=== PATIENT | male | born 1945 ===

== ENCOUNTER 2024-11-03 13:53 | Emergency (ER) | payer OTHER, SELFPAY ==
[2024-11-03] VITALS (10 sets, daily range): BP systolic 111–129; BP diastolic 47–71; PULSE 94–121; RESP 14–20; TEMP 36.6–37.1; O2SAT 93–99; BMI 27.1
--- NOTE | 2024-11-03 14:09 | ED.RECABL ---
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 Patient is uncertain of his baseline H&H. Reports a history of chronic bleeding coccyx wounds, x20 years intermittently. Over the past year he had initial admission to a hospital in [place], was having issues with explosive diarrhea at which time he was found to have some sort of infectious diarrhea, but ultimately he was anemic at that time requiring blood transfusions. He states that over the past year he has required quite a few transfusion as well, he states that they have ?done testing? for blood in the stool bulking size he has bleeding from his sacral ulcers they felt that this was the source of bleeding. Has had alternative workup without obvious GI bleeding by his account. Reports that he had a colonoscopy at least greater than 1 year ago but denies any previous abnormal findings on this. By his account, he states that the years have not been particularly worse than usual. Patient denies any dizziness, has been is, chest pain, shortness of breath, nausea, vomiting, hematochezia, melena, hematuria. Related Data Allergies Allergy/AdvReac Type Severity Reaction Status Date / Time atorvastatin (From Lipitor) Allergy Anaphylaxis Verified 11/03/24 14:10 capsaicin Allergy Anaphylaxis Verified 11/03/24 14:10 duloxetine (From Cymbalta) Allergy Anaphylaxis Verified 11/03/24 14:10 gabapentin Allergy Anaphylaxis Verified 11/03/24 14:10 metformin Allergy Anaphylaxis Verified 11/03/24 14:10 Review of Systems Review of Systems: Yes all other systems are reviewed and are negative PMFSH Past Medical History Attestation statement: The following information was validated with the patient. Source: old records reviewed Social History Social History Advance Directives: No Advance Directives Information Provided: Yes Do you have a plan to hurt others: No Plan Physical Exam Vital Signs: Vital Signs: Last Vital Signs Temp 98.8 F 11/03/24 21:03 Pulse 121 H 11/03/24 21:03 Resp 18 11/03/24 21:03 BP 121/51 L 11/03/24 21:03 Pulse Ox 93 11/03/24 20:29 O2 Del Method Room Air 11/03/24 20:29 BMI result Body Mass Index 27.1 Appearance: Alert.?Oriented to person, place and time. No acute distress.?Normal affect. Eyes: Pupils equal, round and reactive to light.? ENT: Pharynx normal.?? Neck: Normal inspection.? Neck supple.?? CVS: Heart sounds normal. Normal heart rate and rhythm.? Pulses normal.?? Respiratory: No respiratory distress.? Lung sounds clear to auscultation bilaterally?? Abdomen: Soft and non-tender. Normoactive bowel sounds. Skin: Skin warm and dry.? Normal skin color.? Extremities: No lower extremity edema.? Neuro: Moves all extremities spontaneously. Sensation intact bilaterally. Ambulates with normal steady gait. Course Reevaluation(s) Reevaluation #1: Spoke with nurse from facility; [facility], by her account this was routine serum labs obtained, Reports that baseline hemoglobin appears to be around 8, records were provided reveal most recently an H&H on 10/13/2024 of 7.7/25.5 , yesterday 11/02 of 6.6/21.8 and today 6.6/21.4. Transfusion consent form was reviewed with the patient, discussed indication for transfusion, potential complications, and consent was obtained, form was signed and placed in chart. Patient feels strongly that this is secondary to his blood loss from his chronic wounds. I reviewed this with my attending Dr. Espinal who also met with the patient at bedside patient reports prior workup in [facility] for GI bleed however did not have a colonoscopy. He has had no recent hematochezia or melena. Plan of care at this time will be for him to receive 2 units PRBCs, he has a new patient appointment with [facility] doctor next week via telehealth, I did discuss with him the importance of mentioning his ongoing anemia, and he may benefit from referral to [facility] for potential colonoscopy Time: 15:30 Reevaluation #2: Patient will be signed out to [facility] pending completion of transfusion, if no acute changes in patient's status, which I do not expect, anticipate discharge back to long-term facility. Pilar Cross PA-C [id number] ---> Patient succesffuly transfused. Discharged back to SNF. 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 manner with concern for anemia and outpatient labs hemoglobin of 6.6 was reported. Unfortunately, he is not aware of his baseline H&H, however as per HPI, this has been an ongoing issue for at least over the past year. He reports having previous workup for GI bleed without any obviously identified. He was under the impression that he was coming to emergency department today simply for a blood transfusion and being transferred back. On examination he does have pressure ulcers present to his buttocks as pictured and PE portion of this note some degree of active bleeding, though not copious. Has a benign abdominal examination. He declines digital rectal examination to obtain specimen for occult stool testing. He arrives tachycardic though I suspect this is secondary to his anemia, he is afebrile without signs of systemic toxicity, no respiratory distress or hypoxia. Differential Diagnosis Differential Diagnoses: The differential diagnosis associated with the presentation includes (See narrative above and course narrative) Admission/Observation Consideration of admission/observation: Escalation of care including admission/observation considered Lab Data [facility] Lab Attestation statement: I reviewed the patient's lab results. CBC revealing a pancytopenia WBC 4.5, H and H 6.8/21.2, platelets 152. No significant electrolyte derangement. No evidence of KIM. LFTs overall unremarkable. 11/03/24 14:23 11/03/24 14:23 Labs: Lab Results 11/03/24 Range/Units 14:23 WBC 4.5 L (4.8-10.8) X10*3/uL RBC 2.14 L (4.60-5.80) X10*6/uL Hgb 6.8 L* (14.0-18.0) g/dl Hct 21.2 L (42.0-52.0) % MCV 99.1 H (80.0-98.0) fL MCH 31.8 (27.0-33.0) pg MCHC 32.1 (31.0-36.0) g/dl RDW 19.5 H (11.0-16.0) % Plt Count 152 L (160-400) X10*3/uL MPV 9.4 (9.4-12.4) fL Immature Gran % (Auto) 0.7 H (0.0-0.4) % Neut % (Auto) 71.7 (45-73) % Lymph % (Auto) 14.4 L (20-40) % [place] % (Auto) 10.3 (2-11) % Eos % (Auto) 2.5 (0-4) % Baso % (Auto) 0.4 (0-2) % Lymph # (Auto) 0.6 L (1.2-4.9) X10*3/uL [place] # (Auto) 0.5 (0.1-1.2) X10*3/uL Eos # (Auto) 0.1 (0.0-0.4) X10*3/uL Baso # (Auto) 0.0 (0.0-0.2) X10*3/uL Abs Immat Gran (auto) 0.03 (0.00-0.03) X10*3/uL Absolute Neuts (auto) 3.2 (2.0-8.3) x10*3/uL Absolute Nucleated RBC 0.000 (0.0-0.012) X10*3/uL Nucleated RBC % (auto) 0.0 (0.0-0.2) /100WBC Sodium 141 (135-145) mmol/L Potassium 3.8 (3.3-5.1) mmol/L Chloride 100 (96-108) mmol/L Carbon Dioxide 31 H (22-29) mmol/L Anion Gap 14 (12-20) BUN 33 H (9-16) mg/dL Creatinine 1.37 (0.5-1.4) mg/dL Estim Creat Clear Calc 50.8 Estimated GFR 50 Random Glucose 135 H (60-115) mg/dL Calcium 8.3 L (8.4-10.2) mg/dL Magnesium 1.7 (1.6-2.6) mg/dL Total Bilirubin 0.6 (0.0-1.0) mg/dL AST 45 H (5-37) U/L ALT 14 (0-40) U/L Alkaline Phosphatase 83 (39-117) U/L Total Protein 8.5 H (6.5-8.0) g/dL Albumin 2.5 L (3.5-5.0) g/dL Blood Type A Negative Antibody Screen NEGATIVE Crossmatch See Detail Independent Historian Clinical information obtained from an independent historian. History obtained from or confirmed by: EMS External Record Review External record reviewed: Outpatient record (See course narrative) Chronic Conditions Patient?s care impacted by: Other (See narrative above) Discharge Plan Discharge Clinical Impression: Acute on chronic anemia Patient Disposition: Xfer SNF Transfer Details: [facility] Instructions: Anemia (ED) Additional Instructions: Patient received 2 units PRBC in the emergency department today for acute on chronic anemia having required transfusions in the past, on arrival had H&H of 6.8/21.2. Have primary provider follow-up on serial blood count monitoring. Patient reports [facility], please be certain to mentioned in the ongoing issues of anemia and discuss potential referral for Gastroenterology and outpatient colonoscopy. Patient may return back to emergency department with any new or worsening symptoms or concerns Print Language: Surinamese
[2024-11-03 14:29] LABS: MANUAL DIFF FLAG NO
[2024-11-03 14:31] LABS: Basophils Percent Auto 0.4 % (0-2); Eosinophils Absolute Auto 0.1 X10*3/uL (0.0-0.4); Eosinophils Percent Auto 2.5 % (0-4); Hematocrit 21.2 % (42.0-52.0); Imm Gran Abs Auto 0.03 X10*3/uL (0.00-0.03); Imm Gran Pct Auto 0.7 % (0.0-0.4); Lymphocytes Absolute Auto 0.6 X10*3/uL (1.2-4.9); Lymphocytes Percent Auto 14.4 % (20-40); Mean Corpuscular HGB Conc 32.1 g/dl (31.0-36.0); Mean Corpuscular Hemoglobin 31.8 pg (27.0-33.0); Mean Corpuscular Volume 99.1 fL (80.0-98.0); Mean Platelet Volume 9.4 fL (9.4-12.4); Monocytes Absolute Auto 0.5 X10*3/uL (0.1-1.2); Monocytes Percent Auto 10.3 % (2-11); Neutrophils Absolute Auto 3.2 x10*3/uL (2.0-8.3); Neutrophils Percent Auto 71.7 % (45-73); Platelet Count 152 X10*3/uL (160-400); Red Blood Count 2.14 X10*6/uL (4.60-5.80); Red Cell Distribution Width 19.5 % (11.0-16.0); White Blood Count 4.5 X10*3/uL (4.8-10.8)
--- OUTSIDE RECORDS SUMMARY | 2024-11-03 14:33 | XMS_ITS ---
Author Organization [facility] Support Name Relationship Address Phone Hoang Seth Guarantor [address], [place] [phone] Hoang Seth Next of Kin [address], [place] [phone] Hoang Seth Agent [address], [place] [phone] Hoang Seth Personal Relationship [address] [place], [place] [phone] Hoang Seth Emergency Contact [address] [place], [place] [phone] Ruth Berger Emergency Contact [address] [place] [address] Ruth Berger Personal Relationship [address] [place] [address] Care Team Providers Care Country Sales Manager Name Role Phone Romy Tovar Unavailable Unavailabl e Sylvia, Jayla Unavailable Unavailable Hill, Nan A Unavailable Unavailable Deven, Rosemary Unavailable Unavailable Allergies and adverse reactions Code CodeSystem Substance Reaction Severity StartDate Concern Status 6809 RXNORM metFORMIN Unknown 10/11/2024 active 50982 RXNORM Lipitor Unknown 10/11/2024 active 85962 RXNORM Gabapentin Unknown 10/11/2024 active 135822 RXNORM Cymbalta Unknown 10/11/2024 active 2670 RXNORM Codeine Unknown 10/11/2024 active 1992 RXNORM Capsaicin Unknown 10/11/2024 active Care Team Name Role Address Phone Organization Dates Romy Tovar [address] [address], [place], [address], [place] (Office): : : [facility] 10/12/2024 - present Jayla Ward [address] [place], [address], [facility] (Office): : [facility] 10/12/2024 - present Nan Mckeno [address], [address], [facility] (Office): : : [facility] 10/12/2024 - present Rosemary Carvalho [address] [place], [address], [facility] (Office): : [facility] 10/12/2024 - present Imaging Narrative Note Date Imaging Narrative No te 10/16/2024 XRAY CHEST 1 VIEWFIN DINGS: The heart is normal in size and configuration. The mediastinum is unremarkable. There is a mild airspace opacity in the right lower lobe. No acute osseous abnormality is visualized.CONCLUSION: Mild right lower lobe infiltrate. The differential primarily includes subsegmental atelectasis or infection. Correlation with history and symptomatology is advised.ELECTRONICALLY SIGNED BY TALYA AZAR D.O. 10/16/2024 2:59:43 AM EDT.Reason for Study: R05.1 ACUTE COUGHPrincipal Result Casino Operations Supervisor: TALYA AZAR ([phone])Jig Fitter: FARZANA MEDRANO ([id number])Occ Therapist Jig Fitter: LINDEN Marcial Section Goals Description Status Target Date Iggy will acquire necessary skills to maintain usp recovery from mood altering substances Active 01/16/2025 Iggy will be free of all si gns and symptoms of hypo/hyperglycemia such as: sweating, trembling, thirst, fatigue, weakness, blurred vision x 90 days. Active 01/16/2025 Iggy will consume 75% of all meals q day x 90 d ays. Active 01/16/2025 Iggy will demonstrate accep tance of placement by verbalizing positive feelings about living situation and taking an active role in center life by next review Active 01/16/2025 Iggy will demonstrate impro david mood state as evidenced by taking an active role in the center life by the next review. Active 01/16/2025 Iggy will have no falls with injury x 90 days. Active 01/16/2025 Iggy will have the smallest most effective dose without side effects X 90 days. Active 01/16/2025 Iggy will maintain a stabil ized weight of +/-5% 215# during the next 90 days Active 01/16/2025 Iggy will not develop GI complications x 90 day s. Active 01/16/2025 Iggy will not exhibit non-verbal indicators of pain x 90 days. Active 01/16/2025 Iggy will not exhibit signs /symptoms of b leeding x 90 days. Active 01/16/2025 Iggy will plan and choose to engage in preferre d activities. Active 01/16/2025 Iggy's ADL care needs will be anticipated and met throughout the next review period. Active 01/16/2025 Iggy's wishes as expressed in Advance Directive will be followed Active 01/16/2025 Iggy's wound /skin impairme nt will heal as evidenced by decrease in size, absence of erythema and drainage and/or presence of granulation X 90 days Active 01/16/2025 Resident will have regular voiding episodes Acti ve 01/16/2025 The resident will not have a ny discomfort or chewing problems related to broken, loose or carious teeth in the next 90 days. Active 01/16/2025 Functional Status Code Name Recorded Time Value Entered By Chair/rgq-ed-ngmxl transfer 11/02/2024 Not assessed ENIEVESGARCIA1 Eating 11/02/2024 Not assessed ENIEVESGARCIA1 Feeding or Eating 11/02/2024 Not assessed ENIEVESGAR CIA1 Indicate the type of wheelchair or scooter used 11/02/2024 Independent ENIEVESGARCIA 1 Indicate the type of wheelchair or scooter used 11/02/2024 Manual wheelchair (physical object) ENIEVESGARCIA1 Lower body dressing 11/02/2024 Not assessed ENIEVESG ARCIA1 Lying to sitting on side of bed 11/02/2024 Not assessed ENIEVESGARCIA1 Oral hygiene 11/02/2024 Not assessed ENIEVESGARCIA1 Personal hygiene 11/02/2024 Not assessed ENIEVESGARC IA1 Putting on/taking off footwear 11/02/2024 Not assessed ENIEVESGARCIA1 Roll left and right 11/02/2024 Not assessed ENIEVESG ARCIA1 Shower/bathe self 11/02/2024 Not assessed ENIEVESGAR CIA1 Sit to lying 11/02/2024 Not assessed ENIEVESGARCIA1 Sit to stand 11/02/2024 Not assessed ENIEVESGARCIA1 Toilet transfer 11/02/2024 Not assessed ENIEVESGARCI A1 Toileting hygiene 11/02/2024 Not assessed ENIEVESGAR CIA1 Upper body dressing 11/02/2024 Not assessed ENIEVESG ARCIA1 Walk 10 feet 11/02/2024 Not assessed ENIEVESGARCIA1 Walk 150 feet 11/02/2024 Independent ENIEVESGARCIA1 Walk 50 feet 11/02/2024 Independent ENIEVESGARCIA1 Wheel 150 feet 11/02/2024 Independent ENIEVESGARCIA 1 Wheel 50 feet with two turns 11/02/2024 Not assessed ENIEVESGARCIA1 Immunizations Immunization Status Vaccine Details Vaccine Code CodeSystem Hermilo e Notes TB 1 Step Mantoux (PPD) new tuberculin skin test; purified protein derivative solution, intradermal 96 CVX created date: 10/14/2024 TB 1 Step Mantoux (PPD) completed tuberculin skin test; purified protein derivative solution, intradermal lotNumber: [id number] Given 0.1 unit Right Forearm intradermally 96 CVX created date: 10/13/2024 consent date: 10/12/2024 administere d date: 10/12/2024 TB 2 Step Mantoux Skin Test new tuberculin skin test; purified protein derivative solution, intradermal 96 CVX created date: 10/14/2024 Medications Section Medication Name Status Code CodeSystem Dose Route Frequency Admin Type Sig Text Start Date End Date Acetaminophen Tablet 325 MG active 924629 RXNORM 2 tablet Oral as needed PRN Give 2 tablet by mouth every 4 hours as needed for Mild Pain More than 3 doses in 48 hours, notify physic david/ad isak palmer ce provid er(JACOBO ).Do not exceed 3g/day . (stand ing order) 2024 - Acetaminophen Tablet 325 MG active 634020 RXNORM 2 tablet Oral as needed PRN Give 2 tablet by mouth every 6 hours as needed for Temp 100F or above Notify Physic david/Ad isak Palmer ce provid er. Do not exceed 3g/day 2024 - Tuberculin PPD Solution 5 UNIT/0.1ML complete d 322453 RXNORM 0.1 ml Intrade rmal one time only One Time Only Inject 0.1 ml intrad ermall y one time only for Screen ing for 1 Day as Step 1, if positi ve obtain chest x-ray AND Inject 0.1 ml intrad ermall y one time only for Screen ing for 1 Day Step 2 admini ster 1 week after the readin g of step 1, if positi ve obtain chest x-ray 10/13 157646 RXNORM 0.1 ml Intrade rmal one time only One Time Only Inject 0.1 ml intrad ermall y one time only for Screen ing for 1 Day as Step 1, if positi ve obtain chest x-ray AND Inject 0.1 ml intrad ermall y one time only for Screen ing for 1 Day Step 2 admini ster 1 week after the readin g of step 1, if positi ve obtain chest x-ray 10/27 Milk of Magnesia Suspension 400 MG/5ML active 833775 RXNORM 30 ml Oral as needed PRN Give 30 ml by mouth as needed for Consti pation give at bedtim e if no BM in 3 days 2024 - Saline Laxative Enema active 1 dose Rectal as needed PRN Insert 1 dose rectal ly as needed for Consti pation if no result from Dulcol ax within 2 hours. If no result s from Saline laxati ve enema, call MD/adalberto campo provid er (JACOBO) for furthe r orders . 2024 - Dulcolax Suppository 10 MG active 306270 RXNORM 1 suppos itory Rectal as needed PRN Insert 1 suppos itory rectal ly as needed for Consti pation if no result from MOM by next shift 2024 - Cholecalcifer ol Tablet 1000 UNIT active 152818 RXNORM 1 tablet Oral one time a day Routine Give 1 tablet by mouth one time a day for supple ment 2024 - Eliquis Oral Tablet 5 MG active 650629 7 RXNORM 1 tablet Oral two times a day Routine Give 1 tablet by mouth two times a day for Afib 2024 - Enalapril Maleate Oral Tablet 2.5 MG active 387198 RXNORM 1 tablet Oral one time a day Routine Give 1 tablet by mouth one time a day for HTN 2024 - Finasteride Oral Tablet 5 MG active 994539 RXNORM 1 tablet Oral one time a day Routine Give 1 tablet by mouth one time a day for BPH 2024 - Tamsulosin HCl Oral Capsule 0.4 MG active 676640 RXNORM 2 capsul e Oral one time a day Routine Give 2 capsul e by mouth one time a day for BPH 2024 - Loratadine Oral Tablet 10 MG active 209941 RXNORM 1 tablet Oral one time a day Routine Give 1 tablet by mouth one time a day for Allerg ies 2024 - Ferrous Sulfate Oral Tablet 325 (65 Fe) MG active 393434 RXNORM 1 tablet Oral one time a day Routine Give 1 tablet by mouth one time a day for anemia 2024 - Multiple Vitamin Tablet active 1 tablet Oral one time a day Routine Give 1 tablet by mouth one time a day for supple mentat ion 2024 - Rosuvastatin Calcium Oral Tablet 5 MG active 481093 RXNORM 1 tablet Oral one time a day Routine Give 1 tablet by mouth one time a day for HLD 2024 - Lasix Oral Tablet 40 MG active 435035 RXNORM 1 tablet Oral one time a day Routine Give 1 tablet by mouth one time a day for HTN 2024 - Polyvinyl Alcohol-Povid one PF Ophthalmic Solution 1.4-0.6 % active 821531 RXNORM 2 drop Ophthal monica as needed PRN Instil l 2 drop in both eyes every 2 hours as needed for dry eyes 2024 - Lyrica Oral Capsule 200 MG active 411741 RXNORM 1 capsul e Oral two times a day Routine Give 1 capsul e by mouth two times a day for neurop athy 2024 - Ascorbic Acid Oral Tablet 250 MG active 19891217 RXNORM 1 tablet Oral one time a day Routine Give 1 tablet by mouth one time a day for supple ment 2024 - Insulin Glargine Solostar Subcutaneous Solution Pen-injector 300 UNIT/ML active 27 unit Subcuta neous one time a day Routine Inject 27 unit subcut aneous ly one time a day for DM II 2024 - Ozempic (0.25 or 0.5 MG/DOSE) Subcutaneous Solution Pen-injector 2 MG/3ML active 443919 4 RXNORM 0.5 mg Subcuta neous one time a day Routine Inject 0.5 mg subcut aneous ly one time a day every Mon for DM II 2024 - Kareen-Tussin Oral Syrup 100 MG/5ML active 10 ml Oral as needed PRN Give 10 ml by mouth every 8 hours as needed for cough 2024 - Ativan Oral Tablet 0.5 MG aborted 20670617 RXNORM 1 tablet Oral as needed PRN Give 1 tablet by mouth every 12 hours as needed for Anxiet y may have 2x a day prn 10/19 Pataday Ophthalmic Solution complete d 1 drop Ophthal monica two times a day Routine Instil l 1 drop in both eyes two times a day for Eye Rednes s for 10 Days 10/23 Nystatin Powder 939623 UNIT/GM aborted 828209 RXNORM n/a n/a Topical every day and evening shift Routine Apply to abd fold/g roin topica lly every day and evenin g shift for to abd fold and groin for 7 Days x 7 days with interd ry or abd pads 10/18 Phytoplex Z-Guard Paste 57-17 % aborted 371610 4 RXNORM n/a n/a Topical every day and evening shift Routine Apply to buttoc k topica lly every day and evenin g shift for apply to MASD of the buttoc k for 14 Days Apply as direct ed. 10/18 Phytoplex Z-Guard Paste 57-17 % aborted 673504 4 RXNORM n/a n/a Topical every day and evening shift Routine Apply to buttoc k topica lly every day and evenin g shift for apply to MASD of the buttoc k for 14 Days Apply as direct ed. 10/23 Nystatin Powder 833070 UNIT/GM aborted 181845 RXNORM n/a n/a Topical every day and evening shift Routine Apply to abd fold/g roin topica lly every day and evenin g shift for to abd fold and groin for 14 Days 10/31 Ativan Oral Tablet 0.5 MG complete d 20670617 RXNORM 1 tablet Oral as needed PRN Give 1 tablet by mouth every 12 hours as needed for Anxiet y for 14 Days may have 2x a day prn 11/02 Triad Hydrophilic Wound Dress External Paste active n/a n/a Topical every shift Routine Apply to bilat buttoc ks topica lly every shift for open wounds AND Apply to bilat buttoc ks topica lly as needed for soilin g 2024 - n/a n/a Topical as needed PRN Apply to bilat buttoc ks topica lly every shift for open wounds AND Apply to bilat buttoc ks topica lly as needed for soilin g 2024 - Nystatin External Cream 373885 UNIT/GM active 306968 RXNORM n/a n/a Topical every 12 hours Routine Apply to groin, pubis, abdomi nal f topica lly every 12 hours for fungal infect ion apply to groin, pubis, above abdomi nal fold for fungal infect ion not improv ing with Nystat in powder 2024 - Nystatin Powder 931132 UNIT/GM active 649526 RXNORM n/a n/a Topical two times a day Routine Apply to abd fold topica lly two times a day for to abd folds for 4 Days BID 11/07 Mental Status Section Date Assessment Total Score Description 10/16/2024 BIMS 15 cognitively int act CAM 0 No delirium ind icated PHQ-9 00 10/16/2024 BIMS 15 cognitively int act CAM 0 No delirium ind icated PHQ-9 00 Problems Problem # Description Date of onset Resolved Date Code CodeSystem Concern Status 1 MUSCLE WEAKNESS (GENERALIZED) 10/16/[address] active 2 SHORTNESS OF BREATH 10/16/[address] active 3 ABNORMAL POSTURE 10/13/[address] a ctive 4 UNSTEADINESS ON FEET 10/13/[address] active 5 ANEMIA, UNSPECIFIED 10/12/[address] active 6 BENIGN PROSTATIC HYPERPLASIA WITHOUT LOWER URINARY TRACT SYMPTOMS 10/12/[address] active 7 CHRONIC ATRIAL FIBRILLATION, UNSPECIFIED 10/12/[address] active 8 DRY EYE SYNDROME OF BILATERAL LACRIMAL GLANDS 10/12/[address] active 9 ESSENTIAL (PRIMARY) HYPERTENSION 10/12/[address] active 10 HYPERLIPIDEMIA, UNSPECIFIED 10/12/[address] active 11 POLYNEUROPATHY, UNSPECIFIED 10/12/[address] active 12 TYPE 2 DIABETES MELLITUS WITHOUT COMPLICATIONS 10/12/[address] active 13 VENOUS INSUFFICIENCY (CHRONIC) (PERIPHERAL) 10/12/[address] active Reason for Referral No Reasons for Referral Entered Diagnostic Results Result Code Code System Date Test Result Interpretation Reference Range Status Notes 42887-6 LOINC 2024 XRAY CHEST 1 VIEW Completed Result for: IGGY LOUIS ( 1945, M) 35098-5 LOINC 2024 XRAY CHEST 1 VIEW Final XRAY CHEST 1 VIEWFINDINGS: The heart is normal in size and configuration. The mediastinum is unremarkable. There is a mild airspace opacity in the right lower lobe. No acute osseous abnormality is visualized.CONC LUSION: Mild right lower lobe infiltrate. The differential primarily includes subsegmental atelectasis or infection. Correlation with history and symptomatology is advised.ELECTRO NICALLY SIGNED BY TALYA AZAR D.O. 10/16/2024 2:59:43 AM EDT.Reason for Study: R05.1 ACUTE COUGHPrincipal Result Casino Operations Supervisor: TALYA AZAR ([id number])Marychuy hnician: FARZANA MEDRANO [facility])Transcri ption Jig Fitter: LINDEN Test Code Code System Name Date 10/15/2024 Social History Social History Observation Description Start Date End Date Code Code System Current Smoking Status Tobacco smoking consumption unknown 227496970 SNOMED CT Sex Assigned At Male 1945 [address]-9 [facility] Gender Identity Vital Signs Code Code System Vitals Name Values and Units Timing Information 9279-1 LOINC Respiratory Rate Value=18.0 Units=/m in 11/03/2024 8462-4 LOINC Blood Pressure-Diastolic Value=48 Un its=mmHg 11/03/2024 8480-6 LOINC Blood Pressure-Systolic Uehju=758 Un its=mmHg 11/03/2024 8310-5 LOINC Body Temperature Value=97.9 Units= F 11/03/2024 8867-4 LOINC Heart rate Value=95.0 Units=/min 92716-5 INC O2 % BldC Oximetry Value=96.0 Units= % 11/03/2024 39766-8 LOINC Pain Level Value=0.0 11/03/2024 60231-0 LOINC Weight Iebvy=589.0 Units=Lbs 2339-0 LOINC Blood Sugar Lmjla=931.0 Units=mg/dL 10/15/2024 8302-2 LOINC Height Value=74.0 Units=Inches 10/12/2024
[2024-11-03 14:34] LABS: Hemoglobin 6.8 g/dl (14.0-18.0)
[2024-11-03 14:51] LABS: Alanine Aminotransferase 14 U/L (0-40); Albumin Level 2.5 g/dL (3.5-5.0); Alkaline Phosphatase 83 U/L (39-117); Anion Gap 14 (12-20); Aspartate Amino Transferase 45 U/L (5-37); Bilirubin Total 0.6 mg/dL (0.0-1.0); Blood Urea Nitrogen 33 mg/dL (9-16); Calcium 8.3 mg/dL (8.4-10.2); Carbon Dioxide 31 mmol/L (22-29); Chloride 100 mmol/L (96-108); Creatinine Clr Calc Pharmacy 50.8; Estimated Glomerular Filt Rate 50; Glucose Random 135 mg/dL (60-115); Magnesium 1.7 mg/dL (1.6-2.6); Potassium 3.8 mmol/L (3.3-5.1); Sodium 141 mmol/L (135-145); Total Protein 8.5 g/dL (6.5-8.0)
--- NOTE | 2024-11-03 14:56 | MHC.EDTECH ---
pt refusing to change into hospital gown and refusing rectal temp (pt feels very warm). Labs obtained, RN made aware
--- NOTE | 2024-11-03 18:58 | PC.NURSE ---
no signs or symptoms of reaction noted.
--- NOTE | 2024-11-03 19:46 | PC.NURSE ---
this rn assumed care of pt, pt resting in stretcher, blood products remain infusing at this time, pt tolerated well, no transfusion reactions noted. vss
[2024-11-04 01:09] VITALS: BP 128/64; PULSE 93; RESP 16; TEMP 36.8
== END 2024-11-04 01:02 | disposition skilled nursing facility (03) ==
PROVIDERS: Emergency Medicine; Emergency Provider Emergency Medicine
DX: D64.9 Anemia, unspecified (principal); L98.419 Non-pressure chronic ulcer of buttock with unspecified severity; E11.9 Type 2 diabetes mellitus without complications; I10 Essential (primary) hypertension; E78.5 Hyperlipidemia, unspecified; I48.91 Unspecified atrial fibrillation; Z79.01 Long term (current) use of anticoagulants
CPT/HCPCS: 36415; 36430; 80053; 83735; 85025; 86850; 86900; 86901; 86923; 99284; 99285; P9016

== ENCOUNTER → 2024-12-29 15:00 | Outpatient (BNV) | payer OTHER, SELFPAY | PROVIDERS: Visit Provider Nurse Practitioner Family | DX: D50.9 Iron deficiency anemia, unspecified (principal) | CPT/HCPCS: 99204 ==

== ENCOUNTER 2025-01-31 16:15 | Inpatient (IN) | payer OTHER, SELFPAY ==
--- NOTE | ~2025-01-31 | XR_ITS ---
CLINICAL HISTORY: ?osteo Right foot two views Comparison: None provided Findings: No acute fracture or dislocation identified. Degenerative change and decreased bone density. No radiopaque foreign body noted. Impression: No acute bony abnormality This document has been electronically signed by: Mani Haddad MD on 01/31/2025 19:33:04
--- NOTE | ~2025-01-31 | US_ITS ---
EXAMINATION: US TRIPLEX LOWER EXTREMITY, BILATERAL CLINICAL INFORMATION: Edema and pain in both lower extremities. COMPARISON: None available. TECHNIQUE: Color-flow triplex imaging with spectral analysis and compression Doppler were performed on the bilateral lower extremities. FINDINGS: Respiratory variation, normal compression and augmented flow are demonstrated in the interrogated common femoral vein, superficial femoral vein, profunda femoral vein, popliteal vein and midcalf peroneal and posterior tibial venous segments, both lower extremities. There is no Niño's cyst. US/US venous duplex LE BI IMPRESSION: No acute deep venous thrombosis interrogated veins of both lower extremities. Negative for DVT. Electronically signed by: Naren Chen MD 02/01/2025 07:44 AM EDT
--- NOTE | ~2025-01-31 | XR_ITS ---
CLINICAL HISTORY: ?osteo --- Additional Notes or Special Instructions: Patient not wanting xrays at the moment, will [place] back after pain meds? [id number] Left foot two views Comparison: None provided Findings: No acute fracture or dislocation identified. Degenerative change in decreased bone density. No radiopaque foreign body noted. Impression: No acute bony abnormality This document has been electronically signed by: Mani Haddad MD on 01/31/2025 19:32:39
--- NOTE | ~2025-01-31 | XR_ITS ---
CLINICAL HISTORY: OM infection? Radiographs of the right foot, 2 views Comparison: 01/31/25 Findings: No cortical destruction or periostitis to indicate osteomyelitis. Sclerosis of the sesamoids, unchanged. No fracture or dislocation. Mild degenerative change. Vascular calcifications soft tissue swelling. Impression: No radiographic evidence of osteomyelitis. Follow up if symptoms persist or worsen. This document has been electronically signed by: Chitra Shelton MD on 02/03/2025 16:44:40
--- NOTE | ~2025-01-31 | CT_ITS ---
CLINICAL HISTORY: chronic ulcer CT pelvis without contrast Comparison: None provided Findings: Age-indeterminate mild L5 compression fracture. Degenerative change lumbar spine and hips. No other significant focal bony abnormality. Bilateral gluteal subcutaneous edema and stranding. No focal soft tissue fluid collection identified. Impression: Age-indeterminate mild L5 compression fracture This document has been electronically signed by: Mani Haddad MD on 01/31/2025 19:31:48
--- NOTE | ~2025-01-31 | US_ITS ---
EXAMINATION: Noninvasive assessment of the bilateral lower extremities without ARTERIAL DUPLEX, ANKLE BRACHIAL INDICES (ABIs), and PULSE VOLUME RECORDINGS (PVRs). CLINICAL INFORMATION: Nonhealing ulcers. Status post bilateral femoral endarterectomy. Hypertension. Hyperlipidemia. History of previous smoking.. TECHNIQUE: Duplex Doppler techniques with waveform analysis and measurement of velocities in the bilateral common femoral, profunda femoris, superficial femoral, popliteal and tibial arteries were performed. The study was performed only at rest. COMPARISON: None FINDINGS: Arrhythmia episodes. DIRECT DUPLEX DOPPLER FINDINGS: RIGHT LEG: Common femoral artery: 68 cm/s, phasicity: Monophasic. Spectral broadening. Profunda femoris artery: 41 cm/s, phasicity: Monophasic. Spectral broadening. Superficial femoral artery (proximal): 30 cm/s, phasicity: Monophasic. Spectral broadening. Superficial femoral artery (mid): 27 cm/s, phasicity: Monophasic. Spectral broadening. Superficial femoral artery (distal): 29 cm/s, phasicity: Monophasic. Spectral broadening. Popliteal artery: 156 cm/s, phasicity: Monophasic. Spectral broadening. Posterior tibial artery: 52 cm/s, phasicity: Monophasic. Spectral broadening. Peroneal artery: 18 cm/s, phasicity: Monophasic. Spectral broadening. Anterior tibial artery: 56 cm/s, phasicity: Monophasic. Spectral broadening. Dorsalis pedis artery: 24 cm/s, phasicity:Monophasic. Spectral broadening. LEFT LEG: Common femoral artery: 52 cm/s, phasicity: Monophasic. Spectral broadening. Profunda femoris artery: 38 cm/s, phasicity: Monophasic. Spectral broadening. Superficial femoral artery (proximal): 54 cm/s, phasicity: Monophasic. Spectral broadening. Superficial femoral artery (mid): 46 cm/s, phasicity: Monophasic. Spectral broadening. Superficial femoral artery (distal): 52 cm/s, phasicity: Monophasic. Spectral broadening. Popliteal artery: 39 cm/s, phasicity: Monophasic. Spectral broadening. Posterior tibial artery: 58 cm/s, phasicity: Monophasic. Spectral broadening. Peroneal artery: Not visualized. Anterior tibial artery: 38 cm/s, phasicity: Monophasic. Spectral broadening. Dorsalis pedis artery: 29 cm/s, phasicity: Monophasic. Spectral broadening. US/US arterial duplex LE BI IMPRESSION: Right: Severe inflow disease throughout the interrogated arteries. Left: Severe inflow disease throughout the interrogated arteries. Electronically signed by: Naren Chen MD 02/01/2025 11:23 AM EDT
--- NOTE | ~2025-01-31 | US_ITS ---
EXAMINATION: US KIDNEY BILATERAL HISTORY: KIM TECHNIQUE: Real-time grayscale ultrasound imaging of the kidneys was performed and images were reviewed. COMPARISON: There are no prior studies available for comparison. FINDINGS: Right kidney: The right kidney measures 13.1 x 5.3 x 5.5 cm. There is a lobulated renal contour. Renal parenchymal echotexture and thickness are normal. There are no masses. There is no hydronephrosis or renal calculi. Left Kidney: The left kidney measures 10.8 x 5.5 x 4.4 cm. There is a lobulated renal contour. Renal parenchymal echotexture and thickness are normal. There are no masses. There is no hydronephrosis or renal calculi. US/US renal BI IMPRESSION: Lobulated renal contours. Otherwise unremarkable renal ultrasound. Electronically signed by: Musa Hyde MD 02/02/2025 07:04 AM EDT
--- NOTE | 2025-01-31 16:23 | ECG_ITS ---
Test Reason : A-FIB Blood Pressure : */* mmHG Vent. Rate : 140 BPM Atrial Rate : * BPM P-R Int : * ms QRS Dur : 86 ms QT Int : 266 ms P-R-T Axes : * 24 33 degrees QTcB Int : 406 ms Atrial fibrillation with rapid ventricular response Low voltage QRS Abnormal ECG No previous ECGs available Referred By: Vincent Posada Electronically Signed By: LUIS FINCH
[2025-01-31 16:29] VITALS: BP 128/62; BP 97/66; PULSE 136; PULSE 146; RESP 22; TEMP 36.6; O2SAT 96; O2SAT 97; BMI 29.4
[2025-01-31 17:13] LABS: MANUAL DIFF FLAG NO
[2025-01-31 17:15] LABS: Hematocrit 23.8 % (42.0-52.0); Hemoglobin 7.8 g/dl (14.0-18.0); Imm Gran Abs Auto 0.08 X10*3/uL (0.00-0.03); Imm Gran Pct Auto 1.7 % (0.0-0.4); Lymphocytes Absolute Auto 0.6 X10*3/uL (1.2-4.9); Mean Corpuscular HGB Conc 32.8 g/dl (31.0-36.0); Mean Corpuscular Hemoglobin 33.3 pg (27.0-33.0); Mean Corpuscular Volume 101.7 fL (80.0-98.0); NRBC Abs Auto 0.020 X10*3/uL (0.0-0.012); NRBC Pct Auto 0.4 /100WBC (0.0-0.2); Platelet Count 111 X10*3/uL (160-400); Red Blood Count 2.34 X10*6/uL (4.60-5.80); White Blood Count 4.8 X10*3/uL (4.8-10.8)
[2025-01-31] MEDS: Lactated Ringers 1,000 ML 999 ML IV (17:16)
[2025-01-31 17:33] LABS: Alanine Aminotransferase 10 U/L (0-40); Albumin Level 2.4 g/dL (3.5-5.0); Alkaline Phosphatase 82 U/L (39-117); Anion Gap 13 (12-20); Aspartate Amino Transferase 41 U/L (5-37); Blood Urea Nitrogen 59 mg/dL (9-16); Calcium 8.0 mg/dL (8.4-10.2); Carbon Dioxide 25 mmol/L (22-29); Chloride 107 mmol/L (96-108); Creatinine Clr Calc Pharmacy 38.9; Estimated Glomerular Filt Rate 35; Potassium 4.9 mmol/L (3.3-5.1); Sodium 140 mmol/L (135-145); Total Protein 8.3 g/dL (6.5-8.0)
--- NOTE | 2025-01-31 17:48 | PC.NURSE ---
pt comes into ED from SNF with chronic bleeding wounds to buttocks. photos in chart. buttocks, scrotum, under abd folds is red, excoriated and very painful. inter dry sheets in abd folds. 1 Liter of NS by EMS on route 18g IV. another liter LR given in ED. pt is in significant pain and transfer is difficult, pt also resistant to taking any pain medication. eventually pt requesting morphine for pain. chronic wounds on feet as well - per pt he has been dealing with these wounds for 30 years
[2025-01-31 17:51] VITALS: BP 118/62; PULSE 150; RESP 22; O2SAT 97
--- NOTE | 2025-01-31 17:51 | PC.NURSE ---
rapid afib on tele rate 120-150, frank GROSSMAN aware at bedisde
--- NOTE | 2025-01-31 18:08 | ED.GENADULT ---
HPI - General Adult General Chief complaint: Wound/Laceration Stated complaint: coccyx wound with steady bleeding by sitting Time Seen by Provider: 01/31/25 16:17 Source: patient, family, RN notes reviewed and old records reviewed Mode of arrival: EMS Limitations: no limitations History of Present Illness ED Provider: Swetha HPI narrative: 79-year-old male past medical history significant for type 2 diabetes, atrial fibrillation on Eliquis, hypertension, hyperlipidemia, BPH, polyneuropathy, in his insufficiency, chronic sacral wounds for approximately 30 years presents for evaluation of bleeding from his sacrum. Patient reports that he required a blood transfusion yesterday of 2 units On review of his labs, his hemoglobin was 6.2 yesterday. He states that today he started to have a lot of bleeding from his wounds on his buttocks He denies any injury today pain Denies any fevers, chills, weakness. He denies any increase in his chronic pain to the area The patient is presenting from [facility] He is primarily wheelchair-bound He is also being treated by wound care for wounds to both of his feet He has no pain to the area Related Data Home Medications ?Medication ?Instructions ?Recorded ?Confirmed acetaminophen 325 mg capsule 325 mg PO QID PRN yes 12/29/24 01/29/25 apixaban 5 mg tablet (Eliquis) 5 mg PO BID 12/29/24 01/29/25 artificial tears solution eye drops See Rx Instructions .Route .COMPLEX 12/29/24 01/29/25 ascorbic acid (vitamin C) 250 mg 250 mg PO DAILY 12/29/24 01/29/25 tablet bisacodyl 10 mg rectal suppository 10 mg OR NEEDED 12/29/24 01/29/25 (Dulcolax (bisacodyl)) cholecalciferol (vitamin D3) 25 25 mcg PO DAILY 12/29/24 01/29/25 mcg (1,000 unit) tablet clotrimazole-betamethasone 1 1 appl topical BID 12/29/24 01/29/25 %-0.05 % topical cream enalapril maleate 2.5 mg tablet 2.5 mg PO DAILY 12/29/24 01/29/25 ferrous sulfate 325 mg (65 mg 325 mg PO BID 12/29/24 01/29/25 iron) tablet finasteride 5 mg tablet 5 mg PO DAILY 12/29/24 01/29/25 furosemide 40 mg tablet (Lasix) 40 mg PO DAILY 12/29/24 01/29/25 guaifenesin 100 mg/5 mL oral See Rx Instructions .Route .COMPLEX 12/29/24 01/29/25 liquid (Kareen-Tussin) insulin glargine U-300 conc 300 75 unit subcut DAILY 12/29/24 01/29/25 unit/mL (1.5 mL) subcutaneous pen loratadine 10 mg capsule 10 mg PO DAILY 12/29/24 01/29/25 multivitamin See Rx Instructions .Route .COMPLEX 12/29/24 01/29/25 nystatin 100,000 unit/gram topical 1 appl topical DAILY 12/29/24 01/29/25 cream pregabalin 200 mg capsule (Lyrica) 200 mg PO BID 12/29/24 01/29/25 rosuvastatin 5 mg tablet 5 mg PO DAILY 12/29/24 01/29/25 sodium phosphates oral solution 15 ml PO Q10M 12/29/24 01/29/25 tamsulosin 0.4 mg capsule 0.4 mg PO DAILY 12/29/24 01/29/25 Allergies Allergy/AdvReac Type Severity Reaction Status Date / Time atorvastatin (From Lipitor) Allergy Anaphylaxis Verified 01/31/25 16:32 capsaicin Allergy Anaphylaxis Verified 01/31/25 16:32 duloxetine (From Cymbalta) Allergy Anaphylaxis Verified 01/31/25 16:32 gabapentin Allergy Anaphylaxis Verified 01/31/25 16:32 metformin Allergy Anaphylaxis Verified 01/31/25 16:32 Review of Systems Constitutional: Constitutional: Denies body ache(s), Denies chills, Denies fatigue and Denies fever(s) Eyes: Eyes: Denies blurry vision ENT: Denies vertigo and Denies dizziness Cardiovascular: Cardiovascular: Denies chest pain and Denies dyspnea on exertion Respiratory: Respiratory: Denies cough and Denies dyspnea on exertion Gastrointestinal: Gastrointestinal: Denies abdominal pain, Denies nausea and Denies vomiting Musculoskeletal: Musculoskeletal: Denies arthralgias, Denies joint swelling and Denies limited range of motion Integumentary/Breasts: Skin/Breast: Reports non-healing lesions, Reports erythema, Reports skin pain, Reports skin swelling, Reports skin ulcer, Reports sores and Reports wounds Neurologic: Denies vertigo and Denies dizziness Psychiatric: Psychiatric: Denies anxiety Endocrine: Endocrine: Denies fatigue PMFSH Social History Social History Smoked in Last 30 Days: No Use of substances other than those prescribed or required for medical reasons: No Advance Directives: No Advance Directives Information Provided: No Physical Exam ED Vital Signs: Vital Signs - 24 hr 01/31/25 16:29 01/31/25 17:51 01/31/25 18:27 Temperature 97.8 F Pulse Rate 136 H 150 H 139 H Respiratory Rate 22 H 22 H 22 H Blood Pressure 97/66 118/62 124/61 Pulse Oximetry 96 97 98 Oxygen Delivery Method Room Air Room Air Room Air 01/31/25 18:39 01/31/25 19:44 Temperature 98.6 F Pulse Rate 145 H 130 H Respiratory Rate 18 Blood Pressure 107/62 106/59 L Pulse Oximetry 99 Oxygen Delivery Method Nasal Cannula BMI result Body Mass Index 29.4 Const General: healthy appearing, comfortable, no acute distress, alert and awake Nutritional Appearance: well nourished Orientation/consciousness: patient oriented x3 HENMT Head: Yes normocephalic and Yes atraumatic Eyes Eyelids: Yes eyelids normal Conjunctivae: conjunctivae normal Sclerae: sclerae normal Corneas: corneas normal Pupils: Equal, round and reactive pupils present EOM: EOMs intact bilaterally Neck Neck: Yes full ROM Resp Effort & Inspection: normal respiratory effort, able to speak in complete sentences, no audible wheezes and not labored Auscultation: clear to auscultation bilaterally GI Inspection: No distended Palpation (GI): Soft to palpation, not firm, nontender, no guarding and not rigid Back/Spine/Pelvis Other: There is a very large, chronic appearing decubitus ulcer to the sacrum. There are several open wounds that appear to go somewhat deeper. There was no active bleeding or foul-smelling drainage. There is erythema around the patient's pannus on the front of the abdomen. This extends to the upper thighs bilaterally. Again, no bleeding from any of these areas. The patient also has chronic appearing wounds to both feet overlying the dorsal surface of the 3rd and 4th toes. There is some foul-smelling drainage from these areas. Skin General skin exam: elasticity normal Neuro General: patient oriented x3 Cranial nerves: Yes Equal, round and reactive pupils present and Yes Bilaterally intact EOM present Cognition (Neuro): normal cognition Course Reevaluation(s) Reevaluation #1: The patient's heart rate has been steadily around 140 in AFib, he has jumped as high as 170. We will start him on a Cardizem drip due to the significant AFib with RVR, his blood pressure has been stable. The patient does not meet sepsis criteria as he has no leukocytosis, his lactic acid within normal limits. He is quite tachycardic which could be due to his level of discomfort in his chronic anemia. Time: 17:48 Medications Administered Generic Name Dose Route Start Last Admin Trade Name Freq PRN Reason Stop Dose Admin Diltiazem HCl 125 mg/ Sodium 125 mls @ 0 mls/hr 01/31/25 18:00 01/31/25 18:39 Chloride IVCONT 10 mg/hr .Q0M JO 10 mls/hr Protocol Administration Per Protocol Discontinued Medications Generic Name Dose Route Start Last Admin Trade Name Freq PRN Reason Stop Dose Admin Lactated Ringer's 1,000 mls @ 999 mls/hr 01/31/25 17:15 01/31/25 18:41 Lr IV 01/31/25 18:15 Infused .Q1H1M JO Infusion Piperacillin Sod/Tazobactam 50 mls @ 100 mls/hr 01/31/25 17:48 01/31/25 18:41 Sod 3.375 gm/ Sodium Chloride IV 01/31/25 18:17 Infused ONCE ONE Infusion Vancomycin HCl 2,000 mg in 500 mls @ 250 mls/hr 01/31/25 17:51 01/31/25 19:03 Vancomycin/Ns IV 01/31/25 19:50 250 mls/hr ONCE ONE Administration Morphine Sulfate 4 mg 01/31/25 17:48 01/31/25 17:56 Morphine Sulfate 4 Mg/Ml Cartridge IVPUSH 01/31/25 17:49 4 mg ONCE ONE Administration Protocol Morphine Sulfate 4 mg 01/31/25 18:21 01/31/25 18:26 Morphine Sulfate 4 Mg/Ml Cartridge IVPUSH 01/31/25 18:22 4 mg ONCE ONE Administration Protocol Ondansetron HCl 4 mg 01/31/25 17:48 01/31/25 17:56 Ondansetron Hcl 4 Mg/2 Ml Vial IVPUSH 01/31/25 17:49 4 mg ONCE ONE Administration Medical Decision Making Medical Decision Making [facility] Narrative: 79-year-old male past medical history as described above. He presents for bleeding from his chronic decubitus wounds. He denies any fevers, increase in his pain. Denies any trauma. On presentation to the ER the patient is quite tachycardic to about 130 beats per minute. This is AFib on the monitor as well as EKG. There was no active bleeding currently. The patient will have labs drawn, we will obtain a CT scan of the pelvis without contrast due to chronic kidney disease. We will obtain x-rays of both feet to evaluate for osteomyelitis of the toes. Differential Diagnosis Differential Diagnoses: The differential diagnosis associated with the presentation includes Decubitus ulcer Coagulopathy Venous stasis Cellulitis Osteomyelitis Atrial fibrillation Admission/Observation Consideration of admission/observation: Escalation of care including admission/observation considered Lab Data [facility] Lab Attestation statement: I reviewed the patient's lab results. There was no leukocytosis. The patient has a chronic, macrocytic anemia with a hemoglobin today of 7.8 and a hematocrit 23.8. He did have labs from 2 days ago showing hemoglobin of 6.2 and a hematocrit 19.8. It was a interval 2 unit blood transfusion. The patient's ESR is noted to be elevated over 140 and could represent an active cellulitis or osteomyelitis. Chemistries are significant for find and consistent with chronic kidney disease. The patient is a diabetic, random glucose of 124 without evidence of DKA. CRP is elevated to 1.48 01/31/25 17:09 01/31/25 17:09 Labs: Lab Results 01/31/25 01/31/25 Range/Units 17:09 17:32 WBC 4.8 (4.8-10.8) X10*3/uL RBC 2.34 L D (4.60-5.80) X10*6/uL Hgb 7.8 L D (14.0-18.0) g/dl Hct 23.8 L D (42.0-52.0) % MCV 101.7 H (80.0-98.0) fL MCH 33.3 H (27.0-33.0) pg MCHC 32.8 (31.0-36.0) g/dl RDW 18.2 H (11.0-16.0) % Plt Count 111 L (160-400) X10*3/uL MPV 9.5 (9.4-12.4) fL Immature Gran % (Auto) 1.7 H (0.0-0.4) % Neut % (Auto) 72.7 (45-73) % Lymph % (Auto) 11.7 L (20-40) % Rice % (Auto) 10.0 (2-11) % Eos % (Auto) 3.3 (0-4) % Baso % (Auto) 0.6 (0-2) % Lymph # (Auto) 0.6 L (1.2-4.9) X10*3/uL Rice # (Auto) 0.5 (0.1-1.2) X10*3/uL Eos # (Auto) 0.2 (0.0-0.4) X10*3/uL Baso # (Auto) 0.0 (0.0-0.2) X10*3/uL Abs Immat Gran (auto) 0.08 H (0.00-0.03) X10*3/uL Absolute Neuts (auto) 3.5 (2.0-8.3) x10*3/uL Absolute Nucleated RBC 0.020 H (0.0-0.012) X10*3/uL Nucleated RBC % (auto) 0.4 H (0.0-0.2) /100WBC ESR > 140 H (0-15) MM/HR Sodium 140 (135-145) mmol/L Potassium 4.9 (3.3-5.1) mmol/L Chloride 107 (96-108) mmol/L Carbon Dioxide 25 (22-29) mmol/L Anion Gap 13 (12-20) BUN 59 H (9-16) mg/dL Creatinine 1.87 H (0.5-1.4) mg/dL Estim Creat Clear Calc 38.9 Estimated GFR 35 Random Glucose 124 H (60-115) mg/dL Lactic Acid 2.0 (0.5-2.0) mmol/L Calcium 8.0 L (8.4-10.2) mg/dL Total Bilirubin 0.6 (0.0-1.0) mg/dL AST 41 H (5-37) U/L ALT 10 (0-40) U/L Alkaline Phosphatase 82 (39-117) U/L Total Creatine Kinase 44 (38-174) U/L C-Reactive Protein 1.48 H (< or = 0.50) mg/dL Total Protein 8.3 H (6.5-8.0) g/dL Albumin 2.4 L (3.5-5.0) g/dL Blood Type A Negative Antibody Screen NEGATIVE Independent Interpretation I performed an independent interpretation of an: EKG Interpretation: AFib with RVR, rate of 140 beats minute. Radiology Impression Discussion of test interpretation with radiology: I have reviewed the radiologist's reading. Radiologist Impression: Findings: Age-indeterminate mild L5 compression fracture. Degenerative change lumbar spine and hips. No other significant focal bony abnormality. Bilateral gluteal subcutaneous edema and stranding. No focal soft tissue fluid collection identified. Impression: Age-indeterminate mild L5 compression fracture This document has been electronically signed by: Mani Haddad MD on 01/31/2025 19:31:48 Discharge Plan Discharge Clinical Impression: Anemia, Atrial fibrillation with rapid ventricular response, Chronic ulcer of sacral region Patient Disposition: Admitted As Inpatient Print Language: Mongolian
[2025-01-31 18:27] VITALS: BP 124/61; PULSE 139; RESP 22; O2SAT 98
[2025-01-31 18:39] VITALS: BP 107/62; PULSE 145
[2025-01-31] MEDS: vancomycin/NS 2,000 MG/500 ML PLAST..BAG 250 MG IV (19:03)
--- NOTE | 2025-01-31 19:16 | PC.NURSE ---
O2 Sat drops to 85% RA when patient asleep, patient placed on NC at 2 LPM with improvement-O2 Sat 95-98% on 2 LPM NC, meter installer in place, HR 113-140, A-Fib with RVR. ED provider is aware, Cardizem drip infusing at 10 ml/hr, BP 105/53. Patient denies chest pain/heart palpitations, SOB at this time. Patient is able to make his needs known, call [facility]ins within patient's reach.
--- OUTSIDE RECORDS SUMMARY | 2025-01-31 19:27 | XMS_ITS | Clinical Summary ---
Author Organization [facility] Address [address] [place] [address] Care Team Providers Care Ice Skating Instructor Name Role Phone Unknown, Provider MD Primary Care Provider Unava ilable Source Comments If you require more information, please call our [facility] Department at [phone]. [facility] Allergies Active Allergy Reactions Criticality Noted Date Comments Capsaicin Other (See Comments) Low 09/21/2024 unsure Codeine Other (See Comments) Low 09/21/2024 unsure Duloxetine Hcl Other (See Comments) Low 09/21/2024 unsure Gabapentin Other (See Comments) Low 09/21/2024 unsure Atorvastatin Other (See Comments) Low 09/21/2024 unsure Metformin Other (See Comments) Low 09/21/2024 unsure Zinc Oxide Other (See Comments) Low 09/21/2024 unsure Medications apixaban (ELIQUIS) 5 mg tablet Take 1 tablet (5 mg total) by mouth every 12 hours. Active enalapril 2.5 MG tablet Take 1 tablet (2.5 mg total) by mouth 2 times daily. Active fluticasone (FLONASE) 50 MCG/ACT nasal spray Jayess 2 sprays into each nostril daily. Active ibuprofen 800 mg tablet Take 1 tablet (800 mg total) by mouth 3 times daily. Active pregabalin 300 mg capsule Take 1 capsule (300 mg total) by mouth daily. Active polyethylene glycol (MIRALAX) powder Take 17 g by mouth daily. Active finasteride (PROSCAR) 5 mg tablet Take 1 tablet (5 mg total) by mouth daily. For use by men only. Active furosemide 40 mg tablet Take 1 tablet (40 mg total) by mouth every morning. Active guaiFENesin-dex tromethorphan (ROBITUSSIN DM) 100-10 mg/5mL syrup Take 5 mLs by mouth 3 times daily as needed for Cough. Active insulin glargine (LANTUS,SEMGLEE ) 100 UNIT/ML injection vial Inject 27 units into the skin nightly. Maximum 27 Units/day. Discard vial 28 days after first use. Active lidocaine (LMX) 4 % cream Apply topically 2 times daily. to the following areas: Left ribs Active loratadine (CLARITIN) 10 mg tablet Take 1 tablet (10 mg total) by mouth daily. Active multi-vitamin (THERAGRAN) tablet Take 1 tablet by mouth daily. Active semaglutide, 0.25 or 0.5 mg/dose, (OZEMPIC) pen Inject into the skin once a week. Active ketotifen (ZADITOR) 0.035 % ophthalmic solution 1 drop 2 times daily. Active rosuvastatin 5 mg tablet Take 1 tablet (5 mg total) by mouth daily. Active collagenase (SANTYL) ointment Apply 1 Application topically daily. to the following areas: L and R toes Active tamsulosin (FLOMAX) 0.4 mg capsule Take 1 capsule (0.4 mg total) by mouth every evening. Active triamcinolone (KENALOG) 0.5 % cream Apply 1 Application topically 2 times daily as needed. to the following areas: for itching Active Acetaminophen 325 mg tablet Take 2 tablets (650 mg total) by mouth every 6 hours as needed for Pain. Active cholecalciferol 5,000 unit TABS tablet Take 1,000 units by mouth daily. Active clotrimazole-be tamethasone (LOTRISONE) cream Apply 1 Application topically daily. to the following areas: affected area Active ferrous fumarate 325 (106 Fe) MG tablet Take 1 tablet (325 mg total) by mouth daily. Ferrous fumarate 325 mg = Elemental iron 106 mg Active Social History Tobacco Use Types Packs/Day Years Used Date Smoking Tobacco: Never Assessed Intimate Partner Violence Answer Date R ecorded Is anyone physically, emotionally, or financiall y hurting you? No 09/21/2024 Sex and Gender Information Value Date Recorded Sex Assigned at Male 07/26/2024 10:29 AM EDT Legal Sex Male 9:08 AM EST Gender Identity Not on file Sexual Orientation Not on file Last Filed Vital Signs Vital Sign Reading Time Taken Comments Blood Pressure 132/76 09/21/2024 4:25 PM EDT Pulse 99 09/21/2024 4:25 PM EDT Temperature 36.5 C (97.7 F) 09/21/2024 4:25 PM EDT Respiratory Rate 24 09/21/2024 4:25 PM EDT Oxygen Saturation 96% 09/21/2024 4:48 PM EDT Inhaled Oxygen Concentration - - Weight 104.8 kg (231 lb) 09/21/2024 4:25 PM EDT Height 188 cm (6' 2 ) 09/21/2024 4:25 PM EDT Body Mass Index 29.66 09/21/2024 4:25 PM EDT Plan of Treatment Health Maintenance Due Date Last Done Comments HIV Screening [facility] 1958 Hepatitis C Screening [facility] 1963 I[facility] DTaP/Tdap/Td (1 - Tdap) 1966 IMM-Influenza (#1) 2025 02/18/2024, 1 , 05/12/2022 COVID-19 Vaccine ( season) 2025 08/24/2024, 02/18/2024, 03/15/2023, Additional history exists IMM-Zoster Completed 03/21/2018, 12/17/2017 IMM Pneumo: 50+ Years Completed 08/11/2024 , 08/02/2019, 10/10/2015 IMM-HIB 0-5 Yrs or At-Risk Patients Aged Out No longer eligible based on patient's age to complete this topic IMM-HPV 9-26 Yrs or Shared Decision (27-45 Yrs) Aged Out No longer eligible based on patient's age to complete this topic IMM-Hepatitis B Vaccine Aged Out No l onger eligible based on patient's age to complete this topic IMM-MCV4 0-18 Yrs or At-Risk Patients Aged Out No longer eligible based on patient's age to complete this topic IMM-MenB (2 Plans: Shared decision & Increased Risk Plans) Aged Out No longer eligible based on patient's age to complete this topic IMM-Rotavirus 0-8 Months Aged Out No longer eligible based on patient's age to complete this topic Insurance MEDICARE PART A AND B MEDICARE PART A AND B * Guarantor: TylerfeliciaRober raymundo Account Type Relation to Patient Date of Phone Billing Address Referral Self 1945 [address] [phone] [facility] Care Teams Ice Skating Instructor Relationship Specialty Start Date End Date Unknown, Provider, [address] [place] [address] PCP - General 07/13/24
[2025-01-31 19:44] VITALS: BP 106/59; PULSE 130; RESP 18; TEMP 37; O2SAT 99
--- NOTE | 2025-01-31 20:33 | PC.NURSE ---
HR 99-110, a-fib on clinical research monitor. Patient continues to denies chest pain/SOB. Cardizem drip infusing at 10 mg/hr w/o issues.
--- NOTE | 2025-01-31 21:07 | PM.IMHP ---
History of Present Illness Date of Service: 01/31/25 Attending physician on admission: Irineo Steel Chief Complaint: bleeding from wounds Pt is a 79 yo male with PMH IDDM, polyneuropathy, PVD/ CVI with bilateral femoral endarterectomy history, osteoporosis, ITP, HTN, OA, chronic decubitus ulcer, BPH, immobility, chronic anemia/ DUSTIN on ferrous sulfate, CKD stage IIIB, MGUS, chronic AFib on Eliquis, was sent into the emergency department from his long-term [facility] in [place] since 10/12/2024 for bleeding from the chronic sacral wound area noting patient is on Eliquis for anticoagulation for AFib. Patient noted to be experiencing 6 to 8/10 pain in the pelvic region with limited mobility secondary to generalized weakness. Patient's H&H currently 7.8 and 23.8 and platelet count 111K. Patient was just seen by Hematology on 01/29/2025. Patient's H&H on that visit was 6.2 and 19.8 and patient received 1 unit of PRBC's in the outpatient setting. Patient also arrived in AFib RVR and was started on a Cardizem infusion. Patient's rate on the Cardizem drip is now 108 and patient remains in AFib. Patient also had noted skin changes in bilateral feet although patient states these are chronic changes. Skin is Ilene red in color. Sensation diminished and patient is having extreme difficulty moving secondary to generalized pain especially involving the pelvic region and lower legs. Patient states he is seen by technology integration specialist once week at the rehab facility. Patient does not believe he is currently on antibiotics coming into the ED today. Workup in the ED included CT of the pelvis which noted bilateral gluteal subcutaneous edema and stranding. No evidence of focal soft tissue fluid collection identified. Also patient has a an agent indeterminate mild L5 compression fracture. Patient unable to elaborate regarding the L5 compression fracture. Noted degenerative changes of the lumbar spine and hips as well. Foot x-rays done of the left and right foot noted no acute fracture or dislocation. No evidence of osteomyelitis. Degenerative changes in decreased bone density identified. And no evidence of foreign body. Pulses barely palpable manually. Patient has no leukocytosis, denies fever, chills, chest pain, shortness of breath at rest, or nausea/vomiting. Patient's lactic acid 2.0. Iron and TIBC levels are low. Sed rate and CRP are both elevated. Random glucose level 124. TSH 3.15. Patient was started on vancomycin and Zosyn in the ED. patient has been receiving morphine for pain and this has been changed to Dilaudid for more effectiveness and noting patient's current renal function. Patient's son is currently patient's healthcare proxy. Reviewed advanced directives and patient verbalized that he is a full code. Patient's main goal this admission is to have his pain controlled. Patient does report that he has a good appetite overall. Review of Systems Review of Systems: Patient denies any chest pain, shortness of breath at rest, abdominal pain, nausea or vomiting, diarrhea or constipation. Patient reports 6/10 generalized pelvic pain and pain increases when patient attempts to move. Patient states his appetite has been good. Patient denies any current overall issues with severe depression or anxiety. Yes all other systems are reviewed and are negative [facility] Medical History (Updated 01/31/25 @ 21:55 by SLOAN Lowry) Fungal rash of torso Polyneuropathy DUSTIN (iron deficiency anemia) CKD (chronic kidney disease) stage 3, GFR 30-59 ml/min Chronic disease anemia BPH (benign prostatic hyperplasia) Peripheral vascular disease Chronic ulcer of sacral region Chronic pain Allergic rhinitis Hyperlipidemia Hypertension Afib Cognitive capacity: Alert and orientated x3 Functional capacity: wheelchair bound Surgical History (Updated 01/31/25 @ 21:55 by SLOAN Lowry) H/O endarterectomy Social History Patient Tobacco Use Status: Former Tobacco user Ebola Risk: Travel/Contact With Anyone From Affected Area/s: No Has Patient Experienced Ebola Symptoms: No Meds Allergies Allergy/AdvReac Type Severity Reaction Status Date / Time atorvastatin (From Lipitor) Allergy Anaphylaxis Verified 01/31/25 16:32 capsaicin Allergy Anaphylaxis Verified 01/31/25 16:32 duloxetine (From Cymbalta) Allergy Anaphylaxis Verified 01/31/25 16:32 gabapentin Allergy Anaphylaxis Verified 01/31/25 16:32 metformin Allergy Anaphylaxis Verified 01/31/25 16:32 Active Medications: Current Medications Acetaminophen (Acetaminophen 325 Mg Tablet) 650 mg PO Q6H PRN PRN Reason: Pain, Mild 1-3,fever,headache Albuterol/Ipratropium (Albuterol/Iprat 2.5/0.5mg 3 Ml Ampul.Neb) 3 ml INHALE Q4H PRN PRN Reason: Shortness of Breath/Wheezing Calcium Carbonate (Calcium Carbonate 750 Mg Tab.Chew) 750 mg PO Q4H PRN PRN Reason: Heartburn Dextrose (Dextrose 50 % 25 Gm/50 Ml Syringe) 25 gm IVPUSH Q15M PRN; Protocol PRN Reason: per Hypoglycemia Standing Ord. Glucose (Glucose Gel 15 Gm Gel..Gram.) 15 gm PO Q15M PRN; Protocol PRN Reason: per Hypoglycemia Standing Ord. Diltiazem HCl 125 mg/ Sodium (Chloride) 125 mls @ 0 mls/hr IVCONT .Q0M [facility]; Protocol Last Admin: 01/31/25 18:39 Dose: 10 mg/hr, 10 mls/hr Piperacillin Sod/Tazobactam (Sod 2.25 gm/ Sodium Chloride) 50 mls @ 100 mls/hr IV Q6H [facility] Insulin Human Lispro (Insulin Lispro 100 Unit/Ml 3 Ml Vial) 0 unit SUBCUT QIDACHS [facility]; Protocol Magnesium Hydroxide (Milk Of Magnesia 30 Ml Oral.Susp) 30 ml PO DAILY PRN PRN Reason: Constipation Melatonin (Melatonin 3 Mg Tablet) 6 mg PO BEDTIME PRN PRN Reason: Insomnia Ondansetron HCl (Ondansetron Hcl 4 Mg/2 Ml Vial) 4 mg IVPUSH Q8H PRN PRN Reason: Nausea and Vomiting Pantoprazole Sodium (Pantoprazole Sodium 40 Mg/10 Ml Vial) 40 mg IVPUSH DAILY@0630 [facility] Pharmacy Consult (Consult Rx Vancomycin Dosing) 1 each MISCELLANE DAILY PRN PRN Reason: Consult order Polyethylene Glycol (Polyethylene Glycol 3350 17 Gm Powd.Pack) 17 gm PO DAILY PRN PRN Reason: Constipation Senna (Sennosides 8.6 Mg Tablet) 17.2 mg PO BEDTIME [facility] Sodium Chloride (0.9 % Sodium Chloride Flush 3 Ml Syringe) [address] [facility] Home Medications ?Medication ?Instructions ?Recorded ?Confirmed ?Last Taken ?Type acetaminophen 325 mg capsule 650 mg PO Q6H PRN Pain 12/29/24 01/31/25 Unknown History apixaban 5 mg tablet (Eliquis) 5 mg PO BID 12/29/24 01/31/25 Unknown History ascorbic acid (vitamin C) 250 mg 250 mg PO DAILY 12/29/24 01/31/25 Unknown History tablet bisacodyl 10 mg rectal suppository 10 mg [place] DAILY PRN Constipation 12/29/24 01/31/25 Unknown History (Dulcolax (bisacodyl)) cholecalciferol (vitamin D3) 25 25 mcg PO DAILY 12/29/24 01/31/25 Unknown History mcg (1,000 unit) tablet enalapril maleate 2.5 mg tablet 2.5 mg PO DAILY 12/29/24 01/31/25 Unknown History ferrous sulfate 325 mg (65 mg 325 mg PO BID 12/29/24 01/31/25 Unknown History iron) tablet finasteride 5 mg tablet 5 mg PO DAILY 12/29/24 01/31/25 Unknown History guaifenesin 100 mg/5 mL oral 200 mg PO Q8H PRN Cough 12/29/24 01/31/25 Unknown History liquid (Kareen-Tussin) insulin glargine U-300 conc 300 27 unit subcut DAILY 12/29/24 01/31/25 Unknown History unit/mL (1.5 mL) subcutaneous pen loratadine 10 mg capsule 10 mg PO DAILY 12/29/24 01/31/25 Unknown History multivitamin See Rx Instructions .Route .COMPLEX 12/29/24 01/31/25 Unknown History pregabalin 200 mg capsule (Lyrica) 200 mg PO BID 12/29/24 01/31/25 Unknown History rosuvastatin 5 mg tablet 5 mg PO DAILY 12/29/24 01/31/25 Unknown History sodium phosphates oral solution 15 ml PO Q10M 12/29/24 01/31/25 Unknown History tamsulosin 0.4 mg capsule 0.8 mg PO DAILY 12/29/24 01/31/25 Unknown History emollient 1 appl topical DAILY 01/31/25 01/31/25 Unknown History lidocaine 4 % topical patch 1 patch topical DAILY 01/31/25 01/31/25 Unknown History magnesium hydroxide 400 mg/5 mL 30 ml PO BEDTIME PRN Constipation 01/31/25 01/31/25 Unknown History oral suspension (Milk of Magnesia) nystatin 100,000 unit/gram topical 1 appl topical QSHIFT 01/31/25 01/31/25 Unknown History cream nystatin 100,000 unit/gram topical 1 appl topical QSHIFT 01/31/25 01/31/25 Unknown History powder polyvinyl alcohol-povidone (PF) 1 drp ophthalmic-Right Q2H PRN Dry 01/31/25 01/31/25 Unknown History 1.4 %-0.6 % eye drops in a Eyes dropperette sodium hypochlorite 0.25 % 1 appl topical DAILY Wound Care 01/31/25 01/31/25 Unknown History solution (Dakin's Solution) wound dressings (Triad Wound 1 appl topical DAILY 01/31/25 01/31/25 Unknown History Dressing paste) Physical Exam Vital Signs and Narrative: Vital Signs: Last Vital Signs Temp 98.6 F 01/31/25 19:44 Pulse 130 H 01/31/25 19:44 Resp 18 01/31/25 19:44 BP 106/59 L 01/31/25 19:44 Pulse Ox 99 01/31/25 19:44 O2 Del Method Nasal Cannula 01/31/25 19:44 BMI result Body Mass Index 29.4 Alert and orientated X3, able to give good history. Grimacing with pain Neuro: CN II-X11 intact, visual acuity intact EYES: PERRLA, EOM intact, sclerae nonicteric ENT: hearing intact, no issues with swallowing, uvula midline, lips dry, nares patent no epistaxis Cardiac: S1 S2 RRR, no murmur, no JVD, moderate edema in bilateral Lower ext Pulmonary: lungs diminished bilaterally Abdominal: BS active in all 4 quadrants, no guarding, tenderness, rebounding MSK: strength 1-2/5 lower extremities, 3/5 upper extremities : no CVA tenderness no bladder distension Extremities: Moderate edema in lower extremities, PT and DP pulses palpable manually but diminshed, skin Ilene red in color, noted healed excoriation, 2nd and 3rd toes on bilateral feet have excoriation, heels intact Psych: mood stable, judgement and insight good Skin: Chronic sacral decubitus actively oozing with bloody drainage, multiple open sites noted, bilateral feet with a abrasions/excoriations, also involving 2nd and 3rd toe on bilateral feet mild foul odor noted Results Labs 01/31/25 17:09 01/31/25 17:09 Labs: Laboratory Results - last 24 hr 01/31/25 01/31/25 17:09 17:32 MCV 101.7 H MCH 33.3 H MCHC 32.8 RDW 18.2 H Plt Count 111 L MPV 9.5 Immature Gran % (Auto) 1.7 H Neut % (Auto) 72.7 Lymph % (Auto) 11.7 L [place] % (Auto) 10.0 Eos % (Auto) 3.3 Baso % (Auto) 0.6 Lymph # (Auto) 0.6 L [place] # (Auto) 0.5 Eos # (Auto) 0.2 Baso # (Auto) 0.0 Abs Immat Gran (auto) 0.08 H Absolute Neuts (auto) 3.5 Absolute Nucleated RBC 0.020 H Nucleated RBC % (auto) 0.4 H ESR > 140 H Anion Gap 13 Estim Creat Clear Calc 38.9 Estimated GFR 35 Random Glucose 124 H Lactic Acid 2.0 Calcium 8.0 L Total Bilirubin 0.6 AST 41 H ALT 10 Alkaline Phosphatase 82 Total Creatine Kinase 44 C-Reactive Protein 1.48 H Total Protein 8.3 H Albumin 2.4 L Blood Type A Negative Antibody Screen NEGATIVE ECG Attestation: I personally reviewed and interpreted this ECG as follows: (AFib RVR) Prior ECG tracings: available for review Imaging Radiologist's Impressions: Pelvis CT Findings: Age-indeterminate mild L5 compression fracture. Degenerative change lumbar spine and hips. No other significant focal bony abnormality. Bilateral gluteal subcutaneous edema and stranding. No focal soft tissue fluid collection identified. Impression: Age-indeterminate mild L5 compression fracture B FOOT XRAYS Findings: No acute fracture or dislocation identified. Degenerative change in decreased bone density. No radiopaque foreign body noted. Impression: No acute bony abnormality Assessment and Plan (1) Anemia: Qualifiers: Anemia type: unspecified type Qualified Code(s): D64.9 - Anemia, unspecified Status: Acute (2) Atrial fibrillation with rapid ventricular response: Status: Acute (3) Chronic ulcer of sacral region: Qualifiers: Non-pressure ulcer stage: unspecified non-pressure ulcer stage Qualified Code(s): L98.429 - Non-pressure chronic ulcer of back with unspecified severity Status: Acute (4) Wound of foot: Status: Acute Plan Pt is a 79 yo male with PMH IDDM, polyneuropathy, PVD/ CVI with bilateral femoral endarterectomy history, osteoporosis, ITP, HTN, OA, chronic decubitus ulcer, BPH, immobility, chronic anemia/ DUSTIN on ferrous sulfate, CKD stage IIIB, MGUS, chronic AFib on Eliquis, was sent into the emergency department from his long-term [facility] in [place] since 10/12/2024 for bleeding from the chronic sacral wound area noting patient is on Eliquis for anticoagulation for AFib. Patient noted to be experiencing 6 to 8/10 pain in the pelvic region with limited mobility secondary to generalized weakness. Patient did not require transfusion in the emergency department. Patient does not meet the criteria for sepsis on both in the ED and on admission as he has no leukocytosis or elevated lactic acid level. Patient's tachycardia is associated with AFib. Blood pressure lower when heart rate was higher. Acute anemia on blood thinner with CKD, Chronic Anemia, DUSTIN Monitor H&H closely, no indication for transfusion at this time Continue iron as iron levels remain low Patient just seen by Hematology on 01/29/2025 and received 1 unit of PRBCs in the outpatient setting Concern regarding continuation of anticoagulation noting ongoing issues with anemia and bleeding from the sacral wound - currently held, repeating H&H at midnight Consider Hematology consultation if needed Reticular count and erythropoietin levels pending AFIB RVR, hx of AFIB Rate is better controlled on Cardizem infusion, BPM Patient asymptomatic no chest pain or shortness of breath or evidence of hypoxia Echo ordered Cardiology consulted Question in place is continuation of anticoagulation noting chronic issues with anemia along with acute findings involving bleeding from the sacral wounds and recent need for transfusion KIM on CKD with noted MGUS Nephrology consulted Avoid hypotension UA and urine studies pending Avoid nephrotoxic medications including NSAIDs Strict I's and O's Anemia persisting, ? need for Epogen and or IV Iron - erythropoietin level pending Chronic sacral decubitus with Chronic pain Morphine changed to Dilaudid to optimize pain control along with noted KIM/CKD Wound care consulted Patient is started on Vancomycin and Zosyn, Zosyn currently renal dosed based on creatinine clearance of 38 No evidence of osteomyelitis in the sacral wound via CT scan General surgery consulted Infectious disease consulted Nutritional consultation placed to optimize nutrition to promote wound healing B foot wounds with hx of PVD/ Neuropathy Noted peripheral vascular disease with history of femoral endarterectomy Vascular consulted Venous Dopplers requested, aware patient is on anticoagulation but goal is to rule out any abnormalities Wound care consulted Immobility and generalized weakness Patient states his overall abilities are declining since living in the long-term care facility Patient is now wheelchair-bound PT eval may be beneficial at some point during this admission IDDM Sliding scale insulin Lantus ordered Diabetic diet HTN Blood pressure was low initially and improving with rate control on the Cardizem infusion Med rec pending, holding patient's usual oral antihypertensives to avoid hypotension Low-sodium diet BPH Continue tamsulosin and finasteride HLD Continue statin Cardiac diet DVT Prophylaxis: Held secondary to obvious bleeding from the sacral wound and low H&H MED REC PENDING FULL CODE STATUS Quality Stroke Does the patient have a stroke diagnosis?: No Reason for No Anti-thrombotic by Day Two: Contraindicated VTE Prior VTE?: No VTE Risk Level:: Medical - moderate - high VTE Device Contraindication: N/A - Device Ordered VTE Drug Contraindication: N/A - Med Ordered
--- NOTE | 2025-01-31 21:19 | PHA.PROG ---
Admission Date/Time: January 31, 2025 20:39 Indication: SKIN Weight in k.5 kg Adjusted body weight in Kg: [place] body weight in Kg: Obesity Dosing Indication % IBW: Serum Creatinine - Last 168 Hours 01/31/25 17:09 Creatinine 1.87 H Estimated CrCl and GFR - Last 168 Hours 01/31/25 17:09 Estim Creat Clear Calc 38.9 Estimated GFR 35 Vancomycin Loading Dose: 2000 MG Current Vancomycin Dosing Regimen: 1000 MG Q12H Vancomycin Monitoring using AUC goal of 400 - 600 range with trough as surrogate marker: AQM=260 TROUGH=16.3 Date and Time for next Vancomycin Level to be drawn: 02/02/25 @1700 Pharmacist Comments on Vancomycin Plan: TROUGH AFTER 2 DOSES DUE TO CONCERN OF WORSENING RENAL FUNCTION Vancomycin dosing will take advantage of textPlus as a clinical decision support tool that uses Bayesian modeling to calculate individual patient's pharmacokinetic parameters and forecast the patient's drug concentration time course with the target goal AUC 24 range of 400 - 600 mg/L/hr.
[2025-01-31 21:25] LABS: Iron 32 mcg/dL (45-160); Magnesium 1.7 mg/dL (1.6-2.6); Percent Iron Saturation 26 % (15-50); Total Iron Binding Capacity 121 mcg/dL (228-428); Unsaturated Iron Binding 89 ug/dL
[2025-01-31 21:32] VITALS: BP 113/56; PULSE 97; RESP 15; TEMP 36.9; O2SAT 98
--- NOTE | 2025-01-31 21:41 | PHA.MEDREC ---
Pharmacy Consult ? Medication Reconciliation Pharmacy has completed the medication reconciliation. Patient came from [facility] [address] with med list. Yolanda Silva, RobertaD
--- NOTE | 2025-01-31 22:02 | PC.NURSE ---
Patient refused scheduled bedtime Senna 17.[address] Landon notified. Patient requested diet shakeel teresita, provided and tolerated well. Patient c/o of 6/10 pain in b/l buttocks, patient repositioned in bed with improvement in pain to 3/10. Cardizem drip infusing w/o issues at 10 mg/h, HR 99-110, a-fib. Patient in no apparent distress, call martins in patient's reach.
[2025-01-31 22:30] LABS: Glucose, Whole Blood 122 mg/dL (60-115)
[2025-01-31] MEDS: Insulin Glargine,Hum.rec.anlog 100 UNIT/ML 10 ML VIAL 27 UNIT SUBCUT (22:47)
--- NOTE | 2025-01-31 23:43 | HO.NURTONUR ---
Patient is a is a 79 yo male BIBA from [facility] for bleeding from sacral wounds-patient on Eliquis for [id number] receive 1 unit of PRBC by outpatient hematology on 01/29. PMH significant for with IDDM, polyneuropathy, PVD/ CVI with bilateral femoral endarterectomy history, osteoporosis, ITP, HTN, OA, chronic decubitus ulcer, BPH, immobility-patient is w/c bound, requires assistance of 2 people with bed mobility/repositioning, chronic anemia on ferrous sulfate, CKD. In ED patient noted to be in rapid A-fib with HR 130-160. Cardizem drip started and currently infusing at 10 mg/hr with improvement in HR 98-110. Patient's tachycardia is associated with AFib. Eliquis currently on hold d/t anemia and bleeding from sacral wound. Plan to monitor H&H. Patient admitted for A-fib with RVR. Chronic sacral decubitus, wounds to dorsal b/l feet, and chronic irritation in groin folds/abdominal folds-? fungal infection vs dermatitis-Wound care consult ordered. Patient is started on Vancomycin and Zosyn. Patient is IDDM, POC 124, 122 at ED.IV access: 18 R AC, 20 R forearm. Patient is alert and oriented x4, uses call ell appropriately.
[2025-02-01] VITALS (11 sets, daily range): BP systolic 100–118; BP diastolic 50–59; PULSE 81–113; RESP 12–20; TEMP 36.1–37.2; O2SAT 93–98; BMI 29.8; BMI 29.6
[2025-02-01 00:40] LABS: Hematocrit 22.9 % (42.0-52.0); Hemoglobin 7.5 g/dl (14.0-18.0)
--- NOTE | 2025-02-01 00:55 | PC.NURSE ---
HR 81-90. Cardizem drip paused, BP 114/53, O2 Sat 96% RA.
[2025-02-01 06:38] LABS: MANUAL DIFF FLAG NO
[2025-02-01 06:48] LABS: Hematocrit 23.7 % (42.0-52.0); Hemoglobin 7.7 g/dl (14.0-18.0); Imm Gran Abs Auto 0.13 X10*3/uL (0.00-0.03); Imm Gran Pct Auto 2.1 % (0.0-0.4); Lymphocytes Absolute Auto 0.6 X10*3/uL (1.2-4.9); Mean Corpuscular HGB Conc 32.5 g/dl (31.0-36.0); Mean Corpuscular Hemoglobin 33.3 pg (27.0-33.0); Mean Corpuscular Volume 102.6 fL (80.0-98.0); NRBC Abs Auto 0.000 X10*3/uL (0.0-0.012); NRBC Pct Auto 0.0 /100WBC (0.0-0.2); Platelet Count 121 X10*3/uL (160-400); Red Blood Count 2.31 X10*6/uL (4.60-5.80); Reticulocytes Absolute 0.046 X10*6/uL (0.026-0.095); White Blood Count 6.3 X10*3/uL (4.8-10.8)
--- NOTE | 2025-02-01 07:00 | CA_ITS ---
Transthoracic Echocardiogram Patient (Last, First, Middle): Rober Daniels, Gender: M Date of : 1945 Age: 79 Procedure Date: 02/01/2025 Procedure Type: Transthoracic Echocardiogram [place] [facility] [place]: 182.88 cm Weight: 98.88 kg BSA: 2.21 m2 Heart Rate: 89 bpm BP: 118 / 59 mmHg Tree Inspector: LILY Referring MD: Yara Landon QUILT MAKER- Symptoms: AFIB RVR Study Quality: Adequate w/Contrast ECG Rhythm: Atrial Fibrillation Conclusions: - The left ventricular systolic function is low normal. The visually estimated ejection fraction is between 50-55%. - Severe biatrial enlargement. - There is moderate calcification of the aortic valve. - There is moderate mitral annular calcification. Findings Procedure Information Contrast agent, definity, is being given per protocol without apparent complications. Left Ventricle Normal left ventricular cavity size. There is normal left ventricular wall thickness. The left ventricular systolic function is low normal. The visually estimated ejection fraction is between 50-55%. There is mild global hypokinesis. Diastolic function is indeterminate on the basis of available data. Right Ventricle Mildly increased right ventricular cavity size. There is mild to moderately decreased right ventricular systolic function. Atria Severe biatrial enlargement. Aortic Valve There is moderate calcification of the aortic valve. There is no aortic valve stenosis. There is no aortic valve regurgitation. Mitral Valve There is moderate mitral annular calcification. There is trace mitral valve regurgitation. There is no mitral valve stenosis. Pulmonic Valve The pulmonic valve is likely normal. Tricuspid Valve There is trace tricuspid valve regurgitation. There is no evidence of pulmonary hypertension. Great Vessels The asc aorta is normal in size. Small plaque is seen in the sinuses of Valsalva. Venous The inferior vena cava is mildly dilated and collapses less than 50% with inspiration. Pericardium/Pleural There is no evidence of pericardial effusion. Prior Study Comparison No prior study available for comparison. Measurements 2D Linear Measurements IVSd: 0.99 0.6-0.9/0.6-1.0 cm LVIDd: 5.42 3.9-5.3/4.2-5.9 cm LVIDd Index: 2.45 2.4-3.2/2.2-3.1 cm/m2 LVIDs: 3.83 2.0-3.6 cm LVPWd: 1.16 0.7-1.1 cm LA Diam: 4.90 2.7-3.8/3.0-4.0 cm LAIDs Index: 2.22 1.5-2.3 cm/m2 LV Mass: 285.92 67-162/88-224 g LV Mass Index: 129.38 43-95/49-115 g/m2 LVOT Diam: 2.20 3.0+(-)1.3 cm 2D Systolic Function EF 4C: 57.00 >55% EF 2C: 52.70 >55% EF BiP: 53.90 >55% Mitral Valve MV VTI: 0.39 MV Pk Edward: 1.45 MV Mn Edward: 0.80 MV Pk Grad: 8.00 MV Mn Grad: 3.00 MV Pk E: 1.47 MV Decel Time: 211.00 E'Lateral: 8.92 E'Medial: 6.74 E/E' Med: 21.80 E/E' Lat: 16.50 PHT: 62.00 MVA PHT: 3.55 MVA Continuity: 2.38 Decel [place]: 7.08 Aortic Valve AoV Pk Edward: 2.17 AoV Mn Edward: 1.63 AoV VTI: 0.47 AoV Pk Grad: 19.00 Aov Mn Grad: 11.00 FLEX Cont.VTI: 2.00 LVOT LVOT Pk Edward: 1.18 LVOT Mn Edward: 0.81 LVOT VTI: 0.25 LVOT Pk Grad: 6.00 LVOT Mn Grad: 3.00 LVOT Diam: 2.20 LVOT Area: 3.80 Diastolic Function MV Pk E: 1.47 E'Medial: 6.74 E/E' Med: 21.80 E' Laterial: 8.92 E/E' Lat: 16.50 Right Ventricle TAPSE (mm): 15.80 TVS' Edward: 8.41 Tricuspid Valve TR Pk Edward: 2.11 TR Pk Grad: 18.00 RA Press: 15.00 RVSP: 33.00 Great Vessels Aorta Sinus of Valsalva: 3.10 2.0-3.5 cm Ao Asc: 3.80 2.1-3.4 cm Ao Arch: 3.30 Pulmonary Valve PV Pk Edward: 1.14 Peak PV Grad: 5.00 Updated in Other Vendor System with Status of Final Pedro Owens MD electronically signed on 02/01/2025 5:19:40 PM with status of Final
[2025-02-01 07:04] LABS: Alanine Aminotransferase 12 U/L (0-40); Albumin Level 2.3 g/dL (3.5-5.0); Alkaline Phosphatase 80 U/L (39-117); Anion Gap 14 (12-20); Aspartate Amino Transferase 38 U/L (5-37); Blood Urea Nitrogen 53 mg/dL (9-16); Calcium 8.3 mg/dL (8.4-10.2); Carbon Dioxide 24 mmol/L (22-29); Chloride 108 mmol/L (96-108); Cholesterol 52 mg/dL (<200); Creatinine Clr Calc Pharmacy 39.6; Estimated Glomerular Filt Rate 36; HDL Cholesterol 21 mg/dL (>40); Potassium 4.7 mmol/L (3.3-5.1); Sodium 141 mmol/L (135-145); Total Protein 8.2 g/dL (6.5-8.0); Triglycerides 58 mg/dL (<150)
[2025-02-01 07:04] LABS: Glucose, Whole Blood 117 mg/dL (60-115)
[2025-02-01] MEDS: 0.9 % Sodium Chloride Flush 3 ML SYRINGE IVFLUSH ×3 (07:52→19:29)
[2025-02-01] MEDS: Ferrous Sulfate 324 MG TABLET.DR PO ×2 (07:53→19:29)
[2025-02-01 08:14] LABS: Vitamin B12 590 pg/mL (200-900)
--- NOTE | 2025-02-01 09:15 | PM.CNNEP ---
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 01/31 ED from [facility] (there since September 2024), for bleeding from sacral wound. in afib with RVR on arrival Nephrology consulted for KIM on CKD creatinine 1.37 11/03/24 1.53 on 12/29/24 1.81 on 01/29/25 1.87 on 01/31/25 1.84 on 02/01/25 Review of Systems Constitutional: Reports fatigue and Reports weakness Cardiovascular: Denies chest pain, Denies leg edema and Denies dyspnea Respiratory: Denies dyspnea Gastrointestinal: Denies abdominal pain, Denies diarrhea, Denies nausea and Denies vomiting Genitourinary: Denies hematuria, Denies oliguria, Denies dysuria and Denies flank pain Musculoskeletal: Denies muscle cramps Skin/Breast: Reports rash and Reports wounds (chronic sacral wound) Reports weakness Endocrine: Reports fatigue PMFSH Past Medical History Medical History (Updated 02/01/25 @ 09:23 by Nan More DNP, [employer]) Fungal rash of torso Polyneuropathy DUSTIN (iron deficiency anemia) CKD (chronic kidney disease) stage 3, GFR 30-59 ml/min Chronic disease anemia BPH (benign prostatic hyperplasia) Peripheral vascular disease Chronic ulcer of sacral region Chronic pain Allergic rhinitis Hyperlipidemia Hypertension Afib Surgical History Surgical History (Updated 01/31/25 @ 21:55 by Yara Landon, [employer]) H/O endarterectomy Social History Social History Household Members: None Housing: Group Home Patient Tobacco Use Status: Former Tobacco user Smoked in Last 30 Days: No Use of substances other than those prescribed or required for medical reasons: No Have you been hit, kicked, punched, or otherwise hurt by someone within the past year? If so, by whom?: No Do you feel safe in your current relationship?: No Current Relationship Is there a partner from a previous relationship who is making you feel unsafe now?: No Are you made to feel afraid or neglected: No Advance Directives: No Advance Directives Information Provided: No Do you have a plan to hurt others: No Plan Recently lost weight without trying: No Eating poorly because of decreased appetite: No Nutrition Risks: No Nutritional Risk Travel History Ebola Risk: Travel/Contact With Anyone From Affected Area/s: No Has Patient Experienced Ebola Symptoms: No Meds Allergies Allergy/AdvReac Type Severity Reaction Status Date / Time atorvastatin (From Lipitor) Allergy Anaphylaxis Verified 01/31/25 16:32 capsaicin Allergy Anaphylaxis Verified 01/31/25 16:32 duloxetine (From Cymbalta) Allergy Anaphylaxis Verified 01/31/25 16:32 gabapentin Allergy Anaphylaxis Verified 01/31/25 16:32 metformin Allergy Anaphylaxis Verified 01/31/25 16:32 Active Medications: Current Medications Acetaminophen (Acetaminophen 325 Mg Tablet) 650 mg PO Q6H PRN PRN Reason: Pain, Mild 1-3,fever,headache Albuterol/Ipratropium (Albuterol/Iprat 2.5/0.5mg 3 Ml Ampul.Neb) 3 ml INHALE Q4H PRN PRN Reason: Shortness of Breath/Wheezing Artificial Tears (Artificial Tears 15 Ml Drops) 1 drop EYE-BOTH Q2H PRN PRN Reason: Dry Eyes Ascorbic Acid (Ascorbic Acid 250 Mg Tablet) 250 mg PO DAILY [facility] Last Admin: 02/01/25 07:52 Dose: 250 mg Bisacodyl (Bisacodyl 10 Mg Supp.Rect) [address] DAILY PRN PRN Reason: Constipation Calcium Carbonate (Calcium Carbonate 750 Mg Tab.Chew) 750 mg PO Q4H PRN PRN Reason: Heartburn Dextrose (Dextrose 50 % 25 Gm/50 Ml Syringe) 25 gm IVPUSH Q15M PRN; Protocol PRN Reason: per Hypoglycemia Standing Ord. Ferrous Sulfate (Ferrous Sulfate 324 Mg Tablet.Dr) 324 mg PO BID [facility] Last Admin: 02/01/25 07:53 Dose: 324 mg Finasteride (Finasteride 5 Mg Tablet) 5 mg PO DAILY [facility] Last Admin: 02/01/25 07:53 Dose: 5 mg Glucose (Glucose Gel 15 Gm Gel..Gram.) 15 gm PO Q15M PRN; Protocol PRN Reason: per Hypoglycemia Standing Ord. Guaifenesin (Guaifenesin 200 Mg/10 Ml 10 Ml Liquid) 10 ml PO Q8H PRN PRN Reason: Cough Hydromorphone HCl (Hydromorphone Hcl 1 Mg/Ml Syringe) 1 mg IVPUSH Q3H PRN; Protocol PRN Reason: Pain, Severe (Pain Scale 7-10) Diltiazem HCl 125 mg/ Sodium (Chloride) 125 mls @ 0 mls/hr IVCONT .Q0M [facility]; Protocol Last Titration: 02/01/25 00:56 Dose: 0 mg/hr, 0 mls/hr Piperacillin Sod/Tazobactam (Sod 2.25 gm/ Sodium Chloride) 50 mls @ 100 mls/hr IV Q6H [facility] Last Admin: 02/01/25 06:26 Dose: 100 mls/hr Vancomycin HCl 1,000 mg/ (Sodium Chloride) 270 mls @ 270 mls/hr IV Q24H [facility] Insulin Glargine (Insulin Glargine,Hum.Rec.Anlog 100 Unit/Ml 10 Ml Vial) 27 unit SUBCUT BEDTIME [facility] Last Admin: 01/31/25 22:47 Dose: 27 unit Insulin Human Lispro (Insulin Lispro 100 Unit/Ml 3 Ml Vial) 0 unit SUBCUT QIDACHS [facility]; Protocol Last Admin: 02/01/25 07:20 Dose: Not Given Lidocaine (Lidocaine 4 % Patch Adh..Patch) 1 patch TRANSDERMA DAILY [facility]; Protocol Magnesium Hydroxide (Milk Of Magnesia 30 Ml Oral.Susp) 30 ml PO DAILY PRN PRN Reason: Constipation Melatonin (Melatonin 3 Mg Tablet) 6 mg PO BEDTIME PRN PRN Reason: Insomnia Multivitamins/Vitamin C (Multivitamin Tablet) 1 tab PO DAILY [facility] Last Admin: 02/01/25 07:53 Dose: 1 tab Non-Formulary Medication (Rosuvastatin) 5 mg PO DAILY [facility] Nystatin (Nystatin Powder 15 Gm Bottle) 1 appl TOPICAL QSHIFT [facility]; Protocol Last Admin: 02/01/25 00:50 Dose: 1 appl Ondansetron HCl (Ondansetron Hcl 4 Mg/2 Ml Vial) 4 mg IVPUSH Q8H PRN PRN Reason: Nausea and Vomiting Pantoprazole Sodium (Pantoprazole Sodium 40 Mg/10 Ml Vial) 40 mg IVPUSH DAILY@0630 [facility] Last Admin: 02/01/25 06:26 Dose: 40 mg Pharmacy Consult (Consult Rx Vancomycin Dosing) 1 each MISCELLANE DAILY PRN PRN Reason: Consult order Polyethylene Glycol (Polyethylene Glycol 3350 17 Gm Powd.Pack) 17 gm PO DAILY PRN PRN Reason: Constipation Pregabalin (Pregabalin 200 Mg Capsule) 200 mg PO BID [facility] Last Admin: 02/01/25 07:53 Dose: 200 mg Senna (Sennosides 8.6 Mg Tablet) 17.2 mg PO BEDTIME [facility] Last Admin: 01/31/25 21:45 Dose: Not Given Sodium Chloride (0.9 % Sodium Chloride Flush 3 Ml Syringe) 3 ml IVFLUSH QSHIFT [facility] Last Admin: 02/01/25 07:52 Dose: 3 ml Sodium Hypochlorite (Sodium Hypochlorite 0.25% 473 Ml Solution) 1 appl TOPICAL DAILY [facility] Tamsulosin HCl (Tamsulosin Hcl 0.4 Mg Capsule) 0.8 mg PO DAILY [facility] Last Admin: 02/01/25 07:52 Dose: 0.8 mg Vitamin D (Cholecalciferol (Vitamin D3) 25 Mcg Tablet) 25 mcg PO DAILY [facility] Last Admin: 02/01/25 07:52 Dose: 25 mcg Home Medications ?Medication ?Instructions ?Recorded ?Confirmed ?Last Taken ?Type acetaminophen 325 mg capsule 650 mg PO Q6H PRN Pain 12/29/24 01/31/25 Unknown History apixaban 5 mg tablet (Eliquis) 5 mg PO BID 12/29/24 01/31/25 Unknown History ascorbic acid (vitamin C) 250 mg 250 mg PO DAILY 12/29/24 01/31/25 Unknown History tablet bisacodyl 10 mg rectal suppository [address] DAILY PRN Constipation 12/29/24 01/31/25 Unknown History (Dulcolax (bisacodyl)) cholecalciferol (vitamin D3) 25 25 mcg PO DAILY 12/29/24 01/31/25 Unknown History mcg (1,000 unit) tablet enalapril maleate 2.5 mg tablet 2.5 mg PO DAILY 12/29/24 01/31/25 Unknown History ferrous sulfate 325 mg (65 mg 325 mg PO BID 12/29/24 01/31/25 Unknown History iron) tablet finasteride 5 mg tablet 5 mg PO DAILY 12/29/24 01/31/25 Unknown History guaifenesin 100 mg/5 mL oral 200 mg PO Q8H PRN Cough 12/29/24 01/31/25 Unknown History liquid (Kareen-Tussin) insulin glargine U-300 conc 300 27 unit subcut DAILY 12/29/24 01/31/25 Unknown History unit/mL (1.5 mL) subcutaneous pen loratadine 10 mg capsule 10 mg PO DAILY 12/29/24 01/31/25 Unknown History multivitamin See Rx Instructions .Route .COMPLEX 12/29/24 01/31/25 Unknown History pregabalin 200 mg capsule (Lyrica) 200 mg PO BID 12/29/24 01/31/25 Unknown History rosuvastatin 5 mg tablet 5 mg PO DAILY 12/29/24 01/31/25 Unknown History sodium phosphates oral solution 15 ml PO Q10M 12/29/24 01/31/25 Unknown History tamsulosin 0.4 mg capsule 0.8 mg PO DAILY 12/29/24 01/31/25 Unknown History emollient 1 appl topical DAILY 01/31/25 01/31/25 Unknown History lidocaine 4 % topical patch 1 patch topical DAILY 01/31/25 01/31/25 Unknown History magnesium hydroxide 400 mg/5 mL 30 ml PO BEDTIME PRN Constipation 01/31/25 01/31/25 Unknown History oral suspension (Milk of Magnesia) nystatin 100,000 unit/gram topical 1 appl topical QSHIFT 01/31/25 01/31/25 Unknown History cream nystatin 100,000 unit/gram topical 1 appl topical QSHIFT 01/31/25 01/31/25 Unknown History powder polyvinyl alcohol-povidone (PF) 1 drp ophthalmic-Right Q2H PRN Dry 01/31/25 01/31/25 Unknown History 1.4 %-0.6 % eye drops in a Eyes dropperette sodium hypochlorite 0.25 % 1 appl topical DAILY Wound Care 01/31/25 01/31/25 Unknown History solution (Dakin's Solution) wound dressings (Triad Wound 1 appl topical DAILY 01/31/25 01/31/25 Unknown History Dressing paste) Physical Exam Vital Signs: Last Vital Signs Temp 97.7 F 02/01/25 07:08 Pulse 98 02/01/25 07:08 Resp 20 02/01/25 07:08 BP 118/59 L 02/01/25 07:08 Pulse Ox 98 02/01/25 07:08 O2 Del Method Nasal Cannula 02/01/25 07:08 O2 Flow Rate 2 02/01/25 07:08 BMI result Body Mass Index 29.6 Const General: no acute distress, alert and awake Resp Effort & Inspection: normal respiratory effort and able to speak in complete sentences Auscultation: clear to auscultation bilaterally Cardio Rate: regular rate Rhythm: abnormal rhythm Heart sounds: S1 normal heart sound present and S2 normal heart sound present GI Palpation (GI): Soft to palpation and nontender Skin Rashes: no rashes Extrem General: No edema Results Lab Results 02/01/25 05:49 02/01/25 05:49 Lab results: Chemistry 01/31/25 02/01/25 17:09 05:49 Sodium 140 141 Potassium 4.9 4.7 Carbon Dioxide 25 24 BUN 59 H 53 H Creatinine 1.87 H 1.84 H Calcium 8.0 L 8.3 L Phosphorus 4.0 Hematology 01/31/25 02/01/25 02/01/25 17:09 00:34 05:49 WBC 4.8 6.3 Hgb 7.8 L D 7.5 L 7.7 L Plt Count 111 L 121 L Assessment and Plan (1) Acute kidney injury superimposed on CKD: Status: Acute Plan KIM on CKD of unknown etiology likely has component of hemodynamic KIM from atrial fibrillation and resultant reduced renal perfusion Will get UA to rule out GN, AIN - pt does have 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 IgA nephropathy on differential. Will get urine immunofixation. Patient should have a bone marrow biopsy- recommend hematology consult. May need kidney biopsy. UA, urine protein/creatinine ratio will check renal US to ensure no obstruction recommend daily electrolyte and renal function studies recommend close K&O monitoring, daily weights recommend avoiding nephrotoxins Discussed with Dr Beckett Procedures Date of Service Date of Service: 02/01/25
--- NOTE | 2025-02-01 09:16 | PM.CNGS ---
History of Present Illness Consult details Consult date: 02/01/25 <Katlin Wong PA-C - Last Filed: 02/01/25 13:51> Reason for consult: wound care <Katlin Wong PA-C - Last Filed: 02/01/25 13:51> Narrative: 79-year-old male with PMH significant for type 2 diabetes, atrial fibrillation on Eliquis, hypertension, hyperlipidemia, BPH, polyneuropathy, primarily wheelchair bound with chronic sacral wounds who presented from [facility] to the ED for evaluation of bleeding from his sacrum. Patient reports that he required a blood transfusion two days prior and yesterday, he started to have a lot of bleeding from his wounds on his buttocks. He denied any injury to the area, fevers. He has chronic pain. Work up in the ED included CT scan pelvis which showed bilateral gluteal subcutaneous edema and stranding, without focal soft tissue fluid collection identified. He was admitted to the hospitalist service for multiple acute issues including acute on chronic anemia, A fib with RVR and chronic sacral decubitus ulcer. He also has non healing b/l foot ulcers. He was started on IV vanco and zosyn. General surgery was consulted for evaluation of the sacral decubitis ulcer. He is refused examination of his buttocks multiple times due to pain during turning. He appears slightly confused, does not give much more in terms of history or ROS. <Katlin Wong PA-C - Last Filed: 02/01/25 13:51> [facility] Past Medical History Medical History: Medical History (Updated 02/01/25 @ 09:23 by Nan More DNP, [facility]-) Fungal rash of torso Polyneuropathy DUSTIN (iron deficiency anemia) CKD (chronic kidney disease) stage 3, GFR 30-59 ml/min Chronic disease anemia BPH (benign prostatic hyperplasia) Peripheral vascular disease Chronic ulcer of sacral region Chronic pain Allergic rhinitis Hyperlipidemia Hypertension Afib <JEANCARLOS Melchor Last Filed: 02/01/25 13:51> Surgical History Surgical History: Surgical History (Updated 01/31/25 @ 21:55 by Yara Landon, [employer]-) H/O endarterectomy <JEANCARLOS Melchor Last Filed: 02/01/25 13:51> Social History Social History: Social History Household Members: None Housing: [facility] Patient Tobacco Use Status: Former Tobacco user Smoked in Last 30 Days: No Use of substances other than those prescribed or required for medical reasons: No Have you been hit, kicked, punched, or otherwise hurt by someone within the past year? If so, by whom?: No Do you feel safe in your current relationship?: No Current Relationship Is there a partner from a previous relationship who is making you feel unsafe now?: No Are you made to feel afraid or neglected: No Advance Directives: No Advance Directives Information Provided: No Do you have a plan to hurt others: No Plan Recently lost weight without trying: No Eating poorly because of decreased appetite: No Nutrition Risks: No Nutritional Risk <Katlin Wong PA-C - Last Filed: 02/01/25 13:51> Travel History Ebola Risk: Travel/Contact With Anyone From Affected Area/s: No <Katlin Wong PA-C - Last Filed: 02/01/25 13:51> Has Patient Experienced Ebola Symptoms: No <JEANCARLOS Melchor Last Filed: 02/01/25 13:51> Meds Allergies/Adverse reactions: Allergies Allergy/AdvReac Type Severity Reaction Status Date / Time atorvastatin (From Lipitor) Allergy Anaphylaxis Verified 01/31/25 16:32 capsaicin Allergy Anaphylaxis Verified 01/31/25 16:32 duloxetine (From Cymbalta) Allergy Anaphylaxis Verified 01/31/25 16:32 gabapentin Allergy Anaphylaxis Verified 01/31/25 16:32 metformin Allergy Anaphylaxis Verified 01/31/25 16:32 <Katlin Wong PA-C - Last Filed: 02/01/25 13:51> Active Medications: Current Medications Acetaminophen (Acetaminophen 325 Mg Tablet) 650 mg PO Q6H PRN PRN Reason: Pain, Mild 1-3,fever,headache Albuterol/Ipratropium (Albuterol/Iprat 2.5/0.5mg 3 Ml Ampul.Neb) 3 ml INHALE Q4H PRN PRN Reason: Shortness of Breath/Wheezing Artificial Tears (Artificial Tears 15 Ml Drops) 1 drop EYE-BOTH Q2H PRN PRN Reason: Dry Eyes Ascorbic Acid (Ascorbic Acid 250 Mg Tablet) 250 mg PO DAILY [facility] Last Admin: 02/01/25 07:52 Dose: 250 mg Bisacodyl (Bisacodyl 10 Mg Supp.Rect) 10 mg MT DAILY PRN PRN Reason: Constipation Calcium Carbonate (Calcium Carbonate 750 Mg Tab.Chew) 750 mg PO Q4H PRN PRN Reason: Heartburn Dextrose (Dextrose 50 % 25 Gm/50 Ml Syringe) 25 gm IVPUSH Q15M PRN; Protocol PRN Reason: per Hypoglycemia Standing Ord. Ferrous Sulfate (Ferrous Sulfate 324 Mg Tablet.Dr) 324 mg PO BID [facility] Last Admin: 02/01/25 07:53 Dose: 324 mg Finasteride (Finasteride 5 Mg Tablet) 5 mg PO DAILY [facility] Last Admin: 02/01/25 07:53 Dose: 5 mg Glucose (Glucose Gel 15 Gm Gel..Gram.) 15 gm PO Q15M PRN; Protocol PRN Reason: per Hypoglycemia Standing Ord. Guaifenesin (Guaifenesin 200 Mg/10 Ml 10 Ml Liquid) 10 ml PO Q8H PRN PRN Reason: Cough Hydromorphone HCl (Hydromorphone Hcl 1 Mg/Ml Syringe) 1 mg IVPUSH Q3H PRN; Protocol PRN Reason: Pain, Severe (Pain Scale 7-10) Diltiazem HCl 125 mg/ Sodium (Chloride) 125 mls @ 0 mls/hr IVCONT .Q0M [facility]; Protocol Last Titration: 02/01/25 00:56 Dose: 0 mg/hr, 0 mls/hr Piperacillin Sod/Tazobactam (Sod 2.25 gm/ Sodium Chloride) 50 mls @ 100 mls/hr IV Q6H [facility] Last Admin: 02/01/25 06:26 Dose: 100 mls/hr Vancomycin HCl 1,000 mg/ (Sodium Chloride) 270 mls @ 270 mls/hr IV Q24H [facility] Insulin Glargine (Insulin Glargine,Hum.Rec.Anlog 100 Unit/Ml 10 Ml Vial) 27 unit SUBCUT BEDTIME [facility] Last Admin: 01/31/25 22:47 Dose: 27 unit Insulin Human Lispro (Insulin Lispro 100 Unit/Ml 3 Ml Vial) 0 unit SUBCUT QIDACHS [facility]; Protocol Last Admin: 02/01/25 07:20 Dose: Not Given Lidocaine (Lidocaine 4 % Patch Adh..Patch) 1 patch TRANSDERMA DAILY [facility]; Protocol Magnesium Hydroxide (Milk Of Magnesia 30 Ml Oral.Susp) 30 ml PO DAILY PRN PRN Reason: Constipation Melatonin (Melatonin 3 Mg Tablet) 6 mg PO BEDTIME PRN PRN Reason: Insomnia Multivitamins/Vitamin C (Multivitamin Tablet) 1 tab PO DAILY [facility] Last Admin: 02/01/25 07:53 Dose: 1 tab Non-Formulary Medication (Rosuvastatin) 5 mg PO DAILY [facility] Nystatin (Nystatin Powder 15 Gm Bottle) 1 appl TOPICAL QSHIFT [facility]; Protocol Last Admin: 02/01/25 00:50 Dose: 1 appl Ondansetron HCl (Ondansetron Hcl 4 Mg/2 Ml Vial) 4 mg IVPUSH Q8H PRN PRN Reason: Nausea and Vomiting Pantoprazole Sodium (Pantoprazole Sodium 40 Mg/10 Ml Vial) 40 mg IVPUSH DAILY@0630 [facility] Last Admin: 02/01/25 06:26 Dose: 40 mg Pharmacy Consult (Consult Rx Vancomycin Dosing) 1 each MISCELLANE DAILY PRN PRN Reason: Consult order Polyethylene Glycol (Polyethylene Glycol 3350 17 Gm Powd.Pack) 17 gm PO DAILY PRN PRN Reason: Constipation Pregabalin (Pregabalin 200 Mg Capsule) 200 mg PO BID [facility] Last Admin: 02/01/25 07:53 Dose: 200 mg Senna (Sennosides 8.6 Mg Tablet) 17.2 mg PO BEDTIME [facility] Last Admin: 01/31/25 21:45 Dose: Not Given Sodium Chloride (0.9 % Sodium Chloride Flush 3 Ml Syringe) 3 ml IVFLUSH [facility] Last Admin: 02/01/25 07:52 Dose: 3 ml Sodium Hypochlorite (Sodium Hypochlorite 0.25% 473 Ml Solution) 1 appl TOPICAL DAILY [facility] Tamsulosin HCl (Tamsulosin Hcl 0.4 Mg Capsule) 0.8 mg PO DAILY [facility] Last Admin: 02/01/25 07:52 Dose: 0.8 mg Vitamin D (Cholecalciferol (Vitamin D3) 25 Mcg Tablet) 25 mcg PO DAILY [facility] Last Admin: 02/01/25 07:52 Dose: 25 mcg <Katlin Wong PA-C - Last Filed: 02/01/25 13:51> Home medications: Home Medications ?Medication ?Instructions ?Recorded ?Confirmed ?Last Taken ?Type acetaminophen 325 mg capsule 650 mg PO Q6H PRN Pain 12/29/24 01/31/25 Unknown History apixaban 5 mg tablet (Eliquis) 5 mg PO BID 12/29/24 01/31/25 Unknown History ascorbic acid (vitamin C) 250 mg 250 mg PO DAILY 12/29/24 01/31/25 Unknown History tablet bisacodyl 10 mg rectal suppository 10 mg MT DAILY PRN Constipation 12/29/24 01/31/25 Unknown History (Dulcolax (bisacodyl)) cholecalciferol (vitamin D3) 25 25 mcg PO DAILY 12/29/24 01/31/25 Unknown History mcg (1,000 unit) tablet enalapril maleate 2.5 mg tablet 2.5 mg PO DAILY 12/29/24 01/31/25 Unknown History ferrous sulfate 325 mg (65 mg 325 mg PO BID 12/29/24 01/31/25 Unknown History iron) tablet finasteride 5 mg tablet 5 mg PO DAILY 12/29/24 01/31/25 Unknown History guaifenesin 100 mg/5 mL oral 200 mg PO Q8H PRN Cough 12/29/24 01/31/25 Unknown History liquid (Kareen-Tussin) insulin glargine U-300 conc 300 27 unit subcut DAILY 12/29/24 01/31/25 Unknown History unit/mL (1.5 mL) subcutaneous pen loratadine 10 mg capsule 10 mg PO DAILY 12/29/24 01/31/25 Unknown History multivitamin See Rx Instructions .Route .COMPLEX 12/29/24 01/31/25 Unknown History pregabalin 200 mg capsule (Lyrica) 200 mg PO BID 12/29/24 01/31/25 Unknown History rosuvastatin 5 mg tablet 5 mg PO DAILY 12/29/24 01/31/25 Unknown History sodium phosphates oral solution 15 ml PO Q10M 12/29/24 01/31/25 Unknown History tamsulosin 0.4 mg capsule 0.8 mg PO DAILY 12/29/24 01/31/25 Unknown History emollient 1 appl topical DAILY 01/31/25 01/31/25 Unknown History lidocaine 4 % topical patch 1 patch topical DAILY 01/31/25 01/31/25 Unknown History magnesium hydroxide 400 mg/5 mL 30 ml PO BEDTIME PRN Constipation 01/31/25 01/31/25 Unknown History oral suspension (Milk of Magnesia) nystatin 100,000 unit/gram topical 1 appl topical QSHIFT 01/31/25 01/31/25 Unknown History cream nystatin 100,000 unit/gram topical 1 appl topical QSHIFT 01/31/25 01/31/25 Unknown History powder polyvinyl alcohol-povidone (PF) 1 drp ophthalmic-Right Q2H PRN Dry 01/31/25 01/31/25 Unknown History 1.4 %-0.6 % eye drops in a Eyes dropperette sodium hypochlorite 0.25 % 1 appl topical DAILY Wound Care 01/31/25 01/31/25 Unknown History solution (Dakin's Solution) wound dressings (Triad Wound 1 appl topical DAILY 01/31/25 01/31/25 Unknown History Dressing paste) <JEANCARLOS Melchor Last Filed: 02/01/25 13:51> Physical Exam Vital Signs: Vital Signs: Last Vital Signs Temp 97.7 F 02/01/25 07:08 Pulse 98 02/01/25 07:08 Resp 20 02/01/25 07:08 BP 118/59 L 02/01/25 07:08 Pulse Ox 98 02/01/25 07:08 O2 Del Method Nasal Cannula 02/01/25 07:08 O2 Flow Rate 2 02/01/25 07:08 BMI result Body Mass Index 29.6 <JEANCARLOS Melchor Last Filed: 02/01/25 13:51> Const: General: no acute distress and alert <JEANCARLOS Melchor Last Filed: 02/01/25 13:51> Skin: Other: nonblanchable erythema across all of sacrum and ischium with scattered shallow, small open wounds, clean appearing without necrotic tissue or eschar, mild to moderate amount of edema of sacrum/ischium, moderate edema of perineum and scrotum b/l groin with severe maceration of tissues <JEANCARLOS Melchor Last Filed: 02/01/25 13:51> Results Labs Result diagrams: 02/01/25 05:49 02/01/25 11:41 <JEANCARLOS Melchor Last Filed: 02/01/25 13:51> Labs: Abnormal lab results 01/31/25 01/31/25 02/01/25 Range/Units 17:09 21:43 00:34 RBC 2.34 L D (4.60-5.80) X10*6/uL Hgb 7.8 L D 7.5 L (14.0-18.0) g/dl Hct 23.8 L D 22.9 L (42.0-52.0) % MCV 101.7 H (80.0-98.0) fL MCH 33.3 H (27.0-33.0) pg RDW 18.2 H (11.0-16.0) % Plt Count 111 L (160-400) X10*3/uL Immature Gran % (Auto) 1.7 H (0.0-0.4) % Neut % (Auto) (45-73) % Lymph % (Auto) 11.7 L (20-40) % Lymph # (Auto) 0.6 L (1.2-4.9) X10*3/uL Abs Immat Gran (auto) 0.08 H (0.00-0.03) X10*3/uL Absolute Nucleated RBC 0.020 H (0.0-0.012) X10*3/uL Nucleated RBC % (auto) 0.4 H (0.0-0.2) /100WBC ESR > 140 H (0-15) MM/HR Percent Retic (0.5-1.8) % Immature Retic Fraction (2.3-13.4) % BUN 59 H (9-16) mg/dL Creatinine 1.87 H (0.5-1.4) mg/dL POC Glucose 122 H (60-115) mg/dL Random Glucose 124 H (60-115) mg/dL Calcium 8.0 L (8.4-10.2) mg/dL Iron 32 L (45-160) mcg/dL TIBC 121 L (228-428) mcg/dL AST 41 H (5-37) U/L C-Reactive Protein 1.48 H (< or = 0.50) mg/dL Total Protein 8.3 H (6.5-8.0) g/dL Albumin 2.4 L (3.5-5.0) g/dL HDL Cholesterol (>40) mg/dL 02/01/25 02/01/25 Range/Units 05:49 06:59 RBC 2.31 L (4.60-5.80) X10*6/uL Hgb 7.7 L (14.0-18.0) g/dl Hct 23.7 L (42.0-52.0) % MCV 102.6 H (80.0-98.0) fL MCH 33.3 H (27.0-33.0) pg RDW 18.2 H (11.0-16.0) % Plt Count 121 L (160-400) X10*3/uL Immature Gran % (Auto) 2.1 H (0.0-0.4) % Neut % (Auto) 75.7 H (45-73) % Lymph % (Auto) 10.2 L (20-40) % Lymph # (Auto) 0.6 L (1.2-4.9) X10*3/uL Abs Immat Gran (auto) 0.13 H (0.00-0.03) X10*3/uL Absolute Nucleated RBC (0.0-0.012) X10*3/uL Nucleated RBC % (auto) (0.0-0.2) /100WBC ESR (0-15) MM/HR Percent Retic 2.0 H (0.5-1.8) % Immature Retic Fraction 23.2 H (2.3-13.4) % BUN 53 H (9-16) mg/dL Creatinine 1.84 H (0.5-1.4) mg/dL POC Glucose 117 H (60-115) mg/dL Random Glucose 143 H (60-115) mg/dL Calcium 8.3 L (8.4-10.2) mg/dL Iron (45-160) mcg/dL TIBC (228-428) mcg/dL AST 38 H (5-37) U/L C-Reactive Protein (< or = 0.50) mg/dL Total Protein 8.2 H (6.5-8.0) g/dL Albumin 2.3 L (3.5-5.0) g/dL HDL Cholesterol 21 L (>40) mg/dL Short CBC 01/31/25 02/01/2525 Range/Units 17:09 00:34 05:49 WBC 4.8 6.3 (4.8-10.8) X10*3/uL Hgb 7.8 L D 7.5 L 7.7 L (14.0-18.0) g/dl Hct 23.8 L D 22.9 L 23.7 L (42.0-52.0) % Plt Count 111 L 121 L (160-400) X10*3/uL BMP 01/31/25 02/01/25 17:09 05:49 Sodium 140 141 Potassium 4.9 4.7 Chloride 107 108 Carbon Dioxide 25 24 BUN 59 H 53 H Creatinine 1.87 H 1.84 H Calcium 8.0 L 8.3 L Cardiac Enzymes 01/31/25 Range/Units 17:09 Total Creatine Kinase 44 (38-174) U/L Liver Function 01/31/25 02/01/25 Range/Units 17:09 05:49 Total Bilirubin 0.6 0.5 (0.0-1.0) mg/dL AST 41 H 38 H (5-37) U/L ALT 10 12 (0-40) U/L Alkaline Phosphatase 82 80 (39-117) U/L Albumin 2.4 L 2.3 L (3.5-5.0) g/dL All other labs normal. <Katlin Wong PA-C - Last Filed: 02/01/25 13:51> Imaging CT scan - pelvis: report reviewed and image reviewed <Katlin Wong PA-C - Last Filed: 02/01/25 13:51> Assessment and Plan (1) Chronic ulcer of sacral region: Qualifiers: Non-pressure ulcer stage: unspecified non-pressure ulcer stage Qualified Code(s): L98.429 - Non-pressure chronic ulcer of back with unspecified severity <Katlin Wong PA-C - Last Filed: 02/01/25 13:51> Status: Acute <Katlin Wong PA-C - Last Filed: 02/01/25 13:51> 79-year-old male with multiple medical problems including CKD, AFib, hypertension, polyneuropathy, chronic anemia He is bed-bound and has had chronic sacral decubitus ulcers Patient examined - multiple small stage 1-2 ulcers on the sacro coccygeal area No eschar or areas of gangrene or necrosis Dressings changed No debridement necessary We will need good wound care Turn patient [id number] Seen and examined independently <David Schaefer MD - Last Filed: 02/01/25 15:07> 79-year-old male with PMH significant for type 2 diabetes, atrial fibrillation on Eliquis, hypertension, hyperlipidemia, BPH, polyneuropathy, primarily wheelchair bound with chronic sacral wounds admitted multiple acute issues including acute on chronic anemia, A fib with RVR. General surgery was consulted for his chronic sacral decubitus ulcers. He has multiple stage II small ulcers scattered through out sacrum and ischium, they are all generally clean appearing and currently do not need debridement. Wound covered with allevyn foam dressing. Will defer to wound care regarding further wound recommendations. Recommend frequent repositioning and offloading, nutritional support. Patient is quite resistant to patient care and this will be difficult but importance was discussed with him. <Katlin Wong PA-C - Last Filed: 02/01/25 13:51> Procedures Date of Service Date of Service: 02/01/25 <Katlin Wong PA-C - Last Filed: 02/01/25 13:51> 02/01/25 <David Schaefer MD - Last Filed: 02/01/25 15:07>
--- NOTE | 2025-02-01 10:15 | PM.CNCAR ---
History of Present Illness History of Present Illness Date of Service: 02/01/25 Chief complaint: rapid a-fib Narrative: This is a cardiology consultation regarding atrial fibrillation. Patient with many comorbidities and poor morbidity. He states he is wheelchair-bound. Current admissions because of bleeding from chronic sacral wound area in the context of Eliquis use. He was also found to be in atrial fibrillation with rapid rate and was put on Cardizem drip. From the cardiac standpoint, he denies any prior cardiac history. He denies any history of coronary disease or myocardial infarction or cardiomyopathy extra. He also denies any active cardiac symptoms. He states he essentially needs a wheelchair for everything. Review of Systems Review of Systems: Yes all other systems are reviewed and are negative Constitutional: Constitutional: Reports as per HPI and Reports no additional constitutional complaints Eyes: Eyes: Reports as per HPI and Denies no additional eye complaints ENT: Denies system reviewed and no additional complaints, except as documented and Reports as per HPI Cardiovascular: Cardiovascular: Reports as per HPI, Reports no additional cardiovascular complaints, Denies acrocyanosis, Denies cool extremities, Denies chest pain, Denies leg edema, Denies lightheadedness, Denies palpitations and Denies dyspnea Respiratory: Respiratory: Reports as per HPI, Denies no additional respiratory complaints and Denies dyspnea Gastrointestinal: Gastrointestinal: Reports as per HPI and Denies no additional gastrointestinal complaints Genitourinary: Genitourinary: Reports no additional male genitourinary complaints and Reports as per HPI Musculoskeletal: Musculoskeletal: Reports no additional musculoskeletal complaints and Reports as per HPI Integumentary/Breasts: Skin/Breast: Reports system reviewed and no additional complaints, except as docu Neurologic: Reports system reviewed and no additional complaints, except as documented and Reports as per HPI Psychiatric: Psychiatric: Reports no additional psychiatric complaints and Reports as per HPI Endocrine: Endocrine: Reports no additional endocrine complaints, Reports as per HPI and Denies palpitations Hematologic/Lymphatic: Hematologic/Lymphatic: Reports no additional hematologic/lymphatic complaints and Reports as per HPI Allergic/Immunologic: Allergic/Immunologic: Reports no additional allergic/immunologic complaints and Reports as per HPI PMFSH Past Medical History Medical History (Updated 02/01/25 @ 09:23 by Nan More, MICHELLE, SECURITY ASSISTANT-BC) Fungal rash of torso Polyneuropathy DUSTIN (iron deficiency anemia) CKD (chronic kidney disease) stage 3, GFR 30-59 ml/min Chronic disease anemia BPH (benign prostatic hyperplasia) Peripheral vascular disease Chronic ulcer of sacral region Chronic pain Allergic rhinitis Hyperlipidemia Hypertension Afib Family History Pertinent family history: No pertinent family history Surgical History Surgical History (Updated 01/31/25 @ 21:55 [facility] H/O endarterectomy Social History Social History Household Members: None Housing: [facility] Patient Tobacco Use Status: Former Tobacco user Smoked in Last 30 Days: No Use of substances other than those prescribed or required for medical reasons: No Have you been hit, kicked, punched, or otherwise hurt by someone within the past year? If so, by whom?: No Do you feel safe in your current relationship?: No Current Relationship Is there a partner from a previous relationship who is making you feel unsafe now?: No Are you made to feel afraid or neglected: No Advance Directives: No Advance Directives Information Provided: No Do you have a plan to hurt others: No Plan Recently lost weight without trying: No Eating poorly because of decreased appetite: No Nutrition Risks: No Nutritional Risk Travel History Ebola Risk: Travel/Contact With Anyone From Affected Area/s: No Has Patient Experienced Ebola Symptoms: No Meds Allergies Allergy/AdvReac Type Severity Reaction Status Date / Time atorvastatin (From Lipitor) Allergy Anaphylaxis Verified 01/31/25 16:32 capsaicin Allergy Anaphylaxis Verified 01/31/25 16:32 duloxetine (From Cymbalta) Allergy Anaphylaxis Verified 01/31/25 16:32 gabapentin Allergy Anaphylaxis Verified 01/31/25 16:32 metformin Allergy Anaphylaxis Verified 01/31/25 16:32 Active Medications: Current Medications Acetaminophen (Acetaminophen 325 Mg Tablet) 650 mg PO Q6H PRN PRN Reason: Pain, Mild 1-3,fever,headache Albuterol/Ipratropium (Albuterol/Iprat 2.5/0.5mg 3 Ml Ampul.Neb) 3 ml INHALE Q4H PRN PRN Reason: Shortness of Breath/Wheezing Artificial Tears (Artificial Tears 15 Ml Drops) 1 drop EYE-BOTH Q2H PRN PRN Reason: Dry Eyes Ascorbic Acid (Ascorbic Acid 250 Mg Tablet) 250 mg PO DAILY JO Last Admin: 02/01/25 07:52 Dose: 250 mg Bisacodyl (Bisacodyl 10 Mg Supp.Rect) 10 mg MS DAILY PRN PRN Reason: Constipation Calcium Carbonate (Calcium Carbonate 750 Mg Tab.Chew) 750 mg PO Q4H PRN PRN Reason: Heartburn Dextrose (Dextrose 50 % 25 Gm/50 Ml Syringe) 25 gm IVPUSH Q15M PRN; Protocol PRN Reason: per Hypoglycemia Standing Ord. Ferrous Sulfate (Ferrous Sulfate 324 Mg Tablet.Dr) 324 mg PO BID [facility] Last Admin: 02/01/25 07:53 Dose: 324 mg Finasteride (Finasteride 5 Mg Tablet) 5 mg PO DAILY [facility] Last Admin: 02/01/25 07:53 Dose: 5 mg Glucose (Glucose Gel 15 Gm Gel..Gram.) 15 gm PO Q15M PRN; Protocol PRN Reason: per Hypoglycemia Standing Ord. Guaifenesin (Guaifenesin 200 Mg/10 Ml 10 Ml Liquid) 10 ml PO Q8H PRN PRN Reason: Cough Hydromorphone HCl (Hydromorphone Hcl 1 Mg/Ml Syringe) 1 mg IVPUSH Q3H PRN; Protocol PRN Reason: Pain, Severe (Pain Scale 7-10) Last Admin: 02/01/25 09:28 Dose: 1 mg Diltiazem HCl 125 mg/ Sodium (Chloride) 125 mls @ 0 mls/hr IVCONT .Q0M [facility]; Protocol Last Titration: 02/01/25 00:56 Dose: 0 mg/hr, 0 mls/hr Piperacillin Sod/Tazobactam (Sod 2.25 gm/ Sodium Chloride) 50 mls @ 100 mls/hr IV Q6H [facility] Last Admin: 02/01/25 06:26 Dose: 100 mls/hr Vancomycin HCl 1,000 mg/ (Sodium Chloride) 270 mls @ 270 mls/hr IV Q24H [facility] Insulin Glargine (Insulin Glargine,Hum.Rec.Anlog 100 Unit/Ml 10 Ml Vial) 27 unit SUBCUT BEDTIME [facility] Last Admin: 01/31/25 22:47 Dose: 27 unit Insulin Human Lispro (Insulin Lispro 100 Unit/Ml 3 Ml Vial) 0 unit SUBCUT QIDACHS [facility]; Protocol Last Admin: 02/01/25 07:20 Dose: Not Given Lidocaine (Lidocaine 4 % Patch Adh..Patch) 1 patch TRANSDERMA DAILY [facility]; Protocol Last Admin: 02/01/25 09:31 Dose: Not Given Magnesium Hydroxide (Milk Of Magnesia 30 Ml Oral.Susp) 30 ml PO DAILY PRN PRN Reason: Constipation Melatonin (Melatonin 3 Mg Tablet) 6 mg PO BEDTIME PRN PRN Reason: Insomnia Multivitamins/Vitamin C (Multivitamin Tablet) 1 tab PO DAILY [facility] Last Admin: 02/01/25 07:53 Dose: 1 tab Non-Formulary Medication (Rosuvastatin) 5 mg PO DAILY [facility] Nystatin (Nystatin Powder 15 Gm Bottle) 1 appl TOPICAL QSMDFT [facility]; Protocol Last Admin: 02/01/25 00:50 Dose: 1 appl Ondansetron HCl (Ondansetron Hcl 4 Mg/2 Ml Vial) 4 mg IVPUSH Q8H PRN PRN Reason: Nausea and Vomiting Pantoprazole Sodium (Pantoprazole Sodium 40 Mg/10 Ml Vial) 40 mg IVPUSH DAILY@0630 [facility] Last Admin: 02/01/25 06:26 Dose: 40 mg Pharmacy Consult (Consult Rx Vancomycin Dosing) 1 each MISCELLANE DAILY PRN PRN Reason: Consult order Polyethylene Glycol (Polyethylene Glycol 3350 17 Gm Powd.Pack) 17 gm PO DAILY PRN PRN Reason: Constipation Pregabalin (Pregabalin 200 Mg Capsule) 200 mg PO BID [facility] Last Admin: 02/01/25 07:53 Dose: 200 mg Senna (Sennosides 8.6 Mg Tablet) 17.2 mg PO BEDTIME [facility] Last Admin: 01/31/25 21:45 Dose: Not Given Sodium Chloride (0.9 % Sodium Chloride Flush 3 Ml Syringe) 3 ml IVFLUSH [facility] Last Admin: 02/01/25 07:52 Dose: 3 ml Sodium Hypochlorite (Sodium Hypochlorite 0.25% 473 Ml Solution) 1 appl TOPICAL DAILY [facility] Tamsulosin HCl (Tamsulosin Hcl 0.4 Mg Capsule) 0.8 mg PO DAILY [facility] Last Admin: 02/01/25 07:52 Dose: 0.8 mg Vitamin D (Cholecalciferol (Vitamin D3) 25 Mcg Tablet) 25 mcg PO DAILY [facility] Last Admin: 02/01/25 07:52 Dose: 25 mcg Home Medications ?Medication ?Instructions ?Recorded ?Confirmed ?Last Taken ?Type acetaminophen 325 mg capsule 650 mg PO Q6H PRN Pain 12/29/24 01/31/25 Unknown History apixaban 5 mg tablet (Eliquis) 5 mg PO BID 12/29/24 01/31/25 Unknown History ascorbic acid (vitamin C) 250 mg 250 mg PO DAILY 12/29/24 01/31/25 Unknown History tablet bisacodyl 10 mg rectal suppository 10 mg MS DAILY PRN Constipation 12/29/24 01/31/25 Unknown History (Dulcolax (bisacodyl)) cholecalciferol (vitamin D3) 25 25 mcg PO DAILY 12/29/24 01/31/25 Unknown History mcg (1,000 unit) tablet enalapril maleate 2.5 mg tablet 2.5 mg PO DAILY 12/29/24 01/31/25 Unknown History ferrous sulfate 325 mg (65 mg 325 mg PO BID 12/29/24 01/31/25 Unknown History iron) tablet finasteride 5 mg tablet 5 mg PO DAILY 12/29/24 01/31/25 Unknown History guaifenesin 100 mg/5 mL oral 200 mg PO Q8H PRN Cough 12/29/24 01/31/25 Unknown History liquid (Kareen-Tussin) insulin glargine U-300 conc 300 27 unit subcut DAILY 12/29/24 01/31/25 Unknown History unit/mL (1.5 mL) subcutaneous pen loratadine 10 mg capsule 10 mg PO DAILY 12/29/24 01/31/25 Unknown History multivitamin See Rx Instructions .Route .COMPLEX 12/29/24 01/31/25 Unknown History pregabalin 200 mg capsule (Lyrica) 200 mg PO BID 12/29/24 01/31/25 Unknown History rosuvastatin 5 mg tablet 5 mg PO DAILY 12/29/24 01/31/25 Unknown History sodium phosphates oral solution 15 ml PO Q10M 12/29/24 01/31/25 Unknown History tamsulosin 0.4 mg capsule 0.8 mg PO DAILY 12/29/24 01/31/25 Unknown History emollient 1 appl topical DAILY 01/31/25 01/31/25 Unknown History lidocaine 4 % topical patch 1 patch topical DAILY 01/31/25 01/31/25 Unknown History magnesium hydroxide 400 mg/5 mL 30 ml PO BEDTIME PRN Constipation 01/31/25 01/31/25 Unknown History oral suspension (Milk of Magnesia) nystatin 100,000 unit/gram topical 1 appl topical QSHIFT 01/31/25 01/31/25 Unknown History cream nystatin 100,000 unit/gram topical 1 appl topical QSHIFT 01/31/25 01/31/25 Unknown History powder polyvinyl alcohol-povidone (PF) 1 drp ophthalmic-Right Q2H PRN Dry 01/31/25 01/31/25 Unknown History 1.4 %-0.6 % eye drops in a Eyes dropperette sodium hypochlorite 0.25 % 1 appl topical DAILY Wound Care 01/31/25 01/31/25 Unknown History solution (Dakin's Solution) wound dressings ([place] Wound 1 appl topical DAILY 01/31/25 01/31/25 Unknown History Dressing paste) Physical Exam Vital Signs: Vital Signs: Last Vital Signs Temp 97.7 F 02/01/25 07:08 Pulse 98 02/01/25 07:08 Resp 18 02/01/25 09:28 BP 118/59 L 02/01/25 07:08 Pulse Ox 98 02/01/25 07:08 O2 Del Method Nasal Cannula 02/01/25 07:08 O2 Flow Rate 2 02/01/25 07:08 BMI result Body Mass Index 29.6 Const: General: comfortable and no acute distress Orientation/consciousness: patient oriented x3 HEENT: Other: Unremarkable Head: Yes normal to inspection Neck: Neck: Yes normal visual inspection Chest: Chest palpation & inspection: normal inspection of the chest Resp: Auscultation: clear to auscultation bilaterally Cardio: Palpation: normal PMI Heart sounds: S1 normal heart sound present, S2 normal heart sound present, no gallops, no murmurs and no rubs GI: Palpation (GI): Soft to palpation Back/Spine/Pelvis: Other: unremarkable Skin: General skin exam: no rashes or lesions noted Neuro: General: patient oriented x3 Extrem: Other: Chronic changes Psych: Mental Status: mental status grossly normal Objective Labs and Meds 02/01/25 05:49 02/01/25 05:49 Lab results: Laboratory Results - last 24 hr 01/31/25 01/31/25 01/31/25 17:09 17:32 21:43 WBC 4.8 RBC 2.34 L D Hgb 7.8 L D Hct 23.8 L D MCV 101.7 H MCH 33.3 H MCHC 32.8 RDW 18.2 H Plt Count 111 L MPV 9.5 Immature Gran % (Auto) 1.7 H Neut % (Auto) 72.7 Lymph % (Auto) 11.7 L [place] % (Auto) 10.0 Eos % (Auto) 3.3 Baso % (Auto) 0.6 Lymph # (Auto) 0.6 L [place] # (Auto) 0.5 Eos # (Auto) 0.2 Baso # (Auto) 0.0 Abs Immat Gran (auto) 0.08 H Absolute Neuts (auto) 3.5 Absolute Nucleated RBC 0.020 H Nucleated RBC % (auto) 0.4 H ESR > 140 H Absolute Retic Percent Retic Immature Retic Fraction Retic Hgb Equivalent Sodium 140 Potassium 4.9 Chloride 107 Carbon Dioxide 25 Anion Gap 13 BUN 59 H Creatinine 1.87 H Estim Creat Clear Calc 38.9 Estimated GFR 35 POC Glucose 122 H Random Glucose 124 H Lactic Acid 2.0 Calcium 8.0 L Phosphorus 4.0 Magnesium 1.7 Iron 32 L TIBC 121 L % Saturation 26 Unsat Iron Binding 89 Total Bilirubin 0.6 AST 41 H ALT 10 Alkaline Phosphatase 82 Total Creatine Kinase 44 C-Reactive Protein 1.48 H Total Protein 8.3 H Albumin 2.4 L Triglycerides Cholesterol LDL Cholesterol, Calc HDL Cholesterol Vitamin B12 TSH 3.15 Blood Type A Negative Antibody Screen NEGATIVE 02/01/25 02/01/25 02/01/25 00:34 05:49 06:59 WBC 6.3 RBC 2.31 L Hgb 7.5 L 7.7 L Hct 22.9 L 23.7 L MCV 102.6 H MCH 33.3 H MCHC 32.5 RDW 18.2 H Plt Count 121 L MPV 10.3 Immature Gran % (Auto) 2.1 H Neut % (Auto) 75.7 H Lymph % (Auto) 10.2 L [place] % (Auto) 9.3 Eos % (Auto) 2.2 Baso % (Auto) 0.5 Lymph # (Auto) 0.6 L [place] # (Auto) 0.6 Eos # (Auto) 0.1 Baso # (Auto) 0.0 Abs Immat Gran (auto) 0.13 H Absolute Neuts (auto) 4.7 Absolute Nucleated RBC 0.000 Nucleated RBC % (auto) 0.0 ESR Absolute Retic 0.046 Percent Retic 2.0 H Immature Retic Fraction 23.2 H Retic Hgb Equivalent 32.8 Sodium 141 Potassium 4.7 Chloride 108 Carbon Dioxide 24 Anion Gap 14 BUN 53 H Creatinine 1.84 H Estim Creat Clear Calc 39.6 Estimated GFR 36 POC Glucose 117 H Random Glucose 143 H Lactic Acid Calcium 8.3 L Phosphorus Magnesium Iron TIBC % Saturation Unsat Iron Binding Total Bilirubin 0.5 AST 38 H ALT 12 Alkaline Phosphatase 80 Total Creatine Kinase C-Reactive Protein Total Protein 8.2 H Albumin 2.3 L Triglycerides 58 Cholesterol 52 LDL Cholesterol, Calc 20 HDL Cholesterol 21 L Vitamin B12 590 TSH Blood Type Antibody Screen ECG Interpretation: Initial EKG showed atrial fibrillation with rapid rate at 140/Min. Imaging Radiologist's impression: Impressions Venous Duplex 01/31/25 22:15 IMPRESSION: No acute deep venous thrombosis interrogated veins of both lower extremities. Negative for DVT. Electronically signed by: Naren Chen MD 02/01/2025 07:44 AM EDT RP Assessment and Plan (1) Atrial fibrillation with rapid ventricular response: Status: Acute (2) Anemia: Qualifiers: Anemia type: unspecified type Qualified Code(s): D64.9 - Anemia, unspecified Status: Acute Plan During initial presentation, in atrial fibrillation rapid rate but currently rates are much improved on telemetry. Not clear if there is any rate control medication at baseline as nothing listed. Possibly use low-dose beta-blockers as tolerated by blood pressure. Toprol-XL 25 mg daily. With regard to anticoagulation, if the bleeding issue cannot be resolved, then may have to either decrease the Eliquis to 2.5 mg b.i.d. or stop. Echocardiogram for cardiac function. Procedures Date of Service Date of Service: 02/01/25
[2025-02-01 10:56] LABS: Glucose, Whole Blood 127 mg/dL (60-115)
[2025-02-01 11:52] LABS: Venous Blood Gas Refer to POC result
[2025-02-01 11:53] LABS: VBG HCO3 26 mmol/L (22-26); VBG O2 % Saturation 96.0 %
[2025-02-01 11:57] LABS: Ammonia 46 umol/L (13-55)
[2025-02-01 12:06] LABS: Alanine Aminotransferase 12 U/L (0-40); Albumin Level 2.3 g/dL (3.5-5.0); Alkaline Phosphatase 80 U/L (39-117); Anion Gap 10 (12-20); Aspartate Amino Transferase 42 U/L (5-37); Blood Urea Nitrogen 51 mg/dL (9-16); Calcium 8.2 mg/dL (8.4-10.2); Carbon Dioxide 26 mmol/L (22-29); Chloride 110 mmol/L (96-108); Creatinine Clr Calc Pharmacy 39.0; Estimated Glomerular Filt Rate 35; Potassium 5.0 mmol/L (3.3-5.1); Sodium 141 mmol/L (135-145); Total Protein 8.1 g/dL (6.5-8.0)
[2025-02-01 12:36] LABS: Appearance Urine Clear; Glucose Urine UA Negative (Negative); PH 5.0 (5.0-9.0); Specific Gravity - Urine 1.015 (1.005-1.025); UMIC TRIGGER UA YES
[2025-02-01 14:14] LABS: EOS Counted 0 CELLS; EOS QC POS YES; WBC, Counted 5 CELLS
[2025-02-01 14:15] LABS: EOS Stain Quality OK YES
--- NOTE | 2025-02-01 14:45 | P.PNIM_ITS ---
Subjective Subjective Date of Service: 02/01/25 Interval History: On evaluation today, the patient was significantly confused and altered. He was alert and oriented to person only, not to place, time or situation. Patient was noted to be very inattentive, distractible, short-term memory loss noted. Very tremulous on evaluation with muscular fasciculations and hyper reflexive on evaluation. Patient denied ETOH intake or in the past. Reports he has a relatively Good diet, however with his current delirium, he demonstrates an unreliable historian. Administered IV thiamine, with recovery and patient's mental status and resolution of confusion. Attempted to communicate with the patient after initial 2 evaluations. The patient dismissed me from the room informed me that he ?wanted to finish his meal , and he did not care what I had to talk about . He was, however able to assist in determining that he was alert and oriented to person place time and situation. Review of Systems Review of Systems: Yes all other systems are reviewed and are negative Physical Exam 2 Exam: Exam: Alert and orientated X3. Grimacing with pain Neuro: CN II-X11 intact, visual acuity intact EYES: PERRLA, EOM intact, sclerae nonicteric ENT: hearing intact, no issues with swallowing, uvula midline, lips dry, nares patent no epistaxis Cardiac: S1 S2 RRR, no murmur, no JVD, moderate edema in bilateral Lower ext Pulmonary: lungs diminished bilaterally Abdominal: BS active in all 4 quadrants, no guarding, tenderness, rebounding MSK: strength 1-2/5 lower extremities, 3/5 upper extremities : no CVA tenderness no bladder distension Extremities: Moderate edema in lower extremities, PT and DP pulses palpable manually but diminshed, skin Ilene red in color, noted healed excoriation, 2nd and 3rd toes on bilateral feet have excoriation, heels intact Psych: mood stable, judgement and insight good Skin: Chronic sacral decubitus actively oozing with bloody drainage, multiple open sites noted, bilateral feet with a abrasions/excoriations, also involving 2nd and 3rd toe on bilateral feet mild foul odor noted Vital Signs: Vital Signs: Last Vital Signs Temp 97.7 F 02/01/25 11:06 Pulse 111 H 02/01/25 11:06 Resp 12 02/01/25 11:29 BP 109/57 L 02/01/25 11:06 Pulse Ox 93 02/01/25 11:06 O2 Del Method Nasal Cannula 02/01/25 11:06 O2 Flow Rate 1 02/01/25 11:06 BMI result Body Mass Index 29.6 Objective Data Active Medications Acetaminophen (Acetaminophen 325 Mg Tablet) 650 mg PO Q6H PRN PRN Reason: Pain, Mild 1-3,fever,headache Albuterol/Ipratropium (Albuterol/Iprat 2.5/0.5mg 3 Ml Ampul.Neb) 3 ml INHALE Q4H PRN PRN Reason: Shortness of Breath/Wheezing Artificial Tears (Artificial Tears 15 Ml Drops) 1 drop EYE-BOTH Q2H PRN PRN Reason: Dry Eyes Ascorbic Acid (Ascorbic Acid 250 Mg Tablet) 250 mg PO DAILY [facility] Last Admin: 02/01/25 07:52 Dose: 250 mg Documented By: JESSE Bisacodyl (Bisacodyl 10 Mg Supp.Rect) 10 mg [place] DAILY PRN PRN Reason: Constipation Calcium Carbonate (Calcium Carbonate 750 Mg Tab.Chew) 750 mg PO Q4H PRN PRN Reason: Heartburn Dextrose (Dextrose 50 % 25 Gm/50 Ml Syringe) 25 gm IVPUSH Q15M PRN; Protocol PRN Reason: per Hypoglycemia Standing Ord. Ferrous Sulfate (Ferrous Sulfate 324 Mg Tablet.Dr) 324 mg PO BID [facility] Last Admin: 02/01/25 07:53 Dose: 324 mg Documented By: JESSE Finasteride (Finasteride 5 Mg Tablet) 5 mg PO DAILY [facility] Last Admin: 02/01/25 07:53 Dose: 5 mg Documented By: JESSE Glucose (Glucose Gel 15 Gm Gel..Gram.) 15 gm PO Q15M PRN; Protocol PRN Reason: per Hypoglycemia Standing Ord. Guaifenesin (Guaifenesin 200 Mg/10 Ml 10 Ml Liquid) 10 ml PO Q8H PRN PRN Reason: Cough Hydromorphone HCl (Hydromorphone Hcl 1 Mg/Ml Syringe) 1 mg IVPUSH Q3H PRN; Protocol PRN Reason: Pain, Severe (Pain Scale 7-10) Last Admin: 02/01/25 09:28 Dose: 1 mg Documented By: CHRISTIE Diltiazem HCl 125 mg/ Sodium (Chloride) 125 mls @ 0 mls/hr IVCONT .Q0M [facility]; Protocol Last Titration: 02/01/25 00:56 Dose: 0 mg/hr, 0 mls/hr Documented By: SHANE Piperacillin Sod/Tazobactam (Sod 2.25 gm/ Sodium Chloride) 50 mls @ 100 mls/hr IV Q6H [facility] Last Admin: 02/01/25 13:18 Dose: 100 mls/hr Documented By: JESSE Vancomycin HCl 1,000 mg/ (Sodium Chloride) 270 mls @ 270 mls/hr IV Q24H [facility] Insulin Glargine (Insulin Glargine,Hum.Rec.Anlog 100 Unit/Ml 10 Ml Vial) 27 unit SUBCUT BEDTIME [facility] Last Admin: 01/31/25 22:47 Dose: 27 unit Documented By: SHANE Insulin Human Lispro (Insulin Lispro 100 Unit/Ml 3 Ml Vial) 0 unit SUBCUT QIDACHS [facility]; Protocol Last Admin: 02/01/25 12:44 Dose: Not Given Documented By: CHRISTIE Non-Admin Reason: No Insulin Coverage Lidocaine (Lidocaine 4 % Patch Adh..Patch) 1 patch TRANSDERMA DAILY [facility]; Protocol Last Admin: 02/01/25 09:31 Dose: Not Given Documented By: CHRISTIE Non-Admin Reason: Patient Refused Magnesium Hydroxide (Milk Of Magnesia 30 Ml Oral.Susp) 30 ml PO DAILY PRN PRN Reason: Constipation Melatonin (Melatonin 3 Mg Tablet) 6 mg PO BEDTIME PRN PRN Reason: Insomnia Multivitamins/Vitamin C (Multivitamin Tablet) 1 tab PO DAILY [facility] Last Admin: 02/01/25 07:53 Dose: 1 tab Documented By: JESSE Non-Formulary Medication (Rosuvastatin) 5 mg PO DAILY [facility] Nystatin (Nystatin Powder 15 Gm Bottle) 1 appl TOPICAL QSHIFT [facility]; Protocol Last Admin: 02/01/25 11:31 Dose: Not Given Documented By: CHRISTIE Non-Admin Reason: unavailable Ondansetron HCl (Ondansetron Hcl 4 Mg/2 Ml Vial) 4 mg IVPUSH Q8H PRN PRN Reason: Nausea and Vomiting Pantoprazole Sodium (Pantoprazole Sodium 40 Mg/10 Ml Vial) 40 mg IVPUSH DAILY@0630 [facility] Last Admin: 02/01/25 06:26 Dose: 40 mg Documented By: ANGELA Pharmacy Consult (Consult Rx Vancomycin Dosing) 1 each MISCELLANE DAILY PRN PRN Reason: Consult order Polyethylene Glycol (Polyethylene Glycol 3350 17 Gm Powd.Pack) 17 gm PO DAILY PRN PRN Reason: Constipation Pregabalin (Pregabalin 200 Mg Capsule) 200 mg PO BID [facility] Last Admin: 02/01/25 07:53 Dose: 200 mg Documented By: JESSE Senna (Sennosides 8.6 Mg Tablet) 17.2 mg PO BEDTIME [facility] Last Admin: 01/31/25 21:45 Dose: Not Given Documented By: SHANE Non-Admin Reason: Patient Refused Sodium Chloride (0.9 % Sodium Chloride Flush 3 Ml Syringe) 3 ml IVFLUSH QSHIFT [facility] Last Admin: 02/01/25 07:52 Dose: 3 ml Documented By: JESSE Sodium Hypochlorite (Sodium Hypochlorite 0.25% 473 Ml Solution) 1 appl TOPICAL DAILY [facility] Tamsulosin HCl (Tamsulosin Hcl 0.4 Mg Capsule) 0.8 mg PO DAILY [facility] Last Admin: 02/01/25 07:52 Dose: 0.8 mg Documented By: JESSE Vitamin D (Cholecalciferol (Vitamin D3) 25 Mcg Tablet) 25 mcg PO DAILY [facility] Last Admin: 02/01/25 07:52 Dose: 25 mcg Documented By: JESSE Labs 02/01/25 05:49 02/02/25 05:24 Labs: Laboratory Results - last 24 hr 01/31/25 01/31/25 01/31/25 17:09 17:32 21:43 MCV 101.7 H MCH 33.3 H MCHC 32.8 RDW 18.2 H Plt Count 111 L MPV 9.5 Immature Gran % (Auto) 1.7 H Neut % (Auto) 72.7 Lymph % (Auto) 11.7 L [place] % (Auto) 10.0 Eos % (Auto) 3.3 Baso % (Auto) 0.6 Lymph # (Auto) 0.6 L [place] # (Auto) 0.5 Eos # (Auto) 0.2 Baso # (Auto) 0.0 Abs Immat Gran (auto) 0.08 H Absolute Neuts (auto) 3.5 Absolute Nucleated RBC 0.020 H Nucleated RBC % (auto) 0.4 H ESR > 140 H Absolute Retic Percent Retic Immature Retic Fraction Retic Hgb Equivalent VBG pH VBG pCO2 VBG pO2 VBG HCO3 VBG O2 Saturation VBG Base Excess Anion Gap 13 Estim Creat Clear Calc 38.9 Estimated GFR 35 POC Glucose 122 H Random Glucose 124 H Lactic Acid 2.0 Calcium 8.0 L Phosphorus 4.0 Magnesium 1.7 Iron 32 L TIBC 121 L % Saturation 26 Unsat Iron Binding 89 Total Bilirubin 0.6 AST 41 H ALT 10 Alkaline Phosphatase 82 Ammonia Total Creatine Kinase 44 C-Reactive Protein 1.48 H Total Protein 8.3 H Albumin 2.4 L Triglycerides Cholesterol LDL Cholesterol, Calc HDL Cholesterol Vitamin B12 TSH 3.15 Urine Color Urine Appearance Urine pH Ur Specific [place] Urine Protein Urine Glucose (UA) Urine Ketones Urine Blood Urine Nitrite Ur Leukocyte Esterase Urine RBC Urine WBC Ur Squamous Epith Cells Urine Bacteria Hyaline Casts Urine Eosinophils % Urine Osmolality Ur Random Sodium Urine Creatinine Blood Type A Negative Antibody Screen NEGATIVE 02/01/25 02/01/25 02/01/25 05:49 06:59 10:52 MCV 102.6 H MCH 33.3 H MCHC 32.5 RDW 18.2 H Plt Count 121 L MPV 10.3 Immature Gran % (Auto) 2.1 H Neut % (Auto) 75.7 H Lymph % (Auto) 10.2 L [place] % (Auto) 9.3 Eos % (Auto) 2.2 Baso % (Auto) 0.5 Lymph # (Auto) 0.6 L [place] # (Auto) 0.6 Eos # (Auto) 0.1 Baso # (Auto) 0.0 Abs Immat Gran (auto) 0.13 H Absolute Neuts (auto) 4.7 Absolute Nucleated RBC 0.000 Nucleated RBC % (auto) 0.0 ESR Absolute Retic 0.046 Percent Retic 2.0 H Immature Retic Fraction 23.2 H Retic Hgb Equivalent 32.8 VBG pH VBG pCO2 VBG pO2 VBG HCO3 VBG O2 Saturation VBG Base Excess Anion Gap 14 Estim Creat Clear Calc 39.6 Estimated GFR 36 POC Glucose 117 H 127 H Random Glucose 143 H Lactic Acid Calcium 8.3 L Phosphorus Magnesium Iron TIBC % Saturation Unsat Iron Binding Total Bilirubin 0.5 AST 38 H ALT 12 Alkaline Phosphatase 80 Ammonia Total Creatine Kinase C-Reactive Protein Total Protein 8.2 H Albumin 2.3 L Triglycerides 58 Cholesterol 52 LDL Cholesterol, Calc 20 HDL Cholesterol 21 L Vitamin B12 590 TSH Urine Color Urine Appearance Urine pH Ur Specific [place] Urine Protein Urine Glucose (UA) Urine Ketones Urine Blood Urine Nitrite Ur Leukocyte Esterase Urine RBC Urine WBC Ur Squamous Epith Cells Urine Bacteria Hyaline Casts Urine Eosinophils % Urine Osmolality Ur Random Sodium Urine Creatinine Blood Type Antibody Screen 02/01/25 02/01/25 02/01/25 11:41 11:50 12:17 MCV MCH MCHC RDW Plt Count MPV Immature Gran % (Auto) Neut % (Auto) Lymph % (Auto) [place] % (Auto) Eos % (Auto) Baso % (Auto) Lymph # (Auto) [place] # (Auto) Eos # (Auto) Baso # (Auto) Abs Immat Gran (auto) Absolute Neuts (auto) Absolute Nucleated RBC Nucleated RBC % (auto) ESR Absolute Retic Percent Retic Immature Retic Fraction Retic Hgb Equivalent VBG pH 7.36 VBG pCO2 46 VBG pO2 91 VBG HCO3 26 VBG O2 Saturation 96.0 VBG Base Excess 1.0 Anion Gap 10 L Estim Creat Clear Calc 39.0 Estimated GFR 35 POC Glucose Random Glucose 133 H Lactic Acid Calcium 8.2 L Phosphorus Magnesium Iron TIBC % Saturation Unsat Iron Binding Total Bilirubin 0.5 AST 42 H ALT 12 Alkaline Phosphatase 80 Ammonia 46 Total Creatine Kinase 199 H C-Reactive Protein Total Protein 8.1 H Albumin 2.3 L Triglycerides Cholesterol LDL Cholesterol, Calc HDL Cholesterol Vitamin B12 TSH Urine Color Yellow Urine Appearance Clear Urine pH 5.0 Ur Specific [place] 1.015 Urine Protein Trace Urine Glucose (UA) Negative Urine Ketones Negative Urine Blood Moderate (2+) H Urine Nitrite Negative Ur Leukocyte Esterase Negative Urine RBC 11-20 H Urine WBC 0-5 Ur Squamous Epith Cells 0-2 Urine Bacteria None Seen Hyaline Casts 0-2 Urine Eosinophils % 0.0 Urine Osmolality 472 Ur Random Sodium 36.0 Urine Creatinine 66.06 Blood Type Antibody Screen Assessment and Plan (1) Hypertension: Status: Acute (2) Atrial fibrillation with rapid ventricular response: Status: Acute (3) Peripheral vascular disease: Status: Acute (4) CKD (chronic kidney disease) stage 3, GFR 30-59 ml/min: Status: Acute (5) Acute kidney injury superimposed on CKD: Status: Acute (6) MGUS (monoclonal gammopathy of unknown significance): Status: Acute (7) DUSTIN (iron deficiency anemia): Status: Acute (8) Polyneuropathy: Status: Acute (9) Chronic pain: Status: Acute (10) Anemia: Status: Acute Plan 79 yo male with PMH IDDM, polyneuropathy, PVD/ CVI, osteoporosis, ITP, HTN, OA, chronic decubitus ulcer, BPH, immobility, chronic anemia/ DUSTIN on ferrous sulfate, CKD stage IIIB, MGUS, chronic AFib on Eliquis, was sent into the emergency department from his long-term facility [facility] in [place] since 10/12/2024 for bleeding from the chronic sacral wound area noting patient is on Eliquis for anticoagulation for AFib, complaining of pain & generalized weakness. Altered mental status Possible Wernicke encephalopathy Opioid induced encephalopathy Patient suffered with visual hallucinations, altered mental status, intention tremor bilaterally & Short-term memory loss Administered IV thiamine, with reversal in altered mental status within 30 minutes. Possible etiology could be 2/2 opioid induced encephalopathy in the setting of receiving morphine and Dilaudid. Acute anemia on blood thinner CKD, Chronic Anemia, DUSTIN Monitor H&H closely, no indication for transfusion at this time Continue iron as iron levels remain low Seen by Hematology on 01/29/2025 and received 1 unit of PRBCs in the outpatient setting Concern regarding continuation of anticoagulation noting ongoing issues with anemia and bleeding from the sacral wound - currently held, repeating H&H at midnight Consider Hematology consultation Reticular count and erythropoietin levels pending AFIB RVR, hx of AFIB Rate is better controlled on Cardizem infusion, [id number] BPM Patient asymptomatic no chest pain or shortness of breath or evidence of hypoxia - Metoprolol 25mg XR OD started - Consider restarting Apixaban at 2.5mg BID PO - will coordinate with Wound care/ surgery regarding bleeding risk Echo ordered Cardiology consulted KIM on CKD with noted MGUS Nephrology consulted Avoid hypotension UA and urine studies pending Avoid nephrotoxic medications including NSAIDs Strict I's and O's Chronic sacral decubitus with Chronic pain Morphine changed to Dilaudid to optimize pain control along with noted KIM/CKD Wound care consulted Patient is started on Vancomycin and Zosyn, Zosyn currently renal dosed based on creatinine clearance of 38 No evidence of osteomyelitis in the sacral wound via CT scan General surgery consulted Infectious disease consulted Nutritional consultation placed to optimize nutrition to promote wound healing B foot wounds with hx of PVD/ Neuropathy Noted peripheral vascular disease with history of femoral endarterectomy Vascular consulted Venous Dopplers requested, aware patient is on anticoagulation but goal is to rule out any abnormalities Wound care consulted Immobility and generalized weakness Patient states his overall abilities are declining since living in the long-term care facility Patient is now wheelchair-bound PT eval may be beneficial at some point during this admission IDDM Sliding scale insulin Lantus ordered Diabetic diet HTN Blood pressure was low initially and improving with rate control on the Cardizem infusion Med rec pending, holding patient's usual oral antihypertensives to avoid hypotension Low-sodium diet BPH Continue tamsulosin and finasteride HLD Continue statin Cardiac diet QUALITY METRICS - VTE: Chemical prophylaxis held 06/18 bleeding sacral wound - CODE STATUS: Full code - DIET: Cardiac Total time managing care of this patient today: 60 minutes. Quality Stroke Does the patient have a stroke diagnosis?: No Reason for No Anti-thrombotic by Day Two: Contraindicated VTE Prior VTE?: No VTE Risk Level:: Medical - moderate - high VTE Device Contraindication: N/A - Device Ordered VTE Drug Contraindication: N/A - Med Ordered
[2025-02-01] MEDS: Metoprolol Succinate ER 25 MG TAB.ER.24H PO (15:24)
[2025-02-01 16:24] LABS: Glucose, Whole Blood 154 mg/dL (60-115)
--- NOTE | 2025-02-01 16:24 | PM.EVENT ---
Event Note Date of Service: 02/01/25 Event Note: GI Consult-Full note dictated-History from the patient, his son Hoang, his RN, and the EMR. Imp: Anemia-this seems to be due to multiple issues including chronic blood loss from his skin wounds/ulcerations in the setting of chronic use of Eliquis, renal insufficiency, and overall chronic disease with an associated significantly elevated ferritin level. He has no localizing GI symptoms and there has been no report of obvious GI bleeding. Based on the history, I do not think his anemia is in relation to any significant GI pathology and I do not think he requires an upper endoscopy or colonoscopy at this time. Rec: Supportive care. Maximize nutrition and protein intake to assist with healing. Transfuse to maintain adequate Hgb > 8-9. Would add a PPI if not already on one to prophylax against any ongoing gastritis/PUD contributing to any potential occult blood loss. Avoid aspirin and NSAIDs. Please contact me if I can be of any further assistance. Thanks. Time Spent With Patient Time: Total time managing care of this patient today ____ minutes.
--- NOTE | 2025-02-01 17:10 | P.CONGS_ITS ---
History of Present Illness Consult details Consult date: 02/01/25 Reason for consult: wound care Narrative: Very complex 79-year-old gentleman with a hip prior history of peripheral vascular disease. It is reported that he has had bilateral femoral endarterectomy is at some point unclear where this was done. He has been mostly immobile and now noted to have some ulcers on the dorsum of feet. He now presents to us for vascular evaluation. At the time of his exam he was quite uncomfortable and quite irritable. Did not give a clear review of systems. Review of Systems 2 Review of Systems: Yes all other systems are reviewed and are negative Constitutional: Constitutional: Reports no additional constitutional complaints ENT: Reports Normal hearing present Cardiovascular: Cardiovascular: Denies chest pain, Denies chest pain at rest, Denies chest pain with activity and Denies pedal edema Respiratory: Respiratory: Denies cough Gastrointestinal: Gastrointestinal: Denies abdominal pain Musculoskeletal: Musculoskeletal: Denies abnormal gait, Denies muscle cramps and Denies radiating pain into limb Integumentary/Breasts: Skin/Breast: Denies skin ulcer and Denies wounds Neurologic: Reports Normal hearing present and Denies abnormal gait Psychiatric: Psychiatric: Reports no additional psychiatric complaints PMFSH Past Medical History Medical History (Updated 02/01/25 @ 17:12 by Rolando Staton MD) Fungal rash of torso Polyneuropathy DUSTIN (iron deficiency anemia) CKD (chronic kidney disease) stage 3, GFR 30-59 ml/min Chronic disease anemia BPH (benign prostatic hyperplasia) Peripheral vascular disease Chronic ulcer of sacral region Chronic pain Allergic rhinitis Hyperlipidemia Hypertension Afib Surgical History Surgical History (Updated 01/31/25 @ 21:55 [facility] H/O endarterectomy Social History Social History Household Members: None Housing: Assisted Patient Tobacco Use Status: Former Tobacco user Smoked in Last 30 Days: No Use of substances other than those prescribed or required for medical reasons: No Currently Displaying Signs/Symptoms of Drug Intoxication Withdrawal: No Have you been hit, kicked, punched, or otherwise hurt by someone within the past year? If so, by whom?: No Do you feel safe in your current relationship?: No Current Relationship Is there a partner from a previous relationship who is making you feel unsafe now?: No Are you made to feel afraid or neglected: No Advance Directives: No Advance Directives Information Provided: No Do you have a plan to hurt others: No Plan Recently lost weight without trying: No Eating poorly because of decreased appetite: No Nutrition Risks: No Nutritional Risk Travel History Ebola Risk: Travel/Contact With Anyone From Affected Area/s: No Has Patient Experienced Ebola Symptoms: No Meds Allergies Allergy/AdvReac Type Severity Reaction Status Date / Time atorvastatin (From Lipitor) Allergy Anaphylaxis Verified 01/31/25 16:32 capsaicin Allergy Anaphylaxis Verified 01/31/25 16:32 duloxetine (From Cymbalta) Allergy Anaphylaxis Verified 01/31/25 16:32 gabapentin Allergy Anaphylaxis Verified 01/31/25 16:32 metformin Allergy Anaphylaxis Verified 01/31/25 16:32 Active Medications: Current Medications Acetaminophen (Acetaminophen 325 Mg Tablet) 650 mg PO Q6H PRN PRN Reason: Pain, Mild 1-3,fever,headache Albuterol/Ipratropium (Albuterol/Iprat 2.5/0.5mg 3 Ml Ampul.Neb) 3 ml INHALE Q4H PRN PRN Reason: Shortness of Breath/Wheezing Artificial Tears (Artificial Tears 15 Ml Drops) 1 drop EYE-BOTH Q2H PRN PRN Reason: Dry Eyes Ascorbic Acid (Ascorbic Acid 250 Mg Tablet) 250 mg PO DAILY [facility] Last Admin: 02/01/25 07:52 Dose: 250 mg Bisacodyl (Bisacodyl 10 Mg Supp.Rect) 10 mg ME DAILY PRN PRN Reason: Constipation Calcium Carbonate (Calcium Carbonate 750 Mg Tab.Chew) 750 mg PO Q4H PRN PRN Reason: Heartburn Dextrose (Dextrose 50 % 25 Gm/50 Ml Syringe) 25 gm IVPUSH Q15M PRN; Protocol PRN Reason: per Hypoglycemia Standing Ord. Ferrous Sulfate (Ferrous Sulfate 324 Mg Tablet.Dr) 324 mg PO BID [facility] Last Admin: 02/01/25 07:53 Dose: 324 mg Finasteride (Finasteride 5 Mg Tablet) 5 mg PO DAILY [facility] Last Admin: 02/01/25 07:53 Dose: 5 mg Glucose (Glucose Gel 15 Gm Gel..Gram.) 15 gm PO Q15M PRN; Protocol PRN Reason: per Hypoglycemia Standing Ord. Guaifenesin (Guaifenesin 200 Mg/10 Ml 10 Ml Liquid) 10 ml PO Q8H PRN PRN Reason: Cough Hydromorphone HCl (Hydromorphone Hcl 1 Mg/Ml Syringe) 1 mg IVPUSH Q3H PRN; Protocol PRN Reason: Pain, Severe (Pain Scale 7-10) Last Admin: 02/01/25 09:28 Dose: 1 mg Diltiazem HCl 125 mg/ Sodium (Chloride) 125 mls @ 0 mls/hr IVCONT .Q0M [facility]; Protocol Last Titration: 02/01/25 00:56 Dose: 0 mg/hr, 0 mls/hr Piperacillin Sod/Tazobactam (Sod 2.25 gm/ Sodium Chloride) 50 mls @ 100 mls/hr IV Q6H [facility] Last Infusion: 02/01/25 14:48 Dose: Infused Vancomycin HCl 1,000 mg/ (Sodium Chloride) 270 mls @ 270 mls/hr IV Q24H [facility] Insulin Glargine (Insulin Glargine,Hum.Rec.Anlog 100 Unit/Ml 10 Ml Vial) 27 unit SUBCUT BEDTIME [facility] Last Admin: 01/31/25 22:47 Dose: 27 unit Insulin Human Lispro (Insulin Lispro 100 Unit/Ml 3 Ml Vial) 0 unit SUBCUT QIDACHS [facility]; Protocol Last Admin: 02/01/25 12:44 Dose: Not Given Lidocaine (Lidocaine 4 % Patch Adh..Patch) 1 patch TRANSDERMA DAILY [facility]; Protocol Last Admin: 02/01/25 09:31 Dose: Not Given Magnesium Hydroxide (Milk Of Magnesia 30 Ml Oral.Susp) 30 ml PO DAILY PRN PRN Reason: Constipation Melatonin (Melatonin 3 Mg Tablet) 6 mg PO BEDTIME PRN PRN Reason: Insomnia Metoprolol Succinate (Metoprolol Succinate Er 25 Mg Tab.Er.24h) 25 mg PO DAILY [facility]; Protocol Last Admin: 02/01/25 15:24 Dose: 25 mg Multivitamins/Vitamin C (Multivitamin Tablet) 1 tab PO DAILY [facility] Last Admin: 02/01/25 07:53 Dose: 1 tab Non-Formulary Medication (Rosuvastatin) 5 mg PO DAILY [facility] Nystatin (Nystatin Powder 15 Gm Bottle) 1 appl TOPICAL QSHIFT [facility]; Protocol Last Admin: 02/01/25 15:25 Dose: 1 appl Ondansetron HCl (Ondansetron Hcl 4 Mg/2 Ml Vial) 4 mg IVPUSH Q8H PRN PRN Reason: Nausea and Vomiting Pantoprazole Sodium (Pantoprazole Sodium 40 Mg/10 Ml Vial) 40 mg IVPUSH DAILY@0630 [facility] Last Admin: 02/01/25 06:26 Dose: 40 mg Pharmacy Consult (Consult Rx Vancomycin Dosing) 1 each MISCELLANE DAILY PRN PRN Reason: Consult order Polyethylene Glycol (Polyethylene Glycol 3350 17 Gm Powd.Pack) 17 gm PO DAILY PRN PRN Reason: Constipation Pregabalin (Pregabalin 200 Mg Capsule) 200 mg PO BID [facility] Last Admin: 02/01/25 07:53 Dose: 200 mg Senna (Sennosides 8.6 Mg Tablet) 17.2 mg PO BEDTIME [facility] Last Admin: 01/31/25 21:45 Dose: Not Given Sodium Chloride (0.9 % Sodium Chloride Flush 3 Ml Syringe) 3 ml IVFLUSH QSHIFT [facility] Last Admin: 02/01/25 07:52 Dose: 3 ml Sodium Hypochlorite (Sodium Hypochlorite 0.25% 473 Ml Solution) 1 appl TOPICAL DAILY [facility] Last Admin: 02/01/25 15:25 Dose: 1 appl Tamsulosin HCl (Tamsulosin Hcl 0.4 Mg Capsule) 0.8 mg PO DAILY [facility] Last Admin: 02/01/25 07:52 Dose: 0.8 mg Vitamin D (Cholecalciferol (Vitamin D3) 25 Mcg Tablet) 25 mcg PO DAILY [facility] Last Admin: 02/01/25 07:52 Dose: 25 mcg Home Medications ?Medication ?Instructions ?Recorded ?Confirmed ?Last Taken ?Type acetaminophen 325 mg capsule 650 mg PO Q6H PRN Pain 01/31/25 Unknown History apixaban 5 mg tablet (Eliquis) 5 mg PO BID 12/29/24 Unknown History ascorbic acid (vitamin C) 250 mg 250 mg PO DAILY 12/2901/31/25 Unknown History tablet bisacodyl 10 mg rectal suppository 10 mg ME DAILY PRN Constipation 12/29/24 01/31/25 Unknown History (Dulcolax (bisacodyl)) cholecalciferol (vitamin D3) 25 25 mcg PO DAILY 01/31/25 Unknown History mcg (1,000 unit) tablet enalapril maleate 2.5 mg tablet 2.5 mg PO DAILY 01/31/25 Unknown History ferrous sulfate 325 mg (65 mg 325 mg PO BID 12/29/24 0 01/31/25 Unknown History iron) tablet finasteride 5 mg tablet 5 mg PO DAILY 12/29/2401/31 Unknown History guaifenesin 100 mg/5 mL oral 200 mg PO Q8H PRN Cough 0 12/29/24 01/31/25 Unknown History liquid (Kareen-Tussin) insulin glargine U-300 conc 300 27 unit subcut DAILY 0 12/29/24 01/31/25 Unknown History unit/mL (1.5 mL) subcutaneous pen loratadine 10 mg capsule 10 mg PO DAILY 12/29/2401/15 Unknown History multivitamin See Rx Instructions .Route . COMPLEX 12/29/24 01/31/25 Unknown History pregabalin 200 mg capsule (Lyrica) 200 mg PO BID 12/2901/31/25 Unknown History rosuvastatin 5 mg tablet 5 mg PO DAILY 12/29/2401/31 Unknown History sodium phosphates oral solution 15 ml PO Q10M 12/29/24 01/31/25 Unknown History tamsulosin 0.4 mg capsule 0.8 mg PO DAILY 12/29/24 Unknown History emollient 1 appl topical DAILY 5 01/31/25 Unknown History lidocaine 4 % topical patch 1 patch topical DAILY 01/1501/31/25 Unknown History magnesium hydroxide 400 mg/5 mL 30 ml PO BEDTIME PRN C onstipation 01/31/25 01/31/25 Unknown History oral suspension (Milk of Magnesia) nystatin 100,000 unit/gram topical 1 appl topical QSHI FT 01/31/25 01/31/25 Unknown History cream nystatin 100,000 unit/gram topical 1 appl topical QSHI FT 01/31/25 01/31/25 Unknown History powder polyvinyl alcohol-povidone (PF) 1 drp ophthalmic-Right Q2H PRN Dry 01/31/25 01/31/25 Unknown History 1.4 %-0.6 % eye drops in a Eyes dropperette sodium hypochlorite 0.25 % 1 appl topical DAILY Wound Care 01/31/25 01/31/25 Unknown History solution (Dakin's Solution) wound dressings (Triad Wound 1 appl topical DAILY 01/1501/31/25 Unknown History Dressing paste) Physical Exam 2 Vital Signs: Vital Signs: Last Vital Signs Temp 97.0 F 02/01/25 15:31 Pulse 88 02/01/25 15:31 Resp 20 02/01/25 15:31 BP 102/55 L 02/01/25 15:31 Pulse Ox 98 02/01/25 15:31 O2 Del Method Nasal Cannula 02/01/25 15:31 O2 Flow Rate 2 02/01/25 15:31 BMI result Body Mass Index 29.6 Const: General: cooperative, healthy appearing and comfortable O rientation/consciousness: oriented to person, oriented to place and oriented to time HEENT: Head: Yes normal to inspection Neck: Neck: Yes normal visual inspection Carotids: no bruits Chest: Chest palpation & inspection: normal inspection of the chest Resp: Effort & Inspection: normal respiratory effort and able to speak in complete sentences Auscultation: clear to auscultation bilaterally, no crackles, no rales, no rhonchi and no wheezes Cardio: Other: Bilateral DP signals Rate: regular rate Rhythm: regular rhythm Heart sounds: S1 normal heart sound present and S2 normal heart sound present Bruits: no carotid bruits Peripheral pulses: Peripheral pulses 2+ throughout GI: Inspection: Yes normal to inspection Skin: Wounds: no wounds Hair: normal Neuro: General: oriented to person, oriented to place and oriented to time Cranial nerves: Yes CN's II-XII intact bilaterally and Yes Normal hearing present Cognition (Neuro): normal cognition Motor exam (neuro): 5/5 motor strength present throughout Extrem: Other: Ulcers in bilateral dorsum of feet General: No clubbing, No cyanosis and No edema Psych: Appearance: grossly normal Mental Status: mental status grossly normal Speech and movement: Normal speech and movement present Results Labs 02/01/25 05:49 02/01/25 11:41 Labs: Abnormal lab results 01/31/25 01/31/25 02/01/25 Range/Units 17:09 21:43 00:34 RBC 2.34 L D (4.60-5.80) X10*6/uL Hgb 7.8 L D 7.5 L (14.0-18.0) g/dl Hct 23.8 L D 22.9 L (42.0-52.0) % MCV 101.7 H (80.0-98.0) fL MCH 33.3 H (27.0-33.0) pg RDW 18.2 H (11.0-16.0) % Plt Count 111 L (160-400) X10*3/uL Immature Gran % (Auto) 1.7 H (0.0-0.4) % Neut % (Auto) (45-73) % Lymph % (Auto) 11.7 L (20-40) % Lymph # (Auto) 0.6 L (1.2-4.9) X10*3/uL Abs Immat Gran (auto) 0.08 H (0.00-0.03) X10*3/uL Absolute Nucleated RBC 0.020 H (0.0-0.012) X10*3/uL Nucleated RBC % (auto) 0.4 H (0.0-0.2) /100WBC ESR > 140 H (0-15) MM/HR Percent Retic (0.5-1.8) % Immature Retic Fraction (2.3-13.4) % Chloride (96-108) mmol/L Anion Gap (12-20) BUN 59 H (9-16) mg/dL Creatinine 1.87 H (0.5-1.4) mg/dL POC Glucose 122 H (60-115) mg/dL Random Glucose 124 H (60-115) mg/dL Calcium 8.0 L (8.4-10.2) mg/dL Iron 32 L (45-160) mcg/dL TIBC 121 L (228-428) mcg/dL AST 41 H (5-37) U/L Total Creatine Kinase (38-174) U/L C-Reactive Protein 1.48 H (< or = 0.50) mg/dL Total Protein 8.3 H (6.5-8.0) g/dL Albumin 2.4 L (3.5-5.0) g/dL HDL Cholesterol (>40) mg/dL Urine Blood (Negative) Urine RBC (0-2) /HPF 02/01/25 02/01/25 02/01/25 Range/Units 05:49 06:59 10:52 RBC 2.31 L (4.60-5.80) X10*6/uL Hgb 7.7 L (14.0-18.0) g/dl Hct 23.7 L (42.0-52.0) % MCV 102.6 H (80.0-98.0) fL MCH 33.3 H (27.0-33.0) pg RDW 18.2 H (11.0-16.0) % Plt Count 121 L (160-400) X10*3/uL Immature Gran % (Auto) 2.1 H (0.0-0.4) % Neut % (Auto) 75.7 H (45-73) % Lymph % (Auto) 10.2 L (20-40) % Lymph # (Auto) 0.6 L (1.2-4.9) X10*3/uL Abs Immat Gran (auto) 0.13 H (0.00-0.03) X10*3/uL Absolute Nucleated RBC (0.0-0.012) X10*3/uL Nucleated RBC % (auto) (0.0-0.2) /100WBC ESR (0-15) MM/HR Percent Retic 2.0 H (0.5-1.8) % Immature Retic Fraction 23.2 H (2.3-13.4) % Chloride (96-108) mmol/L Anion Gap (12-20) BUN 53 H (9-16) mg/dL Creatinine 1.84 H (0.5-1.4) mg/dL POC Glucose 117 H 127 H (60-115) mg/dL Random Glucose 143 H (60-115) mg/dL Calcium 8.3 L (8.4-10.2) mg/dL Iron (45-160) mcg/dL TIBC (228-428) mcg/dL AST 38 H (5-37) U/L Total Creatine Kinase (38-174) U/L C-Reactive Protein (< or = 0.50) mg/dL Total Protein 8.2 H (6.5-8.0) g/dL Albumin 2.3 L (3.5-5.0) g/dL HDL Cholesterol 21 L (>40) mg/dL Urine Blood (Negative) Urine RBC (0-2) /HPF 02/01/25 02/01/25 02/01/25 Range/Units 11:41 12:17 16:20 RBC (4.60-5.80) X10*6/uL Hgb (14.0-18.0) g/dl Hct (42.0-52.0) % MCV (80.0-98.0) fL MCH (27.0-33.0) pg RDW (11.0-16.0) % Plt Count (160-400) X10*3/uL Immature Gran % (Auto) (0.0-0.4) % Neut % (Auto) (45-73) % Lymph % (Auto) (20-40) % Lymph # (Auto) (1.2-4.9) X10*3/uL Abs Immat Gran (auto) (0.00-0.03) X10*3/uL Absolute Nucleated RBC (0.0-0.012) X10*3/uL Nucleated RBC % (auto) (0.0-0.2) /100WBC ESR (0-15) MM/HR Percent Retic (0.5-1.8) % Immature Retic Fraction (2.3-13.4) % Chloride 110 H (96-108) mmol/L Anion Gap 10 L (12-20) BUN 51 H (9-16) mg/dL Creatinine 1.87 H (0.5-1.4) mg/dL POC Glucose 154 H (60-115) mg/dL Random Glucose 133 H (60-115) mg/dL Calcium 8.2 L (8.4-10.2) mg/dL Iron (45-160) mcg/dL TIBC (228-428) mcg/dL AST 42 H (5-37) U/L Total Creatine Kinase 199 H (38-174) U/L C-Reactive Protein (< or = 0.50) mg/dL Total Protein 8.1 H (6.5-8.0) g/dL Albumin 2.3 L (3.5-5.0) g/dL HDL Cholesterol (>40) mg/dL Urine Blood Moderate (2+) H (Negative) Urine RBC 11-20 H (0-2) /HPF Short CBC 01/31/25 02/01/25 02/01/25 Range/Units 17:09 00:34 05:49 WBC 4.8 6.3 (4.8-10.8) X10*3/uL Hgb 7.8 L D 7.5 L 7.7 L (14.0-18.0) g/dl Hct 23.8 L D 22.9 L 23.7 L (42.0-52.0) % Plt Count 111 L 121 L (160-400) X10*3/uL BMP 01/31/25 02/01/25 02/01/25 17:09 05:49 11:41 Sodium 140 141 141 Potassium 4.9 4.7 5.0 Chloride 107 108 110 H Carbon Dioxide 25 24 26 BUN 59 H 53 H 51 H Creatinine 1.87 H 1.84 H 1.87 H Calcium 8.0 L 8.3 L 8.2 L Cardiac Enzymes 01/31/25 02/01/25 Range/Units 17:09 11:41 Total Creatine Kinase 44 199 H (38-174) U/L Liver Function 01/31/25 02/01/25 02/01/25 Range/Units 17:09 05:49 11:41 Total Bilirubin 0.6 0.5 0.5 (0.0-1.0) mg/dL AST 41 H 38 H 42 H (5-37) U/L ALT 10 12 12 (0-40) U/L Alkaline Phosphatase 82 80 80 (39-117) U/L Albumin 2.4 L 2.3 L 2.3 L (3.5-5.0) g/dL Urine 02/01/25 Range/Units 12:17 Urine Color Yellow Urine Appearance Clear Urine pH 5.0 (5.0-9.0) Ur Specific [place] 1.015 (1.005-1.025) Urine Protein Trace (Neg-Trace) mg/dL Urine Glucose (UA) Negative (Negative) mg/dL All other labs normal. Assessment and Plan (1) PAD (peripheral artery disease): Status: Acute Plan Complex 79-year-old gentleman with CHAUNCEY Jiang. I did review his noninvasive arterial testing which is concerning with monophasic waveforms throughout. Problem here is that he has multiple medical problems in extreme pain. At the current time is wounds on his feet appear stable. They do not appear to be a source of infection. Would manage him conservatively. Would treat all his other medical issues currently and we can follow-up as an outpatient if required. If not he can follow up with [facility] vascular where I believe his previous work had been done. Thank you for allowing us to assist in his care. Procedures Date of Service Date of Service: 02/01/25
[2025-02-01] MEDS: Insulin Glargine,Hum.rec.anlog 100 UNIT/ML 10 ML VIAL 27 UNIT SUBCUT (19:30)
[2025-02-01 21:09] LABS: Glucose, Whole Blood 135 mg/dL (60-115)
[2025-02-02] VITALS (7 sets, daily range): BP systolic 108–124; BP diastolic 53–65; PULSE 85–93; RESP 16–20; TEMP 36.3–36.9; O2SAT 97–99; BMI 29.7
--- NOTE | 2025-02-02 03:14 | CONS_ITS ---
DATE OF SERVICE: 02/01/2025 REASON FOR CONSULTATION: Anemia. HISTORY OF PRESENT ILLNESS: This has been obtained from the patient; his son, Hoang; his nurse; and the medical record. The patient is a 79-year-old male who is originally from [place] but was moved here recently by his son to help take care of him. According to his son, he had been living at home in [place], but was recently confined to a wheelchair mainly due to a fall. This resulted in some skin breakdown and ulcerations on his buttocks and lower extremities. His son had him moved here for further care, and he had been in a intermediate until being transferred here yesterday due to the report of some bleeding from his skin ulcers and wounds. He was subsequently admitted here. He was found to be anemic with a hemoglobin as low as 6.2 on January 29 and then 7.8 on January 31. There has been no report of melena, hematochezia, nor vomiting. He does have chronic bleeding from his skin wounds and skin ulcerations, and is also on Eliquis. According to the patient and the nursing staff, he has been eating fairly well. The patient denies any chronic heartburn or dysphagia. He denies any abdominal pain. Again, there has been no report of melena or hematochezia. He is on chronic Eliquis, but does not appear to be on any medications such as aspirin or NSAIDs. He is on iron as an outpatient. According to his son, he has had 1 or 2 colonoscopies, although not for quite a number of years. There is no known family history of colorectal cancer. It does not appear that he has had any blood transfusions since admission. MEDICATIONS: Include acetaminophen, albuterol inhaler p.r.n., vitamin C, Jean Lax p.r.n., Tums p.r.n., vitamin D, IV diltiazem, iron, Proscar, guaifenesin, hydromorphone, insulin, lidocaine patch, melatonin, metoprolol, morphine p.r.n., nystatin powder, Zofran p.r.n., IV Protonix, IV Zosyn, pregabalin, rosuvastatin, Senokot, tamsulosin, vancomycin. PAST MEDICAL HISTORY: Diabetes mellitus. Multiple wounds and ulcerations on his feet, buttocks, and lower extremities in general. Enlarged prostate. Hypertension. Hyperlipidemia. Atrial fibrillation. Renal insufficiency. Anemia. There is no reported history of [place] or stroke. He also has history of neuropathy and peripheral vascular disease. According to the chart, he has had bilateral femoral endarterectomies. SOCIAL HISTORY: He has been living at the intermediate. He has not been a smoker or user of alcohol since his 20s. REVIEW OF SYSTEMS: CONSTITUTIONAL: According to his son, he has been feeling poorly in relation to his overall condition in regard to his lower extremities and medical problems in general. CARDIAC: No chest pain. PULMONARY: No coughing, nor hemoptysis. GI: As above. URINARY: No dysuria, no hematuria. NEUROLOGIC: No headache or seizures. PHYSICAL EXAMINATION: GENERAL: The patient is a chronically ill-appearing male, in no distress. SKIN: Warm and dry. Anicteric sclerae. NECK: Supple without lymphadenopathy. CARDIAC: Normal S1, S2. ABDOMEN: Soft, nondistended, nontender without palpable mass or tenderness. LABORATORY DATA: White blood cell count 6.3, hemoglobin 7.7 today, platelets 121,000. Normal electrolytes. BUN 51, creatinine 1.9, total bilirubin 0.5, AST 42, ALT 12, alkaline phosphatase 80, ammonia level 46, albumin 2.3. IMPRESSION: In regard to his anemia, I do not think this is related to any significant active GI process causing blood loss. He does not have any localizing GI symptoms. There also has not been any report of melena nor hematochezia. Therefore, based on the clinical history, as well as his overall condition, I do not think he would be a candidate for having an upper endoscopy or colonoscopy at this time. I suspect his anemia is contributed to by his chronic blood loss from his lower extremities and other areas of ulcerations, particularly while on Eliquis. His renal insufficiency may be contributing to the anemia as well. Overall, I suspect there is a component of anemia of chronic disease. He does have an elevated ferritin level. Again, I do not think that an upper endoscopy or colonoscopy would be helpful for him in regard to diagnosing the anemia. Given all of his comorbidities, I do not think he would be a good candidate to have that done anyway. I would continue supportive care. I would maximize his nutrition and protein intake to assist with healing. I would transfuse him to maintain hemoglobin of at least 8 to 9. I would continue his PPI, but this could be converted to an oral PPI, so as to prophylax against any ongoing gastritis or peptic ulcer disease. He should not receive any aspirin nor NSAIDs. At this point, I do not think he needs any other intervention on my part. Please feel free to contact me if anything changes or I can be of further assistance. This has all been discussed with his son, Hoang. Thank you for the consultation. MD MIKE Mason/WOOD / [phone] MTDD
[2025-02-02 06:13] LABS: Creatinine Clr Calc Pharmacy 37.4; Estimated Glomerular Filt Rate 33
[2025-02-02 07:23] LABS: Glucose, Whole Blood 96 mg/dL (60-115)
[2025-02-02 08:01] LABS: Anion Gap 12 (12-20); Blood Urea Nitrogen 47 mg/dL (9-16); Calcium 8.2 mg/dL (8.4-10.2); Carbon Dioxide 26 mmol/L (22-29); Chloride 107 mmol/L (96-108); Potassium 5.0 mmol/L (3.3-5.1); Sodium 140 mmol/L (135-145)
--- NOTE | 2025-02-02 08:32 | P.PNNP_ITS ---
Subjective Subjective Date of Service: 02/02/25 Interval history: Here from long-term intermediate for bleeding from sacral wound, generalized weakness. Following for KIM on CKD. creatinine up to 1.95 this a.m. from 1.87. Physical Exam 2 Vital Signs: Vital Signs: Last Vital Signs Temp 97.3 F 02/02/25 08:00 Pulse 85 02/02/25 08:00 Resp 20 02/02/25 08:00 BP 115/65 02/02/25 08:00 Pulse Ox 97 02/02/25 08:00 O2 Del Method Nasal Cannula 02/02/25 08:00 O2 Flow Rate 1.5 02/02/25 08:00 BMI result Body Mass Index 29.7 Const: General: no acute distress, alert and awake Resp: Effort & Inspection: normal respiratory effort and able to speak in complete sentences Auscultation: clear to auscultation bilaterally Cardio: Rate: regular rate Rhythm: abnormal rhythm Heart sounds: S1 normal heart sound present and S2 normal heart sound present GI: Palpation (GI): Soft to palpation and nontender Skin: Rashes: no rashes Extrem: General: No edema Objective Data Labs 02/01/25 05:49 02/02/25 05:24 Labs: Laboratory Results - last 24 hr 02/01/25 02/01/25 02/01/25 10:52 11:41 11:50 VBG pH 7.36 VBG pCO2 46 VBG pO2 91 VBG HCO3 26 VBG O2 Saturation 96.0 VBG Base Excess 1.0 Sodium 141 Potassium 5.0 Chloride 110 H Carbon Dioxide 26 Anion Gap 10 L BUN 51 H Creatinine 1.87 H Estim Creat Clear Calc 39.0 Estimated GFR 35 POC Glucose 127 H Random Glucose 133 H Calcium 8.2 L Total Bilirubin 0.5 AST 42 H ALT 12 Alkaline Phosphatase 80 Ammonia 46 Total Creatine Kinase 199 H Total Protein 8.1 H Albumin 2.3 L Urine Color Urine Appearance Urine pH Ur Specific [place] Urine Protein Urine Glucose (UA) Urine Ketones Urine Blood Urine Nitrite Ur Leukocyte Esterase Urine RBC Urine WBC Ur Squamous Epith Cells Urine Bacteria Hyaline Casts Urine Eosinophils % Urine Osmolality Ur Random Sodium Urine Creatinine 02/01/25 02/01/25 02/01/25 12:17 16:20 21:04 VBG pH VBG pCO2 VBG pO2 VBG HCO3 VBG O2 Saturation VBG Base Excess Sodium Potassium Chloride Carbon Dioxide Anion Gap BUN Creatinine Estim Creat Clear Calc Estimated GFR POC Glucose 154 H 135 H Random Glucose Calcium Total Bilirubin AST ALT Alkaline Phosphatase Ammonia Total Creatine Kinase Total Protein Albumin Urine Color Yellow Urine Appearance Clear Urine pH 5.0 Ur Specific [place] 1.015 Urine Protein Trace Urine Glucose (UA) Negative Urine Ketones Negative Urine Blood Moderate (2+) H Urine Nitrite Negative Ur Leukocyte Esterase Negative Urine RBC 11-20 H Urine WBC 0-5 Ur Squamous Epith Cells 0-2 Urine Bacteria None Seen Hyaline Casts 0-2 Urine Eosinophils % 0.0 Urine Osmolality 472 Ur Random Sodium 36.0 Urine Creatinine 66.06 02/02/25 02/02/25 05:24 07:18 VBG pH VBG pCO2 VBG pO2 VBG HCO3 VBG O2 Saturation VBG Base Excess Sodium 140 Potassium 5.0 Chloride 107 Carbon Dioxide 26 Anion Gap 12 BUN 47 H Creatinine 1.95 H Estim Creat Clear Calc 37.4 Estimated GFR 33 POC Glucose 96 Random Glucose 107 Calcium 8.2 L Total Bilirubin AST ALT Alkaline Phosphatase Ammonia Total Creatine Kinase Total Protein Albumin Urine Color Urine Appearance Urine pH Ur Specific [place] Urine Protein Urine Glucose (UA) Urine Ketones Urine Blood Urine Nitrite Ur Leukocyte Esterase Urine RBC Urine WBC Ur Squamous Epith Cells Urine Bacteria Hyaline Casts Urine Eosinophils % Urine Osmolality Ur Random Sodium Urine Creatinine Microbiology Microbiology Results: Microbiology 01/31/25 17:24 Blood - Venous Blood Culture - Preliminary No growth after 24 hours. 01/31/25 17:09 Blood - Venous Blood Culture - Preliminary No growth after 24 hours. 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 US + blood, no protein. IgA nephropathy on differential, as well as bone marrow disorder. urine immunofixation ordered Patient should have a bone marrow biopsy- recommend hematology consult. May need kidney biopsy. UA with blood, no protein or other cells. urine protein/creatinine ratio pending. renal US- no obstruction Patient is ok for discharge from a renal standpoint- will arrange close outpatient follow up in the nephrology clinic upon discharge. recommend avoiding nephrotoxins Discussed with Dr Kaur Time Spent With Patient Time: Total time managing care of this patient today ____ minutes. Progress Note: Quality Stroke Does the patient have a stroke diagnosis?: No Reason for No Anti-thrombotic by Day Two: Contraindicated
[2025-02-02] MEDS: Metoprolol Succinate ER 25 MG TAB.ER.24H PO (09:09)
[2025-02-02] MEDS: Ferrous Sulfate 324 MG TABLET.DR PO ×2 (09:10→21:42)
[2025-02-02] MEDS: 0.9 % Sodium Chloride Flush 3 ML SYRINGE IVFLUSH ×2 (09:15→17:25)
--- NOTE | 2025-02-02 10:58 | MHC.CLN ---
CONSULT PT WITH INCREASED NUTRITION RISK R/T PRESSURE INJURY PO INTAKE 75-100% DIET RX: 2000DM-RECOMMEND INCREASING TO 2200DM TO PROMOTE WOUND HEALING RECOMMEND ADDING ENSURE MAX BID TO PROVIDE 300KCALS, 60G PROTEIN MONITOR PO INTAKE AND ENCOURAGE SUPPLEMENTS SEE FULL ASSESSMENT
[2025-02-02 11:52] LABS: Glucose, Whole Blood 150 mg/dL (60-115)
--- NOTE | 2025-02-02 13:32 | MHC.CM.PN ---
Pt. is a resident of [facility], PCP there is Nan Mckeon NP. Pt. uses a W/C. He said his son is HCP, CM called son to request a copy. DCP: return to [facility] via BLS. CM to follow for DC needs.
--- NOTE | 2025-02-02 14:36 | HO.WOUND ---
Wound Consult: Initial 79yr old? male admitted to [facility] on 01/31/25 - See progress notes and H&P for detailed history.? Wound consult placed for Bilateral Toes, Groin and sacrum.? Arrival to bedside patient was not agreeable to my complete assessment. Communication was difficult despite trying to educate the patient and inform him of my role in his care. He continuously spoke over this ticket writer and ultimately refused repositions in addition to assessment. He reports he would be willing to allow my assessment after he received pain medication for his discomfort. He was not agreeable to further discussion or assessment at this time. Of note the patient did not appear to move independently in the bed all pressure relief measure should be employed. Given the patients refusals for care - I recommend cleansing and painting the toes with betadine at this time they are dry and stable but clearly have dried drainage to the wound bed. Should the wounds progress re-consult inpt wound care for continued assessment and topical recommendation in the hopes the patient is more agreeable. The buttock was not assessed but photo was provided by direct care nurse - noted for Moderate to severe MASD. Buttock Etiology: ??MASD Present on Admission Wound Bed: scattered open tissue with some slough noted Drainage / Odor: serosang Edges: ?irregular Jeramy wound: ?dark hyperpigmented No Induration, Fluctuance or Warmth noted Goals of Treatment: ? off load pressure and triad to protect from urine and stool and allow for moist wound healing Groin and skin folds noted to fungal dermatitis and mod-severe MASD - pink tissue with significant dry desquamation noted. No open wounds noted at this time. Antifungal powder in use already - pt reports significant decrease in ithcing since powder initiated. Recommend adding barrier cream to skin to allow for protection and soothing. Recommendations: 1. Turn and Reposition every 2 hours and as needed for patient comfort.? Use pillows or wedges to support off loading positions. 2. Off Load all bony prominences with use of pillows and heel boots if needed.? Apply Preventative foams where needed. ? 3. Monitor for incontinence and moisture control, use barrier creams when needed for prevention and treatment. 4. Provide adequate and supplemental nutrition.? 5. Order or Continue low air loss mattress. 6. When applicable maintain blood glucose levels per Providers order. Groin - Cleanse with PH balance spray or wipes, pat dry. ?Apply thin layer of barrier cream to affected area.? Apply twice daily and Reapply thin layer PRN after each episode of incontinence. Buttock - Off Load Pressure with Q2 hr turns and use of pillows - Cleanse with PH balance spray or wipes, pat dry. ?Apply thin layer of Triad to wound bed - only pat and dab no scrub and rub when soiling occurs. Reapply thin layer PRN after each episode of incontinence. ?Triad to provide an occlusive dressing, to allow moist healing with absorption of mild exudate, to minimize contamination of urine/stool or bacteria, and to soothe and protect jeramy wound skin. Bilateral Toes - Cleanse with betadine - may leave SHERITA - reconsult if patient is agreeable to assessment and dressing application. Re-consult wound care Nurse for wound deterioration or wound changes.
--- NOTE | 2025-02-02 15:04 | W.PM.IDCN ---
History of Present Illness Data of Consult Service Date: 02/02/25 Requesting physician: Holland Sales Primary Care Provider: Unknown Physician HPI Reason for consult: bleeding buttock area ?infection He presents with bleeding from superficial buttock/sacral wounds. He denies scratching. He is on Eliquis. Review of Systems Review of Systems: Yes all other systems are reviewed and are negative PMFSH Past Medical History Medical History Fungal rash of torso Polyneuropathy DUSTIN (iron deficiency anemia) CKD (chronic kidney disease) stage 3, GFR 30-59 ml/min Chronic disease anemia BPH (benign prostatic hyperplasia) Peripheral vascular disease Chronic ulcer of sacral region Chronic pain Allergic rhinitis Hyperlipidemia Hypertension Afib Family History Family history: reviewed and not pertinent Surgical History Surgical History H/O endarterectomy Social History Social History Household Members: None Housing: [facility] Patient Tobacco Use Status: Former Tobacco user Smoked in Last 30 Days: No Use of substances other than those prescribed or required for medical reasons: No Currently Displaying Signs/Symptoms of Drug Intoxication Withdrawal: No Have you been hit, kicked, punched, or otherwise hurt by someone within the past year? If so, by whom?: No Do you feel safe in your current relationship?: No Current Relationship Is there a partner from a previous relationship who is making you feel unsafe now?: No Are you made to feel afraid or neglected: No Advance Directives: No Advance Directives Information Provided: No Do you have a plan to hurt others: No Plan Recently lost weight without trying: No Eating poorly because of decreased appetite: No Nutrition Risks: No Nutritional Risk service: Yes Travel History Ebola Risk: Travel/Contact With Anyone From Affected Area/s: No Has Patient Experienced Ebola Symptoms: No Meds Allergies Allergy/AdvReac Type Severity Reaction Status Date / Time atorvastatin (From Lipitor) Allergy Anaphylaxis Verified 01/31/25 16:32 capsaicin Allergy Anaphylaxis Verified 01/31/25 16:32 duloxetine (From Cymbalta) Allergy Anaphylaxis Verified 01/31/25 16:32 gabapentin Allergy Anaphylaxis Verified 01/31/25 16:32 metformin Allergy Anaphylaxis Verified 01/31/25 16:32 Active Medications: Current Medications Acetaminophen (Acetaminophen 325 Mg Tablet) 650 mg PO Q6H PRN PRN Reason: Pain, Mild 1-3,fever,headache Albuterol/Ipratropium (Albuterol/Iprat 2.5/0.5mg 3 Ml Ampul.Neb) 3 ml INHALE Q4H PRN PRN Reason: Shortness of Breath/Wheezing Artificial Tears (Artificial Tears 15 Ml Drops) 1 drop EYE-BOTH Q2H PRN PRN Reason: Dry Eyes Ascorbic Acid (Ascorbic Acid 250 Mg Tablet) 250 mg PO DAILY [facility] Last Admin: 02/02/25 09:10 Dose: 250 mg Bisacodyl (Bisacodyl 10 Mg Supp.Rect) 10 mg [place] DAILY PRN PRN Reason: Constipation Calcium Carbonate (Calcium Carbonate 750 Mg Tab.Chew) 750 mg PO Q4H PRN PRN Reason: Heartburn Dextrose (Dextrose 50 % 25 Gm/50 Ml Syringe) 25 gm IVPUSH Q15M PRN; Protocol PRN Reason: per Hypoglycemia Standing Ord. Ferrous Sulfate (Ferrous Sulfate 324 Mg Tablet.Dr) 324 mg PO BID [facility] Last Admin: 02/02/25 09:10 Dose: 324 mg Finasteride (Finasteride 5 Mg Tablet) 5 mg PO DAILY [facility] Last Admin: 02/02/25 09:10 Dose: 5 mg Glucose (Glucose Gel 15 Gm Gel..Gram.) 15 gm PO Q15M PRN; Protocol PRN Reason: per Hypoglycemia Standing Ord. Guaifenesin (Guaifenesin 200 Mg/10 Ml 10 Ml Liquid) 10 ml PO Q8H PRN PRN Reason: Cough Diltiazem HCl 125 mg/ Sodium (Chloride) 125 mls @ 0 mls/hr IVCONT .Q0M [facility]; Protocol Last Titration: 02/01/25 00:56 Dose: 0 mg/hr, 0 mls/hr Sodium Chloride (Ns) 500 mls @ 100 mls/hr IVCONT .Q5H [facility] Stop: 02/02/25 17:44 Last Admin: 02/02/25 13:03 Dose: 100 mls/hr Insulin Glargine (Insulin Glargine,Hum.Rec.Anlog 100 Unit/Ml 10 Ml Vial) 27 unit SUBCUT BEDTIME [facility] Last Admin: 02/01/25 19:30 Dose: 27 unit Insulin Human Lispro (Insulin Lispro 100 Unit/Ml 3 Ml Vial) 0 unit SUBCUT QIDACHS [facility]; Protocol Last Admin: 02/02/25 12:35 Dose: Not Given Lidocaine (Lidocaine 4 % Patch Adh..Patch) 1 patch TRANSDERMA DAILY [facility]; Protocol Last Admin: 02/02/25 09:30 Dose: Not Given Magnesium Hydroxide (Milk Of Magnesia 30 Ml Oral.Susp) 30 ml PO DAILY PRN PRN Reason: Constipation Melatonin (Melatonin 3 Mg Tablet) 6 mg PO BEDTIME PRN PRN Reason: Insomnia Metoprolol Succinate (Metoprolol Succinate Er 25 Mg Tab.Er.24h) 25 mg PO DAILY [facility]; Protocol Last Admin: 02/02/25 09:09 Dose: 25 mg Morphine Sulfate (Morphine Sulfate 2 Mg/Ml Cartridge) 1 mg IVPUSH Q3H PRN; Protocol PRN Reason: Pain, Severe (Pain Scale 7-10) Multivitamins/Vitamin C (Multivitamin Tablet) 1 tab PO DAILY [facility] Last Admin: 02/02/25 09:10 Dose: 1 tab Non-Formulary Medication (Rosuvastatin) 5 mg PO DAILY [facility] Nystatin (Nystatin Powder 15 Gm Bottle) 1 appl [facility]; Protocol Last Admin: 02/02/25 09:15 Dose: 1 appl Ondansetron HCl (Ondansetron Hcl 4 Mg/2 Ml Vial) 4 mg IVPUSH Q8H PRN PRN Reason: Nausea and Vomiting Pantoprazole Sodium (Pantoprazole Sodium 40 Mg/10 Ml Vial) 40 mg IVPUSH DAILY@0630 [facility] Last Admin: 02/02/25 05:47 Dose: 40 mg Pharmacy Consult (Consult Rx Vancomycin Dosing) 1 each MISCELLANE DAILY PRN PRN Reason: Consult order Polyethylene Glycol (Polyethylene Glycol 3350 17 Gm Powd.Pack) 17 gm PO DAILY PRN PRN Reason: Constipation Pregabalin (Pregabalin 200 Mg Capsule) 200 mg PO BID [facility] Last Admin: 02/02/25 09:09 Dose: 200 mg Senna (Sennosides 8.6 Mg Tablet) 17.2 mg PO BEDTIME [facility] Last Admin: 02/01/25 19:28 Dose: 17.2 mg Sodium Chloride (0.9 % Sodium Chloride Flush 3 Ml Syringe) 3 ml IVFLUSH [facility] Last Admin: 02/02/25 09:15 Dose: 3 ml Sodium Hypochlorite (Sodium Hypochlorite 0.25% 473 Ml Solution) 1 appl TOPICAL DAILY [facility] Last Admin: 02/01/25 15:25 Dose: 1 appl Tamsulosin HCl (Tamsulosin Hcl 0.4 Mg Capsule) 0.8 mg PO DAILY [facility] Last Admin: 02/02/25 09:09 Dose: 0.8 mg Vitamin D (Cholecalciferol (Vitamin D3) 25 Mcg Tablet) 25 mcg PO DAILY [facility] Last Admin: 02/02/25 09:10 Dose: 25 mcg Home Medications ?Medication ?Instructions ?Recorded ?Confirmed ?Last Taken ?Type acetaminophen 325 mg capsule 650 mg PO Q6H PRN Pain 12/29/24 01/31/25 Unknown History apixaban 5 mg tablet (Eliquis) 5 mg PO BID 12/29/24 01/31/25 Unknown History ascorbic acid (vitamin C) 250 mg 250 mg PO DAILY 12/29/24 01/31/25 Unknown History tablet bisacodyl 10 mg rectal suppository 10 mg [place] DAILY PRN Constipation 12/29/24 01/31/25 Unknown History (Dulcolax (bisacodyl)) cholecalciferol (vitamin D3) 25 25 mcg PO DAILY 12/29/24 01/31/25 Unknown History mcg (1,000 unit) tablet enalapril maleate 2.5 mg tablet 2.5 mg PO DAILY 12/29/24 01/31/25 Unknown History ferrous sulfate 325 mg (65 mg 325 mg PO BID 12/29/24 01/31/25 Unknown History iron) tablet finasteride 5 mg tablet 5 mg PO DAILY 12/29/24 01/31/25 Unknown History guaifenesin 100 mg/5 mL oral 200 mg PO Q8H PRN Cough 12/29/24 01/31/25 Unknown History liquid (Kareen-Tussin) insulin glargine U-300 conc 300 27 unit subcut DAILY 12/29/24 01/31/25 Unknown History unit/mL (1.5 mL) subcutaneous pen loratadine 10 mg capsule 10 mg PO DAILY 12/29/24 01/31/25 Unknown History multivitamin See Rx Instructions .Route .COMPLEX 12/29/24 01/31/25 Unknown History pregabalin 200 mg capsule (Lyrica) 200 mg PO BID 12/29/24 01/31/25 Unknown History rosuvastatin 5 mg tablet 5 mg PO DAILY 12/29/24 01/31/25 Unknown History sodium phosphates oral solution 15 ml PO Q10M 12/29/24 01/31/25 Unknown History tamsulosin 0.4 mg capsule 0.8 mg PO DAILY 12/29/24 01/31/25 Unknown History emollient 1 appl topical DAILY 01/31/25 01/31/25 Unknown History lidocaine 4 % topical patch 1 patch topical DAILY 01/31/25 01/31/25 Unknown History magnesium hydroxide 400 mg/5 mL 30 ml PO BEDTIME PRN Constipation 01/31/25 01/31/25 Unknown History oral suspension (Milk of Magnesia) nystatin 100,000 unit/gram topical 1 appl topical QSHIFT 01/31/25 01/31/25 Unknown History cream nystatin 100,000 unit/gram topical 1 appl topical QSHIFT 01/31/25 01/31/25 Unknown History powder polyvinyl alcohol-povidone (PF) 1 drp ophthalmic-Right Q2H PRN Dry 01/31/25 01/31/25 Unknown History 1.4 %-0.6 % eye drops in a Eyes dropperette sodium hypochlorite 0.25 % 1 appl topical DAILY Wound Care 01/31/25 01/31/25 Unknown History solution (Dakin's Solution) wound dressings (Triad Wound 1 appl topical DAILY 01/31/25 01/31/25 Unknown History Dressing paste) Physical Exam Vital Signs: Vital Signs: Last Vital Signs Temp 98.2 F 02/02/25 12:00 Pulse 89 02/02/25 12:00 Resp 20 02/02/25 12:00 BP 114/64 02/02/25 12:00 Pulse Ox 97 02/02/25 12:00 O2 Del Method Nasal Cannula 02/02/25 12:00 O2 Flow Rate 1.5 02/02/25 12:00 BMI result Body Mass Index 29.7 Const: General: cooperative HEENT: Head: Yes normal to inspection Face and sinus: Yes normal facial exam Mouth: Normal oral and palatal mucosa present Teeth and gingiva: dentition normal Eyes: General: appearance normal, both eyes and all related structures Pupils: Equal, round and reactive pupils present Resp: Effort & Inspection: normal respiratory effort Cardio: Rate: regular rate Rhythm: regular rhythm GI: Palpation (GI): Soft to palpation and nontender Back/Spine/Pelvis: Other: bleeding from superficial buttock area wounds no anal bleeding Skin: General skin exam: no rashes or lesions noted Neuro: General: moves all extremities Cranial nerves: Yes Equal, round and reactive pupils present Extrem: General: Yes normal to inspection Psych: Appearance: grossly normal Results Labs 02/01/25 05:49 02/02/25 05:24 Labs: BMP 02/02/25 05:24 Sodium 140 Potassium 5.0 Chloride 107 Carbon Dioxide 26 BUN 47 H Creatinine 1.95 H Calcium 8.2 L Microbiology Microbiology Results: Microbiology 01/31/25 17:24 Blood - Venous Blood Culture - Preliminary No growth after 24 hours. 01/31/25 17:09 Blood - Venous Blood Culture - Preliminary No growth after 24 hours. Assessment and Plan (1) Chronic ulcer of sacral region: Qualifiers: Non-pressure ulcer stage: unspecified non-pressure ulcer stage Qualified Code(s): L98.429 - Non-pressure chronic ulcer of back with unspecified severity Status: Acute (2) Wound of foot: Status: Acute Plan No signs of OM or acute cellulitis or wound He has bleeding superficial skin and is on Eliquis. There is no leukocytosis or fever Stop antibiotics.
[2025-02-02 16:16] LABS: Glucose, Whole Blood 170 mg/dL (60-115)
--- NOTE | 2025-02-02 18:09 | HO.PM.IMPN ---
Subjective Subjective Date of Service: 02/02/25 Interval History: Extensive discussion with the patient by bedside today and with the patient's son. Patient has multiple complaints and concerns that were expressed. These were all discussed in depth with the patient. He endorses numbness and loss of sensation of the bilateral lower extremities and toes, but has been endorsing wounds and some weeping sores at the feet. He endorses pain and discomfort especially around the left pannus, which reveal significant cellulitis and erythema around that region. Furthermore we discussed the patient's acute kidney injury, as well as the elevated BUN and possible dehydration, as well as the unlikelihood that the elevated ESR and elevated CRP are related to his possible pneumonia and possible cellulitis. Review of Systems Review of Systems: Yes all other systems are reviewed and are negative Physical Exam Vital Signs: Vital Signs: Last Vital Signs Temp 97.7 F 02/02/25 15:31 Pulse 93 02/02/25 15:31 Resp 16 02/02/25 17:26 BP 124/65 02/02/25 15:31 Pulse Ox 97 02/02/25 15:31 O2 Del Method Nasal Cannula 02/02/25 15:31 O2 Flow Rate 1.5 02/02/25 15:31 BMI result Body Mass Index 29.7 Objective Data Active Medications Acetaminophen (Acetaminophen 325 Mg Tablet) 650 mg PO Q6H PRN PRN Reason: Pain, Mild 1-3,fever,headache Albuterol/Ipratropium (Albuterol/Iprat 2.5/0.5mg 3 Ml Ampul.Neb) 3 ml INHALE Q4H PRN PRN Reason: Shortness of Breath/Wheezing Artificial Tears (Artificial Tears 15 Ml Drops) 1 drop EYE-BOTH Q2H PRN PRN Reason: Dry Eyes Ascorbic Acid (Ascorbic Acid 250 Mg Tablet) 250 mg PO DAILY JO Last Admin: 02/02/25 09:10 Dose: 250 mg Documented By: SANTOL Bisacodyl (Bisacodyl 10 Mg Supp.Rect) 10 mg MD DAILY PRN PRN Reason: Constipation Calcium Carbonate (Calcium Carbonate 750 Mg Tab.Chew) 750 mg PO Q4H PRN PRN Reason: Heartburn Dextrose (Dextrose 50 % 25 Gm/50 Ml Syringe) 25 gm IVPUSH Q15M PRN; Protocol PRN Reason: per Hypoglycemia Standing Ord. Ferrous Sulfate (Ferrous Sulfate 324 Mg Tablet.) 324 mg PO BID [facility] Last Admin: 02/02/25 09:10 Dose: 324 mg Documented By: JESSE Finasteride (Finasteride 5 Mg Tablet) 5 mg PO DAILY [facility] Last Admin: 02/02/25 09:10 Dose: 5 mg Documented By: JESSE Glucose (Glucose Gel 15 Gm Gel..Gram.) 15 gm PO Q15M PRN; Protocol PRN Reason: per Hypoglycemia Standing Ord. Guaifenesin (Guaifenesin 200 Mg/10 Ml 10 Ml Liquid) 10 ml PO Q8H PRN PRN Reason: Cough Diltiazem HCl 125 mg/ Sodium (Chloride) 125 mls @ 0 mls/hr IVCONT .Q0M [facility]; Protocol Last Titration: 02/01/25 00:56 Dose: 0 mg/hr, 0 mls/hr Documented By: SHANE Insulin Glargine (Insulin Glargine,Hum.Rec.Anlog 100 Unit/Ml 10 Ml Vial) 27 unit SUBCUT BEDTIME [facility] Last Admin: 02/01/25 19:30 Dose: 27 unit Documented By: ANGELA Insulin Human Lispro (Insulin Lispro 100 Unit/Ml 3 Ml Vial) 0 unit SUBCUT QIDACHS [facility]; Protocol Last Admin: 02/02/25 17:24 Dose: 2 unit Documented By: CHRISTIE Lidocaine (Lidocaine 4 % Patch Adh..Patch) 1 patch TRANSDERMA DAILY [facility]; Protocol Last Admin: 02/02/25 09:30 Dose: Not Given Documented By: JESSE Non-Admin Reason: Patient Refused Magnesium Hydroxide (Milk Of Magnesia 30 Ml Oral.Susp) 30 ml PO DAILY PRN PRN Reason: Constipation Melatonin (Melatonin 3 Mg Tablet) 6 mg PO BEDTIME PRN PRN Reason: Insomnia Metoprolol Succinate (Metoprolol Succinate Er 25 Mg Tab.Er.24h) 25 mg PO DAILY [facility]; Protocol Last Admin: 02/02/25 09:09 Dose: 25 mg Documented By: JESSE Morphine Sulfate (Morphine Sulfate 2 Mg/Ml Cartridge) 1 mg IVPUSH Q3H PRN; Protocol PRN Reason: Pain, Severe (Pain Scale 7-10) Last Admin: 02/02/25 15:56 Dose: 1 mg Documented By: CHRISTIE Multivitamins/Vitamin C (Multivitamin Tablet) 1 tab PO DAILY [facility] Last Admin: 02/02/25 09:10 Dose: 1 tab Documented By: JESSE Non-Formulary Medication (Rosuvastatin) 5 mg PO DAILY [facility] Nystatin (Nystatin Powder 15 Gm Bottle) 1 appl TOPICAL QSHIFT [facility]; Protocol Last Admin: 02/02/25 17:25 Dose: 1 appl Documented By: CHRISTIE Ondansetron HCl (Ondansetron Hcl 4 Mg/2 Ml Vial) 4 mg IVPUSH Q8H PRN PRN Reason: Nausea and Vomiting Pantoprazole Sodium (Pantoprazole Sodium 40 Mg/10 Ml Vial) 40 mg IVPUSH DAILY@0630 [facility] Last Admin: 02/02/25 05:47 Dose: 40 mg Documented By: ANGELA Pharmacy Consult (Consult Rx Vancomycin Dosing) 1 each MISCELLANE DAILY PRN PRN Reason: Consult order Polyethylene Glycol (Polyethylene Glycol 3350 17 Gm Powd.Pack) 17 gm PO DAILY PRN PRN Reason: Constipation Pregabalin (Pregabalin 200 Mg Capsule) 200 mg PO BID [facility] Last Admin: 02/02/25 09:09 Dose: 200 mg Documented By: JESSE Senna (Sennosides 8.6 Mg Tablet) 17.2 mg PO BEDTIME [facility] Last Admin: 02/01/25 19:28 Dose: 17.2 mg Documented By: ANGELA Sodium Chloride (0.9 % Sodium Chloride Flush 3 Ml Syringe) 3 ml IVFLUSH [facility] Last Admin: 02/02/25 17:25 Dose: 3 ml Documented By: CHRISTIE Sodium Hypochlorite (Sodium Hypochlorite 0.25% 473 Ml Solution) 1 appl TOPICAL DAILY [facility] Last Admin: 02/02/25 17:26 Dose: Not Given Documented By: CHRISTIE Non-Admin Reason: awaiting wound consult Tamsulosin HCl (Tamsulosin Hcl 0.4 Mg Capsule) 0.8 mg PO DAILY [facility] Last Admin: 02/02/25 09:09 Dose: 0.8 mg Documented By: JESSE Vitamin D (Cholecalciferol (Vitamin D3) 25 Mcg Tablet) 25 mcg PO DAILY [facility] Last Admin: 02/02/25 09:10 Dose: 25 mcg Documented By: JESSE Labs 02/01/25 05:49 02/02/25 05:24 Labs: Laboratory Results - last 24 hr 02/01/25 02/01/25 02/02/25 05:49 21:04 05:24 Anion Gap 12 Estim Creat Clear Calc 37.4 Estimated GFR 33 POC Glucose 135 H Random Glucose 107 Calcium 8.2 L Erythropoietin 25.8 H 02/02/25 02/02/25 02/02/25 07:18 11:46 16:10 Anion Gap Estim Creat Clear Calc Estimated GFR POC Glucose 96 150 H 170 H Random Glucose Calcium Erythropoietin Microbiology Microbiology Results: Microbiology 01/31/25 17:24 Blood Culture - Preliminary Blood - Venous No growth after 24 hours. 01/31/25 17:09 Blood Culture - Preliminary Blood - Venous No growth after 24 hours. Assessment and Plan (1) Atrial fibrillation with rapid ventricular response: Status: Acute (2) Peripheral vascular disease: Status: Acute (3) PAD (peripheral artery disease): Status: Acute (4) CKD (chronic kidney disease) stage 3, GFR 30-59 ml/min: Status: Acute (5) Acute kidney injury superimposed on CKD: Status: Acute (6) DUSTIN (iron deficiency anemia): Status: Acute (7) MGUS (monoclonal gammopathy of unknown significance): Status: Acute (8) Chronic disease anemia: Status: Acute (9) Polyneuropathy: Status: Acute Plan 79 yo male with PMH IDDM, polyneuropathy, PVD/ CVI, osteoporosis, ITP, HTN, OA, chronic decubitus ulcer, BPH, immobility, chronic anemia/ DUSTIN on ferrous sulfate, CKD stage IIIB, MGUS, chronic AFib on Eliquis, was sent into the emergency department from his long-term [facility] in [place] since 10/12/2024 for bleeding from the chronic sacral wound area noting patient is on Eliquis for anticoagulation for AFib, complaining of pain & generalized weakness. Altered mental status Possible Wernicke encephalopathy Opioid induced encephalopathy Patient suffered with visual hallucinations, altered mental status, intention tremor bilaterally & Short-term memory loss Administered IV thiamine, with reversal in altered mental status within 30 minutes. Possible etiology could be 2/2 opioid induced encephalopathy in the setting of receiving morphine and Dilaudid. Continue thiamine 100 mg OD p.o. Left groin/pannus nonpurulent cellulitis Possible osteomyelitis Possible pneumonia Patient has multiple potential sources for infection, as demonstrated by elevated ESR and CRP. Cellulitis and pneumonia alone would not explain the high ESR and CRP. CT pelvis was negative for sacral osteomyelitis. We will evaluate for other possible sources including x-ray of the lower extremities Would also consider performing CT abdomen with IV contrast to evaluate for abscess. Consideration that elevated ESR and CRP may be civil rights representative of a myelodysplastic process Plan Continue vancomycin Continue Zosyn Infectious Diseases consultation and recommendations greatly appreciated Acute anemia on blood thinner Chronic Anemia, DUSTIN Chronic anemia, followed by Hematology. He received 1 unit PRBCs in outpatient setting. Patient may be losing blood gradually from the sacral wound, and use of anticoagulation concomitantly. Anemia etiologically may be due to a secondary cause such as MGUS/myelodysplasia. Plan - monitor H&H closely - resume anticoagulation apixaban at 2.5 mg b.i.d. and monitor degree of bleeding from the sacral ulcers - Transfuse for hemoglobin less than 8, or symptoms AFIB RVR, hx of AFIB Rate is better controlled on Cardizem infusion, [id number] BPM Patient asymptomatic no chest pain or shortness of breath or evidence of hypoxia - Metoprolol 25mg XR OD started - Consider restarting Apixaban at 2.5mg BID PO - will coordinate with Wound care/ surgery regarding bleeding risk - Echo ordered KIM on CKD with noted MGUS Nephrology consulted Avoid hypotension UA and urine studies pending Avoid nephrotoxic medications including NSAIDs Strict I's and O's Chronic sacral decubitus with Chronic pain Continue morphine Wound care consulted General surgery consulted Infectious disease consulted Nutritional consultation placed to optimize nutrition to promote wound healing B foot wounds with hx of PVD/ Neuropathy Noted peripheral vascular disease with history of femoral endarterectomy Vascular consulted Venous Dopplers requested, aware patient is on anticoagulation but goal is to rule out any abnormalities Wound care consulted X-ray lower extremities ordered to evaluate for osteomyelitis Immobility and generalized weakness Patient states his overall abilities are declining since living in the long-term care facility Patient is now wheelchair-bound PT eval may be beneficial at some point during this admission IDDM Sliding scale insulin Lantus ordered Diabetic diet HTN Blood pressure was low initially and improving with rate control on the Cardizem infusion Med rec pending, holding patient's usual oral antihypertensives to avoid hypotension Low-sodium diet BPH Continue tamsulosin and finasteride HLD Continue statin Cardiac diet QUALITY METRICS - VTE: Apixaban 2.5 mg b.i.d. p.o. - CODE STATUS: Full code - DIET: Cardiac Total time managing care of this patient today: 60 minutes. Quality Stroke Does the patient have a stroke diagnosis?: No Reason for No Anti-thrombotic by Day Two: Contraindicated VTE Prior VTE?: No VTE Risk Level:: Medical - moderate - high VTE Device Contraindication: N/A - Device Ordered VTE Drug Contraindication: N/A - Med Ordered
[2025-02-02 20:39] LABS: Glucose, Whole Blood 188 mg/dL (60-115)
[2025-02-02] MEDS: Insulin Glargine,Hum.rec.anlog 100 UNIT/ML 10 ML VIAL 27 UNIT SUBCUT (21:42)
[2025-02-03] VITALS (7 sets, daily range): BP systolic 111–131; BP diastolic 58–90; PULSE 73–108; RESP 18–20; TEMP 36.2–36.9; O2SAT 92–100; BMI 30.2
[2025-02-03] MEDS: 0.9 % Sodium Chloride Flush 3 ML SYRINGE IVFLUSH ×3 (00:43→16:36)
[2025-02-03 07:06] LABS: Creatinine Clr Calc Pharmacy 38.9; Estimated Glomerular Filt Rate 35
[2025-02-03] MEDS: Ferrous Sulfate 324 MG TABLET.DR PO ×2 (07:57→20:28)
[2025-02-03] MEDS: Metoprolol Succinate ER 25 MG TAB.ER.24H PO (07:58)
[2025-02-03 08:30] LABS: Glucose, Whole Blood 107 mg/dL (60-115)
[2025-02-03 09:44] LABS: MANUAL DIFF FLAG NO
[2025-02-03 09:46] LABS: Hematocrit 24.5 % (42.0-52.0); Hemoglobin 7.9 g/dl (14.0-18.0); Imm Gran Abs Auto 0.09 X10*3/uL (0.00-0.03); Imm Gran Pct Auto 1.6 % (0.0-0.4); Lymphocytes Absolute Auto 0.5 X10*3/uL (1.2-4.9); Mean Corpuscular HGB Conc 32.2 g/dl (31.0-36.0); Mean Corpuscular Hemoglobin 33.8 pg (27.0-33.0); Mean Corpuscular Volume 104.7 fL (80.0-98.0); NRBC Abs Auto 0.000 X10*3/uL (0.0-0.012); NRBC Pct Auto 0.0 /100WBC (0.0-0.2); Platelet Count 110 X10*3/uL (160-400); Red Blood Count 2.34 X10*6/uL (4.60-5.80); White Blood Count 5.6 X10*3/uL (4.8-10.8)
[2025-02-03 10:06] LABS: Anion Gap 11 (12-20); Blood Urea Nitrogen 39 mg/dL (9-16); Calcium 8.2 mg/dL (8.4-10.2); Carbon Dioxide 24 mmol/L (22-29); Chloride 109 mmol/L (96-108); Creatinine Clr Calc Pharmacy 40.9; Estimated Glomerular Filt Rate 37; Potassium 5.0 mmol/L (3.3-5.1); Sodium 139 mmol/L (135-145)
[2025-02-03] MEDS: Lactated Ringers 1,000 ML 80 ML IVCONT (10:07)
[2025-02-03 11:55] LABS: Glucose, Whole Blood 107 mg/dL (60-115)
--- NOTE | 2025-02-03 14:40 | P.PNIM_ITS ---
Subjective Subjective Date of Service: 02/03/25 Physical Exam 2 Exam: Exam: Alert and orientated X3. Grimacing with pain Neuro: CN II-X11 intact, visual acuity intact EYES: PERRLA, EOM intact, sclerae nonicteric ENT: hearing intact, no issues with swallowing, uvula midline, lips dry, nares patent no epistaxis Cardiac: S1 S2 RRR, no murmur, no JVD, moderate edema in bilateral Lower ext Pulmonary: lungs diminished bilaterally Abdominal: BS active in all 4 quadrants, no guarding, tenderness, rebounding MSK: strength 1-2/5 lower extremities, 3/5 upper extremities : no CVA tenderness no bladder distension Extremities: Moderate edema in lower extremities, PT and DP pulses palpable manually but diminshed, skin Ilene red in color, noted healed excoriation, 2nd and 3rd toes on bilateral feet have excoriation, heels intact Psych: mood stable, judgement and insight good Skin: Chronic sacral decubitus actively oozing with bloody drainage, multiple open sites noted, bilateral feet with a abrasions/excoriations, also involving 2nd and 3rd toe on bilateral feet mild foul odor noted Vital Signs: Vital Signs: Last Vital Signs Temp 97.1 F 02/03/25 11:09 Pulse 98 02/03/25 11:09 Resp 19 02/03/25 11:09 BP 114/68 02/03/25 11:09 Pulse Ox 98 02/03/25 11:09 O2 Del Method Nasal Cannula 02/03/25 11:09 O2 Flow Rate 2 02/03/25 11:09 BMI result Body Mass Index 30.2 Objective Data Active Medications Acetaminophen (Acetaminophen 325 Mg Tablet) 650 mg PO Q6H PRN PRN Reason: Pain, Mild 1-3,fever,headache Albuterol/Ipratropium (Albuterol/Iprat 2.5/0.5mg 3 Ml Ampul.Neb) 3 ml INHALE Q4H PRN PRN Reason: Shortness of Breath/Wheezing Artificial Tears (Artificial Tears 15 Ml Drops) 1 drop EYE-BOTH Q2H PRN PRN Reason: Dry Eyes Ascorbic Acid (Ascorbic Acid 250 Mg Tablet) 250 mg PO DAILY JO Last Admin: 02/03/25 07:57 Dose: 250 mg Documented By: MABEL Bisacodyl (Bisacodyl 10 Mg Supp.Rect) 10 mg RI DAILY PRN PRN Reason: Constipation Calcium Carbonate (Calcium Carbonate 750 Mg Tab.Chew) 750 mg PO Q4H PRN PRN Reason: Heartburn Dextrose (Dextrose 50 % 25 Gm/50 Ml Syringe) 25 gm IVPUSH Q15M PRN; Protocol PRN Reason: per Hypoglycemia Standing Ord. Ferrous Sulfate (Ferrous Sulfate 324 Mg Tablet.) 324 mg PO BID [facility] Last Admin: 02/03/25 07:57 Dose: 324 mg Documented By: MABEL Finasteride (Finasteride 5 Mg Tablet) 5 mg PO DAILY [facility] Last Admin: 02/03/25 07:58 Dose: 5 mg Documented By: MABEL Glucose (Glucose Gel 15 Gm Gel..Gram.) 15 gm PO Q15M PRN; Protocol PRN Reason: per Hypoglycemia Standing Ord. Guaifenesin (Guaifenesin 200 Mg/10 Ml 10 Ml Liquid) 10 ml PO Q8H PRN PRN Reason: Cough Diltiazem HCl 125 mg/ Sodium (Chloride) 125 mls @ 0 mls/hr IVCONT .Q0M [facility]; Protocol Last Titration: 02/01/25 00:56 Dose: 0 mg/hr, 0 mls/hr Documented By: SHANE Lactated Ringer's (Lr) 1,000 mls @ 80 mls/hr IVCONT .[id number] [facility] Stop: 02/03/25 20:59 Last Admin: 02/03/25 10:07 Dose: 80 mls/hr Documented By: MABEL Insulin Glargine (Insulin Glargine,Hum.Rec.Anlog 100 Unit/Ml 10 Ml Vial) 27 unit SUBCUT BEDTIME [facility] Last Admin: 02/02/25 21:42 Dose: 27 unit Documented By: SORAYA Insulin Human Lispro (Insulin Lispro 100 Unit/Ml 3 Ml Vial) 0 unit SUBCUT QIDACHS [facility]; Protocol Last Admin: 02/03/25 12:06 Dose: Not Given Documented By: MABEL Non-Admin Reason: No Insulin Coverage Lidocaine (Lidocaine 4 % Patch Adh..Patch) 1 patch TRANSDERMA DAILY [facility]; Protocol Last Admin: 02/03/25 08:01 Dose: Not Given Documented By: MABEL Non-Admin Reason: Patient Refused Magnesium Hydroxide (Milk Of Magnesia 30 Ml Oral.Susp) 30 ml PO DAILY PRN PRN Reason: Constipation Melatonin (Melatonin 3 Mg Tablet) 6 mg PO BEDTIME PRN PRN Reason: Insomnia Metoprolol Succinate (Metoprolol Succinate Er 25 Mg Tab.Er.24h) 25 mg PO DAILY [facility]; Protocol Last Admin: 02/03/25 07:58 Dose: 25 mg Documented By: MABEL Morphine Sulfate (Morphine Sulfate 2 Mg/Ml Cartridge) 1 mg IVPUSH Q3H PRN; Protocol PRN Reason: Pain, Severe (Pain Scale 7-10) Last Admin: 02/03/25 03:01 Dose: 1 mg Documented By: SORAYA Multivitamins/Vitamin C (Multivitamin Tablet) 1 tab PO DAILY [facility] Last Admin: 02/03/25 07:57 Dose: 1 tab Documented By: MABEL Non-Formulary Medication (Rosuvastatin) 5 mg PO DAILY [facility] Nystatin (Nystatin Powder 15 Gm Bottle) 1 appl [place]; Protocol Last Admin: 02/03/25 12:08 Dose: Not Given Documented By: MABEL Non-Admin Reason: Patient Refused Ondansetron HCl (Ondansetron Hcl 4 Mg/2 Ml Vial) 4 mg IVPUSH Q8H PRN PRN Reason: Nausea and Vomiting Pantoprazole Sodium (Pantoprazole Sodium 40 Mg/10 Ml Vial) 40 mg IVPUSH DAILY@0630 [facility] Last Admin: 02/03/25 05:31 Dose: 40 mg Documented By: SORAYA Polyethylene Glycol (Polyethylene Glycol 3350 17 Gm Powd.Pack) 17 gm PO DAILY PRN PRN Reason: Constipation Pregabalin (Pregabalin 200 Mg Capsule) 200 mg PO BID [facility] Last Admin: 02/03/25 07:57 Dose: 200 mg Documented By: MABEL Senna (Sennosides 8.6 Mg Tablet) 17.2 mg PO BEDTIME [facility] Last Admin: 02/02/25 21:48 Dose: Not Given Documented By: SORAYA Non-Admin Reason: Patient Refused Sodium Chloride (0.9 % Sodium Chloride Flush 3 Ml Syringe) 3 ml [place]USH [place] Last Admin: 02/03/25 08:01 Dose: 3 ml Documented By: MABEL Sodium Hypochlorite (Sodium Hypochlorite 0.25% 473 Ml Solution) 1 appl TOPICAL DAILY [facility] Last Admin: 02/03/25 12:08 Dose: Not Given Documented By: MABEL Non-Admin Reason: Patient Refused Tamsulosin HCl (Tamsulosin Hcl 0.4 Mg Capsule) 0.8 mg PO DAILY [facility] Last Admin: 02/03/25 07:58 Dose: 0.8 mg Documented By: MABEL Thiamine HCl (Thiamine Hcl 100 Mg Tablet) 100 mg PO DAILY [facility] Last Admin: 02/03/25 07:58 Dose: 100 mg Documented By: MABEL Vitamin D (Cholecalciferol (Vitamin D3) 25 Mcg Tablet) 25 mcg PO DAILY [facility] Last Admin: 02/03/25 07:58 Dose: 25 mcg Documented By: MABEL Labs 02/03/25 09:15 02/03/25 09:15 Labs: Laboratory Results - last 24 hr 02/01/25 02/02/25 02/02/25 05:49 16:10 20:36 MCV MCH MCHC RDW Plt Count MPV Immature Gran % (Auto) Neut % (Auto) Lymph % (Auto) Lander % (Auto) Eos % (Auto) Baso % (Auto) Lymph # (Auto) Lander # (Auto) Eos # (Auto) Baso # (Auto) Abs Immat Gran (auto) Absolute Neuts (auto) Absolute Nucleated RBC Nucleated RBC % (auto) Anion Gap Estim Creat Clear Calc Estimated GFR POC Glucose 170 H 188 H Random Glucose Calcium Erythropoietin 25.8 H 02/03/25 02/03/25 02/03/25 05:54 08:27 09:15 MCV 104.7 H MCH 33.8 H MCHC 32.2 RDW 17.5 H Plt Count 110 L MPV 10.0 Immature Gran % (Auto) 1.6 H Neut % (Auto) 79.0 H Lymph % (Auto) 8.2 L Lander % (Auto) 8.0 Eos % (Auto) 2.8 Baso % (Auto) 0.4 Lymph # (Auto) 0.5 L Lander # (Auto) 0.5 Eos # (Auto) 0.2 Baso # (Auto) 0.0 Abs Immat Gran (auto) 0.09 H Absolute Neuts (auto) 4.5 Absolute Nucleated RBC 0.000 Nucleated RBC % (auto) 0.0 Anion Gap 11 L Estim Creat Clear Calc 38.9 40.9 Estimated GFR 35 37 POC Glucose 107 Random Glucose 130 H Calcium 8.2 L Erythropoietin 02/03/25 11:51 MCV MCH MCHC RDW Plt Count MPV Immature Gran % (Auto) Neut % (Auto) Lymph % (Auto) Lander % (Auto) Eos % (Auto) Baso % (Auto) Lymph # (Auto) Lander # (Auto) Eos # (Auto) Baso # (Auto) Abs Immat Gran (auto) Absolute Neuts (auto) Absolute Nucleated RBC Nucleated RBC % (auto) Anion Gap Estim Creat Clear Calc Estimated GFR POC Glucose 107 Random Glucose Calcium Erythropoietin Microbiology Microbiology Results: Microbiology 01/31/25 17:24 Blood Culture - Preliminary Blood - Venous No growth after 48 hours. 01/31/25 17:09 Blood Culture - Preliminary Blood - Venous No growth after 48 hours. Assessment and Plan (1) Hypertension: Status: Acute (2) Atrial fibrillation with rapid ventricular response: Status: Acute (3) Peripheral vascular disease: Status: Acute (4) PAD (peripheral artery disease): Status: Acute (5) CKD (chronic kidney disease) stage 3, GFR 30-59 ml/min: Status: Acute (6) Acute kidney injury superimposed on CKD: Status: Acute (7) MGUS (monoclonal gammopathy of unknown significance): Status: Acute (8) Anemia: Status: Acute (9) Chronic disease anemia: Status: Acute (10) DUSTIN (iron deficiency anemia): Status: Acute (11) Wound of foot: Status: Acute Plan 79 yo male with PMH IDDM, polyneuropathy, PVD/ CVI, osteoporosis, ITP, HTN, OA, chronic decubitus ulcer, BPH, immobility, chronic anemia/ DUSTIN on ferrous sulfate, CKD stage IIIB, MGUS, chronic AFib on Eliquis, was sent into the emergency department from his long-term [facility] in [place] since 10/12/2024 for bleeding from the chronic sacral wound area noting patient is on Eliquis for anticoagulation for AFib, complaining of pain & generalized weakness. Altered mental status Possible Wernicke encephalopathy Opioid induced encephalopathy Patient suffered with visual hallucinations, altered mental status, intention tremor bilaterally & Short-term memory loss Administered IV thiamine, with reversal in altered mental status within 30 minutes. Possible etiology could be 2/2 opioid induced encephalopathy in the setting of receiving morphine and Dilaudid. Acute anemia on blood thinner CKD, Chronic Anemia, DUSTIN Monitor H&H closely, no indication for transfusion at this time Continue iron as iron levels remain low Seen by Hematology on 01/29/2025 and received 1 unit of PRBCs in the outpatient setting Concern regarding continuation of anticoagulation noting ongoing issues with anemia and bleeding from the sacral wound - currently held, repeating H&H at midnight Consider Hematology consultation Reticular count and erythropoietin levels pending AFIB RVR, hx of AFIB Rate is better controlled on Cardizem infusion, BPM Patient asymptomatic no chest pain or shortness of breath or evidence of hypoxia - Metoprolol 25mg XR OD started - Consider restarting Apixaban at 2.5mg BID PO - will coordinate with Wound care/ surgery regarding bleeding risk Echo ordered Cardiology consulted KIM on CKD with noted MGUS Nephrology consulted Avoid hypotension UA and urine studies pending Avoid nephrotoxic medications including NSAIDs Strict I's and O's Chronic sacral decubitus with Chronic pain Morphine changed to Dilaudid to optimize pain control along with noted KIM/CKD Wound care consulted Patient is started on Vancomycin and Zosyn, Zosyn currently renal dosed based on creatinine clearance of 38 No evidence of osteomyelitis in the sacral wound via CT scan General surgery consulted Infectious disease consulted Nutritional consultation placed to optimize nutrition to promote wound healing B foot wounds with hx of PVD/ Neuropathy Noted peripheral vascular disease with history of femoral endarterectomy Vascular consulted Venous Dopplers requested, aware patient is on anticoagulation but goal is to rule out any abnormalities Wound care consulted Immobility and generalized weakness Patient states his overall abilities are declining since living in the long-term care facility Patient is now wheelchair-bound PT eval may be beneficial at some point during this admission IDDM Sliding scale insulin Lantus ordered Diabetic diet HTN Blood pressure was low initially and improving with rate control on the Cardizem infusion Med rec pending, holding patient's usual oral antihypertensives to avoid hypotension Low-sodium diet BPH Continue tamsulosin and finasteride HLD Continue statin Cardiac diet QUALITY METRICS - VTE: Chemical prophylaxis held 06/18 bleeding sacral wound - CODE STATUS: Full code - DIET: Cardiac Total time managing care of this patient today: 45 minutes. Quality Stroke Does the patient have a stroke diagnosis?: No Reason for No Anti-thrombotic by Day Two: Contraindicated VTE Prior VTE?: No VTE Risk Level:: Medical - moderate - high VTE Device Contraindication: N/A - Device Ordered VTE Drug Contraindication: N/A - Med Ordered
[2025-02-03 16:35] LABS: Glucose, Whole Blood 118 mg/dL (60-115)
[2025-02-03 20:38] LABS: Glucose, Whole Blood 157 mg/dL (60-115)
[2025-02-03] MEDS: Insulin Glargine,Hum.rec.anlog 100 UNIT/ML 10 ML VIAL 27 UNIT SUBCUT (20:48)
[2025-02-04] VITALS (8 sets, daily range): BP systolic 113–146; BP diastolic 58–75; PULSE 92–113; RESP 18–20; TEMP 36.4–37.1; O2SAT 92–99; BMI 31.1
[2025-02-04] MEDS: 0.9 % Sodium Chloride Flush 3 ML SYRINGE IVFLUSH ×4 (00:19→21:37)
[2025-02-04 06:57] LABS: MANUAL DIFF FLAG NO
[2025-02-04 07:12] LABS: Hematocrit 25.3 % (42.0-52.0); Hemoglobin 8.0 g/dl (14.0-18.0); Imm Gran Abs Auto 0.13 X10*3/uL (0.00-0.03); Imm Gran Pct Auto 2.2 % (0.0-0.4); Lymphocytes Absolute Auto 0.5 X10*3/uL (1.2-4.9); Mean Corpuscular HGB Conc 31.6 g/dl (31.0-36.0); Mean Corpuscular Hemoglobin 33.6 pg (27.0-33.0); Mean Corpuscular Volume 106.3 fL (80.0-98.0); NRBC Abs Auto 0.000 X10*3/uL (0.0-0.012); NRBC Pct Auto 0.0 /100WBC (0.0-0.2); Platelet Count 124 X10*3/uL (160-400); Red Blood Count 2.38 X10*6/uL (4.60-5.80); White Blood Count 5.9 X10*3/uL (4.8-10.8)
[2025-02-04 07:16] LABS: Glucose, Whole Blood 89 mg/dL (60-115)
[2025-02-04 07:17] LABS: Anion Gap 15 (12-20); Blood Urea Nitrogen 40 mg/dL (9-16); Calcium 8.8 mg/dL (8.4-10.2); Carbon Dioxide 21 mmol/L (22-29); Chloride 109 mmol/L (96-108); Creatinine Clr Calc Pharmacy 42.8; Estimated Glomerular Filt Rate 39; Potassium 4.8 mmol/L (3.3-5.1); Sodium 140 mmol/L (135-145)
[2025-02-04] MEDS: Ferrous Sulfate 324 MG TABLET.DR PO ×2 (07:51→21:28)
[2025-02-04] MEDS: Metoprolol Succinate ER 25 MG TAB.ER.24H PO (07:51)
[2025-02-04 11:05] LABS: Glucose, Whole Blood 153 mg/dL (60-115)
--- NOTE | 2025-02-04 14:29 | MHC.CM.PN ---
Addendum entered by Neelam Ya 02/04/25 15:36: Per [facility] [place] Patient[place] will need to be obtained on Wednesday02/05/2025. Original Note: Per PA's request, CM asked [facility] if Patient can return to them today.CM will follow.
[2025-02-04 16:54] LABS: Glucose, Whole Blood 138 mg/dL (60-115)
--- NOTE | 2025-02-04 20:00 | HO.PM.IMPN ---
Subjective Subjective Date of Service: 02/04/25 Interval History: Has been refusing wound care, repositioning, and other care by nursing Pt surly, though overall redirectable Chronic lower back and buttock pain around baseline No rebleeding noted Review of Systems Review of Systems: Yes all other systems are reviewed and are negative Physical Exam Exam: Exam: General: AOx3, no acute distress. Appears weak, elderly Resp: CTA bilaterally CVS: S1, S2, RRR GI: +BS, NT, no distention Skin: Warm, dry. Pt refuses examination of chronic sacral decubitus ulcers Neuro: Cranial nerves II-XII grossly intact bilaterally. Motor grossly intact bilaterally. Extremities: No edema. Lower extremities with chronic venous stasis dermatitis, as well as cracked skin, abrasions, and ulcerations bilaterally. Psych: Irritable, primarily cooperative Vital Signs: Vital Signs: Last Vital Signs Temp 98.5 F 02/04/25 19:06 Pulse 98 02/04/25 19:06 Resp 18 02/04/25 19:06 BP 118/68 02/04/25 19:06 Pulse Ox 94 02/04/25 19:06 O2 Del Method Room Air 02/04/25 19:06 O2 Flow Rate 2 02/04/25 07:19 BMI result Body Mass Index 31.1 Objective Data Active Medications Acetaminophen (Acetaminophen 325 Mg Tablet) 650 mg PO Q6H PRN PRN Reason: Pain, Mild 1-3,fever,headache Albuterol/Ipratropium (Albuterol/Iprat 2.5/0.5mg 3 Ml Ampul.Neb) 3 ml INHALE Q4H PRN PRN Reason: Shortness of Breath/Wheezing Apixaban (Apixaban 2.5 Mg Tablet) 2.5 mg PO BID [facility] Last Admin: 02/04/25 07:51 Dose: 2.5 mg Documented By: OSKAR Artificial Tears (Artificial Tears 15 Ml Drops) 1 drop EYE-BOTH Q2H PRN PRN Reason: Dry Eyes Ascorbic Acid (Ascorbic Acid 250 Mg Tablet) 250 mg PO DAILY [facility] Last Admin: 02/04/25 07:52 Dose: 250 mg Documented By: OSKAR Bisacodyl (Bisacodyl 10 Mg Supp.Rect) 10 mg DC DAILY PRN PRN Reason: Constipation Calcium Carbonate (Calcium Carbonate 750 Mg Tab.Chew) 750 mg PO Q4H PRN PRN Reason: Heartburn Dextrose (Dextrose 50 % 25 Gm/50 Ml Syringe) 25 gm IVPUSH Q15M PRN; Protocol PRN Reason: per Hypoglycemia Standing Ord. Ferrous Sulfate (Ferrous Sulfate 324 Mg Tablet.Dr) 324 mg PO BID [facility] Last Admin: 02/04/25 07:51 Dose: 324 mg Documented By: OSKAR Finasteride (Finasteride 5 Mg Tablet) 5 mg PO DAILY [facility] Last Admin: 02/04/25 07:51 Dose: 5 mg Documented By: OSKAR Glucose (Glucose Gel 15 Gm Gel..Gram.) 15 gm PO Q15M PRN; Protocol PRN Reason: per Hypoglycemia Standing Ord. Guaifenesin (Guaifenesin 200 Mg/10 Ml 10 Ml Liquid) 10 ml PO Q8H PRN PRN Reason: Cough Diltiazem HCl 125 mg/ Sodium (Chloride) 125 mls @ 0 mls/hr IVCONT .Q0M [facility]; Protocol Last Titration: 02/01/25 00:56 Dose: 0 mg/hr, 0 mls/hr Documented By: SHANE Insulin Glargine (Insulin Glargine,Hum.Rec.Anlog 100 Unit/Ml 10 Ml Vial) 27 unit SUBCUT BEDTIME [facility] Last Admin: 02/03/25 20:48 Dose: 27 unit Documented By: SORAYA Insulin Human Lispro (Insulin Lispro 100 Unit/Ml 3 Ml Vial) 0 unit SUBCUT QIDACHS [facility]; Protocol Last Admin: 02/04/25 16:16 Dose: Not Given Documented By: OSKAR Non-Admin Reason: No Insulin Coverage Lidocaine (Lidocaine 4 % Patch Adh..Patch) 1 patch TRANSDERMA DAILY [facility]; Protocol Last Admin: 02/04/25 07:52 Dose: Not Given Documented By: OSKAR Non-Admin Reason: Patient Refused Magnesium Hydroxide (Milk Of Magnesia 30 Ml Oral.Susp) 30 ml PO DAILY PRN PRN Reason: Constipation Melatonin (Melatonin 3 Mg Tablet) 6 mg PO BEDTIME PRN PRN Reason: Insomnia Metoprolol Succinate (Metoprolol Succinate Er 25 Mg Tab.Er.24h) 25 mg PO DAILY [facility]; Protocol Last Admin: 02/04/25 07:51 Dose: 25 mg Documented By: OSKAR Morphine Sulfate (Morphine Sulfate 2 Mg/Ml Cartridge) 1 mg IVPUSH Q3H PRN; Protocol PRN Reason: Pain, Severe (Pain Scale 7-10) Last Admin: 02/04/25 13:49 Dose: 1 mg Documented By: OSKAR Multivitamins/Vitamin C (Multivitamin Tablet) 1 tab PO DAILY [facility] Last Admin: 02/04/25 07:51 Dose: 1 tab Documented By: OSKAR Non-Formulary Medication (Rosuvastatin) 5 mg PO DAILY [facility] Nystatin (Nystatin Powder 15 Gm Bottle) 1 appl [facility]; Protocol Last Admin: 02/04/25 16:15 Dose: 1 appl Documented By: OSKAR Ondansetron HCl (Ondansetron Hcl 4 Mg/2 Ml Vial) 4 mg IVPUSH Q8H PRN PRN Reason: Nausea and Vomiting Polyethylene Glycol (Polyethylene Glycol 3350 17 Gm Powd.Pack) 17 gm PO DAILY PRN PRN Reason: Constipation Pregabalin (Pregabalin 200 Mg Capsule) 200 mg PO BID [facility] Last Admin: 02/04/25 07:52 Dose: 200 mg Documented By: OSKAR Senna (Sennosides 8.6 Mg Tablet) 17.2 mg PO BEDTIME [facility] Last Admin: 02/03/25 20:29 Dose: Not Given Documented By: SORAYA Non-Admin Reason: Patient Refused Sodium Chloride (0.9 % Sodium Chloride Flush 3 Ml Syringe) 3 ml IVFLUSH [facility] Last Admin: 02/04/25 16:14 Dose: 3 ml Documented By: OSKAR Sodium Hypochlorite (Sodium Hypochlorite 0.25% 473 Ml Solution) 1 appl TOPICAL DAILY [facility] Last Admin: 02/04/25 07:52 Dose: 1 appl Documented By: OSKAR Tamsulosin HCl (Tamsulosin Hcl 0.4 Mg Capsule) 0.8 mg PO DAILY [facility] Last Admin: 02/04/25 07:51 Dose: 0.8 mg Documented By: OSKAR Thiamine HCl (Thiamine Hcl 100 Mg Tablet) 100 mg PO DAILY [facility] Last Admin: 02/04/25 07:52 Dose: 100 mg Documented By: OSKAR Vitamin D (Cholecalciferol (Vitamin D3) 25 Mcg Tablet) 25 mcg PO DAILY [facility] Last Admin: 02/04/25 07:51 Dose: 25 mcg Documented By: OSKAR Labs 02/04/25 06:31 02/04/25 06:31 Labs: Laboratory Results - last 24 hr 02/03/25 02/04/25 02/04/25 20:29 06:31 07:04 MCV 106.3 H MCH 33.6 H MCHC 31.6 RDW 17.3 H Plt Count 124 L MPV 10.2 Immature Gran % (Auto) 2.2 H Neut % (Auto) 77.6 H Lymph % (Auto) 9.2 L [place] % (Auto) 8.1 Eos % (Auto) 1.9 Baso % (Auto) 1.0 Lymph # (Auto) 0.5 L [place] # (Auto) 0.5 Eos # (Auto) 0.1 Baso # (Auto) 0.1 Abs Immat Gran (auto) 0.13 H Absolute Neuts (auto) 4.6 Absolute Nucleated RBC 0.000 Nucleated RBC % (auto) 0.0 Anion Gap 15 Estim Creat Clear Calc 42.8 Estimated GFR 39 POC Glucose 157 H 89 Random Glucose 95 Calcium 8.8 D 02/04/25 02/04/25 10:53 16:16 MCV MCH MCHC RDW Plt Count MPV Immature Gran % (Auto) Neut % (Auto) Lymph % (Auto) [place] % (Auto) Eos % (Auto) Baso % (Auto) Lymph # (Auto) [place] # (Auto) Eos # (Auto) Baso # (Auto) Abs Immat Gran (auto) Absolute Neuts (auto) Absolute Nucleated RBC Nucleated RBC % (auto) Anion Gap Estim Creat Clear Calc Estimated GFR POC Glucose 153 H 138 H Random Glucose Calcium Assessment and Plan (1) Acute on chronic anemia: Status: Inactive (2) Atrial fibrillation with rapid ventricular response: Status: Acute Plan 79 yo male with PMH IDDM, polyneuropathy, PVD/ CVI, osteoporosis, ITP, HTN, OA, chronic decubitus ulcer, BPH, immobility, chronic anemia/ DUSTIN on ferrous sulfate, CKD stage IIIB, MGUS, chronic AFib on Eliquis, was sent into the emergency department from his long-term facility [facility] in [place] since 10/12/2024 for bleeding from the chronic sacral wound area noting patient is on Eliquis for anticoagulation for AFib, complaining of pain & generalized weakness. Altered mental status Possible Wernicke encephalopathy vs. Opioid induced encephalopathy Patient suffered with visual hallucinations, altered mental status, intention tremor bilaterally & Short-term memory loss Administered IV thiamine, with reversal in altered mental status within 30 minutes. Possible etiology could be 2/2 opioid induced encephalopathy in the setting of receiving morphine and Dilaudid. Acute anemia on blood thinner CKD, Chronic Anemia, DUSTIN Continue iron as iron levels remain low Seen by Hematology on 01/29/2025 and received 1 unit of PRBCs in the outpatient setting Eliquis initially held due to concern regarding continuation of anticoagulation noting ongoing issues with anemia and bleeding from the sacral wound Eliquis reduced to 2.5mg bid Monitor H&H AFIB RVR, hx of AFIB Rate controlled after Cardizem infusion Patient asymptomatic no chest pain or shortness of breath or evidence of hypoxia Metoprolol 25mg XR po started, per cardiology Apixaban restarted at 2.5mg BID PO - will coordinate with Wound care/ surgery regarding bleeding risk Echo ordered KIM on CKD with noted MGUS Nephrology consulted IgA nephropathy on differential, as well as bone marrow disorder. urine immunofixation ordered Patient should have a bone marrow biopsy outpatient; May need kidney biopsy. Avoid hypotension UA and urine studies negative Avoid nephrotoxic medications including NSAIDs Strict I's and O's Chronic sacral decubitus with Chronic pain Wound care consulted Started on Vancomycin and Zosyn in ED, discontined per ID. No evidence of osteomyelitis in the sacral wound via CT scan General surgery consulted, no indication for debridement at this time Infectious disease consulted: no evidence of osteo or cellulitis; abx should be stopped Nutritional consultation placed to optimize nutrition to promote wound healing B foot wounds with hx of PVD/ Neuropathy Noted peripheral vascular disease with history of femoral endarterectomy Vascular consulted Venous Dopplers requested, aware patient is on anticoagulation but goal is to rule out any abnormalities Wound care consulted Immobility and generalized weakness Patient states his overall abilities are declining since living in the long-term care facility Patient is now wheelchair-bound IDDM Sliding scale insulin Lantus ordered Diabetic diet HTN Blood pressure was low initially and improving with rate control on the Cardizem infusion Med rec pending, holding patient's usual oral antihypertensives to avoid hypotension Low-sodium diet BPH Continue tamsulosin and finasteride HLD Continue statin Cardiac diet Pt requires continued hospitalization as STR need prior auth before accepting back, which should be provided on Wednesday. Quality Stroke Does the patient have a stroke diagnosis?: No Reason for No Anti-thrombotic by Day Two: Contraindicated VTE Prior VTE?: No VTE Risk Level:: Medical - moderate - high VTE Device Contraindication: N/A - Device Ordered VTE Drug Contraindication: N/A - Med Ordered
[2025-02-04 20:14] LABS: Glucose, Whole Blood 205 mg/dL (60-115)
[2025-02-04] MEDS: Insulin Glargine,Hum.rec.anlog 100 UNIT/ML 10 ML VIAL 27 UNIT SUBCUT (21:28)
[2025-02-05 03:27] VITALS: BP 125/76; PULSE 101; RESP 18; TEMP 36.6; O2SAT 95
[2025-02-05 06:00] VITALS: BMI 30.7
[2025-02-05 07:08] LABS: MANUAL DIFF FLAG NO
[2025-02-05 07:29] LABS: Glucose, Whole Blood 60 mg/dL (60-115)
[2025-02-05 07:29] LABS: Hematocrit 25.9 % (42.0-52.0); Hemoglobin 8.1 g/dl (14.0-18.0); Imm Gran Abs Auto 0.09 X10*3/uL (0.00-0.03); Imm Gran Pct Auto 1.4 % (0.0-0.4); Lymphocytes Absolute Auto 0.5 X10*3/uL (1.2-4.9); Mean Corpuscular HGB Conc 31.3 g/dl (31.0-36.0); Mean Corpuscular Hemoglobin 33.1 pg (27.0-33.0); Mean Corpuscular Volume 105.7 fL (80.0-98.0); NRBC Abs Auto 0.000 X10*3/uL (0.0-0.012); NRBC Pct Auto 0.0 /100WBC (0.0-0.2); Platelet Count 143 X10*3/uL (160-400); Red Blood Count 2.45 X10*6/uL (4.60-5.80); White Blood Count 6.4 X10*3/uL (4.8-10.8)
[2025-02-05 07:45] LABS: Anion Gap 12 (12-20); Blood Urea Nitrogen 42 mg/dL (9-16); Calcium 8.6 mg/dL (8.4-10.2); Carbon Dioxide 28 mmol/L (22-29); Chloride 108 mmol/L (96-108); Creatinine Clr Calc Pharmacy 43.6; Estimated Glomerular Filt Rate 39; Potassium 4.9 mmol/L (3.3-5.1); Sodium 143 mmol/L (135-145)
[2025-02-05 08:00] VITALS: BP 129/79; PULSE 115; RESP 20; TEMP 36.1; O2SAT 98
[2025-02-05] MEDS: Metoprolol Succinate ER 25 MG TAB.ER.24H PO (09:11)
[2025-02-05] MEDS: 0.9 % Sodium Chloride Flush 3 ML SYRINGE IVFLUSH ×3 (09:12→20:44)
[2025-02-05] MEDS: Ferrous Sulfate 324 MG TABLET.DR PO ×2 (09:12→20:41)
[2025-02-05 11:47] LABS: Glucose, Whole Blood 161 mg/dL (60-115)
--- NOTE | 2025-02-05 11:49 | MHC.CLN ---
F/U PO INTAKE 75-100% DIET RX: 2200DM RECEIVING ENSURE MAX BID TO PROVIDE 300KCALS, 60G PROTEIN MONITOR PO INTAKE AND ENCOURAGE SUPPLEMENTS
--- NOTE | 2025-02-05 11:56 | MHC.CM.PN ---
Addendum entered by Radha Balderas 02/05/25 14:30: [facility] return to [facility], voicemail left x 2, awaiting return call. Original Note: EMR reviewed and per MD rounds, pt is medically cleared for discharge to return to [facility], pending [facility], which is remains pending.
[2025-02-05 12:00] VITALS: BP 127/63; PULSE 107; RESP 20; TEMP 36.6; O2SAT 93
[2025-02-05 15:43] VITALS: BP 125/59; PULSE 115; RESP 20; TEMP 36.6; O2SAT 93
[2025-02-05 15:43] LABS: Glucose, Whole Blood 132 mg/dL (60-115)
--- NOTE | 2025-02-05 18:18 | HO.PM.IMPN ---
Subjective Subjective Date of Service: 02/05/25 Interval History: Pain better controlled with morphine Pt more cooperative with wound care and evaluation No recurrent bleeding No acute events overnight Review of Systems Review of Systems: Yes all other systems are reviewed and are negative Physical Exam Exam: Exam: General: AOx3, no acute distress. Appears weak, elderly Resp: CTA bilaterally CVS: S1, S2, RRR GI: +BS, NT, no distention Skin: Warm, dry. Pt refuses examination of chronic sacral decubitus ulcers Neuro: Cranial nerves II-XII grossly intact bilaterally. Motor grossly intact bilaterally. Extremities: No edema. Lower extremities with chronic venous stasis dermatitis, as well as cracked skin, abrasions, and ulcerations bilaterally. See pictures below Psych: Irritable, primarily cooperative Vital Signs: Vital Signs: Last Vital Signs Temp 97.9 F 02/05/25 15:43 Pulse 115 H 02/05/25 15:43 Resp 20 02/05/25 15:43 BP 125/59 L 02/05/25 15:43 Pulse Ox 93 02/05/25 15:43 O2 Del Method Room Air 02/05/25 15:43 O2 Flow Rate 2 02/04/25 07:19 BMI result Body Mass Index 30.7 Objective Data Active Medications Acetaminophen (Acetaminophen 325 Mg Tablet) 650 mg PO Q6H PRN PRN Reason: Pain, Mild 1-3,fever,headache Albuterol/Ipratropium (Albuterol/Iprat 2.5/0.5mg 3 Ml Ampul.Neb) 3 ml INHALE Q4H PRN PRN Reason: Shortness of Breath/Wheezing Apixaban (Apixaban 2.5 Mg Tablet) 2.5 mg PO BID [facility] Last Admin: 02/05/25 09:13 Dose: 2.5 mg Documented By: ONEYDA Artificial Tears (Artificial Tears 15 Ml Drops) 1 drop EYE-BOTH Q2H PRN PRN Reason: Dry Eyes Ascorbic Acid (Ascorbic Acid 250 Mg Tablet) 250 mg PO DAILY [facility] Last Admin: 02/05/25 09:12 Dose: 250 mg Documented By: ONEYDA Bisacodyl (Bisacodyl 10 Mg Supp.Rect) 10 mg ND DAILY PRN PRN Reason: Constipation Calcium Carbonate (Calcium Carbonate 750 Mg Tab.Chew) 750 mg PO Q4H PRN PRN Reason: Heartburn Dextrose (Dextrose 50 % 25 Gm/50 Ml Syringe) 25 gm IVPUSH Q15M PRN; Protocol PRN Reason: per Hypoglycemia Standing Ord. Ferrous Sulfate (Ferrous Sulfate 324 Mg Tablet.Dr) 324 mg PO BID [facility] Last Admin: 02/05/25 09:12 Dose: 324 mg Documented By: ONEYDA Finasteride (Finasteride 5 Mg Tablet) 5 mg PO DAILY [facility] Last Admin: 02/05/25 09:12 Dose: 5 mg Documented By: ONEYDA Glucose (Glucose Gel 15 Gm Gel..Gram.) 15 gm PO Q15M PRN; Protocol PRN Reason: per Hypoglycemia Standing Ord. Guaifenesin (Guaifenesin 200 Mg/10 Ml 10 Ml Liquid) 10 ml PO Q8H PRN PRN Reason: Cough Diltiazem HCl 125 mg/ Sodium (Chloride) 125 mls @ 0 mls/hr IVCONT .Q0M [facility]; Protocol Last Titration: 02/01/25 00:56 Dose: 0 mg/hr, 0 mls/hr Documented By: SHANE Insulin Glargine (Insulin Glargine,Hum.Rec.Anlog 100 Unit/Ml 10 Ml Vial) 27 unit SUBCUT BEDTIME [facility] Last Admin: 02/04/25 21:28 Dose: 27 unit Documented By: ROSAURA Insulin Human Lispro (Insulin Lispro 100 Unit/Ml 3 Ml Vial) 0 unit SUBCUT QIDACHS [facility]; Protocol Last Admin: 02/05/25 16:13 Dose: Not Given Documented By: ONEYDA Non-Admin Reason: No Insulin Coverage Lidocaine (Lidocaine 4 % Patch Adh..Patch) 1 patch TRANSDERMA DAILY [facility]; Protocol Last Admin: 02/05/25 09:16 Dose: Not Given Documented By: ONEYDA Non-Admin Reason: Patient Refused Magnesium Hydroxide (Milk Of Magnesia 30 Ml Oral.Susp) 30 ml PO DAILY PRN PRN Reason: Constipation Melatonin (Melatonin 3 Mg Tablet) 6 mg PO BEDTIME PRN PRN Reason: Insomnia Metoprolol Succinate (Metoprolol Succinate Er 25 Mg Tab.Er.24h) 25 mg PO DAILY [facility]; Protocol Last Admin: 02/05/25 09:11 Dose: 25 mg Documented By: ONEYDA Morphine Sulfate (Morphine Sulfate 2 Mg/Ml Cartridge) 1 mg IVPUSH Q3H PRN; Protocol PRN Reason: Pain, Severe (Pain Scale 7-10) Last Admin: 02/05/25 14:08 Dose: 1 mg Documented By: ONEYDA Multivitamins/Vitamin C (Multivitamin Tablet) 1 tab PO DAILY [facility] Last Admin: 02/05/25 09:13 Dose: 1 tab Documented By: ONEYDA Non-Formulary Medication (Rosuvastatin) 5 mg PO DAILY [facility] Nystatin (Nystatin Powder 15 Gm Bottle) 1 appl [facility]; Protocol Last Admin: 02/05/25 17:03 Dose: 1 appl Documented By: ONEYDA Ondansetron HCl (Ondansetron Hcl 4 Mg/2 Ml Vial) 4 mg IVPUSH Q8H PRN PRN Reason: Nausea and Vomiting Polyethylene Glycol (Polyethylene Glycol 3350 17 Gm Powd.Pack) 17 gm PO DAILY PRN PRN Reason: Constipation Pregabalin (Pregabalin 200 Mg Capsule) 200 mg PO BID [facility] Last Admin: 02/05/25 09:12 Dose: 200 mg Documented By: ONEYDA Senna (Sennosides 8.6 Mg Tablet) 17.2 mg PO BEDTIME [facility] Last Admin: 02/04/25 21:26 Dose: 17.2 mg Documented By: ROSAURA Sodium Chloride (0.9 % Sodium Chloride Flush 3 Ml Syringe) 3 ml IVFLUSH [facility] Last Admin: 02/05/25 17:03 Dose: 3 ml Documented By: ONEYDA Sodium Hypochlorite (Sodium Hypochlorite 0.25% 473 Ml Solution) 1 appl TOPICAL DAILY [facility] Last Admin: 02/05/25 09:13 Dose: 1 appl Documented By: ONEYDA Tamsulosin HCl (Tamsulosin Hcl 0.4 Mg Capsule) 0.8 mg PO DAILY [facility] Last Admin: 02/05/25 09:20 Dose: 0.8 mg Documented By: ONEYDA Thiamine HCl (Thiamine Hcl 100 Mg Tablet) 100 mg PO DAILY [facility] Last Admin: 02/05/25 09:20 Dose: 100 mg Documented By: ONEYDA Vitamin D (Cholecalciferol (Vitamin D3) 25 Mcg Tablet) 25 mcg PO DAILY [facility] Last Admin: 02/05/25 09:12 Dose: 25 mcg Documented By: ONEYDA Labs 02/05/25 06:59 02/05/25 06:59 Labs: Laboratory Results - last 24 hr 02/04/25 02/05/25 02/05/25 20:09 06:59 07:25 MCV 105.7 H MCH 33.1 H MCHC 31.3 RDW 17.2 H Plt Count 143 L MPV 10.2 Immature Gran % (Auto) 1.4 H Neut % (Auto) 81.4 H Lymph % (Auto) 7.7 L [place] % (Auto) 6.9 Eos % (Auto) 2.0 Baso % (Auto) 0.6 Lymph # (Auto) 0.5 L [place] # (Auto) 0.4 Eos # (Auto) 0.1 Baso # (Auto) 0.0 Abs Immat Gran (auto) 0.09 H Absolute Neuts (auto) 5.2 Absolute Nucleated RBC 0.000 Nucleated RBC % (auto) 0.0 Anion Gap 12 Estim Creat Clear Calc 43.6 Estimated GFR 39 POC Glucose 205 H 60 Random Glucose 63 Calcium 8.6 02/05/25 02/05/25 11:37 15:36 MCV MCH MCHC RDW Plt Count MPV Immature Gran % (Auto) Neut % (Auto) Lymph % (Auto) [place] % (Auto) Eos % (Auto) Baso % (Auto) Lymph # (Auto) [place] # (Auto) Eos # (Auto) Baso # (Auto) Abs Immat Gran (auto) Absolute Neuts (auto) Absolute Nucleated RBC Nucleated RBC % (auto) Anion Gap Estim Creat Clear Calc Estimated GFR POC Glucose 161 H 132 H Random Glucose Calcium Assessment and Plan (1) Atrial fibrillation with rapid ventricular response: Status: Acute Plan 79 yo male with PMH IDDM, polyneuropathy, PVD/ CVI, osteoporosis, ITP, HTN, OA, chronic decubitus ulcer, BPH, immobility, chronic anemia/ DUSTIN on ferrous sulfate, CKD stage IIIB, MGUS, chronic AFib on Eliquis, was sent into the emergency department from his long-term [facility] in [place] since 10/12/2024 for bleeding from the chronic sacral wound area noting patient is on Eliquis for anticoagulation for AFib, complaining of pain & generalized weakness. Altered mental status Possible Wernicke encephalopathy vs. Opioid induced encephalopathy Patient suffered with visual hallucinations, altered mental status, intention tremor bilaterally & Short-term memory loss Administered IV thiamine, with reversal in altered mental status within 30 minutes. Possible etiology could be 2/2 opioid induced encephalopathy in the setting of receiving morphine and Dilaudid. Acute anemia on blood thinner CKD, Chronic Anemia, DUSTIN Continue iron as iron levels remain low Seen by Hematology on 01/29/2025 and received 1 unit of PRBCs in the outpatient setting Eliquis initially held due to concern regarding continuation of anticoagulation noting ongoing issues with anemia and bleeding from the sacral wound Eliquis reduced to 2.5mg bid H&H stable AFIB RVR, hx of AFIB Rate controlled after Cardizem infusion Patient asymptomatic no chest pain or shortness of breath or evidence of hypoxia Metoprolol 25mg XR po started, per cardiology Apixaban restarted at 2.5mg BID PO - will coordinate with Wound care/ surgery regarding bleeding risk Echo with preserved LVEF of 50 55% and severe biatrial enlargement KIM on CKD with noted MGUS Nephrology consulted IgA nephropathy on differential, as well as bone marrow disorder. urine immunofixation ordered Patient should have a bone marrow biopsy outpatient; May need kidney biopsy. Avoid hypotension UA and urine studies negative Avoid nephrotoxic medications including NSAIDs Strict I's and O's Chronic sacral decubitus with Chronic pain Wound care consulted Started on Vancomycin and Zosyn in ED, discontined per ID. No evidence of osteomyelitis in the sacral wound via CT scan General surgery consulted, no indication for debridement at this time Infectious disease consulted: no evidence of osteo or cellulitis; abx should be stopped Nutritional consultation placed to optimize nutrition to promote wound healing B foot wounds with hx of PVD/ Neuropathy Noted peripheral vascular disease with history of femoral endarterectomy Vascular consulted Venous Dopplers requested, aware patient is on anticoagulation but goal is to rule out any abnormalities Wound care consulted Immobility and generalized weakness Patient states his overall abilities are declining since living in the long-term care facility Patient is now wheelchair-bound IDDM Sliding scale insulin Lantus ordered Diabetic diet HTN Blood pressure was low initially and improving with rate control on the Cardizem infusion Med rec pending, holding patient's usual oral antihypertensives to avoid hypotension Low-sodium diet BPH Continue tamsulosin and finasteride HLD Continue statin Cardiac diet Pt requires continued hospitalization as STR need prior auth before accepting back, which should be provided on Wednesday. Quality Stroke Does the patient have a stroke diagnosis?: No Reason for No Anti-thrombotic by Day Two: Contraindicated VTE Prior VTE?: No VTE Risk Level:: Medical - moderate - high VTE Device Contraindication: N/A - Device Ordered VTE Drug Contraindication: N/A - Med Ordered
[2025-02-05 19:24] VITALS: BP 132/64; PULSE 89; RESP 16; TEMP 36.4; O2SAT 99
[2025-02-05 19:40] LABS: Glucose, Whole Blood 148 mg/dL (60-115)
[2025-02-05] MEDS: Insulin Glargine,Hum.rec.anlog 100 UNIT/ML 10 ML VIAL 27 UNIT SUBCUT (20:41)
[2025-02-05 23:53] VITALS: BP 132/78; PULSE 94; RESP 18; TEMP 36.6; O2SAT 95
[2025-02-06 04:00] VITALS: BP 122/72; PULSE 93; RESP 18; TEMP 36.4; O2SAT 95
[2025-02-06 06:00] VITALS: BMI 30.7
[2025-02-06 07:08] LABS: Hematocrit 25.4 % (42.0-52.0); Hemoglobin 8.1 g/dl (14.0-18.0); Mean Corpuscular Volume 105.4 fL (80.0-98.0); Platelet Count 143 X10*3/uL (160-400); Red Blood Count 2.41 X10*6/uL (4.60-5.80)
[2025-02-06 07:17] LABS: Calcium 8.5 mg/dL (8.4-10.2); Chloride 107 mmol/L (96-108); Potassium 5.0 mmol/L (3.3-5.1); Sodium 142 mmol/L (135-145)
[2025-02-06 08:00] VITALS: BP 111/74; PULSE 108; RESP 20; TEMP 36.5; O2SAT 95
--- NOTE | 2025-02-06 08:32 | MHC.CM.PN ---
This CM placed a call to Jayla at the [facility], she is looking into the case and will call this CM back when she has an update on the auth.
[2025-02-06] MEDS: Metoprolol Succinate ER 25 MG TAB.ER.24H PO (10:33)
[2025-02-06] MEDS: Ferrous Sulfate 324 MG TABLET.DR PO ×2 (10:33→20:15)
[2025-02-06] MEDS: 0.9 % Sodium Chloride Flush 3 ML SYRINGE IVFLUSH ×3 (10:35→20:15)
[2025-02-06 11:42] VITALS: BP 116/71; PULSE 100; RESP 18; TEMP 36.3; O2SAT 95
--- NOTE | 2025-02-06 11:48 | HO.WOUND ---
Addendum entered by Susan Atkins RN 02/07/25 08:23: 02/06/25 @1600 Saw patient in coordination with Dr. Muniz from General Surgery Team - back skin assessed and she reports no concerns for fluid collection or active infective process. She recommends Nystatin powder and or barrier cream along with topical steroid to aid in pruritus. Topical recommendation in chart for direct care team to carry out. Upper Back - Cleanse with Ph balanced wipes pat dry. Apply topical antifungal cream / steroid followed by barrier cream twice daily. Dry bossman pad under patient to wick away moisture. Continue Q2hr turns and repositions to allow back to breath. Original Note: Wound Consult: Follow up 79yr old? [place] [facility] [place] See progress notes and H&P for detailed history.? Wound consult follow up for Bilateral Toes, Groin and sacrum.? Arrival to bedside patient was mildly agreeable to my complete assessment, he reports his son has advised staff to ignore his refusals and continue to care for him. Direct care nurse confirms - patient instructed this flex o writer operator to continue to do what I had to do even when he tells me to stop , he gave permission to continue care despite him yelling out and complaining. He continued to be ornery and despite the consultation going relatively smooth he informed this flex o writer operator he felt it did not go well and this flex o writer operator was rude. Attempted therapeutic communication by apologizing this seemed to irritate him more, he then accused this flex o writer operator of making this about themselves instead of him. We agreed for communication to end and I thanked him for allowing me to assess and treat him. 02/02/25 02/06/25 Etiology: ?Arterial Wounds ? Measurements: Left 2nd toe 1.8cm x 1.5cm x 0.2cm red moist wound bed - clean Left 3rd toe 1cm x 0.3cm x 0.2cm pink moist clean wound bed Right 2nd toe 2.2cm x 1.2cm x 0.2cm red clean wound bed with rough exposed bone - provider notified 3rd toe 2cm x 0.8cm x 0.2cm - red clean moist wound bed Drainage / Odor: dried crusted to wound bed and web spaces - after cleansing serosangineous drainage Edges: ? irregular Jeramy wound: dry thickened desquamation - some scaling noted ? No Induration, Fluctuance or Warmth noted Pain: denies at todays visit Goals of Treatment: ? Durafiber for moisture management - provider notified of exposed bone Over all the wounds to his feet appear improved. Back Central Mid Back Etiology: ??Unknwon Measurements: 1cm x 1cm x 0.1cm Wound Bed: small superficial opening noted - warm red fluctuant area noted - concerning for fluid collection. Provider notified. area is blanchable and red pigmentation across his back is noted Drainage / Odor: green yellow drainage - no odor noted Edges: ? attached Jeramy wound: red warm fluctuant ? - No Induration noted Pain: denies reports itching Goals of Treatment: ?barrier applied - dry bossman pad placed under patient to wick away moisture - provider notifed to consider imaging and or surgery consult 02/02/25 02/06/25 Buttock and posterior thighs Etiology: ??Severe MASD- IAD Present on Admission Wound Bed: scattered open tissue with red moist wound beds Drainage / Odor: sanguineous and serosang Edges: ?irregular Jeramy wound: significant friction and sheering noted - ?dark hyperpigmented light purple blanchable tissue noted - No Induration, Fluctuance or Warmth noted Goals of Treatment: ? off load pressure and triad to protect from urine and stool and allow for moist wound healing Left hip noted for red purple pigmented tissue - intact tissue remains blanchable - foam dressing applied. Groin and skin folds noted for improving fungal dermatitis and mod-severe MASD - pink tissue with significant dry desquamation noted. No open wounds noted at this time. Antifungal powder in use already - pt reports significant decrease in itching since powder initiated. Recommend adding barrier cream to skin to allow for protection and soothing. Recommendations: 1. Turn and Reposition every 2 hours and as needed for patient comfort.? Use pillows or wedges to support off loading positions. 2. Off Load all bony prominences with use of pillows and heel boots if needed.? Apply Preventative foams where needed. ? 3. Monitor for incontinence and moisture control, use barrier creams when needed for prevention and treatment. 4. Provide adequate and supplemental nutrition.? 5. Continue low air loss mattress. 6. When applicable maintain blood glucose levels per Providers order. Groin - Cleanse with PH balance spray or wipes, pat dry. ?Apply thin layer of barrier cream to affected area.? Apply twice daily and Reapply thin layer PRN after each episode of incontinence. Buttock - Off Load Pressure with Q2 hr turns and use of pillows - Cleanse with PH balance spray or wipes, pat dry. ?Apply thin layer of Triad to wound bed - only pat and dab no scrub and rub when soiling occurs. Reapply thin layer PRN after each episode of incontinence. ?Triad to provide an occlusive dressing, to allow moist healing with absorption of mild exudate, to minimize contamination of urine/stool or bacteria, and to soothe and protect jeramy wound skin. Bilateral Toes - Cleanse with saline moisture gauze, pay dry. Apply skin prep, cover wound bed with durafiber AG, cover with ABD pad, gauze wrap. Change every other day. Back - Cleanse with PH balanced wipes. Apply skin prep allow to dry. Use dry bossman pad to wick away moisture. Left Hip - Skin prep applied - foam dressing applied change every 3 days and PRN. Re-consult wound care Nurse for wound deterioration or wound changes.
[2025-02-06 11:57] LABS: Glucose, Whole Blood 98 mg/dL (60-115)
--- NOTE | 2025-02-06 13:43 | MHC.CM.PN ---
[facility] auth obtained for pt to return to [facility], [place] scheduled BLS transport for today. Per hospitalist, discharge is now on hold, as pt needs general surgery clearance due to wound care concerns. CM notified [place] and [facility] of change of plans to cancel discharge for today.
[2025-02-06 15:57] VITALS: BP 110/59; PULSE 98; RESP 18; TEMP 36.4; O2SAT 96
[2025-02-06 16:11] LABS: Glucose, Whole Blood 91 mg/dL (60-115)
[2025-02-06 17:25] LABS: Protein/Creatinine Ratio, Ur 0.17 (<0.2); Total Protein Urine Random 14 mg/dL (<12)
--- NOTE | 2025-02-06 18:23 | HO.PM.IMPN ---
Subjective Subjective Date of Service: 02/06/25 Interval History: No complaints, pain well-controlled Has been seen and evaluated by wound care Has been calm and cooperative while on the morphine Review of Systems Review of Systems: Yes all other systems are reviewed and are negative Physical Exam Exam: Exam: General: AOx3, no acute distress. Appears weak, elderly Resp: CTA bilaterally CVS: S1, S2, RRR GI: +BS, NT, no distention Skin: Warm, dry. Chronic back and sacral wounds as pictured in wound care chart Neuro: Cranial nerves II-XII grossly intact bilaterally. Motor grossly intact bilaterally. Extremities: No edema. Lower extremities with chronic venous stasis dermatitis, as well as cracked skin, abrasions, and ulcerations bilaterally. Left 2nd toe with exposed bone. See wound care document for pictures Psych: Calm and cooperative Vital Signs: Vital Signs: Last Vital Signs Temp 97.6 F 02/06/25 15:57 Pulse 98 02/06/25 15:57 Resp 18 02/06/25 15:57 BP 110/59 L 02/06/25 15:57 Pulse Ox 96 02/06/25 15:57 O2 Del Method Room Air 02/06/25 15:57 O2 Flow Rate 2 02/04/25 07:19 BMI result Body Mass Index 30.7 Objective Data Active Medications Acetaminophen (Acetaminophen 325 Mg Tablet) 650 mg PO Q6H PRN PRN Reason: Pain, Mild 1-3,fever,headache Albuterol/Ipratropium (Albuterol/Iprat 2.5/0.5mg 3 Ml Ampul.Neb) 3 ml INHALE Q4H PRN PRN Reason: Shortness of Breath/Wheezing Apixaban (Apixaban 2.5 Mg Tablet) 2.5 mg PO BID [facility] Last Admin: 02/06/25 10:34 Dose: 2.5 mg Documented By: MICHAEL Artificial Tears (Artificial Tears 15 Ml Drops) 1 drop EYE-BOTH Q2H PRN PRN Reason: Dry Eyes Ascorbic Acid (Ascorbic Acid 250 Mg Tablet) 250 mg PO DAILY [facility] Last Admin: 02/06/25 10:34 Dose: 250 mg Documented By: MICHAEL Bisacodyl (Bisacodyl 10 Mg Supp.Rect) 10 mg VT DAILY PRN PRN Reason: Constipation Calcium Carbonate (Calcium Carbonate 750 Mg Tab.Chew) 750 mg PO Q4H PRN PRN Reason: Heartburn Dextrose (Dextrose 50 % 25 Gm/50 Ml Syringe) 25 gm IVPUSH Q15M PRN; Protocol PRN Reason: per Hypoglycemia Standing Ord. Ferrous Sulfate (Ferrous Sulfate 324 Mg Tablet.Dr) 324 mg PO BID [facility] Last Admin: 02/06/25 10:33 Dose: 324 mg Documented By: MICHAEL Finasteride (Finasteride 5 Mg Tablet) 5 mg PO DAILY [facility] Last Admin: 02/06/25 10:33 Dose: 5 mg Documented By: MICHAEL Glucose (Glucose Gel 15 Gm Gel..Gram.) 15 gm PO Q15M PRN; Protocol PRN Reason: per Hypoglycemia Standing Ord. Guaifenesin (Guaifenesin 200 Mg/10 Ml 10 Ml Liquid) 10 ml PO Q8H PRN PRN Reason: Cough Diltiazem HCl 125 mg/ Sodium (Chloride) 125 mls @ 0 mls/hr IVCONT .Q0M [facility]; Protocol Last Titration: 02/01/25 00:56 Dose: 0 mg/hr, 0 mls/hr Documented By: SHANE Insulin Glargine (Insulin Glargine,Hum.Rec.Anlog 100 Unit/Ml 10 Ml Vial) 27 unit SUBCUT BEDTIME [facility] Last Admin: 02/05/25 20:41 Dose: 27 unit Documented By: ROSAURA Insulin Human Lispro (Insulin Lispro 100 Unit/Ml 3 Ml Vial) 0 unit SUBCUT QIDACHS [facility]; Protocol Last Admin: 02/06/25 16:11 Dose: Not Given Documented By: MICHAEL Non-Admin Reason: No Insulin Coverage Lidocaine (Lidocaine 4 % Patch Adh..Patch) 1 patch TRANSDERMA DAILY [facility]; Protocol Last Admin: 02/06/25 10:34 Dose: Not Given Documented By: MICHAEL Non-Admin Reason: Patient Refused Magnesium Hydroxide (Milk Of Magnesia 30 Ml Oral.Susp) 30 ml PO DAILY PRN PRN Reason: Constipation Melatonin (Melatonin 3 Mg Tablet) 6 mg PO BEDTIME PRN PRN Reason: Insomnia Metoprolol Succinate (Metoprolol Succinate Er 25 Mg Tab.Er.24h) 25 mg PO DAILY [facility]; Protocol Last Admin: 02/06/25 10:33 Dose: 25 mg Documented By: MICHAEL Morphine Sulfate (Morphine Sulfate 2 Mg/Ml Cartridge) 1 mg IVPUSH Q3H PRN; Protocol PRN Reason: Pain, Severe (Pain Scale 7-10) Last Admin: 02/05/25 23:50 Dose: 1 mg Documented By: ROSAURA Multivitamins/Vitamin C (Multivitamin Tablet) 1 tab PO DAILY [facility] Last Admin: 02/06/25 10:33 Dose: 1 tab Documented By: MICHAEL Non-Formulary Medication (Rosuvastatin) 5 mg PO DAILY [facility] Nystatin (Nystatin Powder 15 Gm Bottle) 1 appl TOPICAL QSHIFT [facility]; Protocol Last Admin: 02/06/25 15:52 Dose: 1 appl Documented By: MICHAEL Ondansetron HCl (Ondansetron Hcl 4 Mg/2 Ml Vial) 4 mg IVPUSH Q8H PRN PRN Reason: Nausea and Vomiting Polyethylene Glycol (Polyethylene Glycol 3350 17 Gm Powd.Pack) 17 gm PO DAILY PRN PRN Reason: Constipation Pregabalin (Pregabalin 200 Mg Capsule) 200 mg PO BID [facility] Last Admin: 02/06/25 10:34 Dose: 200 mg Documented By: MICHAEL Senna (Sennosides 8.6 Mg Tablet) 17.2 mg PO BEDTIME [facility] Last Admin: 02/05/25 20:41 Dose: 17.2 mg Documented By: ROSAURA Sodium Chloride (0.9 % Sodium Chloride Flush 3 Ml Syringe) [facility] Last Admin: 02/06/25 15:52 Dose: 3 ml Documented By: MICHAEL Sodium Hypochlorite (Sodium Hypochlorite 0.25% 473 Ml Solution) 1 appl TOPICAL DAILY [facility] Last Admin: 02/06/25 10:34 Dose: 1 appl Documented By: MICHAEL Tamsulosin HCl (Tamsulosin Hcl 0.4 Mg Capsule) 0.8 mg PO DAILY [facility] Last Admin: 02/06/25 10:33 Dose: 0.8 mg Documented By: MICHAEL Thiamine HCl (Thiamine Hcl 100 Mg Tablet) 100 mg PO DAILY [facility] Last Admin: 02/06/25 10:33 Dose: 100 mg Documented By: MICHAEL Vitamin D (Cholecalciferol (Vitamin D3) 25 Mcg Tablet) 25 mcg PO DAILY [facility] Last Admin: 02/06/25 10:34 Dose: 25 mcg Documented By: MICHAEL Labs 02/06/25 06:27 02/06/25 06:27 Labs: Laboratory Results - last 24 hr 02/01/25 02/05/25 02/06/25 12:17 19:35 06:27 MCV 105.4 H MCH 33.6 H MCHC 31.9 RDW 17.3 H Plt Count 143 L MPV 10.0 Immature Gran % (Auto) 1.1 H Neut % (Auto) 78.6 H Lymph % (Auto) 10.3 L [place] % (Auto) 7.2 Eos % (Auto) 2.3 Baso % (Auto) 0.5 Lymph # (Auto) 0.6 L [place] # (Auto) 0.4 Eos # (Auto) 0.1 Baso # (Auto) 0.0 Abs Immat Gran (auto) 0.06 H Absolute Neuts (auto) 4.4 Absolute Nucleated RBC 0.000 Nucleated RBC % (auto) 0.0 Anion Gap 14 Estim Creat Clear Calc 44.2 Estimated GFR 40 POC Glucose 148 H Random Glucose 71 Calcium 8.5 U Random Total Protein Urine Creatinine Protein/Creatinin Ratio Urine Immunofixation SEE NOTE 02/06/25 02/06/25 02/06/25 08:14 11:54 16:06 MCV MCH MCHC RDW Plt Count MPV Immature Gran % (Auto) Neut % (Auto) Lymph % (Auto) [place] % (Auto) Eos % (Auto) Baso % (Auto) Lymph # (Auto) [place] # (Auto) Eos # (Auto) Baso # (Auto) Abs Immat Gran (auto) Absolute Neuts (auto) Absolute Nucleated RBC Nucleated RBC % (auto) Anion Gap Estim Creat Clear Calc Estimated GFR POC Glucose 69 98 91 Random Glucose Calcium U Random Total Protein Urine Creatinine Protein/Creatinin Ratio Urine Immunofixation 02/06/25 16:16 MCV MCH MCHC RDW Plt Count MPV Immature Gran % (Auto) Neut % (Auto) Lymph % (Auto) [place] % (Auto) Eos % (Auto) Baso % (Auto) Lymph # (Auto) [place] # (Auto) Eos # (Auto) Baso # (Auto) Abs Immat Gran (auto) Absolute Neuts (auto) Absolute Nucleated RBC Nucleated RBC % (auto) Anion Gap Estim Creat Clear Calc Estimated GFR POC Glucose Random Glucose Calcium U Random Total Protein 14 H Urine Creatinine 82.15 Protein/Creatinin Ratio 0.17 Urine Immunofixation Microbiology Microbiology Results: Microbiology 01/31/25 17:24 Blood Culture - Final Blood - Venous No growth after 5 days. 01/31/25 17:09 Blood Culture - Final Blood - Venous No growth after 5 days. Assessment and Plan (1) Atrial fibrillation with rapid ventricular response: Status: Acute (2) Chronic ulcer of sacral region: Status: Acute Plan 79 yo male with PMH IDDM, polyneuropathy, PVD/ CVI, osteoporosis, ITP, HTN, OA, chronic decubitus ulcer, BPH, immobility, chronic anemia/ DUSTIN on ferrous sulfate, CKD stage IIIB, MGUS, chronic AFib on Eliquis, was sent into the emergency department from his long[facility]term [facility] in [place] since 10/12/2024 for bleeding from the chronic sacral wound area noting patient is on Eliquis for anticoagulation for AFib, complaining of pain & generalized weakness. Altered mental status Possible Wernicke encephalopathy vs. Opioid induced encephalopathy Patient suffered with visual hallucinations, altered mental status, intention tremor bilaterally & Short-term memory loss Administered IV thiamine, with reversal in altered mental status within 30 minutes. Possible etiology could be 2/2 opioid induced encephalopathy in the setting of receiving morphine and Dilaudid. Acute anemia on blood thinner CKD, Chronic Anemia, DUSTIN Continue iron as iron levels remain low Seen by Hematology on 01/29/2025 and received 1 unit of PRBCs in the outpatient setting Eliquis initially held due to concern regarding continuation of anticoagulation noting ongoing issues with anemia and bleeding from the sacral wound Eliquis reduced to 2.5mg bid H&H stable AFIB RVR, hx of AFIB Rate controlled after Cardizem infusion Patient asymptomatic no chest pain or shortness of breath or evidence of hypoxia Metoprolol 25mg XR po started, per cardiology Apixaban restarted at 2.5mg BID PO - will coordinate with Wound care/ surgery regarding bleeding risk Echo with preserved LVEF of 50 55% and severe biatrial enlargement KIM on CKD with noted MGUS Nephrology consulted IgA nephropathy on differential, as well as bone marrow disorder. urine immunofixation ordered Patient should have a bone marrow biopsy outpatient; May need kidney biopsy. Avoid hypotension UA and urine studies negative Avoid nephrotoxic medications including NSAIDs Strict I's and O's Chronic sacral decubitus with Chronic pain Wound care consulted Started on Vancomycin and Zosyn in ED, discontined per ID. No evidence of osteomyelitis in the sacral wound via CT scan General surgery consulted, no indication for debridement at this time General surgery re-consulted due to exposed bone in left toe as well as concern for ;possible fluid collection and back suggested silver alginate for lower extremity wounds, high-protein diet, protein supplementation, and triad plus nystatin powder +Benadryl cream on back Infectious disease consulted: no evidence of osteo or cellulitis; abx should be stopped Nutritional consultation placed to optimize nutrition to promote wound healing B foot wounds with hx of PVD/ Neuropathy Noted peripheral vascular disease with history of femoral endarterectomy Vascular consulted Venous Dopplers requested, aware patient is on anticoagulation but goal is to rule out any abnormalities Wound care consulted Immobility and generalized weakness Patient states his overall abilities are declining since living in the long-term care facility Patient is now wheelchair-bound IDDM Sliding scale insulin Lantus ordered Diabetic diet HTN Blood pressure was low initially and improving with rate control on the Cardizem infusion Med rec pending, holding patient's usual oral antihypertensives to avoid hypotension Low-sodium diet BPH Continue tamsulosin and finasteride HLD Continue statin Cardiac diet Pt requires continued hospitalization as STR need prior auth before accepting back, which should be provided on Wednesday. Quality Stroke Does the patient have a stroke diagnosis?: No Reason for No Anti-thrombotic by Day Two: Contraindicated VTE Prior VTE?: No VTE Risk Level:: Medical - moderate - high VTE Device Contraindication: N/A - Device Ordered VTE Drug Contraindication: N/A - Med Ordered
[2025-02-06 20:00] VITALS: BP 119/68; PULSE 119; RESP 18; TEMP 36.6; O2SAT 97
[2025-02-06 20:29] LABS: Glucose, Whole Blood 126 mg/dL (60-115)
[2025-02-06] MEDS: Insulin Glargine,Hum.rec.anlog 100 UNIT/ML 10 ML VIAL 27 UNIT SUBCUT (21:54)
[2025-02-07] VITALS: BP 130/60; PULSE 103; RESP 18; TEMP 36.7; O2SAT 92
--- NOTE | 2025-02-07 02:05 | PM.PNGS ---
Subjective Subjective Date of Service: 02/07/25 Interval history: pt not complaining of any significant issue with wounds - says he cant move or shift easily body in pain new draining area on back and toe wounds to bone in small area he is planning to go back to his facility where he says there are wound care providers who come once a week an who have been taking care of him Physical Exam Vital Signs: Vital Signs: Last Vital Signs Temp 98.0 F 02/07/25 00:00 Pulse 103 H 02/07/25 00:00 Resp 18 02/07/25 00:00 BP 130/60 02/07/25 00:00 Pulse Ox 92 02/07/25 00:00 O2 Del Method Room Air 02/07/25 00:00 O2 Flow Rate 2 02/04/25 07:19 BMI result Body Mass Index 30.7 Skin: Other: Left 2nd toe 1.8cm x 1.5cm x 0.2cm red moist wound bed - clean Left 3rd toe 1cm x 0.3cm x 0.2cm pink moist clean wound bed Right 2nd toe 2.2cm x 1.2cm x 0.2cm red clean wound bed with rough exposed bone - provider notified 3rd toe 2cm x 0.8cm x 0.2cm - red clean moist wound bed back area with some skin disruption and small areas of opening barely into deeper skin layer but no fluctuance of area of undrained collection noted. now fluid little serous not greenish tinge noted on back area Objective Data Active Medications Acetaminophen (Acetaminophen 325 Mg Tablet) 650 mg PO Q6H PRN PRN Reason: Pain, Mild 1-3,fever,headache Albuterol/Ipratropium (Albuterol/Iprat 2.5/0.5mg 3 Ml Ampul.Neb) 3 ml INHALE Q4H PRN PRN Reason: Shortness of Breath/Wheezing Apixaban (Apixaban 2.5 Mg Tablet) 2.5 mg PO BID [facility] Last Admin: 02/06/25 20:15 Dose: 2.5 mg Documented By: LAMONT Artificial Tears (Artificial Tears 15 Ml Drops) 1 drop EYE-BOTH Q2H PRN PRN Reason: Dry Eyes Ascorbic Acid (Ascorbic Acid 250 Mg Tablet) 250 mg PO DAILY [facility] Last Admin: 02/06/25 10:34 Dose: 250 mg Documented By: HO.RICCIAJ Bisacodyl (Bisacodyl 10 Mg Supp.Rect) 10 mg NE DAILY PRN PRN Reason: Constipation Calcium Carbonate (Calcium Carbonate 750 Mg Tab.Chew) 750 mg PO Q4H PRN PRN Reason: Heartburn Dextrose (Dextrose 50 % 25 Gm/50 Ml Syringe) 25 gm IVPUSH Q15M PRN; Protocol PRN Reason: per Hypoglycemia Standing Ord. Ferrous Sulfate (Ferrous Sulfate 324 Mg Tablet.Dr) 324 mg PO BID [facility] Last Admin: 02/06/25 20:15 Dose: 324 mg Documented By: LAMONT Finasteride (Finasteride 5 Mg Tablet) 5 mg PO DAILY [facility] Last Admin: 02/06/25 10:33 Dose: 5 mg Documented By: MICHAEL Glucose (Glucose Gel 15 Gm Gel..Gram.) 15 gm PO Q15M PRN; Protocol PRN Reason: per Hypoglycemia Standing Ord. Guaifenesin (Guaifenesin 200 Mg/10 Ml 10 Ml Liquid) 10 ml PO Q8H PRN PRN Reason: Cough Diltiazem HCl 125 mg/ Sodium (Chloride) 125 mls @ 0 mls/hr IVCONT .Q0M [facility]; Protocol Last Titration: 02/01/25 00:56 Dose: 0 mg/hr, 0 mls/hr Documented By: SHANE Insulin Glargine (Insulin Glargine,Hum.Rec.Anlog 100 Unit/Ml 10 Ml Vial) 27 unit SUBCUT BEDTIME [facility] Last Admin: 02/06/25 21:54 Dose: 27 unit Documented By: LAMONT Insulin Human Lispro (Insulin Lispro 100 Unit/Ml 3 Ml Vial) 0 unit SUBCUT QIDACHS [facility]; Protocol Last Admin: 02/06/25 21:47 Dose: Not Given Documented By: LAMONT Non-Admin Reason: No Insulin Coverage Lidocaine (Lidocaine 4 % Patch Adh..Patch) 1 patch TRANSDERMA DAILY [facility]; Protocol Last Admin: 02/06/25 10:34 Dose: Not Given Documented By: MICHAEL Non-Admin Reason: Patient Refused Magnesium Hydroxide (Milk Of Magnesia 30 Ml Oral.Susp) 30 ml PO DAILY PRN PRN Reason: Constipation Melatonin (Melatonin 3 Mg Tablet) 6 mg PO BEDTIME PRN PRN Reason: Insomnia Metoprolol Succinate (Metoprolol Succinate Er 25 Mg Tab.Er.24h) 25 mg PO DAILY [facility]; Protocol Last Admin: 02/06/25 10:33 Dose: 25 mg Documented By: MICHAEL Morphine Sulfate (Morphine Sulfate 2 Mg/Ml Cartridge) 1 mg IVPUSH Q3H PRN; Protocol PRN Reason: Pain, Severe (Pain Scale 7-10) Last Admin: 02/07/25 01:15 Dose: 1 mg Documented By: LAMONT Multivitamins/Vitamin C (Multivitamin Tablet) 1 tab PO DAILY [facility] Last Admin: 02/06/25 10:33 Dose: 1 tab Documented By: MICHAEL Non-Formulary Medication (Rosuvastatin) 5 mg PO DAILY [facility] Nystatin (Nystatin Powder 15 Gm Bottle) [facility]; Protocol Last Admin: 02/07/25 00:18 Dose: 1 appl Documented By: LAMONT Ondansetron HCl (Ondansetron Hcl 4 Mg/2 Ml Vial) 4 mg IVPUSH Q8H PRN PRN Reason: Nausea and Vomiting Polyethylene Glycol (Polyethylene Glycol 3350 17 Gm Powd.Pack) 17 gm PO DAILY PRN PRN Reason: Constipation Pregabalin (Pregabalin 200 Mg Capsule) 200 mg PO BID [facility] Last Admin: 02/06/25 20:15 Dose: 200 mg Documented By: LAMONT Senna (Sennosides 8.6 Mg Tablet) 17.2 mg PO BEDTIME [facility] Last Admin: 02/06/25 20:15 Dose: 17.2 mg Documented By: LAMONT Sodium Chloride (0.9 % Sodium Chloride Flush 3 Ml Syringe) 3 ml IVFLUSH [facility] Last Admin: 02/06/25 20:15 Dose: 3 ml Documented By: LAMONT Sodium Hypochlorite (Sodium Hypochlorite 0.25% 473 Ml Solution) 1 appl TOPICAL DAILY [facility] Last Admin: 02/06/25 10:34 Dose: 1 appl Documented By: MICHAEL Tamsulosin HCl (Tamsulosin Hcl 0.4 Mg Capsule) 0.8 mg PO DAILY [facility] Last Admin: 02/06/25 10:33 Dose: 0.8 mg Documented By: MICHAEL Thiamine HCl (Thiamine Hcl 100 Mg Tablet) 100 mg PO DAILY [facility] Last Admin: 02/06/25 10:33 Dose: 100 mg Documented By: MICHAEL Vitamin D (Cholecalciferol (Vitamin D3) 25 Mcg Tablet) 25 mcg PO DAILY [facility] Last Admin: 02/06/25 10:34 Dose: 25 mcg Documented By: MICHAEL Zinc Acetate/Diphenhydramine (Diphenhydramine Hcl 2 % Cream 28 Gm Tube) 1 appl TOPICAL BID PRN; Protocol PRN Reason: Itching Labs 02/06/25 06:27 02/06/25 06:27 Labs: Laboratory Results - last 24 hr 02/01/25 02/06/25 02/06/25 12:17 06:27 08:14 MCV 105.4 H MCH 33.6 H MCHC 31.9 RDW 17.3 H Plt Count 143 L MPV 10.0 Immature Gran % (Auto) 1.1 H Neut % (Auto) 78.6 H Lymph % (Auto) 10.3 L Barber % (Auto) 7.2 Eos % (Auto) 2.3 Baso % (Auto) 0.5 Lymph # (Auto) 0.6 L Barber # (Auto) 0.4 Eos # (Auto) 0.1 Baso # (Auto) 0.0 Abs Immat Gran (auto) 0.06 H Absolute Neuts (auto) 4.4 Absolute Nucleated RBC 0.000 Nucleated RBC % (auto) 0.0 Anion Gap 14 Estim Creat Clear Calc 44.2 Estimated GFR 40 POC Glucose 69 Random Glucose 71 Calcium 8.5 U Random Total Protein Urine Creatinine Protein/Creatinin Ratio Urine Immunofixation SEE NOTE 02/06/25 02/06/25 02/06/25 11:54 16:06 16:16 MCV MCH MCHC RDW Plt Count MPV Immature Gran % (Auto) Neut % (Auto) Lymph % (Auto) Barber % (Auto) Eos % (Auto) Baso % (Auto) Lymph # (Auto) Barber # (Auto) Eos # (Auto) Baso # (Auto) Abs Immat Gran (auto) Absolute Neuts (auto) Absolute Nucleated RBC Nucleated RBC % (auto) Anion Gap Estim Creat Clear Calc Estimated GFR POC Glucose 98 91 Random Glucose Calcium U Random Total Protein 14 H Urine Creatinine 82.15 Protein/Creatinin Ratio 0.17 Urine Immunofixation 02/06/25 20:26 MCV MCH MCHC RDW Plt Count MPV Immature Gran % (Auto) Neut % (Auto) Lymph % (Auto) Barber % (Auto) Eos % (Auto) Baso % (Auto) Lymph # (Auto) Barber # (Auto) Eos # (Auto) Baso # (Auto) Abs Immat Gran (auto) Absolute Neuts (auto) Absolute Nucleated RBC Nucleated RBC % (auto) Anion Gap Estim Creat Clear Calc Estimated GFR POC Glucose 126 H Random Glucose Calcium U Random Total Protein Urine Creatinine Protein/Creatinin Ratio Urine Immunofixation Procedures Date of Service Date of Service: 02/07/25 Progress Note: A&P Assessment and plan (1) PAD (peripheral artery disease): Status: Acute Assessment and Plan: pt has PAD which is contributing to these toe wounds - he should be able to try to heal this with dressngs with alginate and increased protein intake - he has multile med issues which make his care difficult- cont with offloading and repositioning. his back wound seems more like irritation - its itchy agree can clean toes with dakins wash and do alginate every other with back pt allergic to zinc in zinc oxide but seems to tolerate triad - can use some triad, nystatin powder as needed and also so benadry cream for itchiness. Would benefit from repositioning so not always on his back which gets irritated, hot sweaty. Time Spent With Patient Time: Total time managing care of this patient today ____ minutes. Quality Stroke Does the patient have a stroke diagnosis?: No Reason for No Anti-thrombotic by Day Two: Contraindicated VTE Prior VTE?: No VTE Risk Level:: Medical - moderate - high VTE Device Contraindication: N/A - Device Ordered VTE Drug Contraindication: N/A - Med Ordered
[2025-02-07 03:40] VITALS: BP 134/77; PULSE 107; RESP 18; TEMP 36.4; O2SAT 94
[2025-02-07 07:46] LABS: Glucose, Whole Blood 104 mg/dL (60-115)
[2025-02-07 08:00] VITALS: BP 127/72; PULSE 113; RESP 18; TEMP 36.6; O2SAT 95
[2025-02-07] MEDS: Ferrous Sulfate 324 MG TABLET.DR PO (08:29)
[2025-02-07] MEDS: Metoprolol Succinate ER 25 MG TAB.ER.24H PO (08:29)
[2025-02-07] MEDS: 0.9 % Sodium Chloride Flush 3 ML SYRINGE IVFLUSH (08:32)
--- NOTE | 2025-02-07 11:01 | P.DS_ITS ---
DS: Providers Provider Date of Service: 02/07/25 Date of admission: 01/31/25 20:39 Date of discharge: 02/07/25 Primary care physician: Unknown Physician Consults: 01/31/25 20:44 Consult to Wound Care Routine Reason for consultation: sacral decubitus, foot wounds 01/31/25 20:53 Consult to Gastroenterology Routine Consulting Provider: Musa Stapleton Reason for consultation: anemia, seen by heme 01/08, rec GI consult H/H low again today Has provider been notified: No 01/31/25 20:55 Consult to Vascular Surgery Routine Consulting Provider: [facility] Reason for consultation: B foot wounds, PVD, hx of R and L femoral endarectomy Has provider been notified: No 01/31/25 20:57 Consult to Nephrology Routine Consulting Provider: [facility] Reason for consultation: KIM on CKD, 01/08 work up for MM pending, IGA [place] positive, CKD anemia? Has provider been notified: No 01/31/25 21:01 Consult to Infectious Diseases Routine Consulting Provider: [facility] Reason for consultation: sacral decubitus, B foot wounds Has provider been notified: No 01/31/25 21:02 Consult to Cardiology Routine Consulting Provider: [facility] Reason for consultation: AFIB RVR, hx of afib, on AC significant anemia Has provider been notified: No Consult to General Surgery Routine Consulting Provider: [facility] Reason for consultation: sacral wound assessment, subcu edema and inflammation 02/01/25 15:35 Consult to Wound Care Routine Reason for consultation: groin redness/maceration? bilateral toes, sacral wounds DS: Diagnosis Discharge Diagnosis (1) PAD (peripheral artery disease): Status: Acute DS: Summary Hospital Course Hospital Course: From admission HPI: Date of Service: 01/31/25 Attending physician on admission: Irineo Steel Chief Complaint: bleeding from wounds Pt is a 79 yo male with PMH IDDM, polyneuropathy, PVD/ CVI with bilateral femoral endarterectomy history, osteoporosis, ITP, HTN, OA, chronic decubitus ulcer, BPH, immobility, chronic anemia/ DUSTIN on ferrous sulfate, CKD stage IIIB, MGUS, chronic AFib on Eliquis, was sent into the emergency department from his long-term [facility] in [place] since 10/12/2024 for bleeding from the chronic sacral wound area noting patient is on Eliquis for anticoagulation for AFib. Patient noted to be experiencing 6 to 8/10 pain in the pelvic region with limited mobility secondary to generalized weakness. Patient's H&H currently 7.8 and 23.8 and platelet count 111K. Patient was just seen by Hematology on 01/29/2025. Patient's H&H on that visit was 6.2 and 19.8 and patient received 1 unit of PRBC's in the outpatient setting. Patient also arrived in AFib RVR and was started on a Cardizem infusion. Patient's rate on the Cardizem drip is now 108 and patient remains in AFib. Patient also had noted skin changes in bilateral feet although patient states these are chronic changes. Skin is Ilene red in color. Sensation diminished and patient is having extreme difficulty moving secondary to generalized pain especially involving the pelvic region and lower legs. Patient states he is seen by intensive care specialist once week at the rehab facility. Patient does not believe he is currently on antibiotics coming into the ED today. Workup in the ED included CT of the pelvis which noted bilateral gluteal subcutaneous edema and stranding. No evidence of focal soft tissue fluid collection identified. Also patient has a an agent indeterminate mild L5 compression fracture. Patient unable to elaborate regarding the L5 compression fracture. Noted degenerative changes of the lumbar spine and hips as well. Foot x-rays done of the left and right foot noted no acute fracture or dislocation. No evidence of osteomyelitis. Degenerative changes in decreased bone density identified. And no evidence of foreign body. Pulses barely palpable manually. Patient has no leukocytosis, denies fever, chills, chest pain, shortness of breath at rest, or nausea/vomiting. Patient's lactic acid 2.0. Iron and TIBC levels are low. Sed rate and CRP are both elevated. Random glucose level 124. TSH 3.15. Patient was started on vancomycin and Zosyn in the ED. patient has been receiving morphine for pain and this has been changed to Dilaudid for more effectiveness and noting patient's current renal function. Patient's son is currently patient's healthcare proxy. Reviewed advanced directives and patient verbalized that he is a full code. Patient's main goal this admission is to have his pain controlled. Patient does report that he has a good appetite overall. Hospital course Pt was admitted to the hospital after presenting to the emergency room with intractable bleeding from chronic decubitus ulcers while being on anticoagulation. Pt has been previously seen and evaluated by Hematology outpatient on 01/29 and transfused 1 unit of PRBCs in the outpatient setting. Patient's Eliquis was initially held and then restarted after being reduced to 2.5 mg b.i.d.. H&H was closely monitored and at baseline; no recurrent bleeding noted during hospitalization. Pt did not need any additional transfusion while in the hospital. Pt was seen and evaluated by wound care and general surgery for chronic ulcers. Pt was initially belligerent and noncompliant with Wound Care treatment or evaluation. Initially attempted to control patient's pain with 0.5 mg Dilaudid and then morphine 4 mg IV, but pt became confused and altered. Analgesics were eventually reduced to morphine 1 mg IV to good effect. Once patient's pain was better controlled, he allowed for proper wound evaluation and care. Pt will be discharged on morphine 5 mg oral solution for severe pain, and would suggest continuing this especially while needing wound care management. Once pt's decubitus ulcers healed, can consider discontinuing morphine. Pt was seen and evaluated by Infectious Disease who stopped antibiotics after no concern for osteomyelitis or cellulitis. See below for wound care instructions. Hospital stay was complicated by AFib with RVR treated with Cardizem drip. Pt was seen and evaluated by Cardiology who started pt on metoprolol 25 mg XR. Echocardiogram showed preserved LVEF of 50-55% and severe biatrial enlargement. You will need follow up with both Cardiology and Nephrology, as well as wound care. Additional details concerning hospital stay as listed below. Acute anemia on blood thinner CKD, Chronic Anemia, DUSTIN Continue iron as iron levels remain low Seen by Hematology on 01/29/2025 and received 1 unit of PRBCs in the outpatient setting Eliquis initially held due to concern regarding continuation of anticoagulation noting ongoing issues with anemia and bleeding from the sacral wound Eliquis reduced to 2.5mg bid H&H stable AFIB RVR, hx of AFIB Rate controlled after Cardizem infusion Patient asymptomatic no chest pain or shortness of breath or evidence of hypoxia Metoprolol 25mg XR po started, per cardiology Apixaban restarted at 2.5mg BID PO - will coordinate with Wound care/ surgery regarding bleeding risk Echo with preserved LVEF of 50 55% and severe biatrial enlargement KIM on CKD with noted MGUS Nephrology consulted IgA nephropathy on differential, as well as bone marrow disorder. urine immunofixation ordered Patient should have a bone marrow biopsy outpatient; May need kidney biopsy. Avoid hypotension UA and urine studies negative Avoid nephrotoxic medications including NSAIDs Chronic sacral decubitus with Chronic pain Wound care consulted Started on Vancomycin and Zosyn in ED, discontined per ID. No evidence of osteomyelitis in the sacral wound via CT scan General surgery consulted, no indication for debridement at this time General surgery re-consulted due to exposed bone in left toe; suggested silver alginate for lower extremity wounds, high-protein diet, protein supplementation, and triad plus nystatin powder +Benadryl cream on back Infectious disease consulted: no evidence of osteo or cellulitis; abx should be stopped Nutritional consultation placed to optimize nutrition to promote wound healing Wound Care Recommendations: 1. Turn and Reposition every 2 hours and as needed for patient comfort.? Use pillows or wedges to support off loading positions. 2. Off Load all bony prominences with use of pillows and heel boots if needed.? Apply Preventative foams where needed. ? 3. Monitor for incontinence and moisture control, use barrier creams when needed for prevention and treatment. 4. Provide adequate and supplemental nutrition.? 5. Continue low air loss mattress. 6. When applicable maintain blood glucose levels per Providers order. Groin - Cleanse with PH balance spray or wipes, pat dry. ?Apply thin layer of barrier cream to affected area.? Apply twice daily and Reapply thin layer PRN after each episode of incontinence. Buttock - Off Load Pressure with Q2 hr turns and use of pillows - Cleanse with PH balance spray or wipes, pat dry. ?Apply thin layer of Triad to wound bed - only pat and dab no scrub and rub when soiling occurs. Reapply thin layer PRN after each episode of incontinence. ?Triad to provide an occlusive dressing, to allow moist healing with absorption of mild exudate, to minimize contamination of urine/stool or bacteria, and to soothe and protect jeramy wound skin. Bilateral Toes - Cleanse with saline moisture gauze, pay dry. Apply skin prep, cover wound bed with durafiber AG, cover with ABD pad, gauze wrap. Change every other day. Back - Cleanse with PH balanced wipes. Apply skin prep allow to dry. Use dry bossman pad to wick away moisture. Left Hip - Skin prep applied - foam dressing applied change every 3 days and PRN. B foot wounds with hx of PVD/ Neuropathy Noted peripheral vascular disease with history of femoral endarterectomy Vascular consulted Venous Dopplers requested, aware patient is on anticoagulation but goal is to rule out any abnormalities Wound care consulted Immobility and generalized weakness Patient states his overall abilities are declining since living in the long-term care facility Patient is now wheelchair-bound IDDM Sliding scale insulin Lantus ordered Diabetic diet HTN Blood pressure was low initially and improving with rate control on the Cardizem infusion Med rec pending, holding patient's usual oral antihypertensives to avoid hypotension Low-sodium diet BPH Continue tamsulosin and finasteride HLD Continue statin Cardiac diet Time Attestation Discharge Coordination Time (in mins): 35 Quality: Safe Use of Opioids Does Pt have an Active Cancer Diagnosis on the Problem List?: No Quality: Stroke Does the patient have a stroke diagnosis?: No Physical Exam Exam: Exam: General: AOx3, no acute distress. Appears weak, elderly Resp: CTA bilaterally CVS: S1, S2, RRR GI: +BS, NT, no distention Skin: Warm, dry. Chronic back and sacral wounds as pictured in wound care chart Neuro: Cranial nerves II-XII grossly intact bilaterally. Motor grossly intact bilaterally. Extremities: No edema. Lower extremities with chronic venous stasis dermatitis, as well as cracked skin, abrasions, and ulcerations bilaterally. Left 2nd toe with exposed bone. Currently with clean and dry dressing in place. Psych: Calm and cooperative Vital Signs: Vital Signs: Last Vital Signs Temp 97.8 F 02/07/25 08:00 Pulse 113 H 02/07/25 08:00 Resp 18 02/07/25 08:00 BP 127/72 02/07/25 08:00 Pulse Ox 95 02/07/25 08:00 O2 Del Method Room Air 02/07/25 08:00 O2 Flow Rate 2 02/04/25 07:19 BMI result Body Mass Index 30.7 DS: Data Data Completed and Pending Labs on day of discharge: Laboratory Results - last 24 hr 02/01/25 02/06/25 02/06/25 12:17 11:54 16:06 POC Glucose 98 91 U Random Total Protein Urine Creatinine Protein/Creatinin Ratio Urine Immunofixation SEE NOTE 02/06/25 02/06/25 02/07/25 16:16 20:26 07:31 POC Glucose 126 H 104 U Random Total Protein 14 H Urine Creatinine 82.15 Protein/Creatinin Ratio 0.17 Urine Immunofixation Discharge Plan Discharge Anticipated Discharge Date/Time: 02/07/25 10:59 Patient Disposition: Xfer SNF Discharge Diagnosis: Acute on chronic blood loss anemia Referrals: [facility] [Outside] - 1 Day Physician,Unknown J [Primary Care Provider, Medical] - 1 Week Discharge Medications: New morphine 10 mg/5 mL solution 5 mg PO Q4H PRN (Reason: pain, severe) Qty: 100 0RF Rx Instructions: Partial Fill upon patient request. Eliquis 2.5 mg tablet 2.5 mg PO BID Qty: 90 0RF Rx Instructions: Take one tablet twice a day metoprolol succinate [Toprol XL] 25 mg tablet extended release 24 hr 25 mg PO DAILY Qty: 30 0RF Rx Instructions: Take one tablet daily Continued ascorbic acid (vitamin C) 250 mg Tablet 250 mg PO DAILY acetaminophen 325 mg Capsule 650 mg PO Q6H PRN (Reason: Pain) multivitamin Tablet See Rx Instructions .ROUTE .COMPLEX Rx Instructions: as directed enalapril maleate 2.5 mg Tablet 2.5 mg PO DAILY guaifenesin [Kareen-Tussin] 100 mg/5 mL Liquid 200 mg PO Q8H PRN (Reason: Cough) bisacodyl [Dulcolax (bisacodyl)] 10 mg Suppository 10 mg MO DAILY PRN (Reason: Constipation) ferrous sulfate 325 mg (65 mg iron) Tablet 325 mg PO BID finasteride 5 mg Tablet 5 mg PO DAILY pregabalin [Lyrica] 200 mg Capsule 200 mg PO BID cholecalciferol (vitamin D3) 25 mcg (1,000 unit) Tablet 25 mcg PO DAILY loratadine 10 mg Capsule 10 mg PO DAILY insulin glargine U-300 conc 300 unit/mL (1.5 mL) Insulin Pen 27 unit SUBCUT DAILY tamsulosin 0.4 mg Capsule 0.8 mg PO DAILY sodium phosphates Solution 15 ml PO Q10M Rx Instructions: for 3 doses rosuvastatin 5 mg Tablet 5 mg PO DAILY Triad Wound Dressing Paste 1 appl TOPICAL DAILY magnesium hydroxide [Milk of Magnesia] 400 mg/5 mL Suspension 30 ml PO BEDTIME PRN (Reason: Constipation) nystatin 100,000 unit/gram Powder 1 appl TOPICAL QSHIFT Rx Instructions: APPLY TO BILATERAL GROIN, ABB FOLDS TOPICALLY Dakin's Solution 0.25 % Solution 1 appl TOPICAL DAILY Rx Instructions: APPLY TO L&R 2ND AND 3RD TOES FOR WOUND CARE emollient Cream 1 appl TOPICAL DAILY Rx Instructions: APPLY TO BLE AND FEET DAILY polyvinyl alcohol-povidone(PF) 1.4-0.6 % Dropperette 1 drp OPHTHALMIC-RIGHT Q2H PRN (Reason: Dry Eyes) lidocaine 4 % Adhesive Patch,Medicated 1 patch TOPICAL DAILY nystatin 100,000 unit/gram Cream 1 appl TOPICAL QSHIFT Rx Instructions: apply to buttock Discontinued Eliquis 5 mg Tablet 5 mg PO BID Discharge Orders: Discharge Order (Routine); Ordered 02/07/25 Ordered By: Toan Yi Activity on Discharge: As tolerated Stand Alone Forms: Patient Portal Discharge page Print Language: Setswana Care Plan Goals: See below Health Concerns: Acute blood loss anemia Intractable bleeding AFib with RVR Altered mental status Chronic decubitus ulcers Osteomyelitis Plan of Treatment: You were admitted to the hospital after presenting to the emergency room with uncontrolled bleeding from chronic decubitus ulcers while being on anticoagulation. You were seen and evaluated by Hematology on 01/29 and transfused 1 unit of PRBCs in the outpatient setting, but did not require transfusion while in the hospital. Your Eliquis was initially held without any recurrent bleeding. Eliquis was eventually reduced to 2.5 mg twice a day. Hospital stay was complicated by AFib with RVR. You were seen and evaluated by Cardiology and started on metoprolol 25 mg ER daily. Repeat echo showed preserved LVEF of 50-55% with severe biatrial enlargement. Follow up outpatient with Cardiology. You should also follow up with Nephrology for worsening CKD 3. And lastly, you were seen and evaluated by Wound Care and General surgery for your chronic wounds. Your pain has been difficult to manage as you were noted to be very sensitive to opioids. He will be discharged on a small dose of oral morphine. Wound care instructions as above. -- your anticoagulation will be reduced to Eliquis 2.5 mg twice a day -- start metoprolol 25 mg ER daily for rate control -- take morphine 5mg oral solution for severe pain, especially to allow for wound care management. You have been noted to be very sensitive to opioids so the recommendation is to keep the dose as low as possible to avoid encephalopathy. Would also suggest continuing pain management with low-dose morphine for now to allow for wound healing. Morphine can be discontinued once decubitus ulcers are healed Assessment: See discharge summary
[2025-02-07 11:21] VITALS: BP 121/57; PULSE 98; RESP 18; TEMP 36.5; O2SAT 94
[2025-02-07 11:34] LABS: Glucose, Whole Blood 109 mg/dL (60-115)
--- NOTE | 2025-02-07 11:50 | MHC.CM.PN ---
Patient medically cleared for dc back to LTC @ [facility]. [place] palliative care coordinator has arranged for transport at 1:30pm. RUTHY GROSSMAN, patient and son aware.
--- NOTE | 2025-02-11 12:11 | PC.NURSE ---
on 02/06/25 this RN gave 1 mg of IVP morphine to the patient before wound care dressing changes. patient bracelet was scanned and medication was scanned and medication was administered. This RN was in the room completeing dressing changes for approx. 40 minutes. The medication administration was noted to not be saved in the MAR. The computer auto signed out during WC dressing changes.
--- NOTE | 2025-03-09 07:16 | P.CDIM_ITS ---
PROVIDER RESPONSE TEXT: To clarify, the appropriate diagnosis supported by the clinical indicators: Hemorrhagic disorder due to extrinsic circulating anti-coagulant QUERY TEXT: PHYSICIAN'S DOCUMENTATION REQUEST Date of Query: 02/27/2025 10:16 AM EDT Patient Name: Rober Daniels Admit Date: 02/01/2025 Dear Toan GROSSMAN, A review of the medical record indicates additional documentation may be needed. Please review below and update the documentation accordingly. Clinical Indicators: patient received 1 unit of PRBC's in the outpatient setting H&H on 01/31/25: 7.8/23.8, platelet 111 K Per H&P patient is on Eliquis for Atrial Fibrillation Acute anemia on blood thinner, chronic anemia, DUSTIN bleeding from chronic sacral wound Based on the above, could you clarify which of the following is the most likely type of anemia you are evaluating, treating, and/or monitoring? Hemorrhagic disorder due to extrinsic circulating anti-coagulant a Other (explain) Clinically unable to determine (explain) Thank you, Shahla Marinelli RN Use of terms such as suspected, likely, concern for, or probable (associated with a specific diagnosis that is being evaluated, monitored, or treated as if it exists) are acceptable and can be coded in the inpatient setting, when documented at the time of discharge. Please use your independent medical judgment in providing your response. THIS QUERY IS PART OF THE PERMANENT MEDICAL RECORD
== END 2025-02-07 13:50 | disposition skilled nursing facility (03) | DRG 682 ==
LOC: HO.ED 20:37 → HO.EDOVER 20:44 → HO.IMC 23:35 → HO.S3 02-07 05:20
PROVIDERS: Hospitalist; Nurse Practitioner Family; Physician Assistant; Admitting Provider Internal Medicine; Emergency Provider Student in an Organized Health Care Education/Training Program; Referring Provider Surgery; Visit Provider Student in an Organized Health Care Education/Training Program
DX: I12.9 Hypertensive chronic kidney disease with stage 1 through stage 4 chronic kidney disease, or unspecified chronic kidney disease (principal); G92.8 Other toxic encephalopathy; E51.2 Wernicke's encephalopathy; N17.9 Acute kidney failure, unspecified; D62 Acute posthemorrhagic anemia; D68.32 Hemorrhagic disorder due to extrinsic circulating anticoagulants; E11.42 Type 2 diabetes mellitus with diabetic polyneuropathy; T40.2X5A Adverse effect of other opioids, initial encounter; L89.152 Pressure ulcer of sacral region, stage 2; D47.2 Monoclonal gammopathy; N18.32 Chronic kidney disease, stage 3b; E11.22 Type 2 diabetes mellitus with diabetic chronic kidney disease; N40.0 Benign prostatic hyperplasia without lower urinary tract symptoms; E11.51 Type 2 diabetes mellitus with diabetic peripheral angiopathy without gangrene; L97.529 Non-pressure chronic ulcer of other part of left foot with unspecified severity; L97.519 Non-pressure chronic ulcer of other part of right foot with unspecified severity; I70.245 Atherosclerosis of native arteries of left leg with ulceration of other part of foot; I70.235 Atherosclerosis of native arteries of right leg with ulceration of other part of foot; T45.515A Adverse effect of anticoagulants, initial encounter; E78.5 Hyperlipidemia, unspecified; I48.91 Unspecified atrial fibrillation; G89.29 Other chronic pain; Z87.891 Personal history of nicotine dependence; Z79.4 Long term (current) use of insulin; Z79.01 Long term (current) use of anticoagulants; Z79.899 Other long term (current) drug therapy
CPT/HCPCS: 36415; 72192; 73620; 76775; 80048; 80053; 80061; 81001; 82140; 82550; 82565; 82570; 82607; 82668; 82803; 82947; 83540; 83605; 83735; 83935; 84100; 84156; 84300; 84443; 85014; 85018; 85025; 85045; 85652; 85999; 86140; 86335; 86850; 86900; 86901; 87040; 93005; 93306; 93925; 93970; 99285; J1163; J1171; J2270; J2405; J2470; J2543; J3373; J3374; J3411; J7120; Q9957

== ENCOUNTER → 2025-01-31 16:58 | Outpatient (BNV) | payer OTHER, SELFPAY | PROVIDERS: Emergency Provider Student in an Organized Health Care Education/Training Program; Visit Provider Radiology Diagnostic Radiology | DX: R22.43 Localized swelling, mass and lump, lower limb, bilateral (principal) | CPT/HCPCS: 93970 ==

== ENCOUNTER 2025-01-31 20:39 | Outpatient (BNV) | payer OTHER, SELFPAY | END 2025-02-01 07:00 | PROVIDERS: Admitting Provider Internal Medicine; Emergency Provider Student in an Organized Health Care Education/Training Program; Visit Provider Internal Medicine | DX: I51.7 Cardiomegaly (principal); I34.81 Nonrheumatic mitral (valve) annulus calcification; I35.8 Other nonrheumatic aortic valve disorders; I48.91 Unspecified atrial fibrillation | CPT/HCPCS: 93306 ==

== ENCOUNTER 2025-01-31 20:39 | Outpatient (BNV) | payer OTHER, SELFPAY | END 2025-02-03 15:30 | PROVIDERS: Admitting Provider Internal Medicine; Emergency Provider Student in an Organized Health Care Education/Training Program; Visit Provider Radiology Diagnostic Radiology | DX: S81.801A Unspecified open wound, right lower leg, initial encounter (principal); S81.802A Unspecified open wound, left lower leg, initial encounter | CPT/HCPCS: 73620 ==

== ENCOUNTER 2025-01-31 20:39 | Outpatient (BNV) | payer OTHER, SELFPAY | END 2025-02-01 08:54 | PROVIDERS: Admitting Provider Internal Medicine; Emergency Provider Student in an Organized Health Care Education/Training Program; Visit Provider Radiology Diagnostic Radiology | DX: N17.8 Other acute kidney failure (principal) | CPT/HCPCS: 76775; 93925 ==

== ENCOUNTER → 2025-01-31 20:39 | Outpatient (BNV) | payer OTHER, SELFPAY | PROVIDERS: Admitting Provider Internal Medicine; Emergency Provider Student in an Organized Health Care Education/Training Program; Visit Provider Surgery Vascular Surgery | DX: I73.9 Peripheral vascular disease, unspecified (principal) | CPT/HCPCS: 99222 ==

== ENCOUNTER → 2025-01-31 20:39 | Outpatient (BNV) | payer OTHER, SELFPAY | PROVIDERS: Admitting Provider Internal Medicine; Emergency Provider Student in an Organized Health Care Education/Training Program; Visit Provider Nurse Practitioner Family | DX: N17.9 Acute kidney failure, unspecified (principal); N18.9 Chronic kidney disease, unspecified | CPT/HCPCS: 99222; 99232 ==

== ENCOUNTER → 2025-01-31 20:39 | Outpatient (BNV) | payer OTHER, SELFPAY | PROVIDERS: Admitting Provider Internal Medicine; Emergency Provider Student in an Organized Health Care Education/Training Program; Visit Provider Internal Medicine | DX: I48.91 Unspecified atrial fibrillation (principal); D64.9 Anemia, unspecified | CPT/HCPCS: 93010; 99223 ==

== ENCOUNTER → 2025-01-31 20:39 | Outpatient (BNV) | payer OTHER, SELFPAY | PROVIDERS: Admitting Provider Internal Medicine; Emergency Provider Student in an Organized Health Care Education/Training Program; Visit Provider Internal Medicine | DX: L98.429 Non-pressure chronic ulcer of back with unspecified severity (principal); S91.309A Unspecified open wound, unspecified foot, initial encounter | CPT/HCPCS: 99222 ==

== ENCOUNTER → 2025-01-31 20:39 | Outpatient (BNV) | payer OTHER, SELFPAY | PROVIDERS: Admitting Provider Internal Medicine; Emergency Provider Student in an Organized Health Care Education/Training Program; Visit Provider Nurse Practitioner Family | DX: I73.9 Peripheral vascular disease, unspecified (principal) | CPT/HCPCS: 99223; 99232; 99233; 99239 ==

== ENCOUNTER → 2025-01-31 20:39 | Outpatient (BNV) | payer OTHER, SELFPAY | PROVIDERS: Admitting Provider Internal Medicine; Emergency Provider Student in an Organized Health Care Education/Training Program; Visit Provider Physician Assistant Surgical | DX: L98.429 Non-pressure chronic ulcer of back with unspecified severity (principal) | CPT/HCPCS: 99222 ==

== ENCOUNTER 2025-02-20 14:51 | Outpatient (AMB) | payer OTHER, SELFPAY ==
[2025-02-20 14:53] VITALS: BMI 25.2
--- NOTE | 2025-02-20 14:53 | A.OFFVIS_ITS ---
Vital Signs 02/20/25 14:53 Height 6 ft 1 in Weight 191 lb BMI 25.2 Intake Visit Reasons: Hosp f/u PVD w/ non-healing ulcers Intake Note: Hospital follow up for PVD w/ non-healing ulcers. Pt states the wounds are almost healed. Hx of bilateral femoral endarterectomy in [place] before 2014. Pt is currently residing at [facility] in [place]. Shoe Cobbler Required: No Accompanied by: Son Allergies atorvastatin (From Lipitor) Allergy (Verified 02/20/25 15:03) Anaphylaxis capsaicin Allergy (Verified 02/20/25 15:03) Anaphylaxis duloxetine (From Cymbalta) Allergy (Verified 02/20/25 15:03) Anaphylaxis gabapentin Allergy (Verified 02/20/25 15:03) Anaphylaxis metformin Allergy (Verified 02/20/25 15:03) Anaphylaxis HPI HPI Hosp f/u PVD w/ non-healing ulcers: Details: Morbidly obese 79-year-old gentleman presents for vascular follow-up. He has a prior history of peripheral vascular disease it appears that several years ago he bilateral femoral endarterectomy is in [place]. He is currently a resident at [facility] and he is wheelchair-bound. He has been receiving weekly wound care visits at the [facility] and per report it has been improving. [facility] Medical History PAD (peripheral artery disease) MGUS (monoclonal gammopathy of unknown significance) Fungal rash of torso Polyneuropathy DUSTIN (iron deficiency anemia) CKD (chronic kidney disease) stage 3, GFR 30-59 ml/min Chronic disease anemia BPH (benign prostatic hyperplasia) Peripheral vascular disease Chronic ulcer of sacral region Chronic pain Allergic rhinitis Hyperlipidemia Hypertension Afib Surgical History H/O endarterectomy Social History Household Members: None Housing: Senior Living Patient Tobacco Use Status: Former Tobacco user service: Yes Review of Systems Const All systems reviewed & are unremarkable except as noted in HPI and below Reports no additional complaints ENT Reports Normal hearing present Card Denies chest pain, Denies chest pain at rest, Denies chest pain with activity and Denies pedal edema Resp Denies cough GI Denies abdominal pain Musc Denies abnormal gait, Denies muscle cramps and Denies radiating pain into limb Skin/Breast Denies skin ulcer and Denies wounds Neuro Reports Normal hearing present and Denies abnormal gait Psych Reports no additional complaints Physical Exam Vital Signs: BMI result Body Mass Index 25.2 Const General: cooperative, healthy appearing and comfortable Orientation/consciousness: oriented to person, oriented to place and oriented to time HEENT Head: Yes normal to inspection Neck Neck: Yes normal visual inspection Carotids: no bruits Chest Chest palpation & inspection: normal inspection of the chest Resp Effort & Inspection: normal respiratory effort and able to speak in complete sentences Auscultation: clear to auscultation bilaterally, no crackles, no rales, no rhonchi and no wheezes Cardio Rate: regular rate Rhythm: regular rhythm Heart sounds: S1 normal heart sound present and S2 normal heart sound present Bruits: no carotid bruits Peripheral pulses: Peripheral pulses 2+ throughout GI Inspection: Yes normal to inspection Skin Other: Nonhealing bilateral lower extremity ulcers covered with dressings Wounds: no wounds Hair: normal Neuro General: oriented to person, oriented to place and oriented to time Cranial nerves: Yes CN's II-XII intact bilaterally and Yes Normal hearing present Cognition (Neuro): normal cognition Motor exam (neuro): 5/5 motor strength present throughout Extrem Other: venous exam: No significant superficial varicosities or spider telangiectasias, minimal edema General: No clubbing, No cyanosis and No edema Psych Appearance: grossly normal Mental Status: mental status grossly normal Speech and movement: Normal speech and movement present Assessment & Plan Assessment & Plan (1) Wound of foot: Comment: bilateral Code(s): S91.309A - Unspecified open wound, unspecified foot, initial encounter Category: Medical Plan: In short patient has bilateral lower extremity ulcers. At the current time due to his multiple comorbidities would like to manage this as conservatively as possible. He did have noninvasive testing on 02/01/2025 which does show inflow disease on bilateral interrogated arteries. Once again would like to manage this as conservatively as possible and at the current time the wounds are improving. Should there be issues in the future or the wounds not heal happy to see him back. We will have p.r.n. follow-up with us. Thank you for allowing us to assist in his care. Coding Level of Care Code Est Pt Level 3 (89877) Diagnoses Wound of foot S91.309A
--- OUTSIDE RECORDS SUMMARY | 2025-02-20 18:08 | XMS_ITS | Encounter Summary ---
Author Organization [facility] Address [address] [place] [address] Care Team Providers Care Wood Mill Supervisor Name Role Phone Rober Cottrell Apolinar Primary Care Provider [phone] Encounter Details Date Type Department Care Team (Latest Contact Info) Description 10/13/2024 Lab Requisition [facility] - Main Lab [address] [facility] [place] [address] Romy Tovar MD [address] [place] [address] Type 2 diabetes mellitus without complications (CMS/HCC V24, CMS/HCC V28); Anemia, unspecified; Other fatigue; Benign prostatic hyperplasia with lower urinary tract symptoms Social History Tobacco Use Types Packs/Day Years Used Date Smoking Tobacco: Never Assessed Sex and Gender Information Value Date Recorded Sex Assigned at Not on file Legal Sex Male 12:21 PM EDT Gender Identity Not on file Sexual Orientation Not on file documented as of this encounter Plan of Treatment Not on file documented as of this encounter Procedures Procedure Name Priority Date/Time Associated Diagnosis Comments COMPLETE BLOOD COUNT Routine 10/13/2024 11:53 AM EDT Type 2 diabetes mellitus without complications (CMS/HCC V24, CMS/HCC V28) Anemia, unspecified Other fatigue Benign prostatic hyperplasia with lower urinary tract symptoms HEMOGLOBIN A1C Routine 10/13/2024 11:53 AM EDT Type 2 diabetes mellitus without complications (CMS/HCC V24, CMS/HCC V28) Anemia, unspecified Other fatigue Benign prostatic hyperplasia with lower urinary tract symptoms COMPREHENSIVE METABOLIC PANEL Routine 10/13/2024 11:53 AM EDT Type 2 diabetes mellitus without complications (CMS/HCC V24, CMS/HCC V28) Anemia, unspecified Other fatigue Benign prostatic hyperplasia with lower urinary tract symptoms documented in this encounter Results * Hemoglobin A1c (10/13/2024 11:53 AM EDT) Pathologist [facility] Hemoglobin A1C 6.1 <6.5 % LAB CHEMISTRY METHOD 10/13/2024 3:00 PM EDT [facility] Mean Bld Glu Estim. 128 mg/dL LAB CHEMISTRY METHOD 10/13/2024 3:00 PM EDT [facility] Blood Venous blood specimen / Unknown Venipuncture / Unknown 10/13/2024 11:53 AM EDT 10/13/2024 12:25 PM EDT Romy Tovar MD LAB BLOOD ORDERABLES Final Resul t [facility] [address] [place] [address], * (ABNORMAL) Comprehensive metabolic panel (10/13/2024 11:53 AM EDT) [facility] Sodium 137 133 - 145 mmol/L LAB CHEMISTRY METHOD 10/13/2024 2:28 PM EDT [facility] Potassium 3.6 3.5 - 5.5 mmol/L LAB CHEMISTRY METHOD 10/13/2024 2:28 PM EDT [facility] Chloride 99 96 - 110 mmol/L LAB CHEMISTRY METHOD 10/13/2024 2:28 PM EDT [facility] CO2 29 21 - 32 mmol/L LAB CHEMISTRY METHOD 10/13/2024 2:28 PM EDT [facility] Anion Gap 9 3 - 11 LAB CHEMISTRY METHOD 10/13/2024 2:28 PM [facility] Glucose 203(H) 70 - 100 mg/dL LAB CHEMISTRY METHOD 10/13/2024 2:28 PM T [facility] BUN 28(H) 5 - 25 mg/dL LAB CHEMISTRY METHOD 10/13/2024 2:28 PM [facility] Creatinine 1.44(H) 0.70 - 1.30 mg/dL LAB CHEMISTRY METHOD 10/13/2024 2:28 PM [facility] eGFR 49(L) >=60 mL/min/1. 73m2 LAB CHEMISTRY METHOD 10/13/2024 2:28 PM [facility] LAB Comment:Calculation based on the Chronic Kidney Disease Epidemiology Collaboration (CKD-EPI) equation refit without adjustment for race. BUN/Creatinine Ratio 19.4 LAB CHEMISTRY METHOD 10/13/2024 2:28 PM [facility] Calcium 8.3(L) 8.5 - 10.5 mg/dL LAB CHEMISTRY METHOD 10/13/2024 2:28 PM [facility] AST (SGOT) 29 10 - 42 unit/L LAB CHEMISTRY METHOD 10/13/2024 2:28 PM [facility] ALT (SGPT) 18 10 - 60 unit/L LAB CHEMISTRY METHOD 10/13/2024 2:28 PM [facility] Alkaline Phosphatase 97 42 - 121 unit/L LAB CHEMISTRY METHOD 10/13/2024 2:28 PM [facility] Total Protein 8.9(H) 6.0 - 8.0 g/dL LAB CHEMISTRY METHOD 10/13/2024 2:28 PM [facility] Albumin 2.2(L) 3.2 - 5.0 g/dL LAB CHEMISTRY METHOD 10/13/2024 2:28 PM [facility] Total Bilirubin 1.5(H) 0.0 - 1.4 mg/dL LAB CHEMISTRY METHOD 10/13/2024 2:28 PM [facility] Blood Venous blood specimen / Unknown Venipuncture / Unknown 10/13/2024 11:53 AM EDT 10/13/2024 12:25 PM EDT Romy Tovar MD LAB BLOOD ORDERABLES Final Resul t [facility] [address] [place] [address], * (ABNORMAL) Complete blood count (10/13/2024 11:53 AM EDT) WBC 6.0 4.8 - 10.8 K/mcL LAB HEMETOLOGY METHOD 10/13/2024 12:47 PM EDT [facility] RBC 2.50(L) 4.50 - 5.50 M/mcL LAB HEMETOLOGY METHOD 10/13/2024 12:47 PM EDT [facility] Hemoglobin 7.7(L) 13.5 - 17.5 g/dL LAB HEMETOLOGY [facility] Hematocrit 25.5(L) 42.0 - 54.0 % LAB HEMETOLOGY METHOD 10/13/2024 12:47 PM EDT [facility] MCV 103.7(H) 79.0 - 98.0 FL LAB HEMETOLOGY METHOD 10/13[facility]2024 12[facility] MCH 31.3 27.0 - 32.0 pcg LAB HEMETOLOGY METHOD 10/13/2024 12:47 [facility] MCHC 30.2(L) 32.0 - 37.0 g/dL LAB HEMETOLOGY METHOD 10/13/2024 12:47 PM EDT [facility] RDW 19.5(H) 11.0 - 15.0 % LAB HEMETOLOGY METHOD 10/13/2024 12:47 PM EDT [facility] Platelets 215 130 - 400 K/mcL LAB HEMETOLOGY METHOD 10/13/2024 12:[facility] MPV 9.9 7.0 - 11.0 FL LAB HEMETOLOGY METHOD 10/13/2024 12:47 PM EDT [facility] NRBC 0.0 <1.0 % LAB HEMETOLOGY METHOD 10/13/2024 12:47 PM EDT [facility] NRBC Absolute 0.00 <0.10 K/mcL LAB HEMETOLOGY METHOD 10/13/2024 12:47 PM EDT [facility] Blood Venous blood specimen / Unknown Venipuncture / Unknown 10/13/2024 11:53 AM EDT 10/13/2024 12:25 PM EDT us Romy Tovar MD LAB BLOOD ORDERABLES Final Resul t [facility] [address] [place] [address], documented in this encounter Visit Diagnoses Diagnosis Type 2 diabetes mellitus without complications (CMS/HCC V24, CMS/HCC V28) Anemia, unspecified Other fatigue Benign prostatic hyperplasia with lower urinary tract symptoms documented in this encounter Additional Health Concerns Infection Onset Date Last Indicated Resolved Time C. difficile Rule-Out 11/02/2024 11/01/20242024 9:11 AM EDT documented as of this encounter Care Teams Wood Mill Supervisor Relationship Specialty Start Date End Date Rober Cottrell [address] [facility] [phone] [place] [address] PCP - General 11/03/24 documented as of this encounter
--- OUTSIDE RECORDS SUMMARY | 2025-02-20 18:08 | XMS_ITS | Encounter Summary ---
Author Organization [facility] Address [address] [place] [address] Care Team Providers Care Client Technical Support Associate Name Role Phone Rober Cottrell Primary Care Provider Encounter Details Date Type Department Care Team (Late st Contact Info) Description 01/19/2025 Lab Requisition [facility] - Main Lab [address] [place] [address] Romy Tovar MD [address] [place] [phone] Anemia, unspecified; Dehydration; Essential (primary) hypertension Social History Tobacco Use Types Packs/Day Years [...] Associated Diagnosis Comments COMPLETE BLOOD COUNT Routine 01/19/2025 6:26 AM EDT Anemia, unspecified Dehydration Essential (primary) hypertension BASIC METABOLIC PANEL Routine 01/19/2025 6:26 AM EDT Anemia, unspecified Dehydration Essential (primary) hypertension documented in this encounter Results * (ABNORMAL) Basic metabolic panel (01/19/2025 6:26 AM EDT) Sodium 137 133 - 145 mmol/L LAB CHEMISTRY METHOD 01/19/2025 9:25 AM T [facility] Potassium 3.7 3.5 - 5.5 mmol/L LAB CHEMISTRY METHOD 01/19/2025 9:25 AM EDT [facility] Chloride 101 96 - 110 mmol/L LAB CHEMISTRY METHOD 01/19/2025 9:25 AM [facility] CO2 29 21 - 32 mmol/L LAB CHEMISTRY METHOD 01/19/2025 9:25 AM [facility] Anion Gap 7 3 - 11 LAB CHEMISTRY METHOD 01/19/2025 9:25 AM [facility] Glucose 45(L) 70 - 100 mg/dL LAB CHEMISTRY METHOD 01/19/2025 9:25 AM [facility] BUN 57(H) 5 - 25 mg/dL LAB CHEMISTRY METHOD 01/19/2025 9:25 AM [facility] Creatinine 1.57(H) 0.70 - 1.30 mg/dL LAB CHEMISTRY METHOD 01/19/2025 9:25 AM [facility] eGFR 45(L) >=60 mL/min/1. 73m2 LAB CHEMISTRY METHOD 01/19/2025 9:25 AM [facility] Comment:Calculation based on the Chronic Kidney Disease Epidemiology Collaboration (CKD-EPI) equation refit without adjustment for race. BUN/Creatinine Ratio 36.3 LAB CHEMISTRY METHOD 01/19/2025 9:25 AM [facility] Calcium 8.4(L) 8.5 - 10.5 mg/dL LAB CHEMISTRY METHOD 01/19/2025 9:25 AM [facility] Blood Venous blood specimen / Unknown Venipuncture / Unknown 01/19/2025 6:26 AM EDT 01/19/2025 7:57 AM EDT us Romy Tovar MD LAB BLOOD ORDERABLES Final Resul t [facility] [address] [place] [address], * (ABNORMAL) Complete blood count (01/19/2025 6:26 AM EDT) WBC 4.7(L) 4.8 - 10.8 K/mcL LAB HEMETOLOGY METHOD 01/19/2025 8:49 AM [facility] RBC 2.10(L) 4.50 - 5.50 M/mcL LAB HEMETOLOGY METHOD 01/19/2025 8:49 AM [facility] Hemoglobin 7.1(L) 13.5 - 17.5 g/dL LAB HEMETOLOGY METHOD 01/19/2025 8:49 AM [facility] Hematocrit 22.2(L) 42.0 - 54.0 % LAB HEMETOLOGY METHOD 01/19/2025 8:49 AM [facility] MCV 104.2(H) 79.0 - 98.0 FL LAB HEMETOLOGY METHOD 01/19/2025 8:49 AM [facility] MCH 33.3(H) 27.0 - 32.0 pcg LAB HEMETOLOGY METHOD 01/19/2025 8:49 AM [facility] MCHC 32.0 32.0 - 37.0 g/dL LAB HEMETOLOGY METHOD 01/19/2025 8:49 AM [facility] RDW 16.6(H) 11.0 - 15.0 % LAB HEMETOLOGY METHOD 01/19/2025 8:49 AM [facility] Platelets 146 130 - 400 K/mcL LAB HEMETOLOGY METHOD 01/19/2025 8:49 AM [facility] MPV 10.0 7.0 - 11.0 FL LAB HEMETOLOGY METHOD 01/19/2025 8:49 AM [facility] NRBC 0.0 <1.0 % LAB HEMETOLOGY METHOD 01/19/2025 8:49 AM [facility] NRBC Absolute 0.00 <0.10 K/[facility] LAB HEMETOLOGY METHOD 01/19/2025 8:49 AM EDT [facility] Blood Venous blood specimen / Unknown Venipuncture / Unknown 01/19/2025 6:26 AM EDT 01/19/2025 7:57 AM EDT us Romy Tovar MD LAB BLOOD ORDERABLES Final Resul t [facility] [address] [place] [address], documented in this encounter Visit Diagnoses Diagnosis Anemia, unspecified Dehydration Essential (primary) hypertension Unspecified essential hypertension documented in this encounter Care Teams Client Technical Support Associate Relationship Specialty Start Date End Date Rober Cottrell [address] [facility] [phone] [place] [address] PCP - General 11/03/24 documented as of this encounter
--- OUTSIDE RECORDS SUMMARY | 2025-02-20 18:08 | XMS_ITS | Clinical Summary ---
Author Organization [facility] Address [address] [place] [address] Care Team Providers Care Upper Doubler Name Role Phone Unknown, Provider MD Primary Care Provider Unava ilable Source Comments If you require more information, please call our [facility] Department at [phone]. [facility] Allergies Active Allergy Reactions Criticality [...] Active fluticasone (FLONASE) 50 MCG/ACT nasal spray [place] 2 sprays into each nostril daily. Active [...] Due Date Last Done Comments HIV Screening [facility] 1958 Hepatitis C Screening [facility] 1963 [facility] DTaP/Tdap/Td (1 - Tdap) 1966 IMM-Influenza (#1) 2025 02/18/2024, 1 , 05/12/2022 COVID-19 Vaccine ( season) 2025 08/24/2024, 02/18/2024, 03/15/2023, Additional history exists I[facility]-Zoster Completed 03/21/2018, 12/17/2017 I[facility] Pneumo: 50+ Years Completed 08/11/2024 , 08/02/2019, 10/10/2015 IMM-RSV (, Increased Risk 60-74, and 75+) Completed 09/12/2024 IMM-HIB 0-5 Yrs or At-Risk Patients Aged [...] topic Insurance MEDICARE PART A AND B Member Subscriber Plan / Payer (Ef fective 2014-Present) Name:Rober Daniels Member ID:[id number] Relation to Subscriber:Self Name:Rober Daniels Subscriber ID:[id number] Payer ID:[id number] Group ID:Not on file Type:Not on file Address: [employer] [address] MEDICARE PART A AND B * Guarantor: FrancesRober Account Type Relation to Patient Date of Phone Billing Address [place] Referral Self 1945 [address] [place] [address] [employer] [facility] Care Teams Upper Doubler Relationship Specialty Start Date End Date Unknown, Provider, [address] [place] [address] PCP - General 07/13/24
--- OUTSIDE RECORDS SUMMARY | 2025-02-20 18:08 | XMS_ITS | Encounter Summary ---
Author Organization [facility] Address [address] [place] [address] Care Team Providers Care Mirror Specialist Name Role Phone Rober Cottrell Apolinar Primary Care Provider [phone] Encounter Details Date Type Department Care Team (Late st Contact Info) Description 11/13/2024 Lab Requisition [facility] - Main Lab [address] [place] [address] Romy Tovar MD [address] [place] [phone] Anemia, unspecified Social History Tobacco Use Types Packs/Day Years [...] Associated Diagnosis Comments COMPLETE BLOOD COUNT Routine 11/13/2024 4:42 AM EDT Anemia, unspecified documented in this encounter Results * (ABNORMAL) Complete blood count (11/13/2024 4:42 AM EDT) WBC 4.4(L) 4.8 - 10.8 K/[facility] LAB HEMETOLOGY METHOD 11/13/2024 1:16 PM EDT [facility] RBC 2.40(L) 4.50 - 5.50 M/[facility] LAB HEMETOLOGY METHOD 11/13/2024 1:16 PM EDT [facility] Hemoglobin 7.5(L) 13.5 - 17.5 g/dL LAB HEMETOLOGY METHOD 11/13/2024 1:16 PM EDT [facility] Hematocrit 24.4(L) 42.0 - 54.0 % LAB HEMETOLOGY METHOD 11/13/2024 1:16 PM EDT [facility] MCV 103.0(H) 79.0 - 98.0 FL LAB HEMETOLOGY METHOD 11/13/2024 1:16 PM EDT [facility] MCH 31.6 27.0 - 32.0 pcg LAB HEMETOLOGY METHOD 11/13/2024 1:16 PM EDT [facility] MCHC 30.7(L) 32.0 - 37.0 g/dL LAB HEMETOLOGY METHOD 11/13/2024 1:16 PM EDT [facility] RDW 18.9(H) 11.0 - 15.0 % LAB HEMETOLOGY METHOD 11/13/2024 1:16 PM EDT [facility] Platelets 158 130 - 400 K/mcL LAB HEMETOLOGY METHOD 11/13/2024 1:16 PM EDT [facility] MPV 10.1 7.0 - 11.0 FL LAB HEMETOLOGY METHOD 11/13/2024 1:16 PM EDT [facility] NRBC 0.0 <1.0 % LAB HEMETOLOGY METHOD 11/13/2024 1:16 PM EDT [facility] NRBC Absolute 0.00 <0.10 K/mcL LAB HEMETOLOGY METHOD 11/13/2024 1:16 PM EDT [facility] Blood Venous blood specimen / Unknown Venipuncture / Unknown 11/13/2024 4:42 AM EDT 11/13/2024 10:46 AM EDT us Romy Tovar MD LAB BLOOD ORDERABLES Final Resul t [facility] [address] [place], [place] [address] [phone] documented in this encounter Visit Diagnoses Diagnosis Anemia, unspecified documented in this encounter Care Teams Mirror Specialist Relationship Specialty Start Date End Date Rober Cottrell [address] [facility] [phone] [place] [address] PCP - General 11/03/24 documented as of this encounter
--- OUTSIDE RECORDS SUMMARY | 2025-02-20 18:08 | XMS_ITS | Encounter Summary ---
Author Organization [facility] Address [address] [place] [address] Care Team Providers Care Six Sigma Black Trainer Name Role Phone Rober Cottrell Apolinar Primary Care Provider [phone] Encounter Details Date Type Department Care Team (Latest Contact Info) Description 12/14/2024 Lab Requisition [facility] - Main Lab [address] [facility] [place] [address] Romy Tovar MD [address] [place] [address] Type 2 diabetes mellitus with unspecified complications (CMS/HCC V24, CMS/HCC V28); Unspecified atrial fibrillation (CMS/HCC V24, CMS/HCC V28); Essential (primary) hypertension Social History Tobacco Use [...] Procedure Name Priority Date/Time Associated Diagnosis Comments SEDIMENTATION RATE Routine 12/14/2024 11 :45 AM EDT Type 2 diabetes mellitus with unspecified complications (CMS/HCC V24, CMS/HCC V28) Unspecified atrial fibrillation (CMS/HCC V24, CMS/HCC V28) Essential (primary) hypertension COMPLETE BLOOD COUNT Routine 12/14/2024 11:45 AM EDT Type 2 diabetes mellitus with unspecified complications (CMS/HCC V24, CMS/HCC V28) Unspecified atrial fibrillation (CMS/HCC V24, CMS/HCC V28) Essential (primary) hypertension COMPREHENSIVE METABOLIC PANEL Routine 12/14/2024 11:45 AM EDT Type 2 diabetes mellitus with unspecified complications ([facility]/HCC V24, [facility]/HCC V28) Unspecified atrial fibrillation ([facility] V24, [facility] V28) Essential (primary) hypertension documented in this encounter Results * (ABNORMAL) Sedimentation rate (12/14/2024 11:45 AM EDT) Sed Rate 53(H) 0 - 20 mm/hr LAB HEMETOLOGY METHOD 12/14/2024 12:50 PM EDT [facility] Blood Venous blood specimen / Unknown Venipuncture / Unknown 12/14/2024 11:45 AM EDT 12/14/2024 12:07 PM EDT Romy Tovar MD LAB BLOOD ORDERABLES Final Resul t [facility] [address] [place] [address], * (ABNORMAL) Comprehensive metabolic panel (12/14/2024 11:45 AM EDT) Pathologist [facility] Sodium 138 133 - 145 mmol/L LAB CHEMISTRY METHOD 12/14/2024 1:48 PM [facility] Potassium 3.6 3.5 - 5.5 mmol/L LAB CHEMISTRY METHOD 12/14/2024 1:48 PM [facility] Chloride 103 96 - 110 mmol/L LAB CHEMISTRY METHOD 12/14/2024 1:48 PM T [facility] CO2 28 21 - 32 mmol/L LAB CHEMISTRY METHOD 12/14/2024 1:48 PM [facility] Anion Gap 7 3 - 11 LAB CHEMISTRY METHOD 12/14/2024 1:48 PM [facility] Glucose 162(H) 70 - 100 mg/dL LAB CHEMISTRY METHOD 12/14/2024 1:48 PM [facility] BUN 43(H) 5 - 25 mg/dL LAB CHEMISTRY METHOD 12/14/2024 1:48 PM [facility] Creatinine 1.47(H) 0.70 - 1.30 mg/dL LAB CHEMISTRY METHOD 12/14/2024 1:48 PM [facility] eGFR 48(L) >=60 mL/min/1. 73m2 LAB CHEMISTRY METHOD 12/14/2024 1:48 PM [facility] Comment:Calculation based on the Chronic Kidney Disease Epidemiology Collaboration (CKD-EPI) equation refit without adjustment for race. BUN/Creatinine Ratio 29.3 LAB CHEMISTRY METHOD 12/14/2024 1:48 PM [facility] Calcium 8.6 8.5 - 10.5 mg/dL LAB CHEMISTRY METHOD 12/14/2024 1:48 PM [facility] AST (SGOT) 27 10 - 42 unit/L LAB CHEMISTRY METHOD 12/14/2024 1:48 PM [facility] ALT (SGPT) 17 10 - 60 unit/L LAB CHEMISTRY METHOD 12/14/2024 1:48 PM [facility] Alkaline Phosphatase 78 42 - 121 unit/L LAB CHEMISTRY METHOD 12/14/2024 1:48 PM [facility] Total Protein 8.7(H) 6.0 - 8.0 g/dL LAB CHEMISTRY METHOD 12/14/2024 1:48 PM [facility] Albumin 2.3(L) 3.2 - 5.0 g/dL LAB CHEMISTRY METHOD 12/14/2024 1:48 PM [facility] Total Bilirubin 0.4 0.0 - 1.4 mg/dL LAB CHEMISTRY METHOD 12/14/2024 1:48 PM [facility] Blood Venous blood specimen / Unknown Venipuncture / Unknown 12/14/2024 11:45 AM EDT 12/14/2024 12:07 PM EDT us Romy Tovar MD LAB BLOOD ORDERABLES Final Resul t [facility] [address] [place] [address], * (ABNORMAL) Complete blood count (12/14/2024 11:45 AM EDT) [facility] Signature WBC 5.0 4.8 - 10.8 K/mcL LAB HEMETOLOGY METHOD 12/14/2024 12:30 PM EDT [facility] RBC 2.30(L) 4.50 - 5.50 M/mcL LAB HEMETOLOGY METHOD 12/14/2024 12:30 PM EDT [facility] Hemoglobin 7.5(L) 13.5 - 17.5 g/dL LAB HEMETOLOGY METHOD 12/14/2024 12:30 PM EDT [facility] Hematocrit 23.3(L) 42.0 - 54.0 % LAB HEMETOLOGY METHOD 12/14/2024 12:30 PM EDT [facility] MCV 101.7(H) 79.0 - 98.0 FL LAB HEMETOLOGY METHOD 12/14/2024 12:30 PM EDT [facility] MCH 32.8(H) 27.0 - 32.0 pcg LAB HEMETOLOGY METHOD 12/14/2024 12:30 PM EDT [facility] MCHC 32.2 32.0 - 37.0 g/dL LAB HEMETOLOGY METHOD 12/14/2024 12:30 PM EDT [facility] RDW 18.0(H) 11.0 - 15.0 % LAB HEMETOLOGY METHOD 12/14/2024 12:30 PM EDT [facility] Platelets 140 130 - 400 K/mcL LAB HEMETOLOGY METHOD 12/14/2024 12:30 PM EDT [facility] MPV 10.2 7.0 - 11.0 FL LAB HEMETOLOGY METHOD 12/14/2024 12:30 PM EDT [facility] NRBC 0.0 <1.0 % LAB HEMETOLOGY METHOD 12/14/2024 12:30 PM EDT [facility] NRBC Absolute 0.00 <0.10 K/mcL LAB HEMETOLOGY METHOD 12/14/2024 12:30 PM EDT [facility] Blood Venous blood specimen / Unknown Venipuncture / Unknown 12/14/2024 11:45 AM EDT 12/14/2024 12:07 PM EDT us Romy Tovar MD LAB BLOOD ORDERABLES Final Resul t [facility] [address] [place] [address], documented in this encounter Visit Diagnoses Diagnosis Type 2 diabetes mellitus with unspecified complications (CMS/HCC V24, CMS/HCC V28) Unspecified atrial fibrillation (CMS/HCC V24, CMS/HCC V28) Essential (primary) hypertension Unspecified essential hypertension documented in this encounter Care Teams Six Sigma Black Trainer Relationship Specialty Start Date End Date Rober Cottrell [address] [facility] [phone] [place] [address] PCP - General 11/03/24 documented as of this encounter
--- OUTSIDE RECORDS SUMMARY | 2025-02-20 18:08 | XMS_ITS | Encounter Summary ---
Author Organization [facility] Address [address] [place] [address] Care Team Providers Care Account Solutions Analyst Name Role Phone Rober Cottrell Primary Care Provider [phone] Encounter Details Date Type Department Care Team (Late st Contact Info) Description 11/30/2024 Lab Requisition [facility] - Main Lab [address] [facility] [place] [address] Romy Tovar MD [address] [place] [phone] Anemia, unspecified; Essential (primary) hypertension; Vitamin D deficiency, unspecified Social History Tobacco Use Types Packs/Day [...] Procedure Name Priority Date/Time Associated Diagnosis Comments HI IMMUNOFIXATION ELECTROPHORESIS SERUM Routine 11/30/2024 5:43 AM EDT Anemia, unspecified Essential (primary) hypertension Vitamin D deficiency, unspecified IMMUNOFIXATION ELECTROPHORESIS Routine 11/30/2024 5:43 AM EDT Anemia, unspecified Essential (primary) hypertension Vitamin D deficiency, unspecified HI PROTEIN ELECTROPHORETIC FRACTIONATION & QUANTITATION SERUM Routine 11/30/2024 5:43 AM EDT Anemia, unspecified Essential (primary) hypertension Vitamin D deficiency, unspecified IRON AND TIBC Routine 11/30/2024 5:43 AM EDT Anemia, unspecified Essential (primary) hypertension Vitamin D deficiency, unspecified VITAMIN D 25 HYDROXY Routine 11/30/2024 5:43 AM EDT Anemia, unspecified Essential (primary) hypertension Vitamin D deficiency, unspecified COMPLETE BLOOD COUNT Routine 11/30/2024 5:43 AM EDT Anemia, unspecified Essential (primary) hypertension Vitamin D deficiency, unspecified IMMUNOFIXATION ELECTROPHORESIS Routine 11/30/2024 5:43 AM EDT Anemia, unspecified Essential (primary) hypertension Vitamin D deficiency, unspecified IMMUNOGLOBULINS IGG, IGA, IGM Routine 11/30/2024 5:43 AM EDT Anemia, unspecified Essential (primary) hypertension Vitamin D deficiency, unspecified PROTEIN ELECTROPHORESIS, SERUM Routine 11/30/2024 5:43 AM EDT Anemia, unspecified Essential (primary) hypertension Vitamin D deficiency, unspecified PROTEIN, TOTAL Routine 11/30/2024 5:43 AM EDT Anemia, unspecified Essential (primary) hypertension Vitamin D deficiency, unspecified FERRITIN Routine 11/30/2024 5:43 AM EDT Anemia, unspecified Essential (primary) hypertension Vitamin D deficiency, unspecified BASIC METABOLIC PANEL Routine 11/30/2024 5:43 AM EDT Anemia, unspecified Essential (primary) hypertension Vitamin D deficiency, unspecified documented in this encounter Results * PATHOLOGIST REVIEW PROTEIN ELECTROPHORESIS (11/30/2024 5:43 AM EDT) Pathologist Interpretation Emma Snow MD 12/04/2024 3:04 PM EDT LETTY MCKEON [place] ([facility]) [facility] Blood Venous blood specimen / Unknown Venipuncture / Unknown 11/30/2024 5:43 AM EDT 11/30/2024 8:32 AM EDT us Romy Tovar MD LAB BLOOD ORDERABLES Final Resul t [facility] [address] [place] [address], [place] [phone] * Pathologist Review Immunofixation (11/30/2024 5:43 AM EDT) Pathologist [facility] [place] Pathologist Interpretation Emma Snow MD 12/04/2024 3:03 PM EDT [facility] Blood Venous blood specimen / Unknown Venipuncture / Unknown 11/30/2024 5:43 AM EDT 11/30/2024 8:32 AM EDT us Romy Tovar MD LAB BLOOD ORDERABLES Final Resul t [facility] [address] [place] [address], [place] [phone] * (ABNORMAL) Immunoglobulins IgG, IgA, IgM (11/30/2024 5:43 AM EDT) Total IgG 270(L) 549 - 1,584 mg/dL LAB CHEMISTRY METHOD 12/04/2024 5:18 PM EDT [facility] IgA 3,610(H) 61 - 348 mg/dL LAB CHEMISTRY METHOD 12/04/2024 5:18 PM EDT [facility] Comment:Results verified by repeat testing IgM 6(L) 23 - 259 mg/dL LAB CHEMISTRY METHOD 12/04/2024 5:18 PM EDT [facility] Comment:Results verified by repeat testing Blood Venous blood specimen / Unknown Venipuncture / Unknown 11/30/2024 5:43 AM EDT 11/30/2024 8:32 AM EDT us Romy Tovar MD LAB BLOOD ORDERABLES Final Resul t [facility] [address] [place] [address], [place] [phone] * Immunofixation electrophoresis serum (11/30/2024 5:43 AM EDT) Immunofixation Result, Serum IgA [place] monoclonal immunoglobulins detected. LAB CHEMISTRY METHOD 12/04/2024 3:03 PM EDT [facility] Blood Venous blood specimen / Unknown Venipuncture / Unknown 11/30/2024 5:43 AM EDT 11/30/2024 8:32 AM EDT us Romy Tovar MD LAB BLOOD ORDERABLES Final Resul t Performing Organization Address [facility] Co de Phone Number [facility] [address] [place] [address], [place] [phone] * (ABNORMAL) Protein, total (11/30/2024 5:43 AM EDT) [facility] Total Protein 8.8(H) 6.0 - 8.0 g/dL LAB CHEMISTRY METHOD 11/30/2024 9:47 AM EDT [facility] Blood Venous blood specimen / Unknown Venipuncture / Unknown 11/30/2024 5:43 AM EDT 11/30/2024 8:32 AM EDT us Romy Tovar MD LAB BLOOD ORDERABLES Final Resul t Performing Organization Address [facility] Co de Phone Number [facility] [address] [place] [address], [place] [phone] * (ABNORMAL) Protein electrophoresis, serum (11/30/2024 5:43 AM EDT) Pathologist [facility] [place] Total Protein 8.8(H) 6.0 - 8.0 g/dL LAB CHEMISTRY METHOD 12/04/2024 3:04 PM EDT [facility] Albumin, Serum 2.8(L) 2.9 - 4.1 g/dL LAB CHEMISTRY METHOD 12/04/2024 3:04 PM EDT [facility] Alpha 1 Globulin (g/dL) 0.3 0.1 - 0.5 g/dL LAB CHEMISTRY METHOD 12/04/2024 3:04 PM EDT [facility] Alpha 2 Globulin (g/dL) 0.8 0.7 - 1.5 g/dL LAB CHEMISTRY METHOD 12/04/2024 3:04 PM EDT [facility] Beta (g/dL) 4.9(H) 0.7 - 1.5 g/dL LAB CHEMISTRY METHOD 12/04/2024 3:04 PM EDT [facility] Gamma Globulin (g/dL) LAB CHEMISTRY METHOD 12/04/2024 3:04 PM EDT [facility] Comment: This result is Beta + Gamma. Unable to separate the two fractions quantitatively. PARAPROTEIN LAB CHEMISTRY METHOD 12/04/2024 3:04 PM EDT [facility] Comment:Migrating as beta SPEP Interpretation Monoclonal gammopathy Abnormal pattern with M-spike migrating in beta region and therefore cannot be measured. Serum Immunofixation performed on this specimen demonstrated IgA [place] monoclonal protein. Hypoalbuminemia, suggestive of malnutrition, decreased hepatic synthesis or renal/GI loss LAB CHEMISTRY METHOD 12/04/2024 3:04 PM EDT [facility] Blood Venous blood specimen / Unknown Venipuncture / Unknown 11/30/2024 5:43 AM EDT 11/30/2024 8:32 AM EDT Romy Tovar MD LAB BLOOD ORDERABLES Final Resul t [facility] [address] [place] [address], * Vitamin D 25 hydroxy (11/30/2024 5:43 AM EDT) Vit D, 25-Hydroxy 51.4 30.0 - 80.0 ng/mL LAB CHEMISTRY METHOD 11/30/2024 10:13 AM EDT [facility] Blood Venous blood specimen / Unknown Venipuncture / Unknown 11/30/2024 5:43 AM EDT 11/30/2024 8:32 AM EDT us Romy Tovar MD LAB BLOOD ORDERABLES Final Resul t Performing Organization Address [facility] de Phone Number [facility] [address] [place] [address], [place] [phone] * (ABNORMAL) Ferritin (11/30/2024 5:43 AM EDT) Pathologist [facility] [place] Ferritin 525(H) 26 - 388 ng/mL LAB CHEMISTRY METHOD 11/30/2024 9:47 AM EDT [facility] Blood Venous blood specimen / Unknown Venipuncture / Unknown 11/30/2024 5:43 AM EDT 11/30/2024 8:32 AM EDT us Romy Tovar MD LAB BLOOD ORDERABLES Final Resul t Performing Organization Address [facility] de Phone Number [facility] [address] [place] [address], [place] [phone] * (ABNORMAL) Iron and TIBC (11/30/2024 5:43 AM EDT) [facility] Iron 41(L) 50 - 160 mcg/dL LAB CHEMISTRY METHOD 11/30/2024 9:47 AM EDT [facility] TIBC 176(L) 250 - 450 mcg/dL LAB CHEMISTRY METHOD 11/30/2024 9:47 AM EDT [facility] Iron Saturation 23 20 - 50 % LAB CHEMISTRY METHOD 11/30/2024 9:47 AM EDT [facility] Blood Venous blood specimen / Unknown Venipuncture / Unknown 11/30/2024 5:43 AM EDT 11/30/2024 8:32 AM EDT us Romy Tovar MD LAB BLOOD ORDERABLES Final Resul t [facility] [address] [place] [address], * (ABNORMAL) Basic metabolic panel (11/30/2024 5:43 AM EDT) Sodium 137 133 - 145 mmol/L LAB CHEMISTRY METHOD 11/30/2024 9:50 AM EDT [facility] Potassium 3.8 3.5 - 5.5 mmol/L LAB CHEMISTRY METHOD 11/30/2024 9:50 AM EDT [facility] Chloride 100 96 - 110 mmol/L LAB CHEMISTRY METHOD 11/30/2024 9:50 AM T [facility] CO2 32 21 - 32 mmol/L LAB CHEMISTRY METHOD 11/30/2024 9:50 AM [facility] Anion Gap 5 3 - 11 LAB CHEMISTRY METHOD 11/30/2024 9:50 AM [facility] Glucose 64(L) 70 - 100 mg/dL LAB CHEMISTRY METHOD 11/30/2024 9:50 AM [facility] BUN 65(H) 5 - 25 mg/dL LAB CHEMISTRY METHOD 11/30/2024 9:50 AM [facility] Creatinine 1.66(H) 0.70 - 1.30 mg/dL LAB CHEMISTRY METHOD 11/30/2024 9:50 AM [facility] eGFR 42(L) >=60 mL/min/1. 73m2 LAB CHEMISTRY METHOD 11/30/2024 9:50 AM [facility] Comment:Calculation based on the Chronic Kidney Disease Epidemiology Collaboration (CKD-EPI) equation refit without adjustment for race. BUN/Creatinine Ratio 39.2 LAB CHEMISTRY METHOD 11/30/2024 9:50 AM [facility] Calcium 8.7 8.5 - 10.5 mg/dL LAB CHEMISTRY METHOD 11/30/2024 9:50 AM [facility] Blood Venous blood specimen / Unknown Venipuncture / Unknown 11/30/2024 5:43 AM EDT 11/30/2024 8:32 AM EDT us Romy Tovar MD LAB BLOOD ORDERABLES Final Resul t [facility] [address] [place] [address], * (ABNORMAL) Complete blood count (11/30/2024 5:43 AM EDT) WBC 5.5 4.8 - 10.8 K/mcL LAB HEMETOLOGY METHOD 11/30/2024 8:59 AM EDT [facility] RBC 2.10(L) 4.50 - 5.50 M/mcL LAB HEMETOLOGY METHOD 11/30/2024 8:59 AM EDT [facility] Hemoglobin 6.8(L) 13.5 - 17.5 g/dL LAB HEMETOLOGY METHOD 11/30/2024 8:59 AM EDT [facility] Hematocrit 21.9(L) 42.0 - 54.0 % LAB HEMETOLOGY METHOD 11/30/2024 8:59 AM T [facility] MCV 102.3(H) 79.0 - 98.0 FL LAB HEMETOLOGY METHOD 11/30/2024 8:59 AM EDT [facility] MCH 31.8 27.0 - 32.0 pcg LAB HEMETOLOGY METHOD 11/30/2024 8:59 AM T [facility] MCHC 31.1(L) 32.0 - 37.0 g/dL LAB HEMETOLOGY METHOD 11/30/2024 8:59 AM [facility] RDW 18.5(H) 11.0 - 15.0 % LAB HEMETOLOGY METHOD 11/30/2024 8:59 AM EDT [facility] Platelets 137 130 - 400 K/mcL LAB HEMETOLOGY METHOD 11/30/2024 8:59 AM EDT [facility] MPV 10.3 7.0 - 11.0 FL LAB HEMETOLOGY METHOD 11/30/2024 8:59 AM EDT [facility] NRBC 0.0 <1.0 % LAB HEMETOLOG METHOD 11/30/2024 8:59 AM EDT [facility] NRBC Absolute 0.00 <0.10 K/mcL LAB HEMETOLOGY METHOD 11/30/2024 8:59 AM EDT [facility] Blood Venous blood specimen / Unknown Venipuncture / Unknown 11/30/2024 5:43 AM EDT 11/30/2024 8:32 AM EDT us Romy Tovar MD LAB BLOOD ORDERABLES Final Resul t [facility] [address] [place] [address], documented in this encounter Visit Diagnoses Diagnosis Anemia, unspecified Essential (primary) hypertension Unspecified essential hypertension Vitamin D deficiency, unspecified documented in this encounter Care Teams Account Solutions Analyst Relationship Specialty Start Date End Date Rober Cottrell [address] [facility] [phone] [place] [address] PCP - General 11/03/24 documented as of this encounter
--- OUTSIDE RECORDS SUMMARY | 2025-02-20 18:08 | XMS_ITS | Encounter Summary ---
[facility] Address [address] [place] [address] Care Team Providers Care Enterprise Systems Administrator Name Role Phone Rober Cottrell Primary Care Provider [phone] Encounter Details Date Type Department Care Team (Latest Contact Info) Description 11/02/2024 Lab Requisition [facility] - Main Lab [address] [place] [address] Romy Tovar MD [address] [place] [address] Type 2 diabetes mellitus without complications (CMS/HCC V24, CMS/HCC V28); Essential (primary) hypertension; Diarrhea, unspecified Social History Tobacco Use Types Packs/Day [...] Associated Diagnosis Comments COMPLETE BLOOD COUNT Routine 11/02/2024 6:24 AM EDT Type 2 diabetes mellitus without complications (CMS/HCC V24, CMS/HCC V28) Essential (primary) hypertension Diarrhea, unspecified BASIC METABOLIC PANEL Routine 11/02/2024 6:24 AM EDT Type 2 diabetes mellitus without complications (CMS/HCC V24, CMS/HCC V28) Essential (primary) hypertension Diarrhea, unspecified documented in this encounter Results * (ABNORMAL) Basic metabolic panel (11/02/2024 6:24 AM EDT) Sodium 138 133 - 145 mmol/L LAB CHEMISTRY METHOD 11/02/2024 9:14 AM [facility] Potassium 3.4(L) 3.5 - 5.5 mmol/L LAB CHEMISTRY METHOD 11/02/2024 9:14 AM [facility] Chloride 101 96 - 110 mmol/L LAB CHEMISTRY METHOD 11/02/2024 9:14 AM [facility] CO2 30 21 - 32 mmol/L LAB CHEMISTRY METHOD 11/02/2024 9:14 AM [facility] Anion Gap 7 3 - 11 LAB CHEMISTRY METHOD 11/02/2024 9:14 AM [facility] Glucose 77 70 - 100 mg/dL LAB CHEMISTRY METHOD 11/02/2024 9:14 AM [facility] BUN 33(H) 5 - 25 mg/dL LAB CHEMISTRY METHOD 11/02/2024 9:14 AM [facility] Creatinine 1.28 0.70 - 1.30 mg/dL LAB CHEMISTRY METHOD 11/02/2024 9:14 AM [facility] eGFR 57(L) >=60 mL/min/1. 73m2 LAB CHEMISTRY METHOD 11/02/2024 9:14 AM [facility] Comment:Calculation based on the Chronic Kidney Disease Epidemiology Collaboration (CKD-EPI) equation refit without adjustment for race. BUN/Creatinine Ratio 25.8 LAB CHEMISTRY METHOD 11/02/2024 9:14 AM [facility] Calcium 8.4(L) 8.5 - 10.5 mg/dL LAB CHEMISTRY METHOD 11/02/2024 9:14 AM [facility] Blood Venous blood specimen / Unknown Venipuncture / Unknown 11/02/2024 6:24 AM EDT 11/02/2024 8:07 AM EDT us Romy Tovar MD LAB BLOOD ORDERABLES Final Resul t [facility] [address] [place] [address], * (ABNORMAL) Complete blood count (11/02/2024 6:24 AM EDT) [facility] Signature WBC 4.6(L) 4.8 - 10.8 K/mcL LAB HEMETOLOGY [facility] RBC 2.10(L) 4.50 - 5.50 M/mcL LAB HEMETOLOGY METHOD 11/02[facility]24 [facility] Hemoglobin 6.6(L) 13.5 - 17.5 g/dL LAB HEMETOLOGY METHOD 11/02/2024 8:47 AM [facility] Hematocrit 21.8(L) 42.0 - 54.0 % LAB HEMETOLOGY METHOD 11/02/2024 8:47 AM [facility] MCV 104.3(H) 79.0 - 98.0 FL LAB HEMETOLOGY METHOD 11/02/2024 8:47 AM [facility] MCH 31.6 27.0 - 32.0 pcg LAB HEMETOLOGY METHOD 11/02/2024 8:47 AM [facility] MCHC 30.3(L) 32.0 - 37.0 g/dL LAB HEMETOLOGY METHOD 11/02/2024 8:47 AM [facility] RDW 19.4(H) 11.0 - 15.0 % LAB HEMETOLOGY METHOD 11/02/2024 8:47 AM [facility] Platelets 167 130 - 400 K/mcL LAB HEMETOLOGY METHOD 11/02/2024 8:47 AM [facility] MPV 10.0 7.0 - 11.0 FL LAB HEMETOLOGY METHOD 11/02/2024 8:47 AM [facility] NRBC 0.0 <1.0 % LAB HEMETOLOGY METHOD 11/02/2024 8:47 AM EDT [facility] NRBC Absolute 0.00 <0.10 K/mcL LAB HEMETOLOGY METHOD 11/02/2024 8:47 AM EDT [facility] Blood Venous blood specimen / Unknown Venipuncture / Unknown 11/02/2024 6:24 AM EDT 11/02/2024 8:07 AM EDT us Romy Tovar MD LAB BLOOD ORDERABLES Final Resul t [facility] [address] [place] [address], documented in this encounter Visit Diagnoses Diagnosis Type 2 diabetes mellitus without complications (CMS/HCC V24, CMS/HCC V28) Essential (primary) hypertension Unspecified essential hypertension Diarrhea, unspecified documented in this encounter Additional Health Concerns Infection Onset Date Last Indicated Resolved Time C. difficile Rule-Out 11/02/2024 11/01/20242024 9:11 AM EDT documented as of this encounter Care Teams Enterprise Systems Administrator Relationship Specialty Start Date End Date Rober Cottrell [address] [place] [address] [phone] [place] [address] PCP - General 11/03/24 documented as of this encounter
--- OUTSIDE RECORDS SUMMARY | 2025-02-20 18:08 | XMS_ITS | Encounter Summary ---
[facility] Organization [facility] Address [address] [place] [address] Care Team Providers Care Option Trader Name Role Phone Rober Cottrell Primary Care Provider [phone] Encounter Details Date Type Department Care Team (Latest Contact Info) Description 02/19/2025 Lab Requisition [facility] - Main Lab [address] [place] [address] Romy Tovar MD [address] [place] [id number] Anemia, unspecified; Type 2 diabetes mellitus without complications (CMS/HCC V24, CMS/HCC V28) Social History Tobacco Use Types Packs/Day Years [...] Associated Diagnosis Comments COMPLETE BLOOD COUNT Routine 02/19/2025 9:08 AM EDT Anemia, unspecified Type 2 diabetes mellitus without complications (CMS/HCC V24, CMS/HCC V28) COMPREHENSIVE METABOLIC PANEL Routine 02/19/2025 9:08 AM EDT Anemia, unspecified Type 2 diabetes mellitus without complications (CMS/HCC V24, CMS/HCC V28) documented in this encounter Results * (ABNORMAL) Comprehensive metabolic panel (02/19/2025 9:08 AM EDT) Sodium 141 133 - 145 mmol/L LAB CHEMISTRY METHOD 02/19/2025 1:02 PM EDT [facility] Potassium 4.3 3.5 - 5.5 mmol/L LAB CHEMISTRY METHOD 02/19/2025 1:02 PM [facility] Chloride 104 96 - 110 mmol/L LAB CHEMISTRY METHOD 02/19/2025 1:02 PM [facility] CO2 29 21 - 32 mmol/L LAB CHEMISTRY METHOD 02/19/2025 1:02 PM [facility] Anion Gap 8 3 - 11 LAB CHEMISTRY METHOD 02/19/2025 1:02 PM [facility] Glucose 115(H) 70 - 100 mg/dL LAB CHEMISTRY METHOD 02/19/2025 1:02 PM [facility] BUN 43(H) 5 - 25 mg/dL LAB CHEMISTRY METHOD 02/19/2025 1:02 PM [facility] Creatinine 1.57(H) 0.70 - 1.30 mg/dL LAB CHEMISTRY METHOD 02/19/2025 1:02 PM [facility] eGFR 45(L) >=60 mL/min/1. 73m2 LAB CHEMISTRY METHOD 02/19/2025 1:02 PM [facility] Comment:Calculation based on the Chronic Kidney Disease Epidemiology Collaboration (CKD-EPI) equation refit without adjustment for race. BUN/Creatinine Ratio 27.4 LAB CHEMISTRY METHOD 02/19/2025 1:02 PM [facility] Calcium 8.6 8.5 - 10.5 mg/dL LAB CHEMISTRY METHOD 02/19/2025 1:02 [facility] AST (SGOT) 32 10 - 42 unit/L LAB CHEMISTRY METHOD 02/19/2025 1:02 [facility] ALT (SGPT) 19 10 - 60 unit/L LAB CHEMISTRY METHOD 02/19/2025 1:02 PM [facility] Alkaline Phosphatase 114 42 - 121 unit/L LAB CHEMISTRY METHOD 02/19/2025 1:02 PM [facility] Total Protein 8.5(H) 6.0 - 8.0 g/dL LAB CHEMISTRY METHOD 02/19/2025 1:02 PM EDT [facility] Albumin 2.1(L) 3.2 - 5.0 g/dL LAB CHEMISTRY METHOD 02/19/2025 1:02 PM EDT [facility] Total Bilirubin 0.8 0.0 - 1.4 mg/dL LAB CHEMISTRY METHOD 02/19/2025 1:02 PM T [facility] Blood Venous blood specimen / Unknown 02/19/2025 9:08 AM EDT 02/19/2025 10:54 AM EDT Romy Tovar MD LAB BLOOD ORDERABLES Final Resul t [facility] [address] [place] [address], * (ABNORMAL) Complete blood count (02/19/2025 9:08 AM EDT) WBC 3.8(L) 4.8 - 10.8 K/mcL LAB HEMETOLOGY METHOD 02/19/2025 12:37 PM [facility] RBC 2.30(L) 4.50 - 5.50 M/mcL LAB HEMETOLOGY METHOD 02/19/2025 12:37 PM [facility] Hemoglobin 7.8(L) 13.5 - 17.5 g/dL LAB HEMETOLOGY METHOD 02/19/2025 12:37 PM [facility] Hematocrit 25.5(L) 42.0 - 54.0 % LAB HEMETOLOGY METHOD 02/19/2025 12:37 PM [facility] MCV 109.4(H) 79.0 - 98.0 FL LAB HEMETOLOGY METHOD 02/19/2025 12:37 PM [facility] MCH 33.5(H) 27.0 - 32.0 pcg LAB HEMETOLOGY METHOD 02/19/2025 12:37 PM EDT [facility] MCHC 30.6(L) 32.0 - 37.0 g/dL LAB HEMETOLOGY METHOD 02/19/2025 12:37 PM EDT [facility] RDW 19.1(H) 11.0 - 15.0 % LAB HEMETOLOGY METHOD 02/19/2025 12:37 PM EDT [facility] Platelets 135 130 - 400 K/mcL LAB HEMETOLOGY METHOD 02/19/2025 12:37 PM EDT [facility] MPV 10.5 7.0 - 11.0 FL LAB HEMETOLOGY METHOD 02/19/2025 12:37 PM EDT [facility] NRBC 0.0 <1.0 % LAB HEMETOLOGY METHOD 02/19/2025 12:37 PM EDT [facility] NRBC Absolute 0.00 <0.10 K/mcL LAB HEMETOLOGY METHOD 02/19/2025 12:37 PM EDT [facility] Blood Venous blood specimen / Unknown Venipuncture / Unknown 02/19/2025 9:08 AM EDT 02/19/2025 10:54 AM EDT us Romy Tovar MD LAB BLOOD ORDERABLES Final Resul t [facility] [address] [place] [address], documented in this encounter Visit Diagnoses Diagnosis Anemia, unspecified Type 2 diabetes mellitus without complications (CMS/HCC V24, CMS/HCC V28) documented in this encounter Care Teams Option Trader Relationship Specialty Start Date End Date Rober Cottrell [address] [facility] [place] [phone] PCP - General 11/03/24 documented as of this encounter
--- OUTSIDE RECORDS SUMMARY | 2025-02-20 18:08 | XMS_ITS | Encounter Summary ---
Author Organization [facility] Address [address] [place] [address] Care Team Providers Care Supervisor Central Supply Name Role Phone Rober Cottrell Primary Care Provider [phone] Encounter Details Date Type Department Care Team (Late st Contact Info) Description 11/03/[address] [facility] - Main Lab [address] [place] [address] Rober Cottrell [address] [facility] [address] [place] [address] Anemia, unspecified; Precipitous drop in hematocrit; Malignant (primary) neoplasm, unspecified (CMS/HCC V24, CMS/HCC V28) Social History Tobacco [...] Associated Diagnosis Comments COMPLETE BLOOD COUNT Routine 11/03/2024 7:45 AM EDT Anemia, unspecified Precipitous drop in hematocrit Malignant (primary) neoplasm, unspecified (CMS/HCC V24, CMS/HCC V28) documented in this encounter Results * (ABNORMAL) Complete blood count (11/03/2024 7:45 AM EDT) WBC 4.8 4.8 - 10.8 K/[facility] LAB HEMETOLOGY METHOD 11/03/2024 11:08 AM EDT [facility] RBC 2.10(L) 4.50 - 5.50 M/[facility] LAB HEMETOLOGY METHOD 11/03/2024 11:08 AM [facility] LAB Hemoglobin 6.6(L) 13.5 - 17.5 g/dL LAB HEMETOLOGY METHOD 11/03/2024 11:08 AM [facility] LAB Hematocrit 21.4(L) 42.0 - 54.0 % LAB HEMETOLOGY METHOD 11/03/2024 11:08 AM [facility] LAB MCV 102.4(H) 79.0 - 98.0 FL LAB HEMETOLOGY METHOD 11/03/2024 11:08 AM [facility] LAB MCH 31.6 27.0 - 32.0 pcg LAB HEMETOLOGY METHOD 11/03/2024 11:08 AM [facility] LAB MCHC 30.8(L) 32.0 - 37.0 g/dL LAB HEMETOLOGY METHOD 11/03/2024 11:08 AM [facility] LAB RDW 19.6(H) 11.0 - 15.0 % LAB HEMETOLOGY METHOD 11/03/2024 11:08 AM [facility] LAB Platelets 167 130 - 400 K/mcL LAB HEMETOLOGY METHOD 11/03/2024 11:08 AM [facility] LAB MPV 10.1 7.0 - 11.0 FL LAB HEMETOLOGY METHOD 11/03/2024 11:08 AM [facility] LAB NRBC 0.0 <1.0 % LAB HEMETOLOGY METHOD 11/03/2024 11:08 AM [facility] LAB NRBC Absolute 0.00 <0.10 K/mcL LAB HEMETOLOGY METHOD 11/03/2024 11:08 AM [facility] LAB Blood Venous blood specimen / Unknown Venipuncture / Unknown 11/03/2024 7:45 AM EDT 11/03/2024 8:57 AM EDT Rober Cottrell LAB BLOOD ORDERABLES Final Resul t [facility] [address] [place] [address], documented in this encounter Visit Diagnoses Diagnosis Anemia, unspecified Precipitous drop in hematocrit Malignant (primary) neoplasm, unspecified (CMS/HCC V24, CMS/HCC V28) documented in this encounter Care Teams Supervisor Central Supply Relationship Specialty Start Date End Date Rober Cottrell [address] [facility] [address] [place] [address] PCP - General 11/03/24 documented as of this encounter
--- OUTSIDE RECORDS SUMMARY | 2025-02-20 18:08 | XMS_ITS | Encounter Summary ---
Author Organization [facility] Address [address] [place] [address] Care Team Providers Care Process Control Board Operator Name Role Phone Rober Cottrell Primary Care Provider [phone] Encounter Details Date Type Department Care Team (Latest Contact Info) Description 02/15/2025 Lab Requisition [facility] - Main Lab [address] [facility] [place] [address] Romy Tovar MD [address] [place] [address] Type 2 diabetes mellitus without complications (CMS/HCC V24, CMS/HCC V28); Unspecified atrial fibrillation (CMS/HCC V24, CMS/HCC V28); Essential (primary) hypertension; Anemia, unspecified Social History Tobacco Use Types [...] Associated Diagnosis Comments COMPLETE BLOOD COUNT Routine 02/15/2025 5:25 AM EDT Type 2 diabetes mellitus without complications (CMS/HCC V24, CMS/HCC V28) Unspecified atrial fibrillation (CMS/HCC V24, CMS/HCC V28) Essential (primary) hypertension Anemia, unspecified COMPREHENSIVE METABOLIC PANEL Routine 02/15/2025 5:25 AM EDT Type 2 diabetes mellitus without complications (CMS/HCC V24, CMS/HCC V28) Unspecified atrial fibrillation (CMS/HCC V24, CMS/HCC V28) Essential (primary) hypertension Anemia, unspecified documented in this encounter Results * (ABNORMAL) Comprehensive metabolic panel (02/15/2025 5:25 AM EDT) Sodium 140 133 - 145 mmol/L LAB CHEMISTRY METHOD 02/15/2025 8:18 AM [facility] Potassium 4.7 3.5 - 5.5 mmol/L LAB CHEMISTRY METHOD 02/15/2025 8:18 AM [facility] LAB Comment:Hemolysis present Chloride 106 96 - 110 mmol/L LAB CHEMISTRY METHOD 02/15/2025 8:18 AM [facility] LAB CO2 30 21 - 32 mmol/L LAB CHEMISTRY METHOD 02/15/2025 8:18 AM [facility] LAB Anion Gap 4 3 - 11 LAB CHEMISTRY METHOD 02/15/2025 8:18 AM [facility] LAB Glucose 85 70 - 100 mg/dL LAB CHEMISTRY METHOD 02/15/2025 8:18 AM [facility] LAB BUN 46(H) 5 - 25 mg/dL LAB CHEMISTRY METHOD 02/15/2025 8:18 AM [facility] LAB Creatinine 1.53(H) 0.70 - 1.30 mg/dL LAB CHEMISTRY METHOD 02/15/2025 8:18 AM [facility] LAB eGFR 46(L) >=60 mL/min/1. 73m2 LAB CHEMISTRY METHOD 02/15/2025 8:18 AM [facility] LAB Comment:Calculation based on the Chronic Kidney Disease Epidemiology Collaboration (CKD-EPI) equation refit without adjustment for race. BUN/Creatinine Ratio 30.1 LAB CHEMISTRY METHOD 02/15/2025 8:18 AM [facility] LAB Calcium 8.5 8.5 - 10.5 mg/dL LAB CHEMISTRY METHOD 02/15/2025 8:18 AM [facility] LAB AST (SGOT) 31 10 - 42 unit/L LAB CHEMISTRY METHOD 02/15/2025 8:18 AM [facility] LAB Comment:Hemolysis present ALT (SGPT) 19 10 - 60 unit/L LAB CHEMISTRY METHOD 02/15/2025 8:18 AM EDT [facility] Alkaline Phosphatase 97 42 - 121 unit/L LAB CHEMISTRY METHOD 02/15/2025 8:18 AM EDT [facility] LAB Total Protein 8.5(H) 6.0 - 8.0 g/dL LAB CHEMISTRY METHOD 02/15/2025 8:18 AM EDT [facility] LAB Albumin 2.1(L) 3.2 - 5.0 g/dL LAB CHEMISTRY METHOD 02/15/2025 8:18 AM T [facility] LAB Total Bilirubin 0.5 0.0 - 1.4 mg/dL LAB CHEMISTRY METHOD 02/15/2025 8:18 AM T [facility] LAB Blood Venous blood specimen / Unknown Venipuncture / Unknown 02/15/2025 5:25 AM EDT 02/15/2025 6:55 AM EDT us Romy Tovar MD LAB BLOOD ORDERABLES Final Resul t [facility] LAB [address] [place] [address], * (ABNORMAL) Complete blood count (02/15/2025 5:25 AM EDT) WBC 4.3(L) 4.8 - 10.8 K/[facility] LAB HEMETOLOGY METHOD 02/15/2025 7:58 AM EDT [facility] LAB RBC 2.40(L) 4.50 - 5.50 M/mcL LAB HEMETOLOGY METHOD 02/15/2025 7:58 AM EDT [facility] LAB Hemoglobin 8.0(L) 13.5 - 17.5 g/dL LAB HEMETOLOGY METHOD 02/15/2025 7:58 AM EDT [facility] LAB Hematocrit 26.3(L) 42.0 - 54.0 % LAB HEMETOLOGY METHOD 02/15/2025 7:58 AM EDT [facility] LAB MCV 109.1(H) 79.0 - 98.0 FL LAB HEMETOLOGY METHOD 02/15/2025 7:58 AM EDT [facility] LAB MCH 33.2(H) 27.0 - 32.0 pcg LAB HEMETOLOGY METHOD 02/15/2025 7:58 AM EDT [facility] LAB MCHC 30.4(L) 32.0 - 37.0 g/dL LAB HEMETOLOGY METHOD 02/15/2025 7:58 AM EDT [facility] LAB RDW 19.1(H) 11.0 - 15.0 % LAB HEMETOLOGY METHOD 02/15/2025 7:58 AM EDT [facility] LAB Platelets 155 130 - 400 K/mcL LAB HEMETOLOGY METHOD 02/15/2025 7:58 AM EDT [facility] LAB MPV 10.1 7.0 - 11.0 FL LAB HEMETOLOGY METHOD 02/15/2025 7:58 AM EDT [facility] LAB NRBC 0.0 <1.0 % LAB HEMETOLOGY METHOD 02/15/2025 7:58 AM EDT [facility] LAB NRBC Absolute 0.00 <0.10 K/mcL LAB HEMETOLOGY METHOD 02/15/2025 7:58 AM EDT [facility] LAB Blood Venous blood specimen / Unknown Venipuncture / Unknown 02/15/2025 5:25 AM EDT 02/15/2025 6:55 AM EDT us Romy Tovar MD LAB BLOOD ORDERABLES Final Resul t [facility] LAB [address] [place] [address], documented in this encounter Visit Diagnoses Diagnosis Type 2 diabetes mellitus without complications (CMS/HCC V24, [facility] V28) Unspecified atrial fibrillation ([facility] V24, [facility] V28) Essential (primary) hypertension Unspecified essential hypertension Anemia, unspecified documented in this encounter Care Teams Process Control Board Operator Relationship Specialty Start Date End Date Rober Cottrell [address] [facility] [phone] [place] [address] PCP - General 11/03/24 documented as of this encounter
--- OUTSIDE RECORDS SUMMARY | 2025-02-20 18:08 | XMS_ITS | Encounter Summary ---
Author Organization [facility] Address [address] [place] [address] Care Team Providers Care Brick Siding Applicator Name Role Phone Rober Cottrell Primary Care Provider [phone] Encounter Details Date Type Department Care Team (Late st Contact Info) Description 12/18/2024 Lab Requisition [facility] - Main Lab [address] [place] [address] Romy Tovar MD [address] [place] [phone] Anemia, unspecified Social History Tobacco Use Types [...] Associated Diagnosis Comments COMPLETE BLOOD COUNT Routine 12/18/2024 6:51 AM EDT Anemia, unspecified BASIC METABOLIC PANEL Routine 12/18/2024 6:51 AM EDT Anemia, unspecified documented in this encounter Results * (ABNORMAL) Basic metabolic panel (12/18/2024 6:51 AM EDT) Sodium 140 133 - 145 mmol/L LAB CHEMISTRY METHOD 12/18/2024 8:38 AM [facility] LAB Potassium 3.8 3.5 - 5.5 mmol/L LAB CHEMISTRY METHOD 12/18/2024 8:38 AM [facility] LAB Chloride 103 96 - 110 mmol/L LAB CHEMISTRY METHOD 12/18/2024 8:38 AM [facility] LAB CO2 34(H) 21 - 32 mmol/L LAB CHEMISTRY METHOD 12/18/2024 8:38 AM [facility] LAB Anion Gap 3 3 - 11 LAB CHEMISTRY METHOD 12/18/2024 8:38 AM [facility] LAB Glucose 76 70 - 100 mg/dL LAB CHEMISTRY METHOD 12/18/2024 8:38 AM [facility] LAB BUN 48(H) 5 - 25 mg/dL LAB CHEMISTRY METHOD 12/18/2024 8:38 AM [facility] LAB Creatinine 1.32(H) 0.70 - 1.30 mg/dL LAB CHEMISTRY METHOD 12/18/2024 8:38 AM [facility] LAB eGFR 55(L) >=60 mL/min/1. 73m2 LAB CHEMISTRY METHOD 12/18/2024 8:38 AM [facility] LAB Comment:Calculation based on the Chronic Kidney Disease Epidemiology Collaboration (CKD-EPI) equation refit without adjustment for race. BUN/Creatinine Ratio 36.4 LAB CHEMISTRY METHOD 12/18/2024 8:38 AM [facility] LAB Calcium 8.8 8.5 - 10.5 mg/dL LAB CHEMISTRY METHOD 12/18/2024 8:38 AM [facility] LAB Blood Venous blood specimen / Unknown Venipuncture / Unknown 12/18/2024 6:51 AM EDT 12/18/2024 7:59 AM EDT us Romy Tovar MD LAB BLOOD ORDERABLES Final Resul t [facility] [address] [place] [address], * (ABNORMAL) Complete blood count (12/18/2024 6:51 AM EDT) WBC 3.2(L) 4.8 - 10.8 K/mcL LAB HEMETOLOGY METHOD 12/18/2024 8:20 AM [facility] LAB RBC 2.10(L) 4.50 - 5.50 M/mcL LAB HEMETOLOGY METHOD 12/18/2024 8:20 AM [facility] LAB Hemoglobin 6.8(L) 13.5 - 17.5 g/dL LAB HEMETOLOGY METHOD 12/18/2024 8:20 AM [facility] LAB Hematocrit 21.8(L) 42.0 - 54.0 % LAB HEMETOLOGY METHOD 12/18/2024 8:20 AM [facility] LAB MCV 104.3(H) 79.0 - 98.0 FL LAB HEMETOLOGY METHOD 12/18/2024 8:20 AM [facility] LAB MCH 32.5(H) 27.0 - 32.0 pcg LAB HEMETOLOGY METHOD 12/18/2024 8:20 AM [facility] LAB MCHC 31.2(L) 32.0 - 37.0 g/dL LAB HEMETOLOGY METHOD 12/18/2024 8:20 AM [facility] LAB RDW 18.1(H) 11.0 - 15.0 % LAB HEMETOLOGY METHOD 12/18/2024 8:20 AM [facility] LAB Platelets 116(L) 130 - 400 K/mcL LAB HEMETOLOGY METHOD 12/18/2024 8:20 AM [facility] LAB MPV 10.2 7.0 - 11.0 FL LAB HEMETOLOGY METHOD 12/18/2024 8:20 AM [facility] LAB NRBC 0.0 <1.0 % LAB HEMETOLOGY METHOD 12/18/2024 8:20 AM [facility] LAB NRBC Absolute 0.00 <0.10 K/mcL LAB HEMETOLOGY METHOD 12/18/2024 8:20 AM [facility] Blood Venous blood specimen / Unknown Venipuncture / Unknown 12/18/2024 6:51 AM EDT 12/18/2024 7:59 AM EDT us Romy Tovar MD LAB BLOOD ORDERABLES Final Resul t [facility] [address] [place] [address], documented in this encounter Visit Diagnoses Diagnosis Anemia, unspecified documented in this encounter Care Teams Brick Siding Applicator Relationship Specialty Start Date End Date Rober Cottrell [address] [place] [address] [phone] [place] [address] PCP - General 11/03/24 documented as of this encounter
--- OUTSIDE RECORDS SUMMARY | 2025-02-20 18:08 | XMS_ITS | Encounter Summary ---
Author Organization [facility] Address [address] [place] [address] Care Team Providers Care Scrum Coach Name Role Phone Rober Cottrell Primary Care Provider [phone] Encounter Details Date Type Department Care Team (Late st Contact Info) Description 11/02/2024 Lab Requisition [facility] - Main Lab [address] [place] [address] Romy Tovar MD [address] [place] [phone] Diarrhea, unspecified Social History Tobacco Use Types [...] Procedure Name Priority Date/Time Associated Diagnosis Comments CLOSTRIDIUM DIFFICILE TOXIN Routine 11/01/2024 8:00 PM EDT Diarrhea, unspecified documented in this encounter Results * Clostridium difficile toxin (11/01/2024 8:00 PM EDT) Clostridium difficile GDH Antigen Negative Negative 11/02/2024 9:11 AM EDT [facility] C difficile Toxins A+B, EIA Negative Negative 11/02/2024 9:11 AM EDT [facility] LAB Comment:NEGATIVE FOR TOXIN P RODUCING CLOSTRIDIOIDES DIFFICILE, NO ADDITIONAL TESTING IS NECESSARY. Stool Rectum structure / Unknown Non-blood Collection / Unknown 11/01/2024 8:00 PM EDT 11/02/2024 8:17 AM EDT us Romy Tovar MD LAB MICROBIOLOGY - GENERAL ORDER CALE Final Result [facility] [address] [place] [address], documented in this encounter Visit Diagnoses Diagnosis Diarrhea, unspecified documented in this encounter Additional Health Concerns Infection Onset Date Last Indicated Resolved Time C. difficile Rule-Out 11/02/2024 11/01/20242024 9:11 AM EDT documented as of this encounter Care Teams Scrum Coach Relationship Specialty Start Date End Date Rober Cottrell [address] [facility] [phone] [place] [address] PCP - General 11/03/24 documented as of this encounter
--- OUTSIDE RECORDS SUMMARY | 2025-02-20 18:08 | XMS_ITS | Encounter Summary ---
Author Organization [facility] Address [address] [place] [address] Care Team Providers Care Belt Operator Name Role Phone Rober Cottrell Apolinar Primary Care Provider [phone] Encounter Details Date Type Department Care Team (Latest Contact Info) Description 02/08/[address] [facility] - Main Lab [address] [facility] [place] [address] Romy Tovar MD [address] [place] [address] Type 2 diabetes mellitus without complications (CMS/HCC V24, CMS/HCC V28); Anemia, unspecified; Unspecified atrial fibrillation (CMS/HCC V24, CMS/HCC V28) Social History Tobacco [...] Associated Diagnosis Comments COMPLETE BLOOD COUNT Routine 02/08/2025 6:58 AM EDT Type 2 diabetes mellitus without complications (CMS/HCC V24, CMS/HCC V28) Anemia, unspecified Unspecified atrial fibrillation (CMS/HCC V24, CMS/HCC V28) HEMOGLOBIN A1C Routine 02/08/2025 6:58 AM EDT Type 2 diabetes mellitus without complications (CMS/HCC V24, CMS/HCC V28) Anemia, unspecified Unspecified atrial fibrillation (CMS/HCC V24, CMS/HCC V28) COMPREHENSIVE METABOLIC PANEL Routine 02/08/2025 6:58 AM EDT Type 2 diabetes mellitus without complications (CMS/HCC V24, CMS/HCC V28) Anemia, unspecified Unspecified atrial fibrillation ([facility] V24, [facility] V28) documented in this encounter Results * Hemoglobin A1c (02/08/2025 6:58 AM EDT) Pathologist [facility] Hemoglobin A1C 5.7 <6.5 % LAB CHEMISTRY METHOD 02/08/2025 12:42 PM EDT [facility] Mean Bld Glu Estim. 117 mg/dL LAB CHEMISTRY METHOD 02/08/2025 12:42 PM EDT [facility] Blood Venous blood specimen / Unknown Venipuncture / Unknown 02/08/2025 6:58 AM EDT 02/08/2025 10:09 AM EDT Romy Tovar MD LAB BLOOD ORDERABLES Final Resul t [facility] [address] [place] [address], * (ABNORMAL) Comprehensive metabolic panel (02/08/2025 6:58 AM EDT) [facility] Sodium 140 133 - 145 mmol/L LAB CHEMISTRY METHOD 02/08/2025 7:13 PM T [facility] Potassium 4.8 3.5 - 5.5 mmol/L LAB CHEMISTRY METHOD 02/08/2025 7:13 PM [facility] Chloride 105 96 - 110 mmol/L LAB CHEMISTRY METHOD 02/08/2025 7:13 PM [facility] CO2 28 21 - 32 mmol/L LAB CHEMISTRY METHOD 02/08/2025 7:13 PM EDT [facility] Anion Gap 7 3 - 11 LAB CHEMISTRY METHOD 02/08/2025 7:13 PM [facility] Glucose 76 70 - 100 mg/dL LAB CHEMISTRY METHOD 02/08/2025 7:13 PM T [facility] BUN 54(H) 5 - 25 mg/dL LAB CHEMISTRY METHOD 02/08/2025 7:13 PM [facility] Creatinine 1.68(H) 0.70 - 1.30 mg/dL LAB CHEMISTRY METHOD 02/08/2025 7:13 PM [facility] eGFR 41(L) >=60 mL/min/1. 73m2 LAB CHEMISTRY METHOD 02/08/2025 7:13 PM [facility] Comment:Calculation based on the Chronic Kidney Disease Epidemiology Collaboration (CKD-EPI) equation refit without adjustment for race. BUN/Creatinine Ratio 32.1 LAB CHEMISTRY METHOD 02/08/2025 7:13 PM [facility] Calcium 8.7 8.5 - 10.5 mg/dL LAB CHEMISTRY METHOD 02/08/2025 7:13 PM [facility] AST (SGOT) 31 10 - 42 unit/L LAB CHEMISTRY METHOD 02/08/2025 7:13 PM [facility] ALT (SGPT) 18 10 - 60 unit/L LAB CHEMISTRY METHOD 02/08/2025 7:13 PM [facility] Alkaline Phosphatase 82 42 - 121 unit/L LAB CHEMISTRY METHOD 02/08/2025 7:13 PM [facility] Total Protein 8.4(H) 6.0 - 8.0 g/dL LAB CHEMISTRY METHOD 02/08/2025 7:13 PM [facility] Albumin 1.9(L) 3.2 - 5.0 g/dL LAB CHEMISTRY METHOD 02/08/2025 7:13 PM [facility] Total Bilirubin 0.4 0.0 - 1.4 mg/dL LAB CHEMISTRY METHOD 02/08/2025 7:13 PM [facility] Blood Venous blood specimen / Unknown Venipuncture / Unknown 02/08/2025 6:58 AM EDT 02/08/2025 10:09 AM EDT us Romy Tovar MD LAB BLOOD ORDERABLES Final Resul t [facility] [address] [place] [address], * (ABNORMAL) Complete blood count (02/08/2025 6:58 AM EDT) WBC 5.6 4.8 - 10.8 K/mcL LAB HEMETOLOGY METHOD 02/08/2025 10:29 AM EDT [facility] RBC 2.40(L) 4.50 - 5.50 M/mcL LAB HEMETOLOGY METHOD 02/08/2025 10:29 AM EDT [facility] Hemoglobin 8.0(L) 13.5 - 17.5 g/dL LAB HEMETOLOGY METHOD [facility] Hematocrit 26.0(L) 42.0 - 54.0 % LAB HEMETOLOGY METHOD 02/08/2025 10:[facility] MCV 107.9(H) 79.0 - 98.0 FL LAB HEMETOLOGY METHOD 02/08/2025 10:29 AM [facility] MCH 33.2(H) 27.0 - 32.0 pcg LAB HEMETOLOGY METHOD 02/08/2025 10:29 AM EDT [facility] MCHC 30.8(L) 32.0 - 37.0 g/dL LAB HEMETOLOGY METHOD 02/08/2025 10:29 AM EDT [facility] RDW 17.9(H) 11.0 - 15.0 % LAB HEMETOLOGY METHOD 02/08/2025 10:[facility] Platelets 164 130 - 400 K/mcL LAB HEMETOLOGY METHOD 02/08/2025 10:29 AM EDT [facility] MPV 10.4 7.0 - 11.0 FL LAB HEMETOLOGY METHOD 02/08/2025 10:29 AM EDT [facility] NRBC 0.0 <1.0 % LAB HEMETOLOGY METHOD 02/08/2025 10:29 AM EDT [facility] NRBC Absolute 0.00 <0.10 K/mcL LAB HEMETOLOGY METHOD 02/08/2025 10:29 AM EDT [facility] Blood Venous blood specimen / Unknown Venipuncture / Unknown 02/08/2025 6:58 AM EDT 02/08/2025 10:09 AM EDT us Romy Tovar MD LAB BLOOD ORDERABLES Final Resul t [facility] [address] [place] [address], documented in this encounter Visit Diagnoses Diagnosis Type 2 diabetes mellitus without complications (CMS/HCC V24, CMS/HCC V28) Anemia, unspecified Unspecified atrial fibrillation (CMS/HCC V24, CMS/HCC V28) documented in this encounter Care Teams Belt Operator Relationship Specialty Start Date End Date Rober Cottrell [address] [facility] [phone] [place] [address] PCP - General 11/03/24 documented as of this encounter
--- OUTSIDE RECORDS SUMMARY | 2025-02-20 18:08 | XMS_ITS | Encounter Summary ---
[facility] Organization [facility] Address [address] [place] [address] Care Team Providers Care Assembler Trim Name Role Phone Rober Cottrell Primary Care Provider [phone] Encounter Details Date Type Department Care Team (Late st Contact Info) Description 12/02/2024 Lab Requisition [facility] - Main Lab [address] [place] [address] Romy Tovar MD [address] [place] [phone] Essential (primary) hypertension Social History Tobacco Use [...] Associated Diagnosis Comments COMPLETE BLOOD COUNT Routine 12/02/2024 6:33 AM EDT Essential (primary) hypertension documented in this encounter Results * (ABNORMAL) Complete blood count (12/02/2024 6:33 AM EDT) WBC 5.3 4.8 - 10.8 K/mcL LAB HEMETOLOGY METHOD 12/02/2024 1:23 PM EDT [facility] RBC 2.10(L) 4.50 - 5.50 M/mcL LAB HEMETOLOGY METHOD 12/02/2024 1:23 PM EDT [facility] Hemoglobin 6.9(L) 13.5 - 17.5 g/dL LAB HEMETOLOGY METHOD 12/02/2024 1:23 PM EDT [facility] Hematocrit 22.1(L) 42.0 - 54.0 % LAB HEMETOLOGY METHOD 12/02/2024 1:23 PM EDT [facility] MCV 103.8(H) 79.0 - 98.0 FL LAB HEMETOLOGY METHOD 12/02/2024 1:23 PM EDT [facility] MCH 32.4(H) 27.0 - 32.0 pcg LAB HEMETOLOGY METHOD 12/02/2024 1:23 PM EDT [facility] MCHC 31.2(L) 32.0 - 37.0 g/dL LAB HEMETOLOGY METHOD 12/02[facility]24 [facility] RDW 18.2(H) 11.0 - 15.0 % LAB HEMETOLOGY METHOD 12/02/2024 1:23 PM EDT [facility] Platelets 144 130 - 400 K/mcL LAB HEMETOLOGY METHOD 12/02/2024 1:23 PM EDT [facility] MPV 10.6 7.0 - 11.0 FL LAB HEMETOLOGY METHOD 12/02/2024 1:23 PM EDT [facility] NRBC 0.0 <1.0 % LAB HEMETOLOGY METHOD 12/02/2024 1:23 PM EDT [facility] NRBC Absolute 0.00 <0.10 K/mcL LAB HEMETOLOGY METHOD 12/02/2024 1:23 PM EDT [facility] Blood Venous blood specimen / Unknown Venipuncture / Unknown 12/02/2024 6:33 AM EDT 12/02/2024 12:29 PM EDT us Romy Tovar MD LAB BLOOD ORDERABLES Final Resul t [facility] [address] [place], [place] [address] [phone] documented in this encounter Visit Diagnoses Diagnosis Essential (primary) hypertension Unspecified essential hypertension documented in this encounter Care Teams Assembler Trim Relationship Specialty Start Date End Date Rober Cottrell [address] [place] [address] [phone] [place] [address] PCP - General 11/03/24 documented as of this encounter
--- OUTSIDE RECORDS SUMMARY | 2025-02-20 18:08 | XMS_ITS | Encounter Summary ---
Author Organization [facility] Address [address] [place] [address] Care Team Providers Care Clerk Entry Level Name Role Phone Rober Cottrell Primary Care Provider [phone] Encounter Details Date Type Department Care Team (Latest Contact Info) Description 11/09/2024 Lab Requisition [facility] - Main Lab [address] [facility] [place] [address] Romy Tovar MD [address] [place] [address] Type 2 diabetes mellitus without [...] Associated Diagnosis Comments COMPLETE BLOOD COUNT Routine 11/09/2024 5:16 AM EDT Type 2 diabetes mellitus without complications (CMS/HCC V24, CMS/HCC V28) Essential (primary) hypertension Anemia, unspecified IRON Routine 11/09/2024 5:16 AM EDT Type 2 diabetes mellitus without complications (CMS/HCC V24, CMS/HCC V28) Essential (primary) hypertension Anemia, unspecified FOLATE Routine 11/09/2024 5:16 AM EDT Type 2 diabetes mellitus without complications (CMS/HCC V24, CMS/HCC V28) Essential (primary) hypertension Anemia, unspecified VITAMIN B12 Routine 11/09/2024 5:16 AM EDT Type 2 diabetes mellitus without complications ([facility] V24, [facility] V28) Essential (primary) hypertension Anemia, unspecified documented in this encounter Results * (ABNORMAL) Iron (11/09/2024 5:16 AM EDT) [facility] Iron 39(L) 50 - 160 mcg/dL LAB CHEMISTRY METHOD 11/09/2024 10:21 AM EDT [facility] Blood Venous blood specimen / Unknown Venipuncture / Unknown 11/09/2024 5:16 AM EDT 11/09/2024 9:34 AM EDT us Romy Tovar MD LAB BLOOD ORDERABLES Final Resul t Performing Organization Address City/[facility]/ZIP Co de Phone Number [facility] [address] [place] [address], * Folate (11/09/2024 5:16 AM EDT) [facility] Folate 8.3 2.8 - 17.0 ng/ml LAB CHEMISTRY METHOD 11/09/2024 10:43 AM EDT [facility] Blood Venous blood specimen / Unknown Venipuncture / Unknown 11/09/2024 5:16 AM EDT 11/09/2024 9:34 AM EDT us Romy Tovar MD LAB BLOOD ORDERABLES Final Resul t [facility] [address] [place] [address], [place] [phone] * Vitamin B12 (11/09/2024 5:16 AM EDT) [facility] Vitamin B-12 503 250 - 900 pcg/mL LAB CHEMISTRY METHOD 11/09/2024 10:43 AM EDT [facility] Blood Venous blood specimen / Unknown Venipuncture / Unknown 11/09/2024 5:16 AM EDT 11/09/2024 9:34 AM EDT us Romy Tovar MD LAB BLOOD ORDERABLES Final Resul t [facility] [address] [place] [address], * (ABNORMAL) Complete blood count (11/09/2024 5:16 AM EDT) WBC 4.3(L) 4.8 - 10.8 K/mcL LAB HEMETOLOGY METHOD 11/09/2024 10:17 AM EDT [facility] RBC 2.40(L) 4.50 - 5.50 M/mcL LAB HEMETOLOGY METHOD 11/09/2024 10:17 AM [facility] Hemoglobin 7.7(L) 13.5 - 17.5 g/dL LAB HEMETOLOGY METHOD 11/09/2024 10:17 AM [facility] Hematocrit 24.8(L) 42.0 - 54.0 % LAB HEMETOLOGY METHOD 11/09/2024 10:17 AM [facility] MCV 102.9(H) 79.0 - 98.0 FL LAB HEMETOLOGY METHOD 11/09/2024 10:17 AM [facility] MCH 32.0 27.0 - 32.0 pcg LAB HEMETOLOGY METHOD 11/09/2024 10:17 AM [facility] MCHC 31.0(L) 32.0 - 37.0 g/dL LAB HEMETOLOGY METHOD 11/09/2024 10:17 AM [facility] RDW 18.6(H) 11.0 - 15.0 % LAB HEMETOLOGY METHOD 11/09[facility]24 [facility] Platelets 159 130 - 400 K/mcL LAB HEMETOLOGY METHOD 11/09/2024 10:17 AM EDT [facility] MPV 10.2 7.0 - 11.0 FL LAB HEMETOLOGY METHOD 11/09/2024 10:17 AM EDT [facility] NRBC 0.0 <1.0 % LAB HEMETOLOGY METHOD 11/09/2024 10:17 AM EDT [facility] NRBC Absolute 0.00 <0.10 K/mcL LAB HEMETOLOGY METHOD 11/09/2024 10:17 AM EDT [facility] Blood Venous blood specimen / Unknown Venipuncture / Unknown 11/09/2024 5:16 AM EDT 11/09/2024 9:34 AM EDT us Romy Tovar MD LAB BLOOD ORDERABLES Final Resul t [facility] [address] [place] [address], [place] [phone] documented in this encounter Visit Diagnoses Diagnosis Type 2 diabetes mellitus without complications (CMS/HCC V24, CMS/HCC V28) Essential (primary) hypertension Unspecified essential hypertension Anemia, unspecified documented in this encounter Care Teams Clerk Entry Level Relationship Specialty Start Date End Date Rober Cottrell [address] [facility] [phone] [place] [address] PCP - General 11/03/24 documented as of this encounter
--- OUTSIDE RECORDS SUMMARY | 2025-02-20 18:08 | XMS_ITS | Encounter Summary ---
Author Organization [facility] Address [address] [place] [address] Care Team Providers Care Twister Tender Name Role Phone Rober Cottrell Primary Care Provider [phone] Encounter Details Date Type Department Care Team (Late st Contact Info) Description 01/22/2025 Lab Requisition [facility] - Main Lab [address] [place] [address] Romy Tovar MD [address] [place] [id number] Anemia, unspecified; Unspecified kidney failure Social History Tobacco Use Types Packs/Day Years [...] Associated Diagnosis Comments COMPLETE BLOOD COUNT Routine 01/22/2025 8:41 AM EDT Anemia, unspecified Unspecified kidney failure COMPREHENSIVE METABOLIC PANEL Routine 01/22/2025 8:41 AM EDT Anemia, unspecified Unspecified kidney failure documented in this encounter Results * (ABNORMAL) Comprehensive metabolic panel (01/22/2025 8:41 AM EDT) Sodium 137 133 - 145 mmol/L LAB CHEMISTRY METHOD 01/22/2025 1:56 PM EDT [facility] Potassium 4.3 3.5 - 5.5 mmol/L LAB CHEMISTRY METHOD 01/22/2025 1:56 PM EDT [facility] Chloride 103 96 - 110 mmol/L LAB CHEMISTRY METHOD 01/22/2025 1:56 PM [facility] CO2 28 21 - 32 mmol/L LAB CHEMISTRY METHOD 01/22/2025 1:56 PM [facility] Anion Gap 6 3 - 11 LAB CHEMISTRY METHOD 01/22/2025 1:56 PM [facility] Glucose 48(L) 70 - 100 mg/dL LAB CHEMISTRY METHOD 01/22/2025 1:56 PM [facility] BUN 48(H) 5 - 25 mg/dL LAB CHEMISTRY METHOD 01/22/2025 1:56 PM [facility] Creatinine 1.72(H) 0.70 - 1.30 mg/dL LAB CHEMISTRY METHOD 01/22/2025 1:56 PM [facility] eGFR 40(L) >=60 mL/min/1. 73m2 LAB CHEMISTRY METHOD 01/22/2025 1:56 PM [facility] Comment:Calculation based on the Chronic Kidney Disease Epidemiology Collaboration (CKD-EPI) equation refit without adjustment for race. BUN/Creatinine Ratio 27.9 LAB CHEMISTRY METHOD 01/22/2025 1:56 PM [facility] Calcium 8.8 8.5 - 10.5 mg/dL LAB CHEMISTRY METHOD 01/22/2025 1:56 PM [facility] AST (SGOT) 31 10 - 42 unit/L LAB CHEMISTRY METHOD 01/22/2025 1:56 PM [facility] ALT (SGPT) 17 10 - 60 unit/L LAB CHEMISTRY METHOD 01/22/2025 1:56 PM [facility] Alkaline Phosphatase 99 42 - 121 unit/L LAB CHEMISTRY METHOD 01/22/2025 1:56 PM [facility] Total Protein 8.9(H) 6.0 - 8.0 g/dL LAB CHEMISTRY METHOD 01/22/2025 1:56 PM [facility] Albumin 2.2(L) 3.2 - 5.0 g/dL LAB CHEMISTRY METHOD 01/22/2025 1:56 PM EDT [facility] Total Bilirubin 0.5 0.0 - 1.4 mg/dL LAB CHEMISTRY METHOD 01/22/2025 1:56 PM EDT [facility] Blood Venous blood specimen / Unknown Venipuncture / Unknown 01/22/2025 8:41 AM EDT 01/22/2025 9:54 AM EDT us Romy Tovar MD LAB BLOOD ORDERABLES Final Resul t [facility] [address] [place] [address], [place] [phone] * (ABNORMAL) Complete blood count (01/22/2025 8:41 AM EDT) WBC 4.4(L) 4.8 - 10.8 K/mcL LAB HEMETOLOGY METHOD 01/22/2025 12:10 PM EDT [facility] RBC 2.20(L) 4.50 - 5.50 M/mcL LAB HEMETOLOGY METHOD 01/22/2025 12:10 PM EDT [facility] Hemoglobin 7.2(L) 13.5 - 17.5 g/dL LAB HEMETOLOGY METHOD 01/22/2025 12:10 PM EDT [facility] Hematocrit 22.8(L) 42.0 - 54.0 % LAB HEMETOLOGY METHOD 01/22/2025 12:10 PM EDT [facility] MCV 105.6(H) 79.0 - 98.0 FL LAB HEMETOLOGY METHOD 01/22/2025 12:10 PM EDT [facility] MCH 33.3(H) 27.0 - 32.0 pcg LAB HEMETOLOGY METHOD 01/22/2025 12:10 PM EDT [facility] MCHC 31.6(L) 32.0 - 37.0 g/dL LAB HEMETOLOGY METHOD 01/22/2025 12:10 PM EDT [facility] RDW 16.9(H) 11.0 - 15.0 % LAB HEMETOLOGY METHOD 01/22/2025 12:10 PM EDT [facility] Platelets 154 130 - 400 K/mcL LAB HEMETOLOGY METHOD 01/22/2025 12:10 PM EDT [facility] MPV 10.6 7.0 - 11.0 FL LAB HEMETOLOGY METHOD 01/22/2025 12:10 PM EDT [facility] NRBC 0.0 <1.0 % LAB HEMETOLOGY METHOD 01/22/2025 12:10 PM EDT [facility] NRBC Absolute 0.00 <0.10 K/mcL LAB HEMETOLOGY METHOD 01/22/2025 12:10 PM EDT [facility] Blood Venous blood specimen / Unknown Venipuncture / Unknown 01/22/2025 8:41 AM EDT 01/22/2025 9:54 AM EDT us Romy Tovar MD LAB BLOOD ORDERABLES Final Resul t [facility] [address] [place] [address], documented in this encounter Visit Diagnoses Diagnosis Anemia, unspecified Unspecified kidney failure documented in this encounter Care Teams Twister Tender Relationship Specialty Start Date End Date Rober Cottrell [address] [place] [address] [phone] [place] [address] PCP - General 11/03/24 documented as of this encounter
--- OUTSIDE RECORDS SUMMARY | 2025-02-20 18:08 | XMS_ITS | Clinical Summary ---
Author Organization [address] Address [address] [place] [address] Phone Care Team Providers Care Communications Director Name Role Phone MaxewllrichardIggy Primary Care Provider [phone] Encounters Date Type Department Care Team Description 02/19/2025 Lab Requisition [facility] Lab [address] [place] [phone] Romy Tovar MD Anemia, unspecified; Type 2 diabetes mellitus without complications ([facility]/HCC V24, CMS/HCC V28) 02/15/2025 Lab Requisition [facility] Lab [address] [place] [phone] Romy Tovar MD Type 2 diabetes mellitus without complications (CMS/HCC V24, CMS/HCC V28); Unspecified atrial fibrillation (CMS/HCC V24, CMS/HCC V28); Essential (primary) hypertension; Anemia, unspecified 02/08/2025 Lab Requisition [facility] Lab [address] [place] [phone] Romy Tovar MD Type 2 diabetes mellitus without complications (CMS/HCC V24, CMS/HCC V28); Anemia, unspecified; Unspecified atrial fibrillation (CMS/HCC V24, CMS/HCC V28) 01/22/2025 Lab Requisition [facility] Lab [address] [place] [phone] Romy Tovar MD Anemia, unspecified; Unspecified kidney failure 01/19/2025 Lab Requisition [facility] Lab [address] [place] [phone] Romy Tovar MD Anemia, unspecified; Dehydration; Essential (primary) hypertension 01/16/2025 Lab Requisition [facility] Lab [address] [place] [phone] Romy Tovar MD Anemia, unspecified 12/18/2024 Lab Requisition [facility] Lab [address] [place] [phone] Romy Tovar MD Anemia, unspecified 12/14/2024 Lab Requisition [facility] Lab [address] [place] [phone] Romy Tovar MD Type 2 diabetes mellitus with unspecified complications (CMS/HCC V24, CMS/HCC V28); Unspecified atrial fibrillation (CMS/HCC V24, CMS/HCC V28); Essential (primary) hypertension 12/02/2024 Lab Requisition [facility] Lab [address] [place] [phone] Romy Tovar MD Essential (primary) hypertension 11/30/2024 Lab Requisition [facility] Lab [address] [place] [phone] Romy Tovar MD Anemia, unspecified; Essential (primary) hypertension; Vitamin D deficiency, unspecified 11/18/2024 Lab Requisition [facility] Lab [address] [place] [phone] Romy Tovar MD Anemia, unspecified from Last 3 Months Social History Tobacco Use Types Packs/Day Years Used Date Smoking Tobacco: Never Assessed Sex and Gender Information Value Date Recorded Sex Assigned at Not on file Legal Sex Male 12:21 PM EDT Gender Identity Not on file Sexual Orientation Not on file Plan of Treatment Health Maintenance Due Date Last Done Comments Diabetes: Annual Foot Exam 1955 Diabetes: Annual Retina Eye Exam 1955 RSV Immunization Adult Patients (1 - 1-dose 75+ series) 2020 Depression Screening 05/17/2024 Cholesterol Screening (Lipid Panel) 10/13/2024 Diabetes: Annual Urine Albumin-Creatinine Ratio (uACR) 10/13/2024 Falls Risk Assessment 10/13/2024 Hepatitis C Screening 10/13/2024 Medicare Annual Wellness Visit 10/13/2024 Social Influencers of Health Screening 10/13/2024 COVID-19 Vaccine ( season) 2025 05/29/2022, 03/11/2021, 07/03/2020, Additional history exists Influenza Vaccine (#1) 2025 , 05/12/2022, 03/11/2021, Additional history exists Diabetes: Blood Sugar Control Test (HGBA1C) 08/08/2025 02/08/2025, 10/13/2024 Diabetes: Annual GFR (Glomerular Filtration Rate) 02/19/2026 02/19/2025, 02/15/2025, 02/08/2025, Additional history exists Hypertension/CHF/CAD Annual BMP Blood Test 02/19/2026 02/19/2025, 02/15/2025, 02/08/2025, Additional history exists DTaP,Tdap,and Td Vaccines (3 - Td or Tdap) 12/11/2030 12/11/2020, 02/14/2011 Zoster Vaccines Completed 03/21/2018, 0807/2017, 05/17/2013 Pneumococcal Vaccine: 50+ Years Completed 08/02/2019, 10/10/2015, 08/15/2014 HIB Vaccines Aged Out No longer eligi ble based on patient's age to complete this topic HPV Vaccines Aged Out No longer eligi ble based on patient's age to complete this topic Hepatitis A Vaccines Aged Out No long er eligible based on patient's age to complete this topic Hepatitis B Vaccines Aged Out No long er eligible based on patient's age to complete this topic IPV Vaccines Aged Out No longer eligi ble based on patient's age to complete this topic MMR Vaccines Aged Out No longer eligi ble based on patient's age to complete this topic Meningococcal ACWY Vaccine Aged Out N o longer eligible based on patient's age to complete this topic Meningococcal B Vaccine Aged Out No l onger eligible based on patient's age to complete this topic RSV Immunization Patients Under 20 months Aged Out No longer eligible based on patient's age to complete this topic Varicella Vaccines Aged Out No longer eligible based on patient's age to complete this topic Procedures Procedure Name Priority Date/Time Associated Diagnosis Comments COMPREHENSIVE METABOLIC PANEL Routine 02/19/2025 9:08 AM EDT Anemia, unspecified Type 2 diabetes mellitus without complications (CMS/HCC V24, CMS/HCC V28) COMPLETE BLOOD COUNT Routine 02/19/2025 9:08 AM EDT Anemia, unspecified Type 2 diabetes mellitus without complications (CMS/HCC V24, CMS/HCC V28) COMPREHENSIVE METABOLIC PANEL Routine 02/15/2025 5:25 AM EDT Type 2 diabetes mellitus without complications (CMS/HCC V24, CMS/HCC V28) Unspecified atrial fibrillation (CMS/HCC V24, CMS/HCC V28) Essential (primary) hypertension Anemia, unspecified COMPLETE BLOOD COUNT Routine 02/15/2025 5:25 AM EDT Type 2 diabetes mellitus without complications (CMS/HCC V24, CMS/HCC V28) Unspecified atrial fibrillation (CMS/HCC V24, CMS/HCC V28) Essential (primary) hypertension Anemia, unspecified HEMOGLOBIN A1C Routine 02/08/2025 6:58 AM EDT Type 2 diabetes mellitus without complications (CMS/HCC V24, CMS/HCC V28) Anemia, unspecified Unspecified atrial fibrillation (CMS/HCC V24, CMS/HCC V28) COMPREHENSIVE METABOLIC PANEL Routine 02/08/2025 6:58 AM EDT Type 2 diabetes mellitus without complications (CMS/HCC V24, CMS/HCC V28) Anemia, unspecified Unspecified atrial fibrillation (CMS/HCC V24, CMS/HCC V28) COMPLETE BLOOD COUNT Routine 02/08/2025 6:58 AM EDT Type 2 diabetes mellitus without complications (CMS/HCC V24, CMS/HCC V28) Anemia, unspecified Unspecified atrial fibrillation (CMS/HCC V24, CMS/HCC V28) COMPREHENSIVE METABOLIC PANEL Routine 01/22/2025 8:41 AM EDT Anemia, unspecified Unspecified kidney failure COMPLETE BLOOD COUNT Routine 01/22/2025 8:41 AM EDT Anemia, unspecified Unspecified kidney failure BASIC METABOLIC PANEL Routine 01/19/2025 6:26 AM EDT Anemia, unspecified Dehydration Essential (primary) hypertension COMPLETE BLOOD COUNT Routine 01/19/2025 6:26 AM EDT Anemia, unspecified Dehydration Essential (primary) hypertension COMPREHENSIVE METABOLIC PANEL Routine 01/16/2025 8:32 AM EDT Anemia, unspecified COMPLETE BLOOD COUNT Routine 01/16/2025 8:32 AM EDT Anemia, unspecified BASIC METABOLIC PANEL Routine 12/18/2024 6:51 AM EDT Anemia, unspecified COMPLETE BLOOD COUNT Routine 12/18/2024 6:51 AM EDT Anemia, unspecified SEDIMENTATION RATE Routine 12/14/2024 11 :45 AM [...] Essential (primary) hypertension COMPLETE BLOOD COUNT Routine 12/02/2024 6:33 AM EDT Essential (primary) hypertension [place] PROTEIN ELECTROPHORETIC FRACTIONATION & QUANTITATION SERUM Routine 11/30/2024 5:43 AM EDT Anemia, unspecified Essential (primary) hypertension Vitamin D deficiency, unspecified [place] IMMUNOFIXATION ELECTROPHORESIS SERUM Routine 11/30/2024 5:43 AM [...] D deficiency, unspecified COMPLETE BLOOD COUNT Routine 11/20/2024 5:47 AM EDT Anemia, unspecified from Last 3 Months Results * (ABNORMAL) Complete blood count (02/19/2025 9:08 AM EDT) Only the most recent of11 resultswithin the time period is included. WBC 3.8(L) 4.8 - 10.8 K/mcL LAB HEMETOLOGY METHOD 02/19/2025 12:37 PM [facility] RBC 2.30(L) 4.50 - 5.50 M/mcL LAB HEMETOLOGY METHOD 02/19/2025 12:37 PM [facility] Hemoglobin 7.8(L) 13.5 - 17.5 g/dL LAB HEMETOLOGY METHOD 02/19/2025 12:37 PM [facility] Hematocrit 25.5(L) 42.0 - 54.0 % LAB HEMETOLOGY METHOD 02/19/2025 12:37 PM [facility] MCV 109.4(H) 79.0 - 98.0 FL LAB HEMETOLOGY METHOD 02/19/2025 12:37 PM [facility] MCH 33.5(H) 27.0 - 32.0 pcg LAB HEMETOLOGY METHOD 02/19/2025 12:37 PM [facility] MCHC 30.6(L) 32.0 - 37.0 g/dL LAB HEMETOLOGY METHOD 02/19/2025 12:37 PM [facility] RDW 19.1(H) 11.0 - 15.0 % LAB HEMETOLOGY METHOD 02/19/2025 12:37 PM [facility] Platelets 135 130 - 400 K/mcL LAB HEMETOLOGY METHOD 02/19/2025 12:37 PM [facility] MPV 10.5 7.0 - 11.0 FL LAB HEMETOLOGY METHOD 02/19/2025 12:37 PM EDT [facility] NRBC 0.0 <1.0 % LAB HEMETOLOGY METHOD 02/19/2025 12:37 PM EDT [facility] LAB NRBC Absolute 0.00 <0.10 K/mcL LAB HEMETOLOGY METHOD 02/19/2025 12:37 PM EDT [facility] LAB Blood Venous blood specimen / Unknown Venipuncture / Unknown 02/19/2025 9:08 AM EDT 02/19/2025 10:54 AM EDT us Romy Tovar MD LAB BLOOD ORDERABLES Final Resul t [facility] LAB [address] [place] [address], * (ABNORMAL) Comprehensive metabolic panel (02/19/2025 9:08 AM EDT) Only the most recent of6 resultswithin the time period is included. Sodium 141 133 - 145 mmol/L LAB CHEMISTRY METHOD 02/19/2025 1:02 PM [facility] Potassium 4.3 3.5 - 5.5 mmol/L LAB CHEMISTRY METHOD 02/19/2025 1:02 PM [facility] Chloride 104 96 - 110 mmol/L LAB CHEMISTRY METHOD 02/19/2025 1:02 PM [facility] CO2 29 21 - 32 mmol/L LAB CHEMISTRY METHOD 02/19/2025 1:02 PM [facility] Anion Gap 8 3 - 11 LAB CHEMISTRY METHOD 02/19/2025 1:02 PM [facility] Glucose 115(H) 70 - 100 mg/dL LAB CHEMISTRY METHOD 02/19/2025 1:02 PM [facility] BUN 43(H) 5 - 25 mg/dL LAB CHEMISTRY METHOD 02/19/2025 1:02 PM [facility] Creatinine 1.57(H) 0.70 - 1.30 mg/dL LAB CHEMISTRY METHOD 02/19/2025 1:02 PM [facility] eGFR 45(L) >=60 mL/min/1. 73m2 LAB CHEMISTRY METHOD 02/19/2025 1:02 PM [facility] Comment:Calculation based on the Chronic Kidney Disease Epidemiology Collaboration (CKD-EPI) equation refit without adjustment for race. BUN/Creatinine Ratio 27.4 LAB CHEMISTRY METHOD 02/19/2025 1:02 PM [facility] Calcium 8.6 8.5 - 10.5 mg/dL LAB CHEMISTRY METHOD 02/19/2025 1:02 PM [facility] AST (SGOT) 32 10 - 42 unit/L LAB CHEMISTRY METHOD 02/19/2025 1:02 PM [facility] ALT (SGPT) 19 10 - 60 unit/L LAB CHEMISTRY METHOD 02/19/2025 1:02 PM [facility] Alkaline Phosphatase 114 42 - 121 unit/L LAB CHEMISTRY METHOD 02/19/2025 1:02 PM [facility] Total Protein 8.5(H) 6.0 - 8.0 g/dL LAB CHEMISTRY METHOD 02/19/2025 1:02 PM [facility] Albumin 2.1(L) 3.2 - 5.0 g/dL LAB CHEMISTRY METHOD 02/19/2025 1:02 PM [facility] Total Bilirubin 0.8 0.0 - 1.4 mg/dL LAB CHEMISTRY METHOD 02/19/2025 1:02 PM [facility] Blood Venous blood specimen / Unknown 02/19/2025 9:08 AM EDT 02/19/2025 10:54 AM EDT us Romy Tovar MD LAB BLOOD ORDERABLES Final Resul t Performing Organization Address City/[facility]/ZIP Co de Phone Number [facility] [address] [place] [address], [place] [phone] * Hemoglobin A1c (02/08/2025 6:58 AM EDT) [facility] Hemoglobin A1C 5.7 <6.5 % LAB CHEMISTRY METHOD 02/08/2025 12:42 PM EDT [facility] Mean Bld Glu Estim. 117 mg/dL LAB CHEMISTRY METHOD 02/08/2025 12:42 PM EDT [facility] LAB Blood Venous blood specimen / Unknown Venipuncture / Unknown 02/08/2025 6:58 AM EDT 02/08/2025 10:09 AM EDT us Romy Tovar MD LAB BLOOD ORDERABLES Final Resul t Performing Organization Address [facility]/ZIP Co de Phone Number [facility] [address] [place] [address], [place] [phone] * (ABNORMAL) Basic metabolic panel (01/19/2025 6:26 AM EDT) Only the most recent of3 resultswithin the time period is included. [facility] Sodium 137 133 - 145 mmol/L LAB CHEMISTRY METHOD 01/19/2025 9:25 AM EDT [facility] Potassium 3.7 3.5 - 5.5 mmol/L LAB CHEMISTRY METHOD 01/19/2025 9:25 AM EDT [facility] Chloride 101 96 - 110 mmol/L LAB CHEMISTRY METHOD 01/19/2025 9:25 AM EDT [facility] CO2 29 21 - 32 mmol/L LAB CHEMISTRY METHOD 01/19/2025 9:25 AM EDT [facility] Anion Gap 7 3 - 11 LAB CHEMISTRY METHOD 01/19/2025 9:25 AM EDT [facility] Glucose 45(L) 70 - 100 mg/dL LAB CHEMISTRY METHOD 01/19/2025 9:25 AM EDT [facility] BUN 57(H) 5 - 25 mg/dL LAB CHEMISTRY METHOD 01/19/2025 9:25 AM EDT [facility] Creatinine 1.57(H) 0.70 - 1.30 mg/dL LAB CHEMISTRY METHOD 01/19/2025 9:25 AM EDT [facility] LAB eGFR 45(L) >=60 mL/min/1. 73m2 LAB CHEMISTRY METHOD 01/19/2025 9:25 AM EDT [facility] LAB Comment:Calculation based on the Chronic Kidney Disease Epidemiology Collaboration (CKD-EPI) equation refit without adjustment for race. BUN/Creatinine Ratio 36.3 LAB CHEMISTRY METHOD 01/19/2025 9:25 AM EDT [facility] Calcium 8.4(L) 8.5 - 10.5 mg/dL LAB CHEMISTRY METHOD 01/19/2025 9:25 AM EDT [facility] Blood Venous blood specimen / Unknown Venipuncture / Unknown 01/19/2025 6:26 AM EDT 01/19/2025 7:57 AM EDT us Romy Tovar MD LAB BLOOD ORDERABLES Final Resul t [facility] [address] [place] [address], * (ABNORMAL) Sedimentation rate (12/14/2024 11:45 AM EDT) Sed Rate 53(H) 0 - 20 mm/hr LAB HEMETOLOGY METHOD 12/14/2024 12:50 PM EDT [facility] Blood Venous blood specimen / Unknown Venipuncture / Unknown 12/14/2024 11:45 AM EDT 12/14/2024 12:07 PM EDT us Romy Tovar MD LAB BLOOD ORDERABLES Final Resul t Performing Organization Address [facility] Co de Phone Number [facility] [address] [place] [address], [place] [phone] * Pathologist Review Immunofixation (11/30/2024 5:43 AM EDT) Pathologist Interpretation Emma Snow MD 12/04/2024 3:03 PM EDT [facility] Blood Venous blood specimen / Unknown Venipuncture / Unknown 11/30/2024 5:43 AM EDT 11/30/2024 8:32 AM EDT us Romy Tovar MD LAB BLOOD ORDERABLES Final Resul t Performing Organization Address [facility] Co de Phone Number [facility] [address] [place] [address], [place] [phone] * PATHOLOGIST REVIEW PROTEIN ELECTROPHORESIS (11/30/2024 5:43 AM EDT) Pathologist Interpretation Emma Snow MD 12/04/2024 3:04 PM EDT [facility] Blood Venous blood specimen / Unknown Venipuncture / Unknown 11/30/2024 5:43 AM EDT 11/30/2024 8:32 AM EDT us Romy Tovar MD LAB BLOOD ORDERABLES Final Resul t Performing Organization Address City/[facility]/ZIP Co de Phone Number [facility] [address] [place] [address], [place] [phone] * (ABNORMAL) Iron and TIBC (11/30/2024 5:43 AM EDT) Iron 41(L) 50 - 160 mcg/dL LAB CHEMISTRY METHOD 11/30/2024 9:47 AM EDT [facility] TIBC 176(L) 250 - 450 mcg/dL LAB CHEMISTRY METHOD 11/30/2024 9:47 AM EDT [facility] Iron Saturation 23 20 - 50 % LAB CHEMISTRY METHOD 11/30/2024 9:47 AM EDT [facility] Blood Venous blood specimen / Unknown Venipuncture / Unknown 11/30/2024 5:43 AM EDT 11/30/2024 8:32 AM EDT us Romy Tovar MD LAB BLOOD ORDERABLES Final Resul t Performing Organization Address City/[facility] Co de Phone Number [facility] [address] [place] [address], [place] [phone] * Vitamin D 25 hydroxy (11/30/2024 5:43 AM EDT) Pathologist [facility] Vit D, 25-Hydroxy 51.4 30.0 - 80.0 ng/mL LAB CHEMISTRY METHOD 11/30/2024 10:13 AM EDT [facility] Blood Venous blood specimen / Unknown Venipuncture / Unknown 11/30/2024 5:43 AM EDT 11/30/2024 8:32 AM EDT us Romy Tovar MD LAB BLOOD ORDERABLES Final Resul t Performing Organization Address [facility] Co de Phone Number [facility] [address] [place] [address], [place] [phone] * Immunofixation electrophoresis serum (11/30/2024 5:43 AM EDT) [facility] Immunofixation Result, Serum IgA [place] monoclonal immunoglobulins detected. LAB CHEMISTRY METHOD 12/04/2024 3:03 PM EDT [facility] Blood Venous blood specimen / Unknown Venipuncture / Unknown 11/30/2024 5:43 AM EDT 11/30/2024 8:32 AM EDT us Romy Tovar MD LAB BLOOD ORDERABLES Final Resul t Performing Organization Address City/[facility]/ZIP Co de Phone Number [facility] [address] [place] [address], [place] [phone] * (ABNORMAL) Immunoglobulins IgG, IgA, IgM (11/30/2024 5:43 AM EDT) Pathologist [facility] Total IgG 270(L) 549 - 1,584 mg/dL LAB CHEMISTRY METHOD 12/04/2024 5:18 PM EDT [facility] IgA 3,610(H) 61 - 348 mg/dL LAB CHEMISTRY METHOD 12/04/2024 5:18 PM EDT [facility] LAB Comment:Results verified by repeat testing IgM 6(L) 23 - 259 mg/dL LAB CHEMISTRY METHOD 12/04/2024 5:18 PM EDT [facility] Comment:Results verified by repeat testing Blood Venous blood specimen / Unknown Venipuncture / Unknown 11/30/2024 5:43 AM EDT 11/30/2024 8:32 AM EDT Romy Tovar MD LAB BLOOD ORDERABLES Final Resul t Performing Organization Address [facility] Co de Phone Number [facility] [address] [place] [address], [place] [phone] * (ABNORMAL) Protein electrophoresis, serum (11/30/2024 5:43 AM EDT) Pathologist [facility] Total Protein 8.8(H) 6.0 - 8.0 g/dL LAB CHEMISTRY METHOD 12/04/2024 3:04 PM EDT [facility] Albumin, Serum 2.8(L) 2.9 - 4.1 g/dL LAB CHEMISTRY METHOD 12/04/2024 3:04 PM EDT [facility] Alpha 1 Globulin (g/dL) 0.3 0.1 - 0.5 g/dL LAB CHEMISTRY METHOD 12/04/2024 3:04 PM EDT [facility] Alpha 2 Globulin (g/dL) 0.8 0.7 - 1.5 g/dL LAB CHEMISTRY METHOD 12/04/2024 3:04 PM EDT [facility] Beta (g/dL) 4.9(H) 0.7 - 1.5 g/dL LAB CHEMISTRY METHOD 12/04/2024 3:04 PM EDT [facility] Gamma Globulin (g/dL) LAB CHEMISTRY METHOD 12/04/2024 3:04 PM EDT [facility] Comment: This result is Beta + Gamma. Unable to separate the two fractions quantitatively. PARAPROTEIN LAB CHEMISTRY METHOD 12/04/2024 3:04 PM EDT [facility] LAB Comment:Migrating as beta SPEP Interpretation Monoclonal gammopathy Abnormal pattern with M-spike migrating in beta region and therefore cannot be measured. Serum Immunofixation performed on this specimen demonstrated IgA [place] monoclonal protein. Hypoalbuminemia, suggestive of malnutrition, decreased hepatic synthesis or renal/GI loss LAB CHEMISTRY METHOD 12/04/2024 3:04 PM EDT [facility] Blood Venous blood specimen / Unknown Venipuncture / Unknown 11/30/2024 5:43 AM EDT 11/30/2024 8:32 AM EDT us Romy Tovar MD LAB BLOOD ORDERABLES Final Resul t [facility] [address] [place] [address], * (ABNORMAL) Protein, total (11/30/2024 5:43 AM EDT) Total Protein 8.8(H) 6.0 - 8.0 g/dL LAB CHEMISTRY METHOD 11/30/2024 9:47 AM EDT [facility] Blood Venous blood specimen / Unknown Venipuncture / Unknown 11/30/2024 5:43 AM EDT 11/30/2024 8:32 AM EDT us Romy oTvar MD LAB BLOOD ORDERABLES Final Resul t Performing Organization Address City/[facility]/ZIP Co de Phone Number [facility] [address] [place] [address], [place] [phone] * (ABNORMAL) Ferritin (11/30/2024 5:43 AM EDT) Ferritin 525(H) 26 - 388 ng/mL LAB CHEMISTRY METHOD 11/30/2024 9:47 AM EDT [facility] Blood Venous blood specimen / Unknown Venipuncture / Unknown 11/30/2024 5:43 AM EDT 11/30/2024 8:32 AM EDT us Romy Tovar MD LAB BLOOD ORDERABLES Final Resul t Performing Organization Address [facility] Co de Phone Number [facility] [address] [place] [address], [place] [phone] from Last 3 Months Insurance MEDICARE [facility] MEDICARE Care Teams Communications Director Relationship Specialty Start Date End Date Iggy Cottrell [address] [facility] [phone] [place] [phone] PCP - General 11/03/24
--- OUTSIDE RECORDS SUMMARY | 2025-02-20 18:08 | XMS_ITS | Encounter Summary ---
Author Organization [facility] Address [address] [place] [address] Care Team Providers Care Digital Content Manager Name Role Phone Rober Cottrell Apolinar Primary Care Provider [phone] Encounter Details Date Type Department Care Team (Late st Contact Info) Description 11/18/[address] [facility] - Main Lab [address] [place] [address] Romy Tovar MD [address] [place] [phone] Anemia, unspecified Social History Tobacco Use Types [...] Associated Diagnosis Comments COMPLETE BLOOD COUNT Routine 11/20/2024 5:47 AM EDT Anemia, unspecified documented in this encounter Results * (ABNORMAL) Complete blood count (11/20/2024 5:47 AM EDT) WBC 3.9(L) 4.8 - 10.8 K/[facility] LAB HEMETOLOGY METHOD 11/20/2024 12:04 PM EDT [facility] RBC 2.30(L) 4.50 - 5.50 M/[facility] LAB HEMETOLOGY METHOD 11/20/2024 12:04 PM EDT [facility] Hemoglobin 7.5(L) 13.5 - 17.5 g/dL LAB HEMETOLOGY METHOD 11/20/2024 12:04 PM EDT [facility] Hematocrit 24.8(L) 42.0 - 54.0 % LAB HEMETOLOGY METHOD 11/20/2024 12:04 PM EDT [facility] MCV 106.4(H) 79.0 - 98.0 FL LAB HEMETOLOGY METHOD 11/20/2024 12:04 PM EDT [facility] MCH 32.2(H) 27.0 - 32.0 pcg LAB HEMETOLOGY METHOD 11/20/2024 12:04 PM EDT [facility] MCHC 30.2(L) 32.0 - 37.0 g/dL LAB [facility]OLOGY [facility] RDW 19.0(H) 11.0 - 15.0 % LAB HEMETOLOGY METHOD 11/20/2024 12:04 PM EDT [facility] Platelets 143 130 - 400 K/mcL LAB HEMETOLOGY METHOD 11/20/2024 12:04 PM EDT [facility] MPV 10.6 7.0 - 11.0 FL LAB HEMETOLOGY METHOD 11/20/2024 12:04 PM [facility] NRBC 0.0 <1.0 % LAB [facility]EM[facility]OLOGY [facility] NR[facility] Absolute 0.00 <0.10 K/mcL LAB HEMETOLOGY METHOD 11/20/2024 12:04 PM [facility] Blood Venous blood specimen / Unknown Venipuncture / Unknown 11/20/2024 5:47 AM EDT 11/20/2024 10:44 AM EDT us Romy Tovar MD LAB BLOOD ORDERABLES Final Resul t [facility] [address] [place], [place] [address] [phone] documented in this encounter Visit Diagnoses Diagnosis Anemia, unspecified documented in this encounter Care Teams Digital Content Manager Relationship Specialty Start Date End Date Rober Cottrell [address] [place] [address] [phone] [place] [phone] PCP - General 11/03/24 documented as of this encounter
--- OUTSIDE RECORDS SUMMARY | 2025-02-20 18:08 | XMS_ITS | Encounter Summary ---
Author Organization [facility] Address [address] [place] [address] Care Team Providers Care Private Eye Name Role Phone Rober Cottrell Primary Care Provider [phone] Encounter Details Date Type Department Care Team (Late st Contact Info) Description 01/16/2025 Lab Requisition [facility] - Main Lab [address] [place] [address] Romy Tovar MD [address] [place] [phone] Anemia, unspecified Social History Tobacco Use Types [...] Associated Diagnosis Comments COMPLETE BLOOD COUNT Routine 01/16/2025 8:32 AM EDT Anemia, unspecified COMPREHENSIVE METABOLIC PANEL Routine 01/16/2025 8:32 AM EDT Anemia, unspecified documented in this encounter Results * (ABNORMAL) Comprehensive metabolic panel (01/16/2025 8:32 AM EDT) Sodium 137 133 - 145 mmol/L LAB CHEMISTRY METHOD 01/16/2025 12:26 PM [facility] Potassium 3.6 3.5 - 5.5 mmol/L LAB CHEMISTRY METHOD 01/16/2025 12:26 PM [facility] Chloride 100 96 - 110 mmol/L LAB CHEMISTRY METHOD 01/16/2025 12:26 PM [facility] CO2 30 21 - 32 mmol/L LAB CHEMISTRY METHOD 01/16/2025 12:26 PM [facility] Anion Gap 7 3 - 11 LAB CHEMISTRY METHOD 01/16/2025 12:26 PM [facility] Glucose 105(H) 70 - 100 mg/dL LAB CHEMISTRY METHOD 01/16/2025 12:26 PM [facility] BUN 58(H) 5 - 25 mg/dL LAB CHEMISTRY METHOD 01/16/2025 12:26 PM [facility] Creatinine 1.74(H) 0.70 - 1.30 mg/dL LAB CHEMISTRY METHOD 01/16/2025 12:26 PM [facility] eGFR 39(L) >=60 mL/min/1. 73m2 LAB CHEMISTRY METHOD 01/16/2025 12:26 PM [facility] Comment:Calculation based on the Chronic Kidney Disease Epidemiology Collaboration (CKD-EPI) equation refit without adjustment for race. BUN/Creatinine Ratio 33.3 LAB CHEMISTRY METHOD 01/16/2025 12:26 PM [facility] Calcium 8.6 8.5 - 10.5 mg/dL LAB CHEMISTRY METHOD 01/16/2025 12:26 PM [facility] AST (SGOT) 27 10 - 42 unit/L LAB CHEMISTRY METHOD 01/16/2025 12:26 PM [facility] ALT (SGPT) 15 10 - 60 unit/L LAB CHEMISTRY METHOD 01/16/2025 12:26 PM [facility] Alkaline Phosphatase 96 42 - 121 unit/L LAB CHEMISTRY METHOD 01/16/2025 12:26 PM [facility] Total Protein 8.8(H) 6.0 - 8.0 g/dL LAB CHEMISTRY METHOD 01/16/2025 12:26 PM [facility] Albumin 2.2(L) 3.2 - 5.0 g/dL LAB CHEMISTRY METHOD 01/16/2025 12:[address] [facility] Total Bilirubin 0.6 0.0 - 1.4 mg/dL LAB CHEMISTRY METHOD 01/16/2025 12:[address] [facility] Blood Venous blood specimen / Unknown Venipuncture / Unknown 01/16/2025 8:32 AM EDT 01/16/2025 10:25 AM EDT us Romy Tovar MD LAB BLOOD ORDERABLES Final Resul t [facility] [address] [place] [address], * (ABNORMAL) Complete blood count (01/16/2025 8:32 AM EDT) WBC 4.9 4.8 - 10.8 K/mcL LAB HEMETOLOGY METHOD 01/16/2025 12:30 PM [facility] RBC 2.30(L) 4.50 - 5.50 M/mcL LAB HEMETOLOGY METHOD 01/16/2025 12:30 PM [facility] Hemoglobin 7.9(L) 13.5 - 17.5 g/dL LAB HEMETOLOGY METHOD 01/16/2025 12:30 PM [facility] Hematocrit 24.4(L) 42.0 - 54.0 % LAB HEMETOLOGY METHOD 01/16/2025 12:[address] [facility] MCV 104.3(H) 79.0 - 98.0 FL LAB HEMETOLOGY METHOD [facility] MCH 33.8(H) 27.0 - 32.0 pcg LAB HEMETOLOGY METHOD 01/16/2025 12:30 PM [facility] MCHC 32.4 32.0 - 37.0 g/dL LAB HEMETOLOGY METHOD 01/16/2025 12:[address] [facility] RDW 17.1(H) 11.0 - 15.0 % LAB HEMETOLOGY METHOD 01/16/2025 12:[address] [facility] Platelets 164 130 - 400 K/mcL LAB HEMETOLOGY METHOD 01/16/2025 12:[address] [facility] MPV 10.1 7.0 - 11.0 FL LAB HEMETOLOGY METHOD 01/16/2025 12:[address] [facility] NRBC 0.0 <1.0 % LAB HEMETOLOGY METHOD 01/16/2025 12:[address] [facility] NRBC Absolute 0.00 <0.10 K/mcL LAB HEMETOLOGY METHOD 01/16/2025 12:[address] [facility] Blood Venous blood specimen / Unknown Venipuncture / Unknown 01/16/2025 8:32 AM EDT 01/16/2025 10:25 AM EDT us Romy Tovar MD LAB BLOOD ORDERABLES Final Resul t [facility] [address] [place] [address], documented in this encounter Visit Diagnoses Diagnosis Anemia, unspecified documented in this encounter Care Teams Private Eye Relationship Specialty Start Date End Date Rober Cottrell [phone] [place] [phone] PCP - General 11/03/24 documented as of this encounter
== END 2025-02-20 15:25 | disposition home or self-care (01) ==
LOC: HO.HVS 14:51
PROVIDERS: Referring Provider Surgery Vascular Surgery; Visit Provider Surgery Vascular Surgery
DX: I73.89 Other specified peripheral vascular diseases (principal); L97.519 Non-pressure chronic ulcer of other part of right foot with unspecified severity; L97.529 Non-pressure chronic ulcer of other part of left foot with unspecified severity
CPT/HCPCS: 99213

== ENCOUNTER → 2025-02-20 14:51 | Outpatient (BNVA) | payer OTHER, SELFPAY | PROVIDERS: Visit Provider Surgery Vascular Surgery | DX: S91.302A Unspecified open wound, left foot, initial encounter (principal); S91.301A Unspecified open wound, right foot, initial encounter | CPT/HCPCS: 99212 ==

== ENCOUNTER 2025-02-26 09:51 | Inpatient (IN) | payer OTHER, SELFPAY ==
[2025-02-26] VITALS (9 sets, daily range): BP systolic 116–133; BP diastolic 68–89; PULSE 78–132; RESP 17–25; TEMP 36.6–36.9; O2SAT 92–99; BMI 30.3
--- NOTE | ~2025-02-26 | CT_ITS ---
CLINICAL HISTORY: hypoxia, AMS CT chest without contrast Comparison: None provided Findings: The heart is mildly enlarged. There are moderate coronary artery calcifications. The visualized thyroid and mediastinum are unremarkable. There are moderate bilateral pleural effusions. There is near-complete consolidation of the left lower lobe. There is bandlike atelectasis within the right lower lobe adjacent to the pleural fluid collection. Evaluation of the lung parenchyma is limited by motion artifact. Findings at the level of the abdomen are reported separately. Findings at the level of the abdomen are reported separately. There is severe chronic deformity of the manubrium. There are fractures of the left 5th, 6th, 7th and 8th ribs, likely chronic. There are compression fractures at T2 and T3, most likely chronic. There is edema of the soft tissues. IMPRESSION: 1. Moderate bilateral pleural effusions. Edema of the soft tissues. 2. Near-complete consolidation of the left lower lobe. This may be secondary to atelectasis and/or pneumonia. This document has been electronically signed by: Alysha Gilbert MD on 02/26/2025 16:20:45
--- NOTE | ~2025-02-26 | CT_ITS ---
CLINICAL HISTORY: AMS CT abdomen and pelvis without contrast Comparison: CT/SR - CT PELVIS WO IV CON - 01/31/25 18:45 EDT Findings: There are moderate bilateral pleural effusions. Additional findings at the level of the chest are reported separately. Evaluation of abdominal organs is limited by artifact and lack of contrast. There is apparent irregularity of the liver cortex. The spleen is normal in size. There is pancreatic volume loss. There is a 2.8 cm nodule within the left adrenal gland, predominantly composed of fat, compatible with a myelolipoma or adenoma. There is an additional 3.2 cm left adrenal nodule with density compatible with an adenoma. The right adrenal gland and bilateral kidneys are unremarkable. There has been a prior cholecystectomy. There is a trace amount of free fluid. There is edema of the soft tissues. There is colonic diverticulosis without diverticulitis. There is no bowel edema or dilatation. There are severe vascular calcifications. The degree of calcification of the origins of the left common iliac and right common femoral arteries suggests severe stenosis or occlusion. There is no aneurysm. There is osteopenia. A mild osteoporotic type fracture at L4 and a moderate osteoporotic type fracture at L5 are without significant change. There is a mild compression fracture at T12, most likely chronic. IMPRESSION: 1. There is generalized increased fluid status. There are moderate bilateral pleural effusions, there is trace abdominal free fluid and there is edema of the soft tissues. 2. Possible cirrhosis. 3. Severe calcific plaque formation within major arteries. The degree of calcification within the left common iliac and right common femoral arteries suggest severe stenosis or occlusion. 4. There is osteopenia. There are osteoporotic type fractures at L4 and L5 without significant change. This document has been electronically signed by: Alysha Gilbert MD on 02/26/2025 16:18:17
--- NOTE | ~2025-02-26 | CT_ITS ---
CLINICAL HISTORY: AMS CT head without contrast Comparison: None provided Findings: No definite intra-axial mass, midline shift, hydrocephalus, or acute hemorrhage, on this motion limited exam. Mild age-related cerebral hemispheric white matter ischemic changes. Mild left maxillary sinus mucosal thickening. Right cataract surgery. No skull fracture. IMPRESSION: 1. No definite acute intracranial findings, on this motion limited exam. This document has been electronically signed by: Ayah Quispe MD on 02/26/2025 12:38:58
--- NOTE | ~2025-02-26 | XR_ITS ---
CLINICAL HISTORY: AMS, hypoxic 2 view chest x-ray Comparison: None provided Findings: Partial right lower lung and hazy left inferior perihilar opacities due to atelectasis/infiltrates. Questionable pulmonary vascular congestion. Correlate clinically. Cardiomegaly. No acute fracture. IMPRESSION: Partial right lower lung and hazy left inferior perihilar opacities due to atelectasis/infiltrates. Questionable pulmonary vascular congestion. Correlate clinically. Cardiomegaly. This document has been electronically signed by: Ayah Quispe MD on 02/26/2025 12:10:45
--- NOTE | 2025-02-26 10:14 | ECG_ITS ---
Test Reason : TACHY Blood Pressure : */* mmHG Vent. Rate : 119 BPM Atrial Rate : * BPM P-R Int : * ms QRS Dur : 88 ms QT Int : 314 ms P-R-T Axes : * -15 79 degrees QTcB Int : 441 ms Atrial fibrillation with rapid ventricular response Low voltage QRS Nonspecific T wave abnormality Abnormal ECG When compared with ECG of 31-Jan-2025 16:25, No significant change was found Referred By: Generic ED Physician Electronically Signed By: Winston Beaver
--- NOTE | 2025-02-26 10:58 | ED.AMS ---
HPI - Altered Mental Status General Chief Complaint: Altered Mental Status Stated Complaint: ?SEPSIS,INTERMITTENT UNRESPONSIVENESS PER EMS Time Seen by Provider: 02/26/25 10:55 Source: patient, family (Son at bedside), EMS, RN notes reviewed and old records reviewed Mode of arrival: EMS Limitations: altered mental status History of Present Illness ED Provider: JEANCARLOS Kent HPI narrative: 79-year-old male accompanied by son from [facility] with medical history of AFib on Eliquis, HLD, BPH, chronic ulcer of sacral region, anemia, T2DM, presents to the ED by EMS due to 5 days of progressively worsening weakness, and altered mental status. Patient presents to the ED hypoxic at 85%, currently on 6 L oxy mask. Patient is alert and oriented to self only and cannot narrate what happened today. Related Data Home Medications ?Medication ?Instructions ?Recorded ?Confirmed acetaminophen 325 mg capsule 650 mg PO Q4-6H PRN Fever Or Pain 12/29/24 02/27/25 ascorbic acid (vitamin C) 250 mg 250 mg PO DAILY 12/29/24 02/27/25 tablet bisacodyl 10 mg rectal suppository 10 mg ID DAILY PRN Constipation 12/29/24 02/27/25 (Dulcolax (bisacodyl)) cholecalciferol (vitamin D3) 25 25 mcg PO DAILY 12/29/24 02/27/25 mcg (1,000 unit) tablet enalapril maleate 2.5 mg tablet 2.5 mg PO DAILY 12/29/24 02/27/25 ferrous sulfate 325 mg (65 mg 325 mg PO DAILY 12/29/24 02/27/25 iron) tablet finasteride 5 mg tablet 5 mg PO DAILY 12/29/24 02/27/25 guaifenesin 100 mg/5 mL oral 200 mg PO Q8H PRN Cough 12/29/24 02/27/25 liquid (Kareen-Tussin) loratadine 10 mg capsule 10 mg PO DAILY 12/29/24 02/27/25 multivitamin 1 tab PO DAILY 12/29/24 02/27/25 pregabalin 200 mg capsule (Lyrica) 200 mg PO BID 12/29/24 02/27/25 rosuvastatin 5 mg tablet 5 mg PO DAILY 12/29/24 02/27/25 tamsulosin 0.4 mg capsule 0.8 mg PO DAILY 12/29/24 02/27/25 lidocaine 4 % topical patch 1 patch topical DAILY 01/31/25 02/27/25 magnesium hydroxide 400 mg/5 mL 30 ml PO BEDTIME PRN Constipation 01/31/25 02/27/25 oral suspension (Milk of Magnesia) nystatin 100,000 unit/gram topical 1 appl topical DAILY PRN rash oif 01/31/25 02/27/25 cream soiled, saturated or accidentally removed nystatin 100,000 unit/gram topical 1 appl topical DAILY 01/31/25 02/27/25 powder polyvinyl alcohol-povidone (PF) 2 drp ophthalmic-Right Q2H PRN Dry 01/31/25 02/27/25 1.4 %-0.6 % eye drops in a Eyes dropperette sodium hypochlorite 0.25 % 1 appl topical DAILY Wound Care 01/31/25 02/27/25 solution (Dakin's Solution) wound dressings (Triad Wound 1 appl topical DAILY 01/31/25 02/27/25 Dressing paste) melatonin 5 mg capsule 5 mg PO BEDTIME 02/19/25 02/27/25 dextrose 40 % oral gel (Glucose 10 g PO Q15M PRN low sugar 02/27/25 02/27/25 Gel) glucagon 1 mg solution for 1 mg subcut Q15M PRN low sugar 02/27/25 02/27/25 injection (Glucagon Emergency Kit) hydrocortisone 1 % topical cream 1 appl topical DAILY 02/27/25 02/27/25 insulin glargine 100 unit/mL (3 20 unit subcut DAILY 02/27/25 02/27/25 mL) subcutaneous pen (Lantus Solostar U-100 Insulin) naloxone 4 mg/actuation nasal spray 1 spray intranasal Q2M PRN Opiate 02/27/25 02/27/25 Reversal sodium phosphates 19 gram-7 118 ml ID DAILY PRN Constipation 02/27/25 02/27/25 gram/118 mL enema (Fleet Enema) trazodone 50 mg tablet 25 mg PO BEDTIME 02/27/25 02/27/25 wound dressings (Triad Wound 1 appl topical DAILY PRN if 02/27/25 02/27/25 Dressing paste) soiled, saturated or accidentally removed Previous Rx's ?Medication ?Instructions ?Recorded apixaban 2.5 mg tablet (Eliquis) 2.5 mg PO BID #90 tabs 02/07/25 metoprolol succinate 25 mg 25 mg PO DAILY #30 tabs 02/07/25 tablet,extended release 24 hr (Toprol XL) morphine 10 mg/5 mL oral solution 5 mg (2.5 mL) PO Q4H PRN pain, 02/07/25 severe #100 mL Allergies Allergy/AdvReac Type Severity Reaction Status Date / Time atorvastatin (From Lipitor) Allergy Anaphylaxis Verified 02/26/25 10:12 capsaicin Allergy Anaphylaxis Verified 02/26/25 10:12 duloxetine (From Cymbalta) Allergy Anaphylaxis Verified 02/26/25 10:12 gabapentin Allergy Anaphylaxis Verified 02/26/25 10:12 metformin Allergy Anaphylaxis Verified 02/26/25 10:12 Review of Systems Review of Systems: Unable to perform ROS as patient is altered, can not follow commands Yes all other systems are reviewed and are negative PMFSH Past Medical History Attestation statement: The following information was validated with the patient. Source: old records reviewed and nursing notes reviewed Medical History PAD (peripheral artery disease) MGUS (monoclonal gammopathy of unknown significance) Fungal rash of torso Polyneuropathy DUSTIN (iron deficiency anemia) CKD (chronic kidney disease) stage 3, GFR 30-59 ml/min Chronic disease anemia BPH (benign prostatic hyperplasia) Peripheral vascular disease Chronic ulcer of sacral region Chronic pain Allergic rhinitis Hyperlipidemia Hypertension Afib Surgical History H/O endarterectomy Social History Social History Household Members: Other Housing: Jail Patient Tobacco Use Status: Former Tobacco user service: Yes Physical Exam ED Vital Signs: Vital Signs - 24 hr 02/26/25 10:10 02/26/25 13:21 02/26/25 16:18 Temperature 98.5 F 98.5 F 97.8 F Pulse Rate 126 H 126 H 132 H Respiratory Rate 25 H 25 H 18 Blood Pressure 128/77 128/77 123/75 Pulse Oximetry 99 99 96 Oxygen Delivery Method Oxymask Oxymask Nasal Cannula Oxygen Flow Rate 2 02/26/25 17:59 02/26/25 19:08 Temperature 98.2 F 98.2 F Pulse Rate 109 H 109 H Respiratory Rate 24 H 24 H Blood Pressure 133/80 133/80 Pulse Oximetry 96 96 Oxygen Delivery Method Nasal Cannula Nasal Cannula Oxygen Flow Rate 1 1 BMI result Body Mass Index 30.3 GENERAL APPEARANCE: ?AxO to self only, lethargic, cannot follow commands. HEENT: ?NC, AT. MMM. EOMI, clear conjunctiva, oropharynx clear. NECK: ?Supple without lymphadenopathy.? No stiffness or restricted ROM. Mild Jugular venous distention HEART:? Tachycardic rate and irregular rhythm, normal S1/S2, no m/r/g LUNGS: Diminished breath sounds throughout all lung diggs ABDOMEN: ?Soft, nontender, nondistended BACK: No CVAT, no obvious deformity. EXTREMITIES: ?Without cyanosis, clubbing or edema. L foot with wounds NEUROLOGICAL: ?Grossly nonfocal. Alert to self only, lethargic, does respond to verbal stimuli, moving all 4 extremities. Skin: ?Warm and dry without any rash. large sacral wound Course Consultations Consultation #1: Attending note, Dr. Espinal: The patient is a chronically ill and chronically debilitated 79-year-old with a history of atrial fibrillation on apixaban. He presents with a an altered mental status and is in atrial fibrillation with a rapid ventricular response rate. He also has an oxygen requirement. He is not normally on oxygen. He was quite drowsy and he had an altered mental status and seemed most consistent with an encephalopathy, presumably a metabolic encephalopathy. His head CT is negative. A rectal temperature Showed no fever. He has a normal white count of 5.2. His abdomen seems benign, his urine is clean. There was no report that he has been coughing a great deal but his x-ray was read as possibly showing infiltrates. Whether he has a pneumonia is somewhat unclear. Nevertheless blood cultures and a lactate were obtained. His lactate was normal. He was started on antibiotics, 2 g ceftriaxone and later he was also given doxycycline. His fluid status was difficult to assess. He seems somewhat peripherally edematous but I did not hear crackles on his lung exam and his BUN, creatinine, and hemoglobin are all higher than when previously checked. This would be a picture more consistent with possible dehydration or hemo concentration rather than fluid overload however the patient's external neck veins seemed plump. 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 Initially I thought he looked more dry than wet and so he was given some IV fluids. His pCO2 was elevated 1st on his venous gas and later on his arterial blood gas. He has been on 6 L via OxyMask of oxygen for those tests. We were able to wean his oxygen down to 1 L per nasal cannula. A chest CT without contrast (poor renal function ) and an abdominal CT without contrast were obtained. He has a lot of tissue edema throughout his body and his IVC seems plump. Ultimately I decided against giving additional fluids. I felt the patient's mental status improved slightly when he was on a lower level of oxygen. Perhaps part of his metabolic encephalopathy is related to his mildly elevated carbon dioxide. The patient's son was at the bedside for awhile. Apparently, according to the son, the patient has never agreed to limitations on care even though he has had a dramatic decline in his overall health and functional status over the last several months. In addition to receiving IV antibiotics and a small amount of IV fluids the patient was given 5 mg of IV metoprolol for his atrial fibrillation with a rapid ventricular response. He seemed to respond well to the IV metoprolol. I think he may be admitted to the medical service. Medications Administered Discontinued Medications Generic Name Dose Route Start Last Admin Trade Name Freq PRN Reason Stop Dose Admin Apixaban 2.5 mg 02/26/25 21:00 02/27/25 20:27 Apixaban 2.5 Mg Tablet PO 2.5 mg BID JO Administration Ascorbic Acid 250 mg 02/27/25 11:15 02/28/25 08:33 Ascorbic Acid 250 Mg Tablet PO Not Given DAILY JO Ceftriaxone Sodium 2 gm 02/26/25 12:14 02/26/25 12:33 Ceftriaxone Sodium 2 Gm Vial IVPUSH 02/26/25 12:15 2 gm ONCE ONE Administration Ceftriaxone Sodium 1 gm 02/27/25 12:00 02/27/25 11:34 Ceftriaxone Sodium 1 Gm Vial IVPUSH 1 gm Q24H JO Administration Digoxin 0.25 mg 02/27/25 21:39 02/27/25 21:53 Digoxin 0.5 Mg/2 Ml Ampul IVPUSH 02/27/25 21:40 0.25 mg ONCE STA Administration Protocol Digoxin 0.125 mg 10/15/25 06:00 02/28/25 06:04 Digoxin 0.5 Mg/2 Ml Ampul IVPUSH 0.125 mg DAILY@0600 JO Administration Protocol Finasteride 5 mg 02/27/25 12:00 02/28/25 08:33 Finasteride 5 Mg Tablet PO Not Given DAILY JO Furosemide 20 mg 02/26/25 20:22 02/26/25 20:44 Furosemide 20 Mg/2 Ml Vial IVPUSH 02/26/25 20:23 20 mg ONCE ONE Administration Protocol Furosemide 20 mg 02/27/25 15:09 02/27/25 15:17 Furosemide 20 Mg/2 Ml Vial IVPUSH 02/27/25 15:10 20 mg ONCE ONE Administration Protocol Furosemide 20 mg 02/28/25 04:18 02/28/25 07:35 Furosemide 20 Mg/2 Ml Vial IVPUSH 20 mg ONCE PRN Administration before 2nd PRBC transfusion Protocol Lactated Ringer's 500 mls @ 999 mls/hr 02/26/25 12:00 02/26/25 14:11 Lr IV 02/26/25 12:30 Infused .Q31M JO Infusion Doxycycline Hyclate 100 mg/ 250 mls @ 166.67 mls/hr 02/26/25 16:37 02/26/25 19:09 Sodium Chloride IV 02/26/25 18:06 Infused ONCE ONE Infusion Doxycycline Hyclate 100 mg/ 250 mls @ 166.67 mls/hr 02/27/25 05:00 02/28/25 07:40 Sodium Chloride IV Infused Q12H JO Infusion Dextrose 1,000 mls @ 100 mls/hr 02/28/25 01:15 02/28/25 11:19 D5w IVCONT 02/28/25 13:14 Infused .Q10H JO Infusion Sodium Chloride 250 mls @ 999 mls/hr 02/28/25 01:34 02/28/25 01:57 Ns IV 02/28/25 01:49 Infused .Q16M STA Infusion Morphine Sulfate 100 mg in 100 mls @ 0 mls/hr 02/28/25 16:00 03/01/25 09:11 Morphine Sulfate/Ns IVCONT Infused .Q0M JO Infusion Protocol Per Protocol Insulin Glargine 7 unit 02/27/25 21:00 02/27/25 20:26 Insulin Glargine,Hum.Rec.Anlog 100 Unit/Ml 10 Ml Vial SUBCUT 7 unit BEDTIME JO Administration Insulin Human Lispro 0 unit 02/26/25 21:00 02/28/25 11:21 Insulin Lispro 100 Unit/Ml 3 Ml Vial SUBCUT Not Given QIDACHS [facility] Protocol Loratadine 10 mg 02/28/25 09:00 02/28/25 08:33 Loratadine 10 Mg Tablet PO Not Given DAILY [facility] Metoprolol Succinate 25 mg 02/27/25 12:00 02/27/25 11:34 Metoprolol Succinate Er 25 Mg Tab.Er.24h PO 25 mg DAILY [facility] Administration Protocol Metoprolol Tartrate 5 mg 02/26/25 16:29 02/26/25 17:09 Metoprolol Tartrate 5 Mg/5 Ml Vial IVPUSH 02/26/25 16:30 5 mg ONCE ONE Administration Protocol Metoprolol Tartrate 5 mg 02/26/25 20:19 02/27/25 20:21 Metoprolol Tartrate 5 Mg/5 Ml Vial IVPUSH 5 mg Q6H PRN Administration Heart Rate >100 Protocol Metoprolol Tartrate 25 mg 02/27/25 21:40 02/28/25 08:34 Metoprolol Tartrate 25 Mg Tablet PO Not Given QID [facility] Protocol Morphine Sulfate 2 mg 02/28/25 11:38 02/28/25 14:19 Morphine Sulfate 2 Mg/Ml Cartridge IVPUSH 2 mg Q1H PRN Administration Pain, Severe (7-10)/ RR>/=24 Pantoprazole Sodium 80 mg 02/28/25 01:03 02/28/25 01:24 Pantoprazole Sodium 40 Mg/10 Ml Vial IVPUSH 02/28/25 01:04 80 mg ONCE STA Administration Pantoprazole Sodium 40 mg 02/28/25 10:00 02/28/25 11:18 Pantoprazole Sodium 40 Mg/10 Ml Vial IVPUSH Not Given BID@0630,1630 [facility] Phytonadione 10 mg 02/28/25 01:00 02/28/25 01:21 Phytonadione (Vit K1) Oral 10 Mg/Ml Ampul PO 02/28/25 01:01 10 mg ONCE STA Administration Pregabalin 200 mg 02/27/25 21:00 02/28/25 08:34 Pregabalin 200 Mg Capsule PO Not Given BID [facility] Senna 17.2 mg 02/26/25 21:00 02/28/25 20:50 Sennosides 8.6 Mg Tablet PO Not Given BEDTIME [facility] Sodium Chloride 3 ml 02/27/25 00:00 03/01/25 09:34 0.9 % Sodium Chloride Flush 3 Ml Syringe IVFLUSH Not Given QSHIFT [facility] Tamsulosin HCl 0.8 mg 02/28/25 09:00 02/28/25 08:34 Tamsulosin Hcl 0.4 Mg Capsule PO Not Given DAILY [facility] Trazodone HCl 25 mg 02/27/25 21:00 02/27/25 22:12 Trazodone Hcl 25 Mg Halftab PO Not Given BEDTIME [facility] Medical Decision Making Medical Decision Making MDM Narrative: 79-year-old male accompanied by son from [facility] with medical history of AFib on Eliquis, HLD, BPH, chronic ulcer of sacral region, anemia, T2DM, presents to the ED by EMS due to 5 days of progressively worsening weakness, and altered mental status. Patient presents to the ED hypoxic at 85%, currently on 6 L oxy mask, but does not require O2 at baseline. Patient is alert and oriented to self only and cannot narrate what happened today. VS on initial observation-BP 128/77, pulse rate of 126, respiratory rate of 25, afebrile with rectal temp of 98.5?, O2 saturation 99% on 6 L oxy mask EKG reveals AFib with RVR with a ventricular rate of 119, no significant ST elevation/depression, initial troponin elevated at 61.5, 2nd troponin 58.1, negative delta this is most likely due to cardiac demand. UA reveals 1+ urine protein, 3+ urine blood, trace leukocyte esterase, >20 RBC, without urine bacteria CT head/brain negative for acute intracranial findings CXR reveals partial right lower lung and hazy left inferior perihilar opacities due to atelectasis/infiltrates, questionable pulmonary vascular congestion Patient with a metabolic encephalopathy and pneumonia, Patient received 500 mL IV fluids, 2 g ceftriaxone, for empirical coverage. Labs without leukocytosis/leukopenia, macrocytic anemia with a hemoglobin of 9.5, hematocrit of 31, hypernatremia with a sodium of 148, BUN of 73, creatinine of 1.81, random serum glucose of 239 without anion gap, pro BNP 29,413.7, no previous values for comparison, lactic acid WNL at 1.2 . venous blood gas showed a pH of 7.32 with a pCO2 of 62. Arterial blood gas showed a pH of 7.28 with a pCO2 of 65 and a PO2 of 239. He was on 6 L OxyMask but was turned down to 1-2 L nasal cannula and O2 saturation is 96% here. Overall he has a mental status consistent with metabolic encephalopathy, a possible pneumonia and was medicated with 2g ceftriaxone, IV fluids, and mg IV metoprolol for rate control. His blood pressures has been stable. I reached out to Hospitalist Leticia Aguero who will admit to medicine. Differential Diagnosis Differential Diagnoses: The differential diagnosis associated with the presentation includes ICH Metabolic encephalopathy Electrolyte abnormality UTI Pneumonia Admission/Observation Consideration of admission/observation: Escalation of care including admission/observation considered Lab Data MDM Lab Attestation statement: I reviewed the patient's lab results. 02/28/25 12:47 02/28/25 12:47 Labs: Lab Results 02/26/25 02/26/25 02/26/25 Range/Units 10:47 10:57 12:08 WBC 5.2 (4.8-10.8) X10*3/uL RBC 2.74 L (4.60-5.80) X10*6/uL Hgb 9.5 L (14.0-18.0) g/dl Hct 31.0 L D (42.0-52.0) % MCV 113.1 H (80.0-98.0) fL MCH 34.7 H (27.0-33.0) pg MCHC 30.6 L (31.0-36.0) g/dl RDW 18.6 H (11.0-16.0) % Plt Count 134 L (160-400) X10*3/uL MPV 10.7 (9.4-12.4) fL Immature Gran % (Auto) 0.8 H (0.0-0.4) % Neut % (Auto) 83.7 H (45-73) % Lymph % (Auto) 6.6 L (20-40) % [place] % (Auto) 8.9 (2-11) % Eos % (Auto) 0.0 (0-4) % Baso % (Auto) 0.0 (0-2) % Lymph # (Auto) 0.3 L (1.2-4.9) X10*3/uL [place] # (Auto) 0.5 (0.1-1.2) X10*3/uL Eos # (Auto) 0.0 (0.0-0.4) X10*3/uL Baso # (Auto) 0.0 (0.0-0.2) X10*3/uL Abs Immat Gran (auto) 0.04 H (0.00-0.03) X10*3/uL Absolute Neuts (auto) 4.3 (2.0-8.3) x10*3/uL Absolute Nucleated RBC 0.000 (0.0-0.012) X10*3/uL Nucleated RBC % (auto) 0.0 (0.0-0.2) /100WBC PT 15.8 H (10.9-12.4) SEC INR 1.4 H (0.9-1.1) O2 Saturation % ABG pH at Pt Temp (7.35-7.45) ABG pCO2 at Pt Temp (32-45) mmHg ABG pO2 at Pt Temp (83-108) mmHg ABG HCO3 (22-26) mmol/L ABG Base Excess (Actual) mmol/L VBG pH 7.32 (7.32-7.43) VBG pCO2 62 mmHg VBG pO2 70 mmHg VBG HCO3 32 H (22-26) mmol/L VBG O2 Saturation 87.0 % VBG Base Excess 5.2 mmol/L Sodium 148 H (135-145) mmol/L Potassium 4.8 (3.3-5.1) mmol/L Chloride 107 (96-108) mmol/L Carbon Dioxide 30 H (22-29) mmol/L Anion Gap 16 (12-20) BUN 73 H (9-16) mg/dL Creatinine 1.81 H (0.5-1.4) mg/dL Estim Creat Clear Calc 38.4 Estimated GFR 36 POC Glucose 205 H (60-115) mg/dL Random Glucose 239 H (60-115) mg/dL Lactic Acid 1.2 (0.5-2.0) mmol/L Calcium 8.4 (8.4-10.2) mg/dL Magnesium 2.1 (1.6-2.6) mg/dL Total Bilirubin 1.0 (0.0-1.0) mg/dL AST 39 H (5-37) U/L ALT 14 (0-40) U/L Alkaline Phosphatase 124 H (39-117) U/L Troponin I High Sens 61.5 H (<3.5-35.0) ng/L NT-Pro-B Natriuret Pep 24242.7 H (<300) pg/mL Total Protein 9.2 H (6.5-8.0) g/dL Albumin 2.7 L (3.5-5.0) g/dL Urine Color Dark Yellow Urine Appearance Cloudy Urine pH 5.0 (5.0-9.0) Ur Specific [place] 1.020 (1.005-1.025) Urine Protein 30 (1+) H (Neg-Trace) mg/dL Urine Glucose (UA) Negative (Negative) mg/dL Urine Ketones Negative (Negative) mg/dL Urine Blood Large (3+) H (Negative) Urine Nitrite Negative (Negative) Ur Leukocyte Esterase Trace H (Negative) Urine RBC >20 H (0-2) /HPF Urine WBC 0-5 (0-5) /HPF Ur Squamous Epith Cells 0-2 (0-2) /HPF Urine Bacteria None Seen (None Seen) Hyaline Casts 3-5 (0-2) /LPF COVID-19 (FOZIA) Negative (Negative) COVID-19 Clin Com See Note Influenza Type A (KELLI) Negative (Negative) Influenza Type B (KELLI) Negative (Negative) Influenza A & B Note See Note 02/26/25 02/26/25 Range/Units 12:59 13:55 WBC (4.8-10.8) X10*3/uL RBC (4.60-5.80) X10*6/uL Hgb (14.0-18.0) g/dl Hct (42.0-52.0) % MCV (80.0-98.0) fL MCH (27.0-33.0) pg MCHC (31.0-36.0) g/dl RDW (11.0-16.0) % Plt Count (160-400) X10*3/uL MPV (9.4-12.4) fL Immature Gran % (Auto) (0.0-0.4) % Neut % (Auto) (45-73) % Lymph % (Auto) (20-40) % [place] % (Auto) (2-11) % Eos % (Auto) (0-4) % Baso % (Auto) (0-2) % Lymph # (Auto) (1.2-4.9) X10*3/uL [place] # (Auto) (0.1-1.2) X10*3/uL Eos # (Auto) (0.0-0.4) X10*3/uL Baso # (Auto) (0.0-0.2) X10*3/uL Abs Immat Gran (auto) (0.00-0.03) X10*3/uL Absolute Neuts (auto) (2.0-8.3) x10*3/uL Absolute Nucleated RBC (0.0-0.012) X10*3/uL Nucleated RBC % (auto) (0.0-0.2) /100WBC PT (10.9-12.4) SEC INR (0.9-1.1) O2 Saturation 100.0 % ABG pH at Pt Temp 7.28 L (7.35-7.45) ABG pCO2 at Pt Temp 65 H* (32-45) mmHg ABG pO2 at Pt Temp 239 H (83-108) mmHg ABG HCO3 31 H (22-26) mmol/L ABG Base Excess (Actual) 3.3 mmol/L VBG pH (7.32-7.43) VBG pCO2 mmHg VBG pO2 mmHg VBG HCO3 (22-26) mmol/L VBG O2 Saturation % VBG Base Excess mmol/L Sodium (135-145) mmol/L Potassium (3.3-5.1) mmol/L Chloride (96-108) mmol/L Carbon Dioxide (22-29) mmol/L Anion Gap (12-20) BUN (9-16) mg/dL Creatinine (0.5-1.4) mg/dL Estim Creat Clear Calc Estimated GFR POC Glucose (60-115) mg/dL Random Glucose (60-115) mg/dL Lactic Acid (0.5-2.0) mmol/L Calcium (8.4-10.2) mg/dL Magnesium (1.6-2.6) mg/dL Total Bilirubin (0.0-1.0) mg/dL AST (5-37) U/L ALT (0-40) U/L Alkaline Phosphatase (39-117) U/L Troponin I High Sens 58.1 H (<3.5-35.0) ng/L NT-Pro-B Natriuret Pep (<300) pg/mL Total Protein (6.5-8.0) g/dL Albumin (3.5-5.0) g/dL Urine Color Urine Appearance Urine pH (5.0-9.0) Ur Specific [place] (1.005-1.025) Urine Protein (Neg-Trace) mg/dL Urine Glucose (UA) (Negative) mg/dL Urine Ketones (Negative) mg/dL Urine Blood (Negative) Urine Nitrite (Negative) Ur Leukocyte Esterase (Negative) Urine RBC (0-2) /HPF Urine WBC (0-5) /HPF Ur Squamous Epith Cells (0-2) /HPF Urine Bacteria (None Seen) Hyaline Casts (0-2) /LPF COVID-19 (FOZIA) (Negative) COVID-19 Clin Com Influenza Type A (KELLI) (Negative) Influenza Type B (KELLI) (Negative) Influenza A & B Note Independent Interpretation I performed an independent interpretation of an: EKG, Plain X-Ray and CT Scan Interpretation: I independently interpreted the EKG which reveals AFib with RVR with a ventricular rate of 126, no ST-elevation/depression Vent. Rate : 119 BPM Atrial Rate : * BPM P-R Int : * ms QRS Dur : 88 ms QT Int : 314 ms P-R-T Axes : * -15 79 degrees QTcB Int : 441 ms Atrial fibrillation with rapid ventricular response Low voltage QRS Nonspecific T wave abnormality Abnormal ECG When compared with ECG of 31-Jan-2025 16:25, No significant change was found I independently interpreted the CT head/brain which was negative for acute intracranial findings, I agree with the radiologist's interpretation I independently interpreted the CXR which reveals infiltrates, possible left-sided pulmonary effusion, with pulmonary vascular congestion, I agree with the radiologist's interpretation Radiology Impression Discussion of test interpretation with radiology: I have reviewed the radiologist's reading. Radiologist Impression: CT head/brain Findings: No definite intra-axial mass, midline shift, hydrocephalus, or acute hemorrhage, on this motion limited exam. Mild age-related cerebral hemispheric white matter ischemic changes. Mild left maxillary sinus mucosal thickening. Right cataract surgery. No skull fracture. IMPRESSION: 1. No definite acute intracranial findings, on this motion limited exam. This document has been electronically signed by: yAah Quispe MD on 02/26/2025 12:38:58 Dictated By: Ayah Quispe MD Signed By: <Electronically signed by Ayah Quispe MD in [place]> 02/26/25 1240 CXR Findings: Partial right lower lung and hazy left inferior perihilar opacities due to atelectasis/infiltrates. Questionable pulmonary vascular congestion. Correlate clinically. Cardiomegaly. No acute fracture. IMPRESSION: Partial right lower lung and hazy left inferior perihilar opacities due to atelectasis/infiltrates. Questionable pulmonary vascular congestion. Correlate clinically. Cardiomegaly. This document has been electronically signed by: Ayah Quispe MD on 02/26/2025 12:10:45 Dictated By: Ayah Quispe MD Signed By: <Electronically signed by Ayah Quispe MD in [place]> 02/26/25 1211 Independent Historian Clinical information obtained from an independent historian. History obtained from or confirmed by: EMS and Other (Son at bedside corroborating history) External Record Review External record reviewed: Inpatient record, Office record and Outpatient record Chronic Conditions Patient?s care impacted by: Diabetes, Hypertension and Other (AFib on Eliquis, HLD, BPH, chronic ulcer of sacral region, anemia, CKD) Social Determinants Patient?s care significantly limited by Social Determinants of Health including: Other Social Determinant of Health Discharge Plan Discharge Clinical Impression: Encephalopathy, metabolic, Atrial fibrillation with RVR Pneumonia Qualifiers: Pneumonia type: aspiration pneumonia Aspiration pneumonia type: unspecified Laterality: left Lung location: lower lobe of lung Qualified Code(s): J69.0 - Pneumonitis due to inhalation of food and vomit Patient Disposition: Admitted As Inpatient Interventions: Admission Worksheet (ED) Last Done: 02/26/25 23:48 Discharge Date/Time: 02/27/25 02:29
[2025-02-26 11:00] LABS: Venous Blood Gas Refer to POC result
[2025-02-26 11:01] LABS: Hematocrit 31.0 % (42.0-52.0); Hemoglobin 9.5 g/dl (14.0-18.0); Imm Gran Abs Auto 0.04 X10*3/uL (0.00-0.03); Imm Gran Pct Auto 0.8 % (0.0-0.4); Lymphocytes Absolute Auto 0.3 X10*3/uL (1.2-4.9); MANUAL DIFF FLAG NO; Mean Corpuscular HGB Conc 30.6 g/dl (31.0-36.0); Mean Corpuscular Hemoglobin 34.7 pg (27.0-33.0); NRBC Abs Auto 0.000 X10*3/uL (0.0-0.012); NRBC Pct Auto 0.0 /100WBC (0.0-0.2); Platelet Count 134 X10*3/uL (160-400); Red Blood Count 2.74 X10*6/uL (4.60-5.80); White Blood Count 5.2 X10*3/uL (4.8-10.8)
[2025-02-26 11:01] LABS: VBG HCO3 32 mmol/L (22-26); VBG O2 % Saturation 87.0 %
[2025-02-26 11:02] LABS: Mean Corpuscular Volume 113.1 fL (80.0-98.0)
[2025-02-26 11:03] LABS: Glucose, Whole Blood 205 mg/dL (60-115)
[2025-02-26 11:07] LABS: INTERNATIONAL NORM RATIO 1.4 (0.9-1.1); Prothrombin Time 15.8 SEC (10.9-12.4)
[2025-02-26 11:15] LABS: Alanine Aminotransferase 14 U/L (0-40); Albumin Level 2.7 g/dL (3.5-5.0); Alkaline Phosphatase 124 U/L (39-117); Anion Gap 16 (12-20); Aspartate Amino Transferase 39 U/L (5-37); Blood Urea Nitrogen 73 mg/dL (9-16); Calcium 8.4 mg/dL (8.4-10.2); Carbon Dioxide 30 mmol/L (22-29); Chloride 107 mmol/L (96-108); Creatinine Clr Calc Pharmacy 38.4; Estimated Glomerular Filt Rate 36; Magnesium 2.1 mg/dL (1.6-2.6); Potassium 4.8 mmol/L (3.3-5.1); Sodium 148 mmol/L (135-145); Total Protein 9.2 g/dL (6.5-8.0)
[2025-02-26 11:17] LABS: COVID-19 Test Negative (Negative); IDNOW Serial# 58CA691E
[2025-02-26 11:18] LABS: IDNOW Serial# 55D5AD1C; Influenza B2 Negative (Negative)
[2025-02-26 11:21] LABS: Troponin-I High Sensitivity 61.5 ng/L (<3.5-35.0)
--- OUTSIDE RECORDS SUMMARY | 2025-02-26 11:31 | XMS_ITS | Encounter Summary ---
Author Organization [facility] Address [address] [place] [address] Care Team Providers Care Roll Tube Setter Name Role Phone Rober Cottrell Primary Care Provider [phone] Encounter Details Date Type Department Care Team (Late st Contact Info) Description 01/16/2025 Lab Requisition [facility] - Main Lab [address] [place] [address] Romy Tovar MD [address] [place] [phone] Anemia, unspecified Social History Tobacco Use Types [...] mmol/L LAB CHEMISTRY METHOD 01/16/2025 12:26 PM [facility] Potassium 3.6 3.5 - 5.5 mmol/L LAB CHEMISTRY METHOD 01/16/2025 12:26 PM [facility] Chloride 100 96 - 110 mmol/L LAB CHEMISTRY METHOD 01/16/2025 12:26 PM [facility] CO2 30 21 - 32 mmol/L LAB CHEMISTRY METHOD 01/16/2025 12:26 PM [facility] Anion Gap 7 3 - 11 LAB CHEMISTRY METHOD 01/16/2025 12:26 PM [facility] Glucose 105(H) 70 - 100 mg/dL LAB CHEMISTRY METHOD 01/16/2025 12:26 PM [facility] BUN 58(H) 5 - 25 mg/dL LAB CHEMISTRY METHOD 01/16/2025 12:26 PM [facility] Creatinine 1.74(H) 0.70 - 1.30 mg/dL LAB CHEMISTRY METHOD 01/16/2025 12:26 PM [facility] eGFR 39(L) >=60 mL/min/1. 73m2 LAB CHEMISTRY METHOD 01/16/2025 12:26 PM [facility] Comment:Calculation based on the Chronic Kidney Disease Epidemiology Collaboration (CKD-EPI) equation refit without adjustment for race. BUN/Creatinine Ratio 33.3 LAB CHEMISTRY METHOD 01/16/2025 12:26 PM [facility] Calcium 8.6 8.5 - 10.5 mg/dL LAB CHEMISTRY METHOD 01/16/2025 12:26 PM [facility] AST (SGOT) 27 10 - 42 unit/L LAB CHEMISTRY METHOD 01/16/2025 12:26 PM [facility] ALT (SGPT) 15 10 - 60 unit/L LAB CHEMISTRY METHOD 01/16/2025 12:26 PM [facility] Alkaline Phosphatase 96 42 - 121 unit/L LAB CHEMISTRY METHOD 01/16/2025 12:26 PM [facility] Total Protein 8.8(H) 6.0 - 8.0 g/dL LAB CHEMISTRY METHOD 01/16/2025 12:26 PM [facility] Albumin 2.2(L) 3.2 - 5.0 g/dL LAB CHEMISTRY METHOD 01/16/2025 12:26 PM EDT [facility] Total Bilirubin 0.6 0.0 - 1.4 mg/dL LAB CHEMISTRY METHOD 01/16/2025 12:26 PM EDT [facility] Blood Venous blood specimen / Unknown Venipuncture / Unknown 01/16/2025 8:32 AM EDT 01/16/2025 10:25 AM EDT us Romy Tovar MD LAB BLOOD ORDERABLES Final Resul t [facility] [address] [place] [address], * (ABNORMAL) Complete blood count (01/16/2025 8:32 AM EDT) WBC 4.9 4.8 - 10.8 K/mcL LAB HEMETOLOGY METHOD 01/16/2025 12:30 PM [facility] RBC 2.30(L) 4.50 - 5.50 M/mcL LAB HEMETOLOGY METHOD 01/16/2025 12:30 PM [facility] Hemoglobin 7.9(L) 13.5 - 17.5 g/dL LAB HEMETOLOGY METHOD 01/16/2025 12:30 PM [facility] Hematocrit 24.4(L) 42.0 - 54.0 % LAB HEMETOLOGY METHOD 01/16/2025 12:30 PM EDT [facility] MCV 104.3(H) 79.0 - 98.0 FL LAB HEMETOLOGY METHOD [facility] MCH 33.8(H) 27.0 - 32.0 pcg LAB HEMETOLOGY METHOD 01/16/2025 12:30 PM [facility] MCHC 32.4 32.0 - 37.0 g/dL LAB HEMETOLOGY METHOD 01/16/2025 12:30 PM EDT [facility] RDW 17.1(H) 11.0 - 15.0 % LAB HEMETOLOGY METHOD 01/16/2025 12:30 PM EDT [facility] Platelets 164 130 - 400 K/mcL LAB HEMETOLOGY METHOD 01/16/2025 12:30 PM EDT [facility] MPV 10.1 7.0 - 11.0 FL LAB HEMETOLOGY METHOD 01/16/2025 12:30 PM EDT [facility] NRBC 0.0 <1.0 % LAB HEMETOLOGY METHOD 01/16/2025 12:30 PM EDT [facility] NRBC Absolute 0.00 <0.10 K/mcL LAB HEMETOLOGY METHOD 01/16/2025 12:30 PM EDT [facility] Blood Venous blood specimen / Unknown Venipuncture / Unknown 01/16/2025 8:32 AM EDT 01/16/2025 10:25 AM EDT us Romy Tovar MD LAB BLOOD ORDERABLES Final Resul t [facility] [address] [place] [address], documented in this encounter Visit Diagnoses Diagnosis Anemia, unspecified documented in this encounter Care Teams Roll Tube Setter Relationship Specialty Start Date End Date Rober Cottrell [address] [facility] [phone] [place] [address] PCP - General 11/03/24 documented as of this encounter
--- OUTSIDE RECORDS SUMMARY | 2025-02-26 11:31 | XMS_ITS | Encounter Summary ---
Author Organization [facility] Address [address] [place] [address] Care Team Providers Care Content Editor Name Role Phone Rober Cottrell Primary Care Provider [phone] Encounter Details Date Type Department Care Team (Late st Contact Info) Description 01/19/2025 Lab Requisition [facility] - Main Lab [address] [place] [address] Romy Tovar MD [address] [place] [phone] Anemia, unspecified; Dehydration; Essential (primary) hypertension Social [...] LAB CHEMISTRY METHOD 01/19/2025 9:25 AM T [facility] Potassium 3.7 3.5 - 5.5 mmol/L LAB CHEMISTRY METHOD 01/19/2025 9:25 AM EDT [facility] Chloride 101 96 - 110 mmol/L LAB CHEMISTRY METHOD 01/19/2025 9:25 AM [facility] CO2 29 21 - 32 mmol/L LAB CHEMISTRY METHOD 01/19/2025 9:25 AM [facility] Anion Gap 7 3 - 11 LAB CHEMISTRY METHOD 01/19/2025 9:25 AM [facility] Glucose 45(L) 70 - 100 mg/dL LAB CHEMISTRY METHOD 01/19/2025 9:25 AM [facility] BUN 57(H) 5 - 25 mg/dL LAB CHEMISTRY METHOD 01/19/2025 9:25 AM [facility] Creatinine 1.57(H) 0.70 - 1.30 mg/dL LAB CHEMISTRY METHOD 01/19/2025 9:25 AM [facility] eGFR 45(L) >=60 mL/min/1. 73m2 LAB CHEMISTRY METHOD 01/19/2025 9:25 AM [facility] Comment:Calculation based on the Chronic Kidney Disease Epidemiology Collaboration (CKD-EPI) equation refit without adjustment for race. BUN/Creatinine Ratio 36.3 LAB CHEMISTRY METHOD 01/19/2025 9:25 AM [facility] Calcium 8.4(L) 8.5 - 10.5 mg/dL LAB CHEMISTRY METHOD 01/19/2025 9:25 AM [facility] Blood Venous blood specimen / Unknown Venipuncture / Unknown 01/19/2025 6:26 AM EDT 01/19/2025 7:57 AM EDT us Romy Tovar MD LAB BLOOD ORDERABLES Final Resul t [facility] [address] [place] [address], * (ABNORMAL) Complete blood count (01/19/2025 6:26 AM EDT) WBC 4.7(L) 4.8 - 10.8 K/mcL LAB HEMETOLOGY METHOD 01/19/2025 8:49 AM [facility] RBC 2.10(L) 4.50 - 5.50 M/mcL LAB HEMETOLOGY METHOD 01/19/2025 8:49 AM [facility] Hemoglobin 7.1(L) 13.5 - 17.5 g/dL LAB HEMETOLOGY METHOD 01/19/2025 8:49 AM [facility] Hematocrit 22.2(L) 42.0 - 54.0 % LAB HEMETOLOGY METHOD 01/19/2025 8:49 AM [facility] MCV 104.2(H) 79.0 - 98.0 FL LAB HEMETOLOGY METHOD 01/19/2025 8:49 AM [facility] MCH 33.3(H) 27.0 - 32.0 pcg LAB HEMETOLOGY METHOD 01/19/2025 8:49 AM [facility] MCHC 32.0 32.0 - 37.0 g/dL LAB HEMETOLOGY METHOD 01/19/2025 8:49 AM [facility] RDW 16.6(H) 11.0 - 15.0 % LAB HEMETOLOGY METHOD 01/19/2025 8:49 AM [facility] Platelets 146 130 - 400 K/mcL LAB HEMETOLOGY METHOD 01/19/2025 8:49 AM [facility] MPV 10.0 7.0 - 11.0 FL LAB HEMETOLOGY METHOD 01/19/2025 8:49 AM [facility] NRBC 0.0 <1.0 % LAB HEMETOLOGY METHOD 01/19/2025 8:49 AM [facility] NRBC Absolute 0.00 <0.10 K/[facility] LAB HEMETOLOGY METHOD 01/19/2025 8:49 AM EDT [facility] Blood Venous blood specimen / Unknown Venipuncture / Unknown 01/19/2025 6:26 AM EDT 01/19/2025 7:57 AM EDT us Romy Tovar MD LAB BLOOD ORDERABLES Final Resul t [facility] [address] [place] [address], documented in this encounter Visit Diagnoses Diagnosis Anemia, unspecified Dehydration Essential (primary) hypertension Unspecified essential hypertension documented in this encounter Care Teams Content Editor Relationship Specialty Start Date End Date Rober Cottrell [address] [facility] [phone] [place] [address] PCP - General 11/03/24 documented as of this encounter
--- OUTSIDE RECORDS SUMMARY | 2025-02-26 11:31 | XMS_ITS | Clinical Summary ---
Author Organization [address] Address [address] [place] [address] Phone Care Team Providers Care District Recruiter Name Role Phone MaxwellrichardIggy Primary Care Provider [phone] Encounters Date Type Department Care Team Description 02/19/2025 Lab Requisition [facility] Lab [address] [place] [phone] Romy Tovar MD Anemia, unspecified; Type 2 diabetes mellitus without complications ([facility]/HCC V24, CMS/HCC V28) 02/15/2025 Lab Requisition [facility] Lab [address] [place] [phone] Romy Tovar MD Type 2 diabetes mellitus without complications (CMS/HCC V24, CMS/HCC V28); Unspecified atrial fibrillation (CMS/HCC V24, CMS/HCC V28); Essential (primary) hypertension; Anemia, unspecified 02/08/2025 Lab Requisition [facility] Lab [address] [place] [phone] Romy Tovar MD Type 2 diabetes mellitus without complications (CMS/HCC V24, CMS/HCC V28); Anemia, unspecified; Unspecified atrial fibrillation (CMS/HCC V24, CMS/HCC V28) 01/22/2025 Lab Requisition [facility] Lab [address] [place] [phone] Romy Tovra MD Anemia, unspecified; Unspecified kidney failure 01/19/2025 Lab Requisition [facility] Lab [address] [place] [phone] Romy Tovar MD Anemia, unspecified; Dehydration; Essential (primary) hypertension 01/16/2025 Lab Requisition [facility] - Main Lab [address] [place] [phone] Romy Tovar MD Anemia, unspecified 12/18/2024 Lab Requisition [facility] - Main Lab [address] [place] [phone] Romy Tovar MD Anemia, unspecified 12/14/2024 Lab Requisition [facility] Main Lab [address] [place] [phone] Romy Tovar MD Type 2 diabetes mellitus with unspecified complications (CMS/HCC V24, CMS/HCC V28); Unspecified atrial fibrillation (CMS/HCC V24, CMS/HCC V28); Essential (primary) hypertension 12/02/2024 Lab Requisition [facility] Main Lab [address] [place] [phone] Romy Tovar MD Essential (primary) hypertension 11/30/2024 Lab Requisition [facility] Lab [address] [place] [phone] Romy Tovar MD Anemia, unspecified; Essential (primary) hypertension; Vitamin D deficiency, unspecified from Last 3 Months Social History [...] unspecified Type 2 diabetes mellitus without complications ([facility] V24, [facility] V28) COMPLETE BLOOD COUNT Routine 02/19/2025 9:08 [...] 12/02/2024 6:33 AM EDT Essential (primary) hypertension [place] PROTEIN ELECTROPHORETIC FRACTIONATION & QUANTITATION SERUM Routine 11/30/2024 5:43 AM EDT Anemia, unspecified Essential (primary) hypertension Vitamin D deficiency, unspecified [place] IMMUNOFIXATION ELECTROPHORESIS SERUM Routine 11/30/2024 5:43 AM [...] Essential (primary) hypertension Vitamin D deficiency, unspecified from Last 3 Months Results * (ABNORMAL) Complete blood count (02/19/2025 9:08 AM EDT) Only the most recent of10 resultswithin the time period is included. WBC 3.8(L) 4.8 - 10.8 K/mcL LAB HEMETOLOGY METHOD 02/19/2025 12:37 PM [facility] RBC 2.30(L) 4.50 - 5.50 M/mcL LAB HEMETOLOGY METHOD 02/19/2025 12:37 PM [facility] Hemoglobin 7.8(L) 13.5 - 17.5 g/dL LAB HEMETOLOGY METHOD 02/19/2025 12:37 PM [facility] Hematocrit 25.5(L) 42.0 - 54.0 % LAB HEMETOLOGY METHOD 02/19/2025 12:37 PM [facility] MCV 109.4(H) 79.0 - 98.0 FL LAB HEMETOLOGY METHOD 02/19/2025 12:37 PM [facility] MCH 33.5(H) 27.0 - 32.0 pcg LAB HEMETOLOGY METHOD 02/19/2025 12:37 PM [facility] MCHC 30.6(L) 32.0 - 37.0 g/dL LAB HEMETOLOGY METHOD 02/19/2025 12:37 PM [facility] RDW 19.1(H) 11.0 - 15.0 % LAB HEMETOLOGY METHOD 02/19/2025 12:37 PM [facility] Platelets 135 130 - 400 K/mcL LAB HEMETOLOGY METHOD 02/19/2025 12:37 PM [facility] MPV 10.5 7.0 - 11.0 FL LAB HEMETOLOGY METHOD 02/19/2025 12:37 PM [facility] NRBC 0.0 <1.0 % LAB HEMETOLOGY METHOD 02/19/2025 12:37 PM [facility] NRBC Absolute 0.00 <0.10 K/mcL LAB HEMETOLOGY METHOD 02/19/2025 12:37 PM [facility] Blood Venous blood specimen / Unknown Venipuncture / Unknown 02/19/2025 9:08 AM EDT 02/19/2025 10:54 AM EDT us Romy Tovar MD LAB BLOOD ORDERABLES Final Resul t [facility] [address] [place] [address], [place] [phone] * (ABNORMAL) Comprehensive metabolic panel (02/19/2025 9:08 AM EDT) Only the most recent of6 resultswithin the time period is included. Sodium 141 133 - 145 mmol/L LAB CHEMISTRY METHOD 02/19/2025 1:02 PM [facility] Potassium 4.3 3.5 - 5.5 mmol/L LAB CHEMISTRY METHOD 02/19/2025 1:02 PM [facility] Chloride 104 96 - 110 mmol/L LAB CHEMISTRY METHOD 02/19/2025 1:02 PM [facility] CO2 29 21 - 32 mmol/L LAB CHEMISTRY METHOD 02/19/2025 1:02 PM [facility] Anion Gap 8 3 - 11 LAB CHEMISTRY METHOD 02/19/2025 1:02 PM [facility] Glucose 115(H) 70 - 100 mg/dL LAB CHEMISTRY METHOD 02/19/2025 1:02 PM [facility] BUN 43(H) 5 - 25 mg/dL LAB CHEMISTRY METHOD 02/19/2025 1:02 PM [facility] Creatinine 1.57(H) 0.70 - 1.30 mg/dL LAB CHEMISTRY METHOD 02/19/2025 1:02 PM [facility] eGFR 45(L) >=60 mL/min/1. 73m2 LAB CHEMISTRY METHOD 02/19/2025 1:02 PM [facility] Comment:Calculation based on the Chronic Kidney Disease Epidemiology Collaboration (CKD-EPI) equation refit without adjustment for race. BUN/Creatinine Ratio 27.4 LAB CHEMISTRY METHOD 02/19/2025 1:02 PM [facility] Calcium 8.6 8.5 - 10.5 mg/dL LAB CHEMISTRY METHOD 02/19/2025 1:02 PM [facility] AST (SGOT) 32 10 - 42 unit/L LAB CHEMISTRY METHOD 02/19/2025 1:02 PM [facility] ALT (SGPT) 19 10 - 60 unit/L LAB CHEMISTRY METHOD 02/19/2025 1:02 PM [facility] Alkaline Phosphatase 114 42 - 121 unit/L LAB CHEMISTRY METHOD 02/19/2025 1:02 PM [facility] Total Protein 8.5(H) 6.0 - 8.0 g/dL LAB CHEMISTRY METHOD 02/19/2025 1:02 PM [facility] Albumin 2.1(L) 3.2 - 5.0 g/dL LAB CHEMISTRY METHOD 02/19/2025 1:02 PM [facility] Total Bilirubin 0.8 0.0 - 1.4 mg/dL LAB CHEMISTRY METHOD 02/19/2025 1:02 PM [facility] Blood Venous blood specimen / Unknown 02/19/2025 9:08 AM EDT 02/19/2025 10:54 AM EDT Romy Tovar MD LAB BLOOD ORDERABLES Final Resul t [facility] [address] [place] [address], * Hemoglobin A1c (02/08/2025 6:58 AM EDT) Hemoglobin A1C 5.7 <6.5 % LAB CHEMISTRY METHOD 02/08/2025 12:42 PM [facility] Mean Bld Glu Estim. 117 mg/dL LAB CHEMISTRY METHOD 02/08/2025 12:42 PM [facility] Blood Venous blood specimen / Unknown Venipuncture / Unknown 02/08/2025 6:58 AM EDT 02/08/2025 10:09 AM EDT us Romy Tovar MD LAB BLOOD ORDERABLES Final Resul t [facility] [address] [place] [address], * (ABNORMAL) Basic metabolic panel (01/19/2025 6:26 AM EDT) Only the most recent of3 resultswithin the time period is included. [facility] Sodium 137 133 - 145 mmol/L LAB CHEMISTRY METHOD 01/19/2025 9:25 AM [facility] Potassium 3.7 3.5 - 5.5 mmol/L LAB CHEMISTRY METHOD 01/19/2025 9:25 AM [facility] Chloride 101 96 - 110 mmol/L LAB CHEMISTRY METHOD 01/19/2025 9:25 AM [facility] CO2 29 21 - 32 mmol/L LAB CHEMISTRY METHOD 01/19/2025 9:25 AM [facility] Anion Gap 7 3 - 11 LAB CHEMISTRY METHOD 01/19/2025 9:25 AM [facility] Glucose 45(L) 70 - 100 mg/dL LAB CHEMISTRY METHOD 01/19/2025 9:25 AM [facility] BUN 57(H) 5 - 25 mg/dL LAB CHEMISTRY METHOD 01/19/2025 9:25 AM [facility] Creatinine 1.57(H) 0.70 - 1.30 mg/dL LAB CHEMISTRY METHOD 01/19/2025 9:25 AM EDT [facility] eGFR 45(L) >=60 mL/min/1. 73m2 LAB CHEMISTRY METHOD 01/19/2025 9:25 AM EDT [facility] Comment:Calculation based on the Chronic Kidney Disease Epidemiology Collaboration (CKD-EPI) equation refit without adjustment for race. BUN/Creatinine Ratio 36.3 LAB CHEMISTRY METHOD 01/19/2025 9:25 AM EDT [facility] Calcium 8.4(L) 8.5 - 10.5 mg/dL LAB CHEMISTRY METHOD 01/19/2025 9:25 AM EDT [facility] Blood Venous blood specimen / Unknown Venipuncture / Unknown 01/19/2025 6:26 AM EDT 01/19/2025 7:57 AM EDT us Romy Tovar MD LAB BLOOD ORDERABLES Final Resul t [facility] [address] [place] [address], [place] [phone] * (ABNORMAL) Sedimentation rate (12/14/2024 11:45 AM EDT) [facility] Sed Rate 53(H) 0 - 20 mm/hr LAB HEMETOLOGY METHOD 12/14/2024 12:50 PM EDT [facility] Blood Venous blood specimen / Unknown Venipuncture / Unknown 12/14/2024 11:45 AM EDT 12/14/2024 12:07 PM EDT us Romy Tovar MD LAB BLOOD ORDERABLES Final Resul t [facility] [address] [place] [address], [place] [phone] * Pathologist Review Immunofixation (11/30/2024 5:43 AM EDT) Pathologist Interpretation Emma Snow MD 12/04/2024 3:03 PM EDT [facility] Blood Venous blood specimen / Unknown Venipuncture / Unknown 11/30/2024 5:43 AM EDT 11/30/2024 8:32 AM EDT us Romy Tovar MD LAB BLOOD ORDERABLES Final Resul t [facility] [address] [place] [address], [place] [phone] * PATHOLOGIST REVIEW PROTEIN ELECTROPHORESIS (11/30/2024 5:43 AM EDT) Pathologist Interpretation Emma Snow MD 12/04/2024 3:04 PM EDT [facility] Blood Venous blood specimen / Unknown Venipuncture / Unknown 11/30/2024 5:43 AM EDT 11/30/2024 8:32 AM EDT us Romy Tovar MD LAB BLOOD ORDERABLES Final Resul t Performing Organization Address City/[facility]/ZIP Co de Phone Number [facility] [address] [place] [address], [place] [phone] * (ABNORMAL) Iron and TIBC (11/30/2024 5:43 AM EDT) Iron 41(L) 50 - 160 mcg/dL LAB CHEMISTRY METHOD 11/30/2024 9:47 AM EDT [facility] TIBC 176(L) 250 - 450 mcg/dL LAB CHEMISTRY METHOD 11/30/2024 9:47 AM EDT [facility] Iron Saturation 23 20 - 50 % LAB CHEMISTRY METHOD 11/30/2024 9:47 AM EDT [facility] Blood Venous blood specimen / Unknown Venipuncture / Unknown 11/30/2024 5:43 AM EDT 11/30/2024 8:32 AM EDT us Romy Tovar MD LAB BLOOD ORDERABLES Final Resul t Performing Organization Address [facility] Co de Phone Number [facility] [address] [place] [address], [place] [phone] * Vitamin D 25 hydroxy (11/30/2024 5:43 AM EDT) [facility] Vit D, 25-Hydroxy 51.4 30.0 - 80.0 ng/mL LAB CHEMISTRY METHOD 11/30/2024 10:13 AM EDT [facility] Blood Venous blood specimen / Unknown Venipuncture / Unknown 11/30/2024 5:43 AM EDT 11/30/2024 8:32 AM EDT us Romy Tovar MD LAB BLOOD ORDERABLES Final Resul t Performing Organization Address [facility] de Phone Number [facility] [address] [place] [address], [place] [phone] * Immunofixation electrophoresis serum (11/30/2024 5:43 AM EDT) [facility] Immunofixation Result, Serum IgA [place] monoclonal immunoglobulins detected. LAB CHEMISTRY METHOD 12/04/2024 3:03 PM EDT [facility] Blood Venous blood specimen / Unknown Venipuncture / Unknown 11/30/2024 5:43 AM EDT 11/30/2024 8:32 AM EDT us Romy Tovar MD LAB BLOOD ORDERABLES Final Resul t Performing Organization Address City/[facility] Co de Phone Number [facility] [address] [place] [address], [place] [phone] * (ABNORMAL) Immunoglobulins IgG, IgA, IgM (11/30/2024 5:43 AM EDT) [facility] Total IgG 270(L) 549 - 1,584 mg/dL LAB CHEMISTRY METHOD 12/04/2024 5:18 PM EDT [facility] IgA 3,610(H) 61 - 348 mg/dL LAB CHEMISTRY METHOD 12/04/2024 5:18 PM EDT [facility] Comment:Results verified by repeat testing IgM 6(L) 23 - 259 mg/dL LAB CHEMISTRY METHOD 12/04/2024 5:18 PM EDT [facility] Comment:Results verified by repeat testing Blood Venous blood specimen / Unknown Venipuncture / Unknown 11/30/2024 5:43 AM EDT 11/30/2024 8:32 AM EDT Romy Tovar MD LAB BLOOD ORDERABLES Final Resul t [facility] [address] [place] [address], * (ABNORMAL) Protein electrophoresis, serum (11/30/2024 5:43 AM EDT) Total Protein 8.8(H) 6.0 - 8.0 g/dL LAB CHEMISTRY METHOD 12/04/2024 3:04 PM T [facility] Albumin, Serum 2.8(L) 2.9 - 4.1 g/dL LAB CHEMISTRY METHOD 12/04/2024 3:04 PM EDT [facility] Alpha 1 Globulin (g/dL) 0.3 0.1 - 0.5 g/dL LAB CHEMISTRY METHOD 12/04/2024 3:04 PM EDT [facility] Alpha 2 Globulin (g/dL) 0.8 0.7 - 1.5 g/dL LAB CHEMISTRY METHOD 12/04/2024 3:04 PM EDT [facility] Beta (g/dL) 4.9(H) 0.7 - 1.5 g/dL LAB CHEMISTRY METHOD 12/04/2024 3:04 PM EDT [facility] Gamma Globulin (g/dL) LAB CHEMISTRY METHOD 12/04/2024 3:04 PM EDT [facility] Comment: This result is Beta + Gamma. Unable to separate the two fractions quantitatively. PARAPROTEIN LAB CHEMISTRY METHOD 12/04/2024 3:04 PM EDT [facility] Comment:Migrating as beta SPEP Interpretation Monoclonal gammopathy Abnormal pattern with M-spike migrating in beta region and therefore cannot be measured. Serum Immunofixation performed on this specimen demonstrated IgA [place] monoclonal protein. Hypoalbuminemia, suggestive of malnutrition, decreased hepatic synthesis or renal/GI loss LAB CHEMISTRY METHOD 12/04/2024 3:04 PM EDT [facility] Blood Venous blood specimen / Unknown Venipuncture / Unknown 11/30/2024 5:43 AM EDT 11/30/2024 8:32 AM EDT us Romy Tovar MD LAB BLOOD ORDERABLES Final Resul t Performing Organization Address City/[facility]/ZIP Co de Phone Number [facility] [address] [place] [address], [place] [phone] * (ABNORMAL) Protein, total (11/30/2024 5:43 AM EDT) [facility] Total Protein 8.8(H) 6.0 - 8.0 g/dL LAB CHEMISTRY METHOD 11/30/2024 9:47 AM EDT [facility] Blood Venous blood specimen / Unknown Venipuncture / Unknown 11/30/2024 5:43 AM EDT 11/30/2024 8:32 AM EDT us Romy Tovar MD LAB BLOOD ORDERABLES Final Resul t [facility] [address] [place] [address], [place] [phone] * (ABNORMAL) Ferritin (11/30/2024 5:43 AM EDT) Ferritin 525(H) 26 - 388 ng/mL LAB CHEMISTRY METHOD 11/30/2024 9:47 AM EDT [facility]) [facility] Blood Venous blood specimen / Unknown Venipuncture / Unknown 11/30/2024 5:43 AM EDT 11/30/2024 8:32 AM EDT us Romy Tovar MD LAB BLOOD ORDERABLES Final Resul t [facility] ([facility] [address] [place] [address], [place] [phone] from Last 3 Months Insurance MEDICARE [facility] MEDICARE Care Teams District Recruiter Relationship Specialty Start Date End Date Iggy Cottrell [address] [facility] [phone] [place] [address] PCP - General 11/03/24
--- OUTSIDE RECORDS SUMMARY | 2025-02-26 11:31 | XMS_ITS | Encounter Summary ---
Author Organization [facility] Address [address] [place] [address] Care Team Providers Care Blow Mold Operator Name Role Phone Rober Cottrell Apolinar Primary Care Provider [phone] Encounter Details Date Type Department Care Team (Latest Contact Info) Description 12/14/2024 Lab Requisition [facility] - Main Lab [address] [facility] [place] [address] Romy Tovar MD [address] [place] [address] Type 2 diabetes mellitus with [...] Type 2 diabetes mellitus with unspecified complications ([facility]/HCC V24, [facility]/HCC V28) Unspecified atrial fibrillation ([facility] V24, [facility] V28) Essential (primary) hypertension documented in this encounter Results * (ABNORMAL) Sedimentation rate (12/14/2024 11:45 AM EDT) Sed Rate 53(H) 0 - 20 mm/hr LAB HEMETOLOGY METHOD 12/14/2024 12:50 PM EDT [facility] Blood Venous blood specimen / Unknown Venipuncture / Unknown 12/14/2024 11:45 AM EDT 12/14/2024 12:07 PM EDT Romy oTvar MD LAB BLOOD ORDERABLES Final Resul t [facility] [address] [place] [address], * (ABNORMAL) Comprehensive metabolic panel (12/14/2024 11:45 AM EDT) Pathologist [facility] Sodium 138 133 - 145 mmol/L LAB CHEMISTRY METHOD 12/14/2024 1:48 PM [facility] Potassium 3.6 3.5 - 5.5 mmol/L LAB CHEMISTRY METHOD 12/14/2024 1:48 PM [facility] Chloride 103 96 - 110 mmol/L LAB CHEMISTRY METHOD 12/14/2024 1:48 PM T [facility] CO2 28 21 - 32 mmol/L LAB CHEMISTRY METHOD 12/14/2024 1:48 PM [facility] Anion Gap 7 3 - 11 LAB CHEMISTRY METHOD 12/14/2024 1:48 PM [facility] Glucose 162(H) 70 - 100 mg/dL LAB CHEMISTRY METHOD 12/14/2024 1:48 PM [facility] BUN 43(H) 5 - 25 mg/dL LAB CHEMISTRY METHOD 12/14/2024 1:48 PM [facility] Creatinine 1.47(H) 0.70 - 1.30 mg/dL LAB CHEMISTRY METHOD 12/14/2024 1:48 PM [facility] eGFR 48(L) >=60 mL/min/1. 73m2 LAB CHEMISTRY METHOD 12/14/2024 1:48 PM [facility] Comment:Calculation based on the Chronic Kidney Disease Epidemiology Collaboration (CKD-EPI) equation refit without adjustment for race. BUN/Creatinine Ratio 29.3 LAB CHEMISTRY METHOD 12/14/2024 1:48 PM [facility] Calcium 8.6 8.5 - 10.5 mg/dL LAB CHEMISTRY METHOD 12/14/2024 1:48 PM [facility] AST (SGOT) 27 10 - 42 unit/L LAB CHEMISTRY METHOD 12/14/2024 1:48 PM [facility] ALT (SGPT) 17 10 - 60 unit/L LAB CHEMISTRY METHOD 12/14/2024 1:48 PM [facility] Alkaline Phosphatase 78 42 - 121 unit/L LAB CHEMISTRY METHOD 12/14/2024 1:48 PM [facility] Total Protein 8.7(H) 6.0 - 8.0 g/dL LAB CHEMISTRY METHOD 12/14/2024 1:48 PM [facility] Albumin 2.3(L) 3.2 - 5.0 g/dL LAB CHEMISTRY METHOD 12/14/2024 1:48 PM [facility] Total Bilirubin 0.4 0.0 - 1.4 mg/dL LAB CHEMISTRY METHOD 12/14/2024 1:48 PM [facility] Blood Venous blood specimen / Unknown Venipuncture / Unknown 12/14/2024 11:45 AM EDT 12/14/2024 12:07 PM EDT us Romy Tovar MD LAB BLOOD ORDERABLES Final Resul t [facility] [address] [place] [address], * (ABNORMAL) Complete blood count (12/14/2024 11:45 AM EDT) [facility] Signature WBC 5.0 4.8 - 10.8 K/mcL LAB HEMETOLOGY METHOD 12/14/2024 12:30 PM EDT [facility] RBC 2.30(L) 4.50 - 5.50 M/mcL LAB HEMETOLOGY METHOD 12/14/2024 12:30 PM EDT [facility] Hemoglobin 7.5(L) 13.5 - 17.5 g/dL LAB HEMETOLOGY METHOD 12/14/2024 12:30 PM EDT [facility] Hematocrit 23.3(L) 42.0 - 54.0 % LAB HEMETOLOGY METHOD 12/14/2024 12:30 PM EDT [facility] MCV 101.7(H) 79.0 - 98.0 FL LAB HEMETOLOGY METHOD 12/14/2024 12:30 PM EDT [facility] MCH 32.8(H) 27.0 - 32.0 pcg LAB HEMETOLOGY METHOD 12/14/2024 12:30 PM EDT [facility] MCHC 32.2 32.0 - 37.0 g/dL LAB HEMETOLOGY METHOD 12/14/2024 12:30 PM EDT [facility] RDW 18.0(H) 11.0 - 15.0 % LAB HEMETOLOGY METHOD 12/14/2024 12:30 PM EDT [facility] Platelets 140 130 - 400 K/mcL LAB HEMETOLOGY METHOD 12/14/2024 12:30 PM EDT [facility] MPV 10.2 7.0 - 11.0 FL LAB HEMETOLOGY METHOD 12/14/2024 12:30 PM EDT [facility] NRBC 0.0 <1.0 % LAB HEMETOLOGY METHOD 12/14/2024 12:30 PM EDT [facility] NRBC Absolute 0.00 <0.10 K/mcL LAB HEMETOLOGY METHOD 12/14/2024 12:30 PM EDT [facility] Blood Venous blood specimen / Unknown Venipuncture / Unknown 12/14/2024 11:45 AM EDT 12/14/2024 12:07 PM EDT us Romy Tovar MD LAB BLOOD ORDERABLES Final Resul t [facility] [address] [place] [address], documented in this encounter Visit Diagnoses Diagnosis Type 2 diabetes mellitus with unspecified complications (CMS/HCC V24, [facility]/HCC V28) Unspecified atrial fibrillation ([facility]/HCC V24, [facility]/HCC V28) Essential (primary) hypertension Unspecified essential hypertension documented in this encounter Care Teams Blow Mold Operator Relationship Specialty Start Date End Date Rober Cottrell [address] [facility] [phone] [place] [address] PCP - General 11/03/24 documented as of this encounter
--- OUTSIDE RECORDS SUMMARY | 2025-02-26 11:31 | XMS_ITS | Encounter Summary ---
[facility] Address [address] [place] [address] Care Team Providers Care Senior Actuarial Analyst Name Role Phone Rober Cottrell Primary Care Provider Encounter Details Date Type Department Care Team (Late st Contact Info) Description 12/02/2024 Lab Requisition [facility] - Main Lab [address] [place] [address] Romy Tovar MD [address] [place] [id number] Essential (primary) hypertension Social History Tobacco Use [...] LAB HEMETOLOGY METHOD 12/02/2024 1:23 PM EDT [facility] RBC 2.10(L) 4.50 - 5.50 M/mcL LAB HEMETOLOGY METHOD 12/02/2024 1:23 PM EDT [facility] Hemoglobin 6.9(L) 13.5 - 17.5 g/dL LAB HEMETOLOGY METHOD 12/02/2024 1:23 PM EDT [facility] Hematocrit 22.1(L) 42.0 - 54.0 % LAB HEMETOLOGY METHOD 12/02/2024 1:23 PM EDT [facility] MCV 103.8(H) 79.0 - 98.0 FL LAB HEMETOLOGY METHOD 12/02/2024 1:23 PM EDT [facility] MCH 32.4(H) 27.0 - 32.0 pcg LAB HEMETOLOGY METHOD 12/02/2024 1:23 PM EDT [facility] MCHC 31.2(L) 32.0 - 37.0 g/dL LAB H[facility]ETOLOGY [facility] RDW 18.2(H) 11.0 - 15.0 % LAB HEMETOLOGY METHOD 12/02/2024 1:23 PM EDT [facility] Platelets 144 130 - 400 K/mcL LAB HEMETOLOGY METHOD 12/02/2024 1:23 PM EDT [facility] MPV 10.6 7.0 - 11.0 FL LAB HEMETOLOGY METHOD 12/02/2024 1:23 PM EDT [facility] NRBC 0.0 <1.0 % LAB HEMETOLOGY METHOD 12/02/2024 1:23 PM EDT [facility] NRBC Absolute 0.00 <0.10 K/mcL LAB HEMETOLOGY METHOD 12/02/2024 1:23 PM EDT [facility] Blood Venous blood specimen / Unknown Venipuncture / Unknown 12/02/2024 6:33 AM EDT 12/02/2024 12:29 PM EDT us Romy Tovar MD LAB BLOOD ORDERABLES Final Resul t [facility] [address] [place], [place] [address] [phone] documented in this encounter Visit Diagnoses Diagnosis Essential (primary) hypertension Unspecified essential hypertension documented in this encounter Care Teams Senior Actuarial Analyst Relationship Specialty Start Date End Date Rober Cottrell [address] [place] [address] [phone] [place] [address] PCP - General 11/03/24 documented as of this encounter
--- OUTSIDE RECORDS SUMMARY | 2025-02-26 11:31 | XMS_ITS | Encounter Summary ---
Author Organization [facility] Address [address] [place] [address] Care Team Providers Care Supervisor Inspection Department Name Role Phone Rober Cottrell Primary Care Provider [phone] Encounter Details Date Type Department Care Team (Latest Contact Info) Description 02/15/[address] [facility] - Main Lab [address] [facility] [place] [address] Romy Tovar MD [address] [place] [address] Type 2 diabetes mellitus without [...] mmol/L LAB CHEMISTRY METHOD 02/15/2025 8:18 AM [facility] Potassium 4.7 3.5 - 5.5 mmol/L LAB CHEMISTRY METHOD 02/15/2025 8:18 AM [facility] Comment:Hemolysis present Chloride 106 96 - 110 mmol/L LAB CHEMISTRY METHOD 02/15/2025 8:18 AM [facility] CO2 30 21 - 32 mmol/L LAB CHEMISTRY METHOD 02/15/2025 8:18 AM [facility] Anion Gap 4 3 - 11 LAB CHEMISTRY METHOD 02/15/2025 8:18 AM [facility] Glucose 85 70 - 100 mg/dL LAB CHEMISTRY METHOD 02/15/2025 8:18 AM [facility] BUN 46(H) 5 - 25 mg/dL LAB CHEMISTRY METHOD 02/15/2025 8:18 AM [facility] Creatinine 1.53(H) 0.70 - 1.30 mg/dL LAB CHEMISTRY METHOD 02/15/2025 8:18 AM [facility] eGFR 46(L) >=60 mL/min/1. 73m2 LAB CHEMISTRY METHOD 02/15/2025 8:18 AM [facility] Comment:Calculation based on the Chronic Kidney Disease Epidemiology Collaboration (CKD-EPI) equation refit without adjustment for race. BUN/Creatinine Ratio 30.1 LAB CHEMISTRY METHOD 02/15/2025 8:18 AM [facility] Calcium 8.5 8.5 - 10.5 mg/dL LAB CHEMISTRY METHOD 02/15/2025 8:18 AM [facility] AST (SGOT) 31 10 - 42 unit/L LAB CHEMISTRY METHOD 02/15/2025 8:18 AM [facility] Comment:Hemolysis present ALT (SGPT) 19 10 - 60 unit/L LAB CHEMISTRY METHOD 02/15/2025 8:18 AM EDT [facility] Alkaline Phosphatase 97 42 - 121 unit/L LAB CHEMISTRY METHOD 02/15/2025 8:18 AM EDT [facility] Total Protein 8.5(H) 6.0 - 8.0 g/dL LAB CHEMISTRY METHOD 02/15/2025 8:18 AM EDT [facility] Albumin 2.1(L) 3.2 - 5.0 g/dL LAB CHEMISTRY METHOD 02/15/2025 8:18 AM T [facility] Total Bilirubin 0.5 0.0 - 1.4 mg/dL LAB CHEMISTRY METHOD 02/15/2025 8:18 AM T [facility] Blood Venous blood specimen / Unknown Venipuncture / Unknown 02/15/2025 5:25 AM EDT 02/15/2025 6:55 AM EDT us Romy Tovar MD LAB BLOOD ORDERABLES Final Resul t [facility] [address] [place] [address], * (ABNORMAL) Complete blood count (02/15/2025 5:25 AM EDT) WBC 4.3(L) 4.8 - 10.8 K/[facility] LAB HEMETOLOGY METHOD 02/15/2025 7:58 AM EDT [facility] RBC 2.40(L) 4.50 - 5.50 M/mcL LAB HEMETOLOGY METHOD 02/15/2025 7:58 AM EDT [facility] Hemoglobin 8.0(L) 13.5 - 17.5 g/dL LAB HEMETOLOGY METHOD 02/15/2025 7:58 AM EDT [facility] Hematocrit 26.3(L) 42.0 - 54.0 % LAB HEMETOLOGY METHOD 02/15/2025 7:58 AM EDT [facility] MCV 109.1(H) 79.0 - 98.0 FL LAB HEMETOLOGY METHOD 02/15/2025 7:58 AM EDT [facility] MCH 33.2(H) 27.0 - 32.0 pcg LAB HEMETOLOGY METHOD 02/15/2025 7:58 AM EDT [facility] MCHC 30.4(L) 32.0 - 37.0 g/dL LAB HEMETOLOGY METHOD 02/15/2025 7:58 AM EDT [facility] RDW 19.1(H) 11.0 - 15.0 % LAB HEMETOLOGY METHOD 02/15/2025 7:58 AM EDT [facility] Platelets 155 130 - 400 K/mcL LAB HEMETOLOGY METHOD 02/15/2025 7:58 AM EDT [facility] MPV 10.1 7.0 - 11.0 FL LAB HEMETOLOGY METHOD 02/15/2025 7:58 AM EDT [facility] NRBC 0.0 <1.0 % LAB HEMETOLOGY METHOD 02/15/2025 7:58 AM EDT [facility] NRBC Absolute 0.00 <0.10 K/mcL LAB HEMETOLOGY METHOD 02/15/2025 7:58 AM EDT [facility] Blood Venous blood specimen / Unknown Venipuncture / Unknown 02/15/2025 5:25 AM EDT 02/15/2025 6:55 AM EDT us Romy Tovar MD LAB BLOOD ORDERABLES Final Resul t [facility] [address] [place] [address], documented in this encounter Visit Diagnoses Diagnosis Type 2 diabetes mellitus without complications (CMS/HCC V24, [facility] V28) Unspecified atrial fibrillation ([facility] V24, [facility] V28) Essential (primary) hypertension Unspecified essential hypertension Anemia, unspecified documented in this encounter Care Teams Supervisor Inspection Department Relationship Specialty Start Date End Date Rober Cottrell [address] [facility] [phone] [place] [address] PCP - General 11/03/24 documented as of this encounter
--- OUTSIDE RECORDS SUMMARY | 2025-02-26 11:31 | XMS_ITS | Encounter Summary ---
[facility] Address [address] [place] [address] Care Team Providers Care Timber Spotter Name Role Phone Rober Cottrell Primary Care Provider [phone] Encounter Details Date Type Department Care Team (Late st Contact Info) Description 01/22/2025 Lab Requisition [facility] - Main Lab [address] [place] [address] Romy Tovar MD [address] [place] [phone] Anemia, unspecified; Unspecified kidney failure Social History [...] LAB CHEMISTRY METHOD 01/22/2025 1:[address] [facility] Potassium 4.3 3.5 - 5.5 mmol/L LAB CHEMISTRY METHOD 01/22/2025 1:[address] [facility] Chloride 103 96 - 110 mmol/L LAB CHEMISTRY METHOD 01/22/2025 1:56 PM [facility] CO2 28 21 - 32 mmol/L LAB CHEMISTRY METHOD 01/22/2025 1:56 PM [facility] Anion Gap 6 3 - 11 LAB CHEMISTRY METHOD 01/22/2025 1:56 PM [facility] Glucose 48(L) 70 - 100 mg/dL LAB CHEMISTRY METHOD 01/22/2025 1:56 PM [facility] BUN 48(H) 5 - 25 mg/dL LAB CHEMISTRY METHOD 01/22/2025 1:56 PM [facility] Creatinine 1.72(H) 0.70 - 1.30 mg/dL LAB CHEMISTRY METHOD 01/22/2025 1:56 PM [facility] eGFR 40(L) >=60 mL/min/1. 73m2 LAB CHEMISTRY METHOD 01/22/2025 1:56 PM [facility] Comment:Calculation based on the Chronic Kidney Disease Epidemiology Collaboration (CKD-EPI) equation refit without adjustment for race. BUN/Creatinine Ratio 27.9 LAB CHEMISTRY METHOD 01/22/2025 1:56 PM [facility] Calcium 8.8 8.5 - 10.5 mg/dL LAB CHEMISTRY METHOD 01/22/2025 1:56 PM [facility] AST (SGOT) 31 10 - 42 unit/L LAB CHEMISTRY METHOD 01/22/2025 1:56 PM [facility] ALT (SGPT) 17 10 - 60 unit/L LAB CHEMISTRY METHOD 01/22/2025 1:56 PM [facility] Alkaline Phosphatase 99 42 - 121 unit/L LAB CHEMISTRY METHOD 01/22/2025 1:56 PM [facility] Total Protein 8.9(H) 6.0 - 8.0 g/dL LAB CHEMISTRY METHOD 01/22/2025 1:56 PM [facility] Albumin 2.2(L) 3.2 - 5.0 g/dL LAB CHEMISTRY METHOD 01/22/2025 1:[address] [facility] Total Bilirubin 0.5 0.0 - 1.4 mg/dL LAB CHEMISTRY METHOD 01/22/2025 1:[address] [facility] Blood Venous blood specimen / Unknown Venipuncture / Unknown 01/22/2025 8:41 AM EDT 01/22/2025 9:54 AM EDT us Romy Tovar MD LAB BLOOD ORDERABLES Final Resul t [facility] [address] [place] [address], [place] [phone] * (ABNORMAL) Complete blood count (01/22/2025 8:41 AM EDT) WBC 4.4(L) 4.8 - 10.8 K/mcL LAB HEMETOLOGY METHOD 01/22/2025 12:[address] [facility] RBC 2.20(L) 4.50 - 5.50 M/mcL LAB HEMETOLOGY METHOD 01/22/2025 12:[address] [facility] Hemoglobin 7.2(L) 13.5 - 17.5 g/dL LAB HEMETOLOGY METHOD 01/22/2025 12:[address] [facility] Hematocrit 22.8(L) 42.0 - 54.0 % LAB HEMETOLOGY METHOD 01/22/2025 12:[address] [facility] MCV 105.6(H) 79.0 - 98.0 FL LAB HEMETOLOGY METHOD 01/22/2025 12:[address] [facility] MCH 33.3(H) 27.0 - 32.0 pcg LAB HEMETOLOGY METHOD 01/22/2025 12:[address] [facility] MCHC 31.6(L) 32.0 - 37.0 g/dL LAB HEMETOLOGY METHOD 01/22/2025 12:[address] [facility] RDW 16.9(H) 11.0 - 15.0 % LAB HEMETOLOGY METHOD 01/22/2025 12:[address] [facility] Platelets 154 130 - 400 K/mcL LAB HEMETOLOGY METHOD 01/22/2025 12:[address] [facility] MPV 10.6 7.0 - 11.0 FL LAB HEMETOLOGY METHOD 01/22/2025 12:[address] [facility] NRBC 0.0 <1.0 % LAB HEMETOLOGY METHOD 01/22/2025 12:[address] [facility] NRBC Absolute 0.00 <0.10 K/mcL LAB HEMETOLOGY METHOD 01/22/2025 12:[address] [facility] Blood Venous blood specimen / Unknown Venipuncture / Unknown 01/22/2025 8:41 AM EDT 01/22/2025 9:54 AM EDT us Romy Tovar MD LAB BLOOD ORDERABLES Final Resul t [facility] [address] [place] [address], documented in this encounter Visit Diagnoses Diagnosis Anemia, unspecified Unspecified kidney failure documented in this encounter Care Teams Timber Spotter Relationship Specialty Start Date End Date Rober Cottrell [address] [place] [address] [phone] [place] [address] PCP - General 11/03/24 documented as of this encounter
--- OUTSIDE RECORDS SUMMARY | 2025-02-26 11:31 | XMS_ITS | Encounter Summary ---
Author Organization [facility] Address [address] [place] [address] Care Team Providers Care Shop Supervisor Name Role Phone Rober Cottrell Primary Care Provider [phone] Encounter Details Date Type Department Care Team (Late st Contact Info) Description 11/30/2024 Lab Requisition [facility] - Main Lab [address] [facility] [place] [address] Romy Tovar MD [address] [place] [phone] Anemia, unspecified; Essential (primary) hypertension; Vitamin D [...] Procedure Name Priority Date/Time Associated Diagnosis Comments AR IMMUNOFIXATION ELECTROPHORESIS SERUM Routine 11/30/2024 5:43 AM EDT Anemia, unspecified Essential (primary) hypertension Vitamin D deficiency, unspecified IMMUNOFIXATION ELECTROPHORESIS Routine 11/30/2024 5:43 AM EDT Anemia, unspecified Essential (primary) hypertension Vitamin D deficiency, unspecified AR PROTEIN ELECTROPHORETIC FRACTIONATION & QUANTITATION SERUM Routine [...] 12/04/2024 3:04 PM EDT LETTY MCKEON [place] ([facility]) [facility] Blood Venous blood specimen / Unknown Venipuncture / Unknown 11/30/2024 5:43 AM EDT 11/30/2024 8:32 AM EDT us Romy Tovar MD LAB BLOOD ORDERABLES Final Resul t [facility] [address] [place] [address], [place] [phone] * Pathologist Review Immunofixation (11/30/2024 5:43 AM EDT) Pathologist [facility] Pathologist Interpretation Emma Snow MD 12/04/2024 3:03 PM EDT [facility] Blood Venous blood specimen / Unknown Venipuncture / Unknown 11/30/2024 5:43 AM EDT 11/30/2024 8:32 AM EDT us Romy Tovar MD LAB BLOOD ORDERABLES Final Resul t [facility] [address] [place] [address], [place] [phone] * (ABNORMAL) Immunoglobulins IgG, IgA, IgM (11/30/2024 5:43 AM EDT) Total IgG 270(L) 549 - 1,584 mg/dL LAB CHEMISTRY METHOD 12/04/2024 5:18 PM EDT [facility] IgA 3,610(H) 61 - 348 mg/dL LAB CHEMISTRY METHOD 12/04/2024 5:18 PM EDT [facility] Comment:Results verified by repeat testing IgM 6(L) 23 - 259 mg/dL LAB CHEMISTRY METHOD 12/04/2024 5:18 PM EDT [facility] Comment:Results verified by repeat testing Blood Venous blood specimen / Unknown Venipuncture / Unknown 11/30/2024 5:43 AM EDT 11/30/2024 8:32 AM EDT us Romy Tovar MD LAB BLOOD ORDERABLES Final Resul t [facility] [address] [place] [address], [place] [phone] * Immunofixation electrophoresis serum (11/30/2024 5:43 AM EDT) Immunofixation Result, Serum IgA [place] monoclonal immunoglobulins detected. LAB CHEMISTRY METHOD 12/04/2024 3:03 PM EDT [facility] Blood Venous blood specimen / Unknown Venipuncture / Unknown 11/30/2024 5:43 AM EDT 11/30/2024 8:32 AM EDT us Romy Tovar MD LAB BLOOD ORDERABLES Final Resul t Performing Organization Address [facility] Co de Phone Number [facility] [address] [place] [address], [place] [phone] * (ABNORMAL) Protein, total (11/30/2024 5:43 AM EDT) [facility] Total Protein 8.8(H) 6.0 - 8.0 g/dL LAB CHEMISTRY METHOD 11/30/2024 9:47 AM EDT [facility] Blood Venous blood specimen / Unknown Venipuncture / Unknown 11/30/2024 5:43 AM EDT 11/30/2024 8:32 AM EDT us Romy Tovar MD LAB BLOOD ORDERABLES Final Resul t Performing Organization Address [facility] Co de Phone Number [facility] [address] [place] [address], [place] [phone] * (ABNORMAL) Protein electrophoresis, serum (11/30/2024 5:43 AM EDT) Pathologist [facility] Total Protein 8.8(H) 6.0 - 8.0 g/dL LAB CHEMISTRY METHOD 12/04/2024 3:04 PM EDT [facility] Albumin, Serum 2.8(L) 2.9 - 4.1 g/dL LAB CHEMISTRY METHOD 12/04/2024 3:04 PM EDT [facility] Alpha 1 Globulin (g/dL) 0.3 0.1 - 0.5 g/dL LAB CHEMISTRY METHOD 12/04/2024 3:04 PM EDT [facility] Alpha 2 Globulin (g/dL) 0.8 0.7 - 1.5 g/dL LAB CHEMISTRY METHOD 12/04/2024 3:04 PM EDT [facility] Beta (g/dL) 4.9(H) 0.7 - 1.5 g/dL LAB CHEMISTRY METHOD 12/04/2024 3:04 PM EDT [facility] Gamma Globulin (g/dL) LAB CHEMISTRY METHOD 12/04/2024 3:04 PM EDT [facility] Comment: This result is Beta + Gamma. Unable to separate the two fractions quantitatively. PARAPROTEIN LAB CHEMISTRY METHOD 12/04/2024 3:04 PM EDT [facility] Comment:Migrating as beta SPEP Interpretation Monoclonal gammopathy Abnormal pattern with M-spike migrating in beta region and therefore cannot be measured. Serum Immunofixation performed on this specimen demonstrated IgA [place] monoclonal protein. Hypoalbuminemia, suggestive of malnutrition, decreased hepatic synthesis or renal/GI loss LAB CHEMISTRY METHOD 12/04/2024 3:04 PM EDT [facility] Blood Venous blood specimen / Unknown Venipuncture / Unknown 11/30/2024 5:43 AM EDT 11/30/2024 8:32 AM EDT Romy Tovar MD LAB BLOOD ORDERABLES Final Resul t [facility] [address] [place] [address], * Vitamin D 25 hydroxy (11/30/2024 5:43 AM EDT) Vit D, 25-Hydroxy 51.4 30.0 - 80.0 ng/mL LAB CHEMISTRY METHOD 11/30/2024 10:13 AM EDT [facility] Blood Venous blood specimen / Unknown Venipuncture / Unknown 11/30/2024 5:43 AM EDT 11/30/2024 8:32 AM EDT us Romy Tovar MD LAB BLOOD ORDERABLES Final Resul t Performing Organization Address [facility] de Phone Number [facility] [address] [place] [address], [place] [phone] * (ABNORMAL) Ferritin (11/30/2024 5:43 AM EDT) Pathologist [facility] Ferritin 525(H) 26 - 388 ng/mL LAB CHEMISTRY METHOD 11/30/2024 9:47 AM EDT [facility] Blood Venous blood specimen / Unknown Venipuncture / Unknown 11/30/2024 5:43 AM EDT 11/30/2024 8:32 AM EDT us Romy Tovar MD LAB BLOOD ORDERABLES Final Resul t Performing Organization Address [facility] de Phone Number [facility] [address] [place] [address], [place] [phone] * (ABNORMAL) Iron and TIBC (11/30/2024 5:43 AM EDT) [facility] Iron 41(L) 50 - 160 mcg/dL LAB CHEMISTRY METHOD 11/30/2024 9:47 AM EDT [facility] TIBC 176(L) 250 - 450 mcg/dL LAB CHEMISTRY METHOD 11/30/2024 9:47 AM EDT [facility] Iron Saturation 23 20 - 50 % LAB CHEMISTRY METHOD 11/30/2024 9:47 AM EDT [facility] Blood Venous blood specimen / Unknown Venipuncture / Unknown 11/30/2024 5:43 AM EDT 11/30/2024 8:32 AM EDT us Romy Tovar MD LAB BLOOD ORDERABLES Final Resul t [facility] [address] [place] [address], * (ABNORMAL) Basic metabolic panel (11/30/2024 5:43 AM EDT) Sodium 137 133 - 145 mmol/L LAB CHEMISTRY METHOD 11/30/2024 9:50 AM EDT [facility] Potassium 3.8 3.5 - 5.5 mmol/L LAB CHEMISTRY METHOD 11/30/2024 9:50 AM EDT [facility] Chloride 100 96 - 110 mmol/L LAB CHEMISTRY METHOD 11/30/2024 9:50 AM T [facility] CO2 32 21 - 32 mmol/L LAB CHEMISTRY METHOD 11/30/2024 9:[address] [facility] Anion Gap 5 3 - 11 LAB CHEMISTRY METHOD 11/30/2024 9:[address] [facility] Glucose 64(L) 70 - 100 mg/dL LAB CHEMISTRY METHOD 11/30/2024 9:[address] [facility] BUN 65(H) 5 - 25 mg/dL LAB CHEMISTRY METHOD 11/30/2024 9:[address] [facility] Creatinine 1.66(H) 0.70 - 1.30 mg/dL LAB CHEMISTRY METHOD 11/30/2024 9:[address] [facility] eGFR 42(L) >=60 mL/min/1. 73m2 LAB CHEMISTRY METHOD 11/30/2024 9:[address] [facility] Comment:Calculation based on the Chronic Kidney Disease Epidemiology Collaboration (CKD-EPI) equation refit without adjustment for race. BUN/Creatinine Ratio 39.2 LAB CHEMISTRY METHOD 11/30/2024 9:[address] [facility] Calcium 8.7 8.5 - 10.5 mg/dL LAB CHEMISTRY METHOD 11/30/2024 9:[address] [facility] Blood Venous blood specimen / Unknown Venipuncture / Unknown 11/30/2024 5:43 AM EDT 11/30/2024 8:32 AM EDT us Romy Tovar MD LAB BLOOD ORDERABLES Final Resul t [facility] [address] [place] [address], * (ABNORMAL) Complete blood count (11/30/2024 5:43 AM EDT) WBC 5.5 4.8 - 10.8 K/mcL LAB HEMETOLOGY METHOD 11/30/2024 8:59 AM EDT [facility] RBC 2.10(L) 4.50 - 5.50 M/mcL LAB HEMETOLOGY METHOD 11/30/2024 8:59 AM EDT [facility] Hemoglobin 6.8(L) 13.5 - 17.5 g/dL LAB HEMETOLOGY METHOD 11/30/2024 8:59 AM EDT [facility] Hematocrit 21.9(L) 42.0 - 54.0 % LAB HEMETOLOGY METHOD 11/30/2024 8:59 AM T [facility] MCV 102.3(H) 79.0 - 98.0 FL LAB HEMETOLOGY METHOD 11/30/2024 8:59 AM EDT [facility] MCH 31.8 27.0 - 32.0 pcg LAB HEMETOLOGY METHOD 11/30/2024 8:59 AM T [facility] MCHC 31.1(L) 32.0 - 37.0 g/dL LAB HEMETOLOGY METHOD 11/30/2024 8:[address] [facility] RDW 18.5(H) 11.0 - 15.0 % LAB HEMETOLOGY METHOD 11/30/2024 8:59 AM EDT [facility] Platelets 137 130 - 400 K/mcL LAB HEMETOLOGY METHOD 11/30/2024 8:59 AM EDT [facility] MPV 10.3 7.0 - 11.0 FL LAB HEMETOLOGY METHOD 11/30/2024 8:59 AM EDT [facility] NRBC 0.0 <1.0 % LAB HEMETOLOG METHOD 11/30/2024 8:59 AM EDT [facility] NRBC Absolute 0.00 <0.10 K/mcL LAB HEMETOLOGY METHOD 11/30/2024 8:59 AM EDT [facility] Blood Venous blood specimen / Unknown Venipuncture / Unknown 11/30/2024 5:43 AM EDT 11/30/2024 8:32 AM EDT us Romy Tovar MD LAB BLOOD ORDERABLES Final Resul t [facility] [address] [place] [address], documented in this encounter Visit Diagnoses Diagnosis Anemia, unspecified Essential (primary) hypertension Unspecified essential hypertension Vitamin D deficiency, unspecified documented in this encounter Care Teams Shop Supervisor Relationship Specialty Start Date End Date Rober Cottrell [address] [facility] [phone] [place] [address] PCP - General 11/03/24 documented as of this encounter
--- OUTSIDE RECORDS SUMMARY | 2025-02-26 11:31 | XMS_ITS | Encounter Summary ---
Author Organization [facility] Address [address] [place] [address] Care Team Providers Care Continuous Improvement Lead Name Role Phone Rober Cottrell Apolinar Primary Care Provider [phone] Encounter Details Date Type Department Care Team (Latest Contact Info) Description 02/08/2025 Lab Requisition [facility] - Main Lab [address] [facility] [place] [address] Romy Tovar MD [address] [place] [address] Type 2 diabetes mellitus without [...] Anemia, unspecified Unspecified atrial fibrillation ([facility] V24, [facility] V28) documented in this encounter Results * Hemoglobin A1c (02/08/2025 6:58 AM EDT) Pathologist [facility] Hemoglobin A1C 5.7 <6.5 % LAB CHEMISTRY METHOD 02/08/2025 12:42 PM EDT [facility] Mean Bld Glu Estim. 117 mg/dL LAB CHEMISTRY METHOD 02/08/2025 12:42 PM EDT [facility] Blood Venous blood specimen / Unknown Venipuncture / Unknown 02/08/2025 6:58 AM EDT 02/08/2025 10:09 AM EDT Romy Tovar MD LAB BLOOD ORDERABLES Final Resul t [facility] [address] [place] [address], * (ABNORMAL) Comprehensive metabolic panel (02/08/2025 6:58 AM EDT) [facility] Sodium 140 133 - 145 mmol/L LAB CHEMISTRY METHOD 02/08/2025 7:13 PM T [facility] Potassium 4.8 3.5 - 5.5 mmol/L LAB CHEMISTRY METHOD 02/08/2025 7:13 PM [facility] Chloride 105 96 - 110 mmol/L LAB CHEMISTRY METHOD 02/08/2025 7:13 PM [facility] CO2 28 21 - 32 mmol/L LAB CHEMISTRY METHOD 02/08/2025 7:13 PM EDT [facility] Anion Gap 7 3 - 11 LAB CHEMISTRY METHOD 02/08/2025 7:13 PM [facility] Glucose 76 70 - 100 mg/dL LAB CHEMISTRY METHOD 02/08/2025 7:13 PM T [facility] BUN 54(H) 5 - 25 mg/dL LAB CHEMISTRY METHOD 02/08/2025 7:13 PM [facility] Creatinine 1.68(H) 0.70 - 1.30 mg/dL LAB CHEMISTRY METHOD 02/08/2025 7:13 PM [facility] eGFR 41(L) >=60 mL/min/1. 73m2 LAB CHEMISTRY METHOD 02/08/2025 7:13 PM [facility] Comment:Calculation based on the Chronic Kidney Disease Epidemiology Collaboration (CKD-EPI) equation refit without adjustment for race. BUN/Creatinine Ratio 32.1 LAB CHEMISTRY METHOD 02/08/2025 7:13 PM [facility] Calcium 8.7 8.5 - 10.5 mg/dL LAB CHEMISTRY METHOD 02/08/2025 7:13 PM [facility] AST (SGOT) 31 10 - 42 unit/L LAB CHEMISTRY METHOD 02/08/2025 7:13 PM [facility] ALT (SGPT) 18 10 - 60 unit/L LAB CHEMISTRY METHOD 02/08/2025 7:13 PM [facility] Alkaline Phosphatase 82 42 - 121 unit/L LAB CHEMISTRY METHOD 02/08/2025 7:13 PM [facility] Total Protein 8.4(H) 6.0 - 8.0 g/dL LAB CHEMISTRY METHOD 02/08/2025 7:13 PM [facility] Albumin 1.9(L) 3.2 - 5.0 g/dL LAB CHEMISTRY METHOD 02/08/2025 7:13 PM [facility] Total Bilirubin 0.4 0.0 - 1.4 mg/dL LAB CHEMISTRY METHOD 02/08/2025 7:13 PM [facility] Blood Venous blood specimen / Unknown Venipuncture / Unknown 02/08/2025 6:58 AM EDT 02/08/2025 10:09 AM EDT us Romy Tovar MD LAB BLOOD ORDERABLES Final Resul t [facility] [address] [place] [address], * (ABNORMAL) Complete blood count (02/08/2025 6:58 AM EDT) WBC 5.6 4.8 - 10.8 K/mcL LAB HEMETOLOGY METHOD 02/08/2025 10:29 AM EDT [facility] RBC 2.40(L) 4.50 - 5.50 M/mcL LAB HEMETOLOGY METHOD 02/08/2025 10:29 AM EDT [facility] Hemoglobin 8.0(L) 13.5 - 17.5 g/dL LAB HEMETOLOGY METHOD [facility] Hematocrit 26.0(L) 42.0 - 54.0 % LAB HEMETOLOGY METHOD 02/08[facility]2025 10[facility] MCV 107.9(H) 79.0 - 98.0 FL LAB HEMETOLOGY METHOD 02/08/2025 10:29 AM [facility] MCH 33.2(H) 27.0 - 32.0 pcg LAB HEMETOLOGY METHOD 02/08/2025 10:29 AM EDT [facility] MCHC 30.8(L) 32.0 - 37.0 g/dL LAB HEMETOLOGY METHOD 02/08/2025 10:29 AM EDT [facility] RDW 17.9(H) 11.0 - 15.0 % LAB HEMETOLOGY METHOD 02/08[facility]2025 10[facility] Platelets 164 130 - 400 K/mcL LAB HEMETOLOGY METHOD 02/08/2025 10:29 AM EDT [facility] MPV 10.4 7.0 - 11.0 FL LAB HEMETOLOGY METHOD 02/08/2025 10:29 AM EDT [facility] NRBC 0.0 <1.0 % LAB HEMETOLOGY METHOD 02/08/2025 10:29 AM EDT [facility] NRBC Absolute 0.00 <0.10 K/mcL LAB HEMETOLOGY METHOD 02/08/2025 10:29 AM EDT [facility] Blood Venous blood specimen / Unknown Venipuncture / Unknown 02/08/2025 6:58 AM EDT 02/08/2025 10:09 AM EDT us Romy Tovar MD LAB BLOOD ORDERABLES Final Resul t [facility] [address] [place] [address], documented in this encounter Visit Diagnoses Diagnosis Type 2 diabetes mellitus without complications (CMS/HCC V24, CMS/HCC V28) Anemia, unspecified Unspecified atrial fibrillation (CMS/HCC V24, CMS/HCC V28) documented in this encounter Care Teams Continuous Improvement Lead Relationship Specialty Start Date End Date Rober Cottrell [address] [facility] [phone] [place] [address] PCP - General 11/03/24 documented as of this encounter
--- OUTSIDE RECORDS SUMMARY | 2025-02-26 11:31 | XMS_ITS | Encounter Summary ---
Author Organization [facility] Address [address] [place] [address] Care Team Providers Care Gambling Floor Supervisor Name Role Phone Rober Cottrell Primary Care Provider [phone] Encounter Details Date Type Department Care Team (Latest Contact Info) Description 02/19/2025 Lab Requisition [facility] - Main Lab [address] [place] [address] Romy Tovar MD [address] [place] [phone] Anemia, unspecified; Type 2 diabetes mellitus without [...] LAB CHEMISTRY METHOD 02/19/2025 1:02 PM EDT [facility] Potassium 4.3 3.5 - 5.5 [...] 10.5 mg/dL LAB CHEMISTRY METHOD 02/19/2025 1:02 [facility] AST (SGOT) 32 10 - 42 unit/L LAB CHEMISTRY METHOD 02/19/2025 1:02 [facility] ALT (SGPT) 19 10 - 60 unit/L LAB CHEMISTRY METHOD 02/19/2025 1:02 PM [facility] Alkaline Phosphatase 114 42 - 121 unit/L LAB CHEMISTRY METHOD 02/19/2025 1:02 PM [facility] Total Protein 8.5(H) 6.0 - 8.0 g/dL LAB CHEMISTRY METHOD 02/19/2025 1:02 PM EDT [facility] Albumin 2.1(L) 3.2 - 5.0 g/dL LAB CHEMISTRY METHOD 02/19/2025 1:02 PM EDT [facility] Total Bilirubin 0.8 0.0 - 1.4 mg/dL LAB CHEMISTRY METHOD 02/19/2025 1:02 PM T [facility] Blood Venous blood specimen / Unknown 02/19/2025 9:08 AM EDT 02/19/2025 10:54 AM EDT Romy Tovar MD LAB BLOOD ORDERABLES Final Resul t [facility] [address] [place] [address], * (ABNORMAL) Complete blood count (02/19/2025 9:08 [...] LAB HEMETOLOGY METHOD 02/19/2025 12:37 PM EDT [facility] MCHC 30.6(L) 32.0 - 37.0 g/dL LAB HEMETOLOGY METHOD 02/19/2025 12:37 PM EDT [facility] RDW 19.1(H) 11.0 - 15.0 % LAB HEMETOLOGY METHOD 02/19/2025 12:37 PM EDT [facility] Platelets 135 130 - 400 K/mcL LAB HEMETOLOGY METHOD 02/19/2025 12:37 PM EDT [facility] MPV 10.5 7.0 - 11.0 FL LAB HEMETOLOGY METHOD 02/19/2025 12:37 PM EDT [facility] NRBC 0.0 <1.0 % LAB HEMETOLOGY METHOD 02/19/2025 12:37 PM EDT [facility] NRBC Absolute 0.00 <0.10 K/mcL LAB HEMETOLOGY METHOD 02/19/2025 12:37 PM EDT [facility] Blood Venous blood specimen / Unknown Venipuncture / Unknown 02/19/2025 9:08 AM EDT 02/19/2025 10:54 AM EDT us Romy Tovar MD LAB BLOOD ORDERABLES Final Resul t [facility] [address] [place] [address], documented in this encounter Visit Diagnoses Diagnosis Anemia, unspecified Type 2 diabetes mellitus without complications (CMS/HCC V24, CMS/HCC V28) documented in this encounter Care Teams Gambling Floor Supervisor Relationship Specialty Start Date End Date Rober Cottrell [address] [place] [phone] PCP - General 11/03/24 documented as of this encounter
--- OUTSIDE RECORDS SUMMARY | 2025-02-26 11:32 | XMS_ITS | Encounter Summary ---
Author Organization [facility] Address [address] [place] [address] Care Team Providers Care Co Founder And President Name Role Phone Rober Cottrell Primary Care Provider [phone] Encounter Details Date Type Department Care Team (Late st Contact Info) Description 11/03/2024 Lab Requisition [facility] - Main Lab [address] [place] [address] Rober Cottrell [address] [facility] [address] [place] [address] Anemia, unspecified; Precipitous drop in [...] AM EDT) WBC 4.8 4.8 - 10.8 K/[facility] LAB HEMETOLOGY METHOD 11/03/2024 11:08 AM EDT [facility] RBC 2.10(L) 4.50 - 5.50 M/[facility] LAB HEMETOLOGY METHOD 11/03/2024 11:08 AM [facility] Hemoglobin 6.6(L) 13.5 - 17.5 g/dL LAB HEMETOLOGY METHOD 11/03/2024 11:08 AM [facility] Hematocrit 21.4(L) 42.0 - 54.0 % LAB HEMETOLOGY METHOD 11/03/2024 11:08 AM [facility] MCV 102.4(H) 79.0 - 98.0 FL LAB HEMETOLOGY METHOD 11/03/2024 11:08 AM [facility] MCH 31.6 27.0 - 32.0 pcg LAB HEMETOLOGY METHOD 11/03/2024 11:08 AM [facility] MCHC 30.8(L) 32.0 - 37.0 g/dL LAB HEMETOLOGY METHOD 11/03/2024 11:08 AM [facility] RDW 19.6(H) 11.0 - 15.0 % LAB HEMETOLOGY METHOD 11/03/2024 11:08 AM [facility] Platelets 167 130 - 400 K/mcL LAB HEMETOLOGY METHOD 11/03/2024 11:08 AM [facility] MPV 10.1 7.0 - 11.0 FL LAB HEMETOLOGY METHOD 11/03/2024 11:08 AM [facility] NRBC 0.0 <1.0 % LAB HEMETOLOGY METHOD 11/03/2024 11:08 AM [facility] NRBC Absolute 0.00 <0.10 K/mcL LAB HEMETOLOGY METHOD 11/03/2024 11:08 AM [facility] Blood Venous blood specimen / Unknown Venipuncture / Unknown 11/03/2024 7:45 AM EDT 11/03/2024 8:57 AM EDT Rober Cottrell LAB BLOOD ORDERABLES Final Resul t [facility] [address] [place] [address], documented in this encounter Visit Diagnoses Diagnosis Anemia, unspecified Precipitous drop in hematocrit Malignant (primary) neoplasm, unspecified (CMS/HCC V24, CMS/HCC V28) documented in this encounter Care Teams Co Founder And President Relationship Specialty Start Date End Date Rober Cottrell [address] [facility] [phone] [place] [address] PCP - General 11/03/24 documented as of this encounter
--- OUTSIDE RECORDS SUMMARY | 2025-02-26 11:32 | XMS_ITS | Encounter Summary ---
Author Organization [facility] Address [address] [place] [address] Care Team Providers Care Customs Appraiser Name Role Phone Rober Cottrell Apolinar Primary Care Provider [phone] Encounter Details Date Type Department Care Team (Late st Contact Info) Description 11/13/2024 Lab Requisition [facility] - Main Lab [address] [place] [address] Romy Tovar MD [address] [place] [phone] Anemia, unspecified Social History Tobacco Use Types [...] AM EDT) WBC 4.4(L) 4.8 - 10.8 K/[facility] LAB HEMETOLOGY METHOD 11/13/2024 1:16 PM EDT [facility] RBC 2.40(L) 4.50 - 5.50 M/[facility] LAB HEMETOLOGY METHOD 11/13/2024 1:16 PM EDT [facility] Hemoglobin 7.5(L) 13.5 - 17.5 g/dL LAB HEMETOLOGY METHOD 11/13/2024 1:16 PM EDT [facility] Hematocrit 24.4(L) 42.0 - 54.0 % LAB HEMETOLOGY METHOD 11/13/2024 1:16 PM EDT [facility] MCV 103.0(H) 79.0 - 98.0 FL LAB HEMETOLOGY METHOD 11/13/2024 1:16 PM EDT [facility] MCH 31.6 27.0 - 32.0 pcg LAB HEMETOLOGY METHOD 11/13/2024 1:16 PM EDT [facility] MCHC 30.7(L) 32.0 - 37.0 g/dL LAB HEMETOLOGY METHOD 11/13/2024 1:16 PM EDT [facility] RDW 18.9(H) 11.0 - 15.0 % LAB HEMETOLOGY METHOD 11/13/2024 1:16 PM EDT [facility] Platelets 158 130 - 400 K/mcL LAB HEMETOLOGY METHOD 11/13/2024 1:16 PM EDT [facility] MPV 10.1 7.0 - 11.0 FL LAB HEMETOLOGY METHOD 11/13/2024 1:16 PM EDT [facility] NRBC 0.0 <1.0 % LAB HEMETOLOGY METHOD 11/13/2024 1:16 PM EDT [facility] NRBC Absolute 0.00 <0.10 K/mcL LAB HEMETOLOGY METHOD 11/13/2024 1:16 PM EDT [facility] Blood Venous blood specimen / Unknown Venipuncture / Unknown 11/13/2024 4:42 AM EDT 11/13/2024 10:46 AM EDT us Romy Tovar MD LAB BLOOD ORDERABLES Final Resul t [facility] [address], [place] [address] [phone] documented in this encounter Visit Diagnoses Diagnosis Anemia, unspecified documented in this encounter Care Teams Customs Appraiser Relationship Specialty Start Date End Date Rober Cottrell [address] [facility] [phone] [place] [id number] PCP - General 11/03/24 documented as of this encounter
--- OUTSIDE RECORDS SUMMARY | 2025-02-26 11:32 | XMS_ITS | Encounter Summary ---
Author Organization [facility] Address [address] [place] [address] Care Team Providers Care Sleeve Separator Name Role Phone Rober Cottrell Apolinar Primary Care Provider [phone] Encounter Details Date Type Department Care Team (Latest Contact Info) Description 10/13/2024 Lab Requisition [facility] - Main Lab 299 [facility] [place] [address] Romy Tovar MD [address] [place] [address] Type 2 diabetes mellitus without [...] Hemoglobin A1c (10/13/2024 11:53 AM EDT) Pathologist [facility] Hemoglobin A1C 6.1 <6.5 % LAB CHEMISTRY [...] [facility] [address] [place] [address], * (ABNORMAL) Comprehensive metabolic panel (10/13/2024 11:53 AM EDT) [facility] Sodium 137 133 - 145 mmol/L [...] 11 LAB CHEMISTRY METHOD 10/13/2024 2:28 PM [facility] Glucose 203(H) 70 - 100 mg/dL LAB CHEMISTRY METHOD 10/13/2024 2:28 PM T [facility] BUN 28(H) 5 - 25 mg/dL LAB CHEMISTRY METHOD 10/13/2024 2:28 PM [facility] Creatinine 1.44(H) 0.70 - 1.30 mg/dL LAB CHEMISTRY METHOD 10/13/2024 2:28 PM [facility] eGFR 49(L) >=60 mL/min/1. 73m2 LAB CHEMISTRY METHOD 10/13/2024 2:28 PM [facility] Comment:Calculation based on the Chronic Kidney Disease Epidemiology Collaboration (CKD-EPI) equation refit without adjustment for race. BUN/Creatinine Ratio 19.4 LAB CHEMISTRY METHOD 10/13/2024 2:28 PM [facility] Calcium 8.3(L) 8.5 - 10.5 mg/dL LAB CHEMISTRY METHOD 10/13/2024 2:28 PM [facility] AST (SGOT) 29 10 - 42 unit/L LAB CHEMISTRY METHOD 10/13/2024 2:28 PM [facility] ALT (SGPT) 18 10 - 60 unit/L LAB CHEMISTRY METHOD 10/13/2024 2:28 PM [facility] Alkaline Phosphatase 97 42 - 121 unit/L LAB CHEMISTRY METHOD 10/13/2024 2:28 PM [facility] Total Protein 8.9(H) 6.0 - 8.0 g/dL LAB CHEMISTRY METHOD 10/13/2024 2:28 PM [facility] Albumin 2.2(L) 3.2 - 5.0 g/dL LAB CHEMISTRY METHOD 10/13/2024 2:28 PM [facility] Total Bilirubin 1.5(H) 0.0 - 1.4 mg/dL LAB CHEMISTRY METHOD 10/13/2024 2:28 PM [facility] Blood Venous blood specimen / Unknown Venipuncture / Unknown 10/13/2024 11:53 AM EDT 10/13/2024 12:25 PM EDT Romy Tovar MD LAB BLOOD ORDERABLES Final Resul t [facility] [address] [place] [address], * (ABNORMAL) Complete blood count (10/13/2024 11:53 AM EDT) WBC 6.0 4.8 - 10.8 K/mcL LAB HEMETOLOGY METHOD 10/13/2024 12:47 PM EDT [facility] RBC 2.50(L) 4.50 - 5.50 M/mcL LAB HEMETOLOGY METHOD 10/13/2024 12:47 PM EDT [facility] Hemoglobin 7.7(L) 13.5 - 17.5 g/dL LAB HEMETOLOGY METHOD 10/13[facility]24 [facility] Hematocrit 25.5(L) 42.0 - 54.0 % LAB HEMETOLOGY METHOD 10/13/2024 12:47 PM EDT [facility] MCV 103.7(H) 79.0 - 98.0 FL LAB HEMETOLOGY METHOD 10/13/2024 12:47 [facility] MCH 31.3 27.0 - 32.0 pcg LAB HEMETOLOGY METHOD 10/13/2024 12:47 [facility] MCHC 30.2(L) 32.0 - 37.0 g/dL LAB HEMETOLOGY METHOD 10/13/2024 12:47 PM EDT [facility] RDW 19.5(H) 11.0 - 15.0 % LAB HEMETOLOGY METHOD 10/13/2024 12:47 PM EDT [facility] Platelets 215 130 - 400 K/mcL LAB HEMETOLOGY METHOD 10/13/2024 12:47 [facility] MPV 9.9 7.0 - 11.0 [...] [facility] [address] [place] [address], documented in this encounter Visit Diagnoses Diagnosis Type 2 diabetes mellitus without complications (CMS/HCC V24, CMS/HCC V28) Anemia, unspecified Other fatigue Benign prostatic hyperplasia with lower urinary tract symptoms documented in this encounter Additional Health Concerns Infection Onset Date Last Indicated Resolved Time C. difficile Rule-Out 11/02/2024 11/01/20242024 9:11 AM EDT documented as of this encounter Care Teams Sleeve Separator Relationship Specialty Start Date End Date Rober Cottrell [address] [facility] [phone] [place] [address] PCP - General 11/03/24 documented as of this encounter
--- OUTSIDE RECORDS SUMMARY | 2025-02-26 11:32 | XMS_ITS | Encounter Summary ---
Author Organization [facility] Address [address] [place] [address] Care Team Providers Care Safety Administrator Name Role Phone Rober Cottrell Primary Care Provider [phone] Encounter Details Date Type Department Care Team (Late st Contact Info) Description 12/18/2024 Lab Requisition [facility] - Main Lab [address] [place] [address] Romy Tovar MD [address] [place] [phone] Anemia, unspecified Social History Tobacco Use Types [...] mmol/L LAB CHEMISTRY METHOD 12/18/2024 8:38 AM [facility] Potassium 3.8 3.5 - 5.5 mmol/L LAB CHEMISTRY METHOD 12/18/2024 8:38 AM [facility] Chloride 103 96 - 110 mmol/L LAB CHEMISTRY METHOD 12/18/2024 8:38 AM [facility] CO2 34(H) 21 - 32 mmol/L LAB CHEMISTRY METHOD 12/18/2024 8:38 AM [facility] Anion Gap 3 3 - 11 LAB CHEMISTRY METHOD 12/18/2024 8:38 AM [facility] Glucose 76 70 - 100 mg/dL LAB CHEMISTRY METHOD 12/18/2024 8:38 AM [facility] BUN 48(H) 5 - 25 mg/dL LAB CHEMISTRY METHOD 12/18/2024 8:38 AM [facility] Creatinine 1.32(H) 0.70 - 1.30 mg/dL LAB CHEMISTRY METHOD 12/18/2024 8:38 AM [facility] eGFR 55(L) >=60 mL/min/1. 73m2 LAB CHEMISTRY METHOD 12/18/2024 8:38 AM [facility] Comment:Calculation based on the Chronic Kidney Disease Epidemiology Collaboration (CKD-EPI) equation refit without adjustment for race. BUN/Creatinine Ratio 36.4 LAB CHEMISTRY METHOD 12/18/2024 8:38 AM [facility] Calcium 8.8 8.5 - 10.5 mg/dL LAB CHEMISTRY METHOD 12/18/2024 8:38 AM [facility] Blood Venous blood specimen / Unknown Venipuncture / Unknown 12/18/2024 6:51 AM EDT 12/18/2024 7:59 AM EDT us Romy Tovar MD LAB BLOOD ORDERABLES Final Resul t [facility] [address] [place] [address], * (ABNORMAL) Complete blood count (12/18/2024 6:51 AM EDT) WBC 3.2(L) 4.8 - 10.8 K/mcL LAB HEMETOLOGY METHOD 12/18/2024 8:20 AM [facility] RBC 2.10(L) 4.50 - 5.50 M/mcL LAB HEMETOLOGY METHOD 12/18/2024 8:20 AM [facility] Hemoglobin 6.8(L) 13.5 - 17.5 g/dL LAB HEMETOLOGY METHOD 12/18/2024 8:20 AM [facility] Hematocrit 21.8(L) 42.0 - 54.0 % LAB HEMETOLOGY METHOD 12/18/2024 8:20 AM [facility] MCV 104.3(H) 79.0 - 98.0 FL LAB HEMETOLOGY METHOD 12/18/2024 8:20 AM [facility] MCH 32.5(H) 27.0 - 32.0 pcg LAB HEMETOLOGY METHOD 12/18/2024 8:20 AM [facility] MCHC 31.2(L) 32.0 - 37.0 g/dL LAB HEMETOLOGY METHOD 12/18/2024 8:20 AM [facility] RDW 18.1(H) 11.0 - 15.0 % LAB HEMETOLOGY METHOD 12/18/2024 8:20 AM [facility] Platelets 116(L) 130 - 400 K/mcL LAB HEMETOLOGY METHOD 12/18/2024 8:20 AM [facility] MPV 10.2 7.0 - 11.0 FL LAB HEMETOLOGY METHOD 12/18/2024 8:20 AM [facility] NRBC 0.0 <1.0 % LAB HEMETOLOGY METHOD 12/18/2024 8:20 AM [facility] NRBC Absolute 0.00 <0.10 K/mcL LAB HEMETOLOGY METHOD 12/18/2024 8:20 AM [facility] Blood Venous blood specimen / Unknown Venipuncture / Unknown 12/18/2024 6:51 AM EDT 12/18/2024 7:59 AM EDT us Romy Tovar MD LAB BLOOD ORDERABLES Final Resul t [facility] [address] [place] [address], documented in this encounter Visit Diagnoses Diagnosis Anemia, unspecified documented in this encounter Care Teams Safety Administrator Relationship Specialty Start Date End Date Rober Cottrell [address] [place] [address] [phone] [place] [address] PCP - General 11/03/24 documented as of this encounter
--- OUTSIDE RECORDS SUMMARY | 2025-02-26 11:32 | XMS_ITS | Encounter Summary ---
Author Organization [facility] Address [address] [place] [address] Care Team Providers Care Tape Transferrer Name Role Phone Rober Cottrell Primary Care Provider [phone] Encounter Details Date Type Department Care Team (Latest Contact Info) Description 11/02/2024 Lab Requisition [facility] - Main Lab [address] [place] [address] Romy Tovar MD [address] [place] [address] Type 2 diabetes mellitus without [...] mmol/L LAB CHEMISTRY METHOD 11/02/2024 9:14 AM [facility] Potassium 3.4(L) 3.5 - 5.5 mmol/L LAB CHEMISTRY METHOD 11/02/2024 9:14 AM [facility] Chloride 101 96 - 110 mmol/L LAB CHEMISTRY METHOD 11/02/2024 9:14 AM [facility] CO2 30 21 - 32 mmol/L LAB CHEMISTRY METHOD 11/02/2024 9:14 AM [facility] Anion Gap 7 3 - 11 LAB CHEMISTRY METHOD 11/02/2024 9:14 AM [facility] Glucose 77 70 - 100 mg/dL LAB CHEMISTRY METHOD 11/02/2024 9:14 AM [facility] BUN 33(H) 5 - 25 mg/dL LAB CHEMISTRY METHOD 11/02/2024 9:14 AM [facility] Creatinine 1.28 0.70 - 1.30 mg/dL LAB CHEMISTRY METHOD 11/02/2024 9:14 AM [facility] eGFR 57(L) >=60 mL/min/1. 73m2 LAB CHEMISTRY METHOD 11/02/2024 9:14 AM [facility] Comment:Calculation based on the Chronic Kidney Disease Epidemiology Collaboration (CKD-EPI) equation refit without adjustment for race. BUN/Creatinine Ratio 25.8 LAB CHEMISTRY METHOD 11/02/2024 9:14 AM [facility] Calcium 8.4(L) 8.5 - 10.5 mg/dL LAB CHEMISTRY METHOD 11/02/2024 9:14 AM [facility] Blood Venous blood specimen / Unknown Venipuncture / Unknown 11/02/2024 6:24 AM EDT 11/02/2024 8:07 AM EDT us Romy Tovar MD LAB BLOOD ORDERABLES Final Resul t [facility] [address] [place] [address], * (ABNORMAL) Complete blood count (11/02/2024 6:24 AM EDT) [facility] Signature WBC 4.6(L) 4.8 - 10.8 K/mcL LAB HEMETOLOGY METHOD 11/02/2024 8:47 [facility] RBC 2.10(L) 4.50 - 5.50 M/mcL LAB HEMETOLOGY METHOD 11/02/2024 8:47 [facility] Hemoglobin 6.6(L) 13.5 - 17.5 g/dL LAB HEMETOLOGY METHOD 11/02/2024 8:47 AM [facility] Hematocrit 21.8(L) 42.0 - 54.0 % LAB HEMETOLOGY METHOD 11/02/2024 8:47 AM [facility] MCV 104.3(H) 79.0 - 98.0 FL LAB HEMETOLOGY METHOD 11/02/2024 8:47 AM [facility] LAB MCH 31.6 27.0 - 32.0 pcg LAB HEMETOLOGY METHOD 11/02/2024 8:47 AM [facility] MCHC 30.3(L) 32.0 - 37.0 g/dL LAB HEMETOLOGY METHOD 11/02/2024 8:47 AM [facility] RDW 19.4(H) 11.0 - 15.0 % LAB HEMETOLOGY METHOD 11/02/2024 8:47 AM [facility] Platelets 167 130 - 400 K/mcL LAB HEMETOLOGY METHOD 11/02/2024 8:47 AM [facility] MPV 10.0 7.0 - 11.0 FL LAB HEMETOLOGY METHOD 11/02/2024 8:47 AM [facility] NRBC 0.0 <1.0 % LAB HEMETOLOGY METHOD 11/02/2024 8:47 AM EDT [facility] NRBC Absolute 0.00 <0.10 K/mcL LAB HEMETOLOGY METHOD 11/02/2024 8:47 AM EDT [facility] Blood Venous blood specimen / Unknown Venipuncture / Unknown 11/02/2024 6:24 AM EDT 11/02/2024 8:07 AM EDT us Romy Tovar MD LAB BLOOD ORDERABLES Final Resul t [facility] [address] [place] [address], documented in this encounter Visit Diagnoses Diagnosis Type 2 diabetes mellitus without complications (CMS/HCC V24, CMS/HCC V28) Essential (primary) hypertension Unspecified essential hypertension Diarrhea, unspecified documented in this encounter Additional Health Concerns Infection Onset Date Last Indicated Resolved Time C. difficile Rule-Out 11/02/2024 11/01/20242024 9:11 AM EDT documented as of this encounter Care Teams Tape Transferrer Relationship Specialty Start Date End Date Rober Cottrell [address] [place] [address] [phone] [place] [address] PCP - General 11/03/24 documented as of this encounter
--- OUTSIDE RECORDS SUMMARY | 2025-02-26 11:32 | XMS_ITS | Encounter Summary ---
Author Organization [facility] Address [address] [place] [address] Care Team Providers Care Mill Washer Name Role Phone Rober Cottrell Primary Care Provider [phone] Encounter Details Date Type Department Care Team (Latest Contact Info) Description 11/09/2024 Lab Requisition [facility] - Main Lab 299 [facility] [place] [address] Romy Tovar MD [address] [place] [address] Type 2 diabetes mellitus without [...] EDT Type 2 diabetes mellitus without complications ([facility] V24, [facility] V28) Essential (primary) hypertension Anemia, unspecified documented in this encounter Results * (ABNORMAL) Iron (11/09/2024 5:16 AM EDT) [facility] Iron 39(L) 50 - 160 mcg/dL LAB CHEMISTRY METHOD 11/09/2024 10:21 AM EDT [facility] Blood Venous blood specimen / Unknown Venipuncture / Unknown 11/09/2024 5:16 AM EDT 11/09/2024 9:34 AM EDT us Romy Tovar MD LAB BLOOD ORDERABLES Final Resul t Performing Organization Address City/[facility]/ZIP Co de Phone Number [facility] [address] [place] [address], * Folate (11/09/2024 5:16 AM EDT) [facility] Folate 8.3 2.8 - 17.0 ng/ml LAB CHEMISTRY METHOD 11/09/2024 10:43 AM EDT [facility] Blood Venous blood specimen / Unknown Venipuncture / Unknown 11/09/2024 5:16 AM EDT 11/09/2024 9:34 AM EDT us Romy Tovar MD LAB BLOOD ORDERABLES Final Resul t [facility] [address] [place] [address], [place] [phone] * Vitamin B12 (11/09/2024 5:16 AM EDT) [facility] Vitamin B-12 503 250 - 900 pcg/mL LAB CHEMISTRY METHOD 11/09/2024 10:43 AM EDT [facility] Blood Venous blood specimen / Unknown Venipuncture / Unknown 11/09/2024 5:16 AM EDT 11/09/2024 9:34 AM EDT us Romy Tovar MD LAB BLOOD ORDERABLES Final Resul t [facility] [address] [place] [address], * (ABNORMAL) Complete blood count (11/09/2024 5:16 AM EDT) WBC 4.3(L) 4.8 - 10.8 K/mcL LAB HEMETOLOGY METHOD 11/09/2024 10:17 AM EDT [facility] RBC 2.40(L) 4.50 - 5.50 M/mcL LAB HEMETOLOGY METHOD 11/09/2024 10:17 AM [facility] Hemoglobin 7.7(L) 13.5 - 17.5 g/dL LAB HEMETOLOGY METHOD 11/09/2024 10:17 AM [facility] LAB Hematocrit 24.8(L) 42.0 - 54.0 % LAB HEMETOLOGY METHOD 11/09/2024 10:17 AM [facility] LAB MCV 102.9(H) 79.0 - 98.0 FL LAB HEMETOLOGY METHOD 11/09/2024 10:17 AM [facility] LAB MCH 32.0 27.0 - 32.0 pcg LAB HEMETOLOGY METHOD 11/09/2024 10:17 AM [facility] LAB MCHC 31.0(L) 32.0 - 37.0 g/dL LAB HEMETOLOGY METHOD 11/09/2024 10:17 AM [facility] LAB RDW 18.6(H) 11.0 - 15.0 % LAB HEMETOLOGY METHOD 11/09[facility]24 [facility] Platelets 159 130 - 400 K/mcL LAB HEMETOLOGY METHOD 11/09/2024 10:17 AM EDT [facility] MPV 10.2 7.0 - 11.0 FL LAB HEMETOLOGY METHOD 11/09/2024 10:17 AM EDT [facility] NRBC 0.0 <1.0 % LAB HEMETOLOGY METHOD 11/09/2024 10:17 AM EDT [facility] NRBC Absolute 0.00 <0.10 K/mcL LAB HEMETOLOGY METHOD 11/09/2024 10:17 AM EDT [facility] Blood Venous blood specimen / Unknown Venipuncture / Unknown 11/09/2024 5:16 AM EDT 11/09/2024 9:34 AM EDT us Romy Tovar MD LAB BLOOD ORDERABLES Final Resul t [facility] [address] [place] [address], [place] [phone] documented in this encounter Visit Diagnoses Diagnosis Type 2 diabetes mellitus without complications (CMS/HCC V24, CMS/HCC V28) Essential (primary) hypertension Unspecified essential hypertension Anemia, unspecified documented in this encounter Care Teams Mill Washer Relationship Specialty Start Date End Date Rober Cottrell [address] [facility] [phone] [place] [address] PCP - General 11/03/24 documented as of this encounter
--- OUTSIDE RECORDS SUMMARY | 2025-02-26 11:32 | XMS_ITS | Encounter Summary ---
Author Organization [facility] Address [address] [place] [address] Care Team Providers Care Travel Registered Nurse Icu Name Role Phone Rober Cottrell Apolinar Primary Care Provider [phone] Encounter Details Date Type Department Care Team (Late st Contact Info) Description 11/18/2024 Lab Requisition [facility] - Main Lab [address] [place] [address] Romy Tovar MD [address] [place] [phone] Anemia, unspecified Social History Tobacco Use Types [...] AM EDT) WBC 3.9(L) 4.8 - 10.8 K/[facility] LAB HEMETOLOGY METHOD 11/20/2024 12:04 PM EDT [facility] RBC 2.30(L) 4.50 - 5.50 M/[facility] LAB HEMETOLOGY METHOD 11/20/2024 12:04 PM EDT [facility] Hemoglobin 7.5(L) 13.5 - 17.5 g/dL LAB HEMETOLOGY METHOD 11/20/2024 12:04 PM EDT [facility] Hematocrit 24.8(L) 42.0 - 54.0 % LAB HEMETOLOGY METHOD 11/20/2024 12:04 PM EDT [facility] MCV 106.4(H) 79.0 - 98.0 FL LAB HEMETOLOGY METHOD 11/20/2024 12:04 PM EDT [facility] MCH 32.2(H) 27.0 - 32.0 pcg LAB HEMETOLOGY METHOD 11/20/2024 12:04 PM EDT [facility] MCHC 30.2(L) 32.0 - 37.0 g/dL LAB HEMETOLOGY [facility] RDW 19.0(H) 11.0 - 15.0 % LAB HEMETOLOGY METHOD 11/20/2024 12:04 PM EDT [facility] Platelets 143 130 - 400 K/mcL LAB HEMETOLOGY METHOD 11/20/2024 12:04 PM EDT [facility] MPV 10.6 7.0 - 11.0 FL LAB HEMETOLOGY METHOD 11/20/2024 12:04 PM [facility] NRBC 0.0 <1.0 % LAB HEMETOLOGY METHOD [facility] NR[facility] Absolute 0.00 <0.10 K/mcL LAB HEMETOLOGY METHOD 11/20/2024 12:04 PM [facility] Blood Venous blood specimen / Unknown Venipuncture / Unknown 11/20/2024 5:47 AM EDT 11/20/2024 10:44 AM EDT us Romy Tovar MD LAB BLOOD ORDERABLES Final Resul t [facility] [address] [place], [place] [address] [phone] documented in this encounter Visit Diagnoses Diagnosis Anemia, unspecified documented in this encounter Care Teams Travel Registered Nurse Icu Relationship Specialty Start Date End Date Rober Cottrell [address] [place] [address] [phone] [place] [address] PCP - General 11/03/24 documented as of this encounter
--- OUTSIDE RECORDS SUMMARY | 2025-02-26 11:32 | XMS_ITS | Clinical Summary ---
Author Organization [facility] Address [address] [place] [address] Care Team Providers Care Dolly Pusher Name Role Phone Unknown, Provider MD Primary Care Provider Unava ilable Source Comments If you require more information, please call our [facility] Department at [phone]. [facility] Allergies Active Allergy Reactions Criticality [...] Active fluticasone (FLONASE) 50 MCG/ACT nasal spray [place] 2 sprays into each nostril daily. Active [...] Due Date Last Done Comments HIV Screening [facility] 1958 Hepatitis C Screening [facility] 1963 [facility] DTaP/Tdap/Td (1 - Tdap) 1966 [...] Payer (Ef fective 2014-Present) Name:Rober Daniels Member ID:[id number] Relation to Subscriber:Self Name:Rober Daniels Subscriber ID:[id number] Payer ID:[id number] Group ID:Not on file Type:Not on file Address: [employer] [id number] MEDICARE PART A AND B * Guarantor: FrancesRboer Account Type Relation to Patient Date of Phone Billing Address [place] Referral Self 1945 [address] [place] [address] [employer] [facility] Care Teams Dolly Pusher Relationship Specialty Start Date End Date Unknown, Provider, [address] [place] [address] PCP - General 07/13/24
--- OUTSIDE RECORDS SUMMARY | 2025-02-26 11:32 | XMS_ITS | Encounter Summary ---
Author Organization [facility] Address [address] [place] [address] Care Team Providers Care Charge Loader Name Role Phone Rober Cottrell Primary Care Provider [phone] Encounter Details Date Type Department Care Team (Late st Contact Info) Description 11/02/2024 Lab Requisition [facility] - Main Lab [address] [place] [address] Romy Tovar MD [address] [place] [phone] Diarrhea, unspecified Social History Tobacco Use Types [...] Antigen Negative Negative 11/02/2024 9:11 AM EDT [facility] C difficile Toxins A+B, EIA Negative Negative 11/02/2024 9:11 AM EDT [facility] Comment:NEGATIVE FOR TOXIN P RODUCING CLOSTRIDIOIDES DIFFICILE, NO ADDITIONAL TESTING IS NECESSARY. Stool Rectum structure / Unknown Non-blood Collection / Unknown 11/01/2024 8:00 PM EDT 11/02/2024 8:17 AM EDT us Romy Tovar MD LAB MICROBIOLOGY - GENERAL ORDER CALE Final Result [facility] ([facility] [address] [place] [address], documented in this encounter Visit Diagnoses Diagnosis Diarrhea, unspecified documented in this encounter Additional Health Concerns Infection Onset Date Last Indicated Resolved Time C. difficile Rule-Out 11/02/2024 11/01/20242024 9:11 AM EDT documented as of this encounter Care Teams Charge Loader Relationship Specialty Start Date End Date Rober Cottrell [address] [facility] [phone] [place] [address] PCP - General 11/03/24 documented as of this encounter
[2025-02-26] MEDS: Lactated Ringers 500 ML 999 ML IV (12:04)
[2025-02-26 12:05] LABS: NT Pro B Type Natriuretic Pept 29413.7 pg/mL (<300)
[2025-02-26 12:17] LABS: Appearance Urine Cloudy; Glucose Urine UA Negative (Negative); PH 5.0 (5.0-9.0); Specific Gravity - Urine 1.020 (1.005-1.025); UMIC TRIGGER UACC YES
--- NOTE | 2025-02-26 13:16 | PC.NURSE ---
Patient presents to ED from [facility] EMS reported patient declining over the last 5 days [facility] staff noted patient to be lethargic and hypoxic 85% RA Oxymask 6L placed on patient O2 99% On arrival to ED patient was verbally non responsive Bilateral 20's Rectal temp 98.5 Wounds noted to Lambert 2nd toes and to coccyx area Coccyx area cleansed and covered with foam dressing, provider aware Patient has afib on eliquis Blood collected/ sent Patient straight cath yellow urine noted. Small clots noted when removing cath, patient tolerated procedure Son at bedside Plan of care on going
[2025-02-26 13:23] LABS: Troponin-I High Sensitivity 58.1 ng/L (<3.5-35.0)
[2025-02-26 14:00] LABS: ABG HCO3 31 mmol/L (22-26); ABG O2 % Saturation 100.0 %
--- NOTE | 2025-02-26 14:07 | PC.RT ---
ABG drawn and results given to MD. Pt SATs 99% on 6L oxy mask. Due to ABG results and high SPO2, pt taken off O2. RA SATs 91-93%. Goal per MD is 90%. RN aware.
[2025-02-26 14:25] LABS: ABG Refer to POC result
--- NOTE | 2025-02-26 19:36 | PM.IMHP ---
History of Present Illness Date of Service: 02/26/25 Attending physician on admission: Irineo Steel Chief Complaint: lethargy, FTT Pt is a 79 yo male with PMH IDDM, polyneuropathy, PVD/ CVI with bilateral femoral endarterectomy history, osteoporosis, ITP, HTN, OA, chronic decubitus ulcer, B toe ulcers, BPH, immobility, chronic anemia/ DUSTIN on ferrous sulfate, CKD stage IIIB, MGUS, chronic AFib on Eliquis was sent in from [place] for overall pt decline with AMS, FTT, lethargy and was noted to be hypoxic when EMS arrived. Pt also in AFIB RVR. Pt was recently hospitalized for acute anemia with multiple medical problems. Pt was admited from 01/31 - 02/07 and was seen by oncology and also as an outpatient for follow up. Oncology recommended that pt could have bone marrow bx with PET scan vs palliative care with comfort measures noting multiple health problems. Pt does appear to be declining and has a LLL PNA [place] [id number]. KIM on CKD continues with possible MUGS, MM. Son explained to ED provider that pt is currently a full code. Pt is somewhat awake and intermittently verbal, paranoid indicating something is out to get him and is watching him. Pt is disorientatred and confused. Work uoin the ED notes a CT chest with LLL PNA. CT abd notes B moderate Pleural effusions, ascites and possible cirrhosis. Pt is not jaundice. LA 1..2. Pt has no leukocytosis. H/H 9.5/31. Pt's eliquis was reduced to 2.5 mgs BID this past admission. HEAD CT negative for acute findings. ABG initially PH 7.28, 65, 239 and 31. Pt was able to lower to NC with redcued hypxia. VBG and ammonia levels are pending. UA low suspicion for UTI. Son was not present at time of admission and unable to reach son by phone. Pt being admitted for encephalopathy, lethargy and multiple medical issues listed above. Review of Systems Review of Systems: Yes Unobtainable due to mental status [facility] Medical History PAD (peripheral artery disease) MGUS (monoclonal gammopathy of unknown significance) Fungal rash of torso Polyneuropathy DUSTIN (iron deficiency anemia) CKD (chronic kidney disease) stage 3, GFR 30-59 ml/min Chronic disease anemia BPH (benign prostatic hyperplasia) Peripheral vascular disease Chronic ulcer of sacral region Chronic pain Allergic rhinitis Hyperlipidemia Hypertension Afib Cognitive capacity: disorientated Functional capacity: wheelchair bound Surgical History H/O endarterectomy Social History Household Members: None Housing: Shelter Patient Tobacco Use Status: Former Tobacco user Smoked in Last 30 Days: No Use of substances other than those prescribed or required for medical reasons: No Advance Directives: No Advance Directives Information Provided: No Do you have a plan to hurt others: No Plan Nutrition Risks: No Nutritional Risk service: Yes Meds Allergies Allergy/AdvReac Type Severity Reaction Status Date / Time atorvastatin (From Lipitor) Allergy Anaphylaxis Verified 02/26/25 10:12 capsaicin Allergy Anaphylaxis Verified 02/26/25 10:12 duloxetine (From Cymbalta) Allergy Anaphylaxis Verified 02/26/25 10:12 gabapentin Allergy Anaphylaxis Verified 02/26/25 10:12 metformin Allergy Anaphylaxis Verified 02/26/25 10:12 Home Medications ?Medication ?Instructions ?Recorded ?Confirmed ?Last Taken ?Type acetaminophen 325 mg capsule 650 mg PO Q6H PRN Pain 12/29/24 02/19/25 Unknown History ascorbic acid (vitamin C) 250 mg 250 mg PO DAILY 12/29/24 02/19/25 Unknown History tablet bisacodyl 10 mg rectal suppository 10 mg FL DAILY PRN Constipation 12/29/24 02/19/25 Unknown History (Dulcolax (bisacodyl)) cholecalciferol (vitamin D3) 25 25 mcg PO DAILY 12/29/24 02/19/25 Unknown History mcg (1,000 unit) tablet enalapril maleate 2.5 mg tablet 2.5 mg PO DAILY 12/29/24 02/19/25 Unknown History ferrous sulfate 325 mg (65 mg 325 mg PO BID 12/29/24 02/19/25 Unknown History iron) tablet finasteride 5 mg tablet 5 mg PO DAILY 12/29/24 02/19/25 Unknown History guaifenesin 100 mg/5 mL oral 200 mg PO Q8H PRN Cough 12/29/24 02/19/25 Unknown History liquid (Kareen-Tussin) insulin glargine U-300 conc 300 27 unit subcut DAILY 12/29/24 02/19/25 Unknown History unit/mL (1.5 mL) subcutaneous pen loratadine 10 mg capsule 10 mg PO DAILY 12/29/24 02/19/25 Unknown History multivitamin See Rx Instructions .Route .COMPLEX 12/29/24 02/19/25 Unknown History pregabalin 200 mg capsule (Lyrica) 200 mg PO BID 12/29/24 02/19/25 Unknown History rosuvastatin 5 mg tablet 5 mg PO DAILY 12/29/24 02/19/25 Unknown History sodium phosphates oral solution 15 ml PO Q10M 12/29/24 02/19/25 Unknown History tamsulosin 0.4 mg capsule 0.8 mg PO DAILY 12/29/24 02/19/25 Unknown History emollient 1 appl topical DAILY 01/31/25 02/19/25 Unknown History lidocaine 4 % topical patch 1 patch topical DAILY 01/31/25 02/19/25 Unknown History magnesium hydroxide 400 mg/5 mL 30 ml PO BEDTIME PRN Constipation 01/31/25 02/19/25 Unknown History oral suspension (Milk of Magnesia) nystatin 100,000 unit/gram topical 1 appl topical QSHIFT 01/31/25 02/19/25 Unknown History cream nystatin 100,000 unit/gram topical 1 appl topical QSHIFT 01/31/25 02/19/25 Unknown History powder polyvinyl alcohol-povidone (PF) 1 drp ophthalmic-Right Q2H PRN Dry 01/31/25 02/19/25 Unknown History 1.4 %-0.6 % eye drops in a Eyes dropperette sodium hypochlorite 0.25 % 1 appl topical DAILY Wound Care 01/31/25 02/19/25 Unknown History solution (Dakin's Solution) wound dressings (Triad Wound 1 appl topical DAILY 01/31/25 02/19/25 Unknown History Dressing paste) melatonin 5 mg capsule 5 mg PO DAILY 02/19/25 02/19/25 Unknown History trazodone 10 mg/mL oral solution 100 mg PO TID 02/20/25 Unknown History Physical Exam Vital Signs and Narrative: Vital Signs: Last Vital Signs Temp 98.2 F 02/26/25 19:08 Pulse 109 H 02/26/25 19:08 Resp 24 H 02/26/25 19:08 BP 133/80 02/26/25 19:08 Pulse Ox 96 02/26/25 19:08 O2 Del Method Nasal Cannula 02/26/25 19:08 O2 Flow Rate 1 02/26/25 19:08 Oxygen Flow Rate 6 02/26/25 10:10 BMI result Body Mass Index 30.3 Alert but confused, experiencing paranoia Neuro: Unable to complete exam, patient not able to follow all commands EYES: PERRLA, sclerae nonicteric ENT: hearing intact, uvula midline, lips moist, nares patent no epistaxis Cardiac: S1 S2 RRR, no murmur, no JVD, no edema in Lower ext Pulmonary: lungs diminished bilaterally Abdominal: BS active in all 4 quadrants, no guarding, tenderness, rebounding MSK: Unable to complete assessment : no CVA tenderness no bladder distension Extremities: no edema in lower extremities, PT and DP pulses palpable +2 Psych: mood flat, judgement and insight poor Skin: Bilateral 2nd toes with ulceration, chronic sacral decubitus Results Labs 02/26/25 10:47 02/26/25 10:47 Labs: Laboratory Results - last 24 hr 02/26/25 02/26/25 02/26/25 10:47 10:57 12:08 MCV 113.1 H MCH 34.7 H MCHC 30.6 L RDW 18.6 H Plt Count 134 L MPV 10.7 Immature Gran % (Auto) 0.8 H Neut % (Auto) 83.7 H Lymph % (Auto) 6.6 L [place] % (Auto) 8.9 Eos % (Auto) 0.0 Baso % (Auto) 0.0 Lymph # (Auto) 0.3 L [place] # (Auto) 0.5 Eos # (Auto) 0.0 Baso # (Auto) 0.0 Abs Immat Gran (auto) 0.04 H Absolute Neuts (auto) 4.3 Absolute Nucleated RBC 0.000 Nucleated RBC % (auto) 0.0 PT 15.8 H INR 1.4 H O2 Saturation ABG pH at Pt Temp ABG pCO2 at Pt Temp ABG pO2 at Pt Temp ABG HCO3 ABG Base Excess (Actual) VBG pH 7.32 VBG pCO2 62 VBG pO2 70 VBG HCO3 32 H VBG O2 Saturation 87.0 VBG Base Excess 5.2 Anion Gap 16 Estim Creat Clear Calc 38.4 Estimated GFR 36 POC Glucose 205 H Random Glucose 239 H Lactic Acid 1.2 Calcium 8.4 Magnesium 2.1 Total Bilirubin 1.0 AST 39 H ALT 14 Alkaline Phosphatase 124 H Troponin I High Sens 61.5 H NT-Pro-B Natriuret Pep 19469.7 H Total Protein 9.2 H Albumin 2.7 L Urine Color Dark Yellow Urine Appearance Cloudy Urine pH 5.0 Ur Specific [place] 1.020 Urine Protein 30 (1+) H Urine Glucose (UA) Negative Urine Ketones Negative Urine Blood Large (3+) H Urine Nitrite Negative Ur Leukocyte Esterase Trace H Urine RBC >20 H Urine WBC 0-5 Ur Squamous Epith Cells 0-2 Urine Bacteria None Seen Hyaline Casts 3-5 COVID-19 (FOZIA) Negative COVID-19 Clin Com See Note Influenza Type A (KELLI) Negative Influenza Type B (KELLI) Negative Influenza A & B Note See Note 02/26/25 02/26/25 12:59 13:55 MCV MCH MCHC RDW Plt Count MPV Immature Gran % (Auto) Neut % (Auto) Lymph % (Auto) [place] % (Auto) Eos % (Auto) Baso % (Auto) Lymph # (Auto) [place] # (Auto) Eos # (Auto) Baso # (Auto) Abs Immat Gran (auto) Absolute Neuts (auto) Absolute Nucleated RBC Nucleated RBC % (auto) PT INR O2 Saturation 100.0 ABG pH at Pt Temp 7.28 L ABG pCO2 at Pt Temp 65 H* ABG pO2 at Pt Temp 239 H ABG HCO3 31 H ABG Base Excess (Actual) 3.3 VBG pH VBG pCO2 VBG pO2 VBG HCO3 VBG O2 Saturation VBG Base Excess Anion Gap Estim Creat Clear Calc Estimated GFR POC Glucose Random Glucose Lactic Acid Calcium Magnesium Total Bilirubin AST ALT Alkaline Phosphatase Troponin I High Sens 58.1 H NT-Pro-B Natriuret Pep Total Protein Albumin Urine Color Urine Appearance Urine pH Ur Specific [place] Urine Protein Urine Glucose (UA) Urine Ketones Urine Blood Urine Nitrite Ur Leukocyte Esterase Urine RBC Urine WBC Ur Squamous Epith Cells Urine Bacteria Hyaline Casts COVID-19 (FOZIA) COVID-19 Clin Com Influenza Type A (KELLI) Influenza Type B (KELLI) Influenza A & B Note Imaging Radiologist's Impressions: ABD CT MPRESSION: 1. There is generalized increased fluid status. There are moderate bilateral pleural effusions, there is trace abdominal free fluid and there is edema of the soft tissues. 2. Possible cirrhosis. 3. Severe calcific plaque formation within major arteries. The degree of calcification within the left common iliac and right common femoral arteries suggest severe stenosis or occlusion. 4. There is osteopenia. There are osteoporotic type fractures at L4 and L5 without significant change. CHest CT IMPRESSION: 1. Moderate bilateral pleural effusions. Edema of the soft tissues. 2. Near-complete consolidation of the left lower lobe. This may be secondary to atelectasis and/or pneumonia HEAD CT No acute findings Assessment and Plan (1) Encephalopathy, metabolic: Status: Acute (2) Pneumonia: Qualifiers: Aspiration pneumonia type: unspecified Laterality: left Lung location: lower lobe of lung Pneumonia type: aspiration pneumonia Qualified Code(s): J69.0 - Pneumonitis due to inhalation of food and vomit Status: Acute Plan Pt is a 79 yo male with PMH IDDM, polyneuropathy, PVD/ CVI with bilateral femoral endarterectomy history, osteoporosis, ITP, HTN, OA, chronic decubitus ulcer, B toe ulcers, BPH, immobility, chronic anemia/ DUSTIN on ferrous sulfate, CKD stage IIIB, MGUS, chronic AFib on Eliquis was sent in from [place] for overall pt decline with AMS, FTT, lethargy and was noted to be hypoxic when EMS arrived. Pt also in AFIB RVR. Pt being admitted with the following medical problems: Acute hypoxic respiratory failure with possible sepsis (tachy from AFIB, no fever, no leukocytosis, LA normal, noted hypoxia no hypotension) PNA likely source Oxygen weaned from Oxymask to [facility] BC X2 pending Continuous Pulse ox Encephalopathy, FTT Ammonia [address] scan, LFTs normal, ALK phos elevated HEAD CT negative for any acute findings Concern that pt is overall declining CM and Oncology consulted UA negative for obvious UTI PNA, aspiration suspected Ceftriaxone and Doxycycline ordered Oxygen via [facility] Duonebs prn Aspiration precautions/ requested nursing bedside eval ST for swallow eval when pt is more orientated, will keep NPO KIM on CKD Arora placed for strict I/Os urine studies previously normal BMP daily Avoid hypotension and nephrotoxic medications BNP 55190, last echo 02/08 Sev B atrial enlargement, EF 50-55% Lasix 20 IV X1 Arora for strict I/Os Daily wts AFIB RVR Metoprolol IV as pt is NPO Q6H and prn Eliquis 2.5 mg BID once med rec completed Telemetry Possible MM, MUGA Oncology consulted noting previosu outpatient visit 02/19 pt offered BM BX and PET scan vs palliative care with comfort measures Feel strongly pt is overall declining but continuing tx as ordered and will monitro for improvement Pt and son could benefit from further oversight in regards to meeting pt's currentl needs CM also consulted B toe ulcers, chronic sacral ulcer of sacrum Wound care consult placed Optimize nutrtion when possible DVT prophulaxis: eliquis 2.5 BID MED REC PENDING FULL CODE (per paperwork from [place]) Quality Stroke Does the patient have a stroke diagnosis?: No Reason for No Anti-thrombotic by Day Two: N/A - Med Ordered VTE Prior VTE?: No VTE Risk Level:: Medical - moderate - high VTE Device Contraindication: N/A - Device Ordered VTE Drug Contraindication: N/A - Med Ordered
[2025-02-26 20:14] LABS: Venous Blood Gas Refer to POC result
[2025-02-26 20:15] LABS: VBG HCO3 29 mmol/L (22-26); VBG O2 % Saturation 95.0 %
[2025-02-26 20:20] LABS: Ammonia 47 umol/L (13-55)
--- NOTE | 2025-02-26 20:40 | PC.NURSE ---
assumed care f pt, pt laying in stretcher semi fowlers sp02 95% with 1L nasal canula, male purewick in place.
[2025-02-26 20:41] LABS: Glucose, Whole Blood 188 mg/dL (60-115)
[2025-02-26] MEDS: Furosemide 20 MG/2 ML VIAL IVPUSH (20:44)
--- NOTE | 2025-02-26 23:46 | HO.NURTONUR ---
Bob RN note entry; best I can do with a quick chart review. 79yo male presenting from [facility] s/ reports of increased lethargy, decreased responsiveness to commands and overall decline over the past 5 days. He was initially found to be hypoxic in the mid 80s and placed on an oxymask with positive results (which is not his baseline) and found to be in Afib with rVr. BCx2, lactic obtained and was flat however sepsis protocol was followed and ABX therapy initiated. Pt noted to have open area to the sole of his foot and toes look unkept (please see ED physician note for photos). Chest xray had questionable infiltrate vs pulm vascular congestion, CT Chest confirms LLL PNA. He has been resting comfortably in the ED, is being admitted for encephalopathy and FTT. #20 left wrist and #20 right hand
[2025-02-27] VITALS (9 sets, daily range): BP systolic 115–146; BP diastolic 66–93; PULSE 64–138; RESP 16–26; TEMP 36.4–36.9; O2SAT 93–99; BMI 28.6
--- NOTE | 2025-02-27 | ECG_ITS ---
Test Reason : cp Blood Pressure : */* mmHG Vent. Rate : 130 BPM Atrial Rate : * BPM P-R Int : * ms QRS Dur : 86 ms QT Int : 306 ms P-R-T Axes : * -13 157 degrees QTcB Int : 450 ms Atrial fibrillation with rapid ventricular response Nonspecific T wave abnormality Abnormal ECG When compared with ECG of 26-Feb-2025 10:18, No significant change was found Referred By: Perla Simpson Electronically Signed By: Winston Beaver
--- NOTE | 2025-02-27 02:21 | PC.NURSE ---
PRN Metoprolol 5mg IVP given for a HR ranging from 117-142. Pt resting but easily arousable and responsive to verbal stimuli at which point he is alert, oriented to self and is aware that he is in the hopsital but is unsure as to which hospital he is at. He offers no complaints at this time, and is requesting to be brought to him room to be allowed to sleep. Pt awaiting transportation to the floor via stretcher.
[2025-02-27 06:57] LABS: MANUAL DIFF FLAG NO
[2025-02-27 07:21] LABS: Alanine Aminotransferase 10 U/L (0-40); Albumin Level 2.4 g/dL (3.5-5.0); Anion Gap 16 (12-20); Aspartate Amino Transferase 33 U/L (5-37); Blood Urea Nitrogen 99 mg/dL (9-16); Calcium 7.9 mg/dL (8.4-10.2); Carbon Dioxide 26 mmol/L (22-29); Chloride 113 mmol/L (96-108); Creatinine Clr Calc Pharmacy 41.0; Estimated Glomerular Filt Rate 40; Potassium 4.8 mmol/L (3.3-5.1); Sodium 150 mmol/L (135-145); Total Protein 7.9 g/dL (6.5-8.0)
[2025-02-27 07:33] LABS: Hematocrit 26.4 % (42.0-52.0); Hemoglobin 8.1 g/dl (14.0-18.0); Imm Gran Abs Auto 0.06 X10*3/uL (0.00-0.03); Imm Gran Pct Auto 0.9 % (0.0-0.4); Lymphocytes Absolute Auto 0.4 X10*3/uL (1.2-4.9); Mean Corpuscular HGB Conc 30.7 g/dl (31.0-36.0); Mean Corpuscular Hemoglobin 34.3 pg (27.0-33.0); NRBC Abs Auto 0.020 X10*3/uL (0.0-0.012); NRBC Pct Auto 0.3 /100WBC (0.0-0.2); Platelet Count 151 X10*3/uL (160-400); Red Blood Count 2.36 X10*6/uL (4.60-5.80); White Blood Count 6.7 X10*3/uL (4.8-10.8)
[2025-02-27 07:33] LABS: Glucose, Whole Blood 188 mg/dL (60-115)
[2025-02-27 07:35] LABS: Mean Corpuscular Volume 111.9 fL (80.0-98.0)
[2025-02-27 07:39] LABS: Alkaline Phosphatase 99 U/L (39-117)
[2025-02-27] MEDS: 0.9 % Sodium Chloride Flush 3 ML SYRINGE IVFLUSH ×3 (07:53→20:27)
--- NOTE | 2025-02-27 10:27 | PHA.MEDREC ---
Addendum entered by Adenike Mcmahon RPh 02/27/25 10:37: Reviewed by [facility] Original Note: Pharmacy Consult ? Medication Reconciliation Pharmacy has completed the medication reconciliation. Utilized list from [facility] to confirm med list.
[2025-02-27] MEDS: Metoprolol Succinate ER 25 MG TAB.ER.24H PO (11:34)
[2025-02-27 12:00] LABS: Glucose, Whole Blood 181 mg/dL (60-115)
[2025-02-27 13:29] LABS: Glucose, Whole Blood 197 mg/dL (60-115)
--- NOTE | 2025-02-27 14:29 | PM.HEMONCCN ---
Subjective - Subjective Chief complaint: Altered mental status Patient: known to practice within the last 3 years Consult date: 02/27/25 Primary Care Provider: Unknown Physician Gaming Table Operator Utilized?: No - Greek Speaking HPI - Consult Narrative Reason for consult: Probable multiple myeloma Narrative: Rober Daniels is a 79 year old male with multiple medical problems including recently diagnosed IgA kappa multiple myeloma who is admitted for altered mental status. He is a long-term resident of custodial, he has been wheelchair-bound for several months. His son is the historian. He saw Dr. Hemphill a few weeks ago and he was told that he probably has multiple myeloma, liver contemplating bone marrow biopsy. At this time patient is encephalopathic and lethargic. He is unable to provide any history. Review of Systems - Constitutional Reports as per [facility] Medical History: Medical History (Last Reviewed 02/27/25 @ 03:10 by Aston Carson RN) Afib Allergic rhinitis BPH (benign prostatic hyperplasia) Chronic disease anemia Chronic pain Chronic ulcer of sacral region CKD (chronic kidney disease) stage 3, GFR 30-59 ml/min Fungal rash of torso Hyperlipidemia Hypertension DUSTIN (iron deficiency anemia) MGUS (monoclonal gammopathy of unknown significance) PAD (peripheral artery disease) Peripheral vascular disease Polyneuropathy Functional capacity: wheelchair bound Surgical History: Surgical History (Last Reviewed 02/27/25 @ 03:10 by Aston Carson RN) H/O endarterectomy Social History: Social History (Last Reviewed 02/27/25 @ 03:10 by Aston Carson RN) Living Situation History: Household Members: Other Housing: Long-Term Alcohol History Details: 1. How often do you have a drink containing alcohol?: a. Never AUDIT-C Alcohol total score: 0 Currently Displaying Signs/Symptoms of Alcohol Withdrawal: No Tobacco History: Patient Tobacco Use Status: Former Tobacco user Smoked in Last 30 Days: No Substance Use History: Use of substances other than those prescribed or required for medical reasons: No Currently Displaying Signs/Symptoms of Drug Intoxication Withdrawal: No Domestic Abuse History: Have you been hit, kicked, punched, or otherwise hurt by someone within the past year? If so, by whom?: No Advance Directives: Advance Directives: No Advance Directives Information Provided: No Homicidal Assessment: Do you have a plan to hurt others: No Plan Nutrition Assessment: Nutrition Risks: No Nutritional Risk Occupation Assessmet: service: Yes Home Medications and Allergies Current Medications: Current Medications Acetaminophen (Acetaminophen 325 Mg Tablet) 650 mg PO Q6H PRN PRN Reason: Pain, Mild 1-3,fever,headache Albuterol/Ipratropium (Albuterol/Iprat 2.5/0.5mg 3 Ml Ampul.Neb) 3 ml INHALE Q4H PRN PRN Reason: Shortness of Breath/Wheezing Apixaban (Apixaban 2.5 Mg Tablet) 2.5 mg PO BID [facility] Last Admin: 02/27/25 07:54 Dose: 2.5 mg Ascorbic Acid (Ascorbic Acid 250 Mg Tablet) 250 mg PO DAILY [facility] Last Admin: 02/27/25 11:34 Dose: 250 mg Calcium Carbonate (Calcium Carbonate 750 Mg Tab.Chew) 750 mg PO Q4H PRN PRN Reason: Heartburn Ceftriaxone Sodium (Ceftriaxone Sodium 1 Gm Vial) 1 gm IVPUSH Q24H [facility] Last Admin: 02/27/25 11:34 Dose: 1 gm Dextrose (Dextrose 50 % 25 Gm/50 Ml Syringe) 25 gm IVPUSH Q15M PRN; Protocol PRN Reason: per Hypoglycemia Standing Ord. Dextrose (Dextrose 50 % 25 Gm/50 Ml Syringe) 25 gm IVPUSH Q15M PRN; Protocol PRN Reason: per Hypoglycemia Standing Ord. Finasteride (Finasteride 5 Mg Tablet) 5 mg PO DAILY [facility] Last Admin: 02/27/25 11:35 Dose: 5 mg Glucose (Glucose Gel 15 Gm Gel..Gram.) 15 gm PO Q15M PRN; Protocol PRN Reason: per Hypoglycemia Standing Ord. Doxycycline Hyclate 100 mg/ (Sodium Chloride) 250 mls @ 166.67 mls/hr IV Q12H [facility] Last Infusion: 02/27/25 06:48 Dose: Infused Insulin Glargine (Insulin Glargine,Hum.Rec.Anlog 100 Unit/Ml 10 Ml Vial) 7 unit SUBCUT BEDTIME [facility] Insulin Human Lispro (Insulin Lispro 100 Unit/Ml 3 Ml Vial) 0 unit SUBCUT QIDACHS [facility]; Protocol Last Admin: 02/27/25 12:12 Dose: 2 unit Loratadine (Loratadine 10 Mg Tablet) 10 mg PO DAILY [facility] Magnesium Hydroxide (Milk Of Magnesia 30 Ml Oral.Susp) 30 ml PO DAILY PRN PRN Reason: Constipation Melatonin (Melatonin 3 Mg Tablet) 6 mg PO BEDTIME PRN PRN Reason: Insomnia Metoprolol Succinate (Metoprolol Succinate Er 25 Mg Tab.Er.24h) 25 mg PO DAILY [facility]; Protocol Last Admin: 02/27/25 11:34 Dose: 25 mg Metoprolol Tartrate (Metoprolol Tartrate 5 Mg/5 Ml Vial) 5 mg IVPUSH Q6H PRN; Protocol PRN Reason: Heart Rate >100 Last Admin: 02/27/25 07:54 Dose: 5 mg Non-Formulary Medication (Rosuvastatin) 5 mg PO DAILY [facility] Ondansetron HCl (Ondansetron Hcl 4 Mg/2 Ml Vial) 4 mg IVPUSH Q8H PRN PRN Reason: Nausea and Vomiting Polyethylene Glycol (Polyethylene Glycol 3350 17 Gm Powd.Pack) 17 gm PO DAILY PRN PRN Reason: Constipation Pregabalin (Pregabalin 200 Mg Capsule) 200 mg PO BID [facility] Senna (Sennosides 8.6 Mg Tablet) 17.2 mg PO BEDTIME [facility] Last Admin: 02/26/25 20:44 Dose: 17.2 mg Sodium Chloride (0.9 % Sodium Chloride Flush 3 Ml Syringe) 3 ml IVFLUSH QSHIFT [facility] Last Admin: 02/27/25 07:53 Dose: 3 ml Tamsulosin HCl (Tamsulosin Hcl 0.4 Mg Capsule) 0.8 mg PO DAILY [facility] Trazodone HCl (Trazodone Hcl 25 Mg Halftab) 25 mg PO BEDTIME [facility] Home Medications ?Medication ?Instructions ?Recorded ?Confirmed ?Type acetaminophen 325 mg capsule 650 mg PO Q4-6H PRN Fever Or Pain 12/29/24 02/27/25 History ascorbic acid (vitamin C) 250 mg 250 mg PO DAILY 12/29/24 02/27/25 History tablet bisacodyl 10 mg rectal suppository 10 mg NV DAILY PRN Constipation 12/29/24 02/27/25 History (Dulcolax (bisacodyl)) cholecalciferol (vitamin D3) 25 25 mcg PO DAILY 12/29/24 02/27/25 History mcg (1,000 unit) tablet enalapril maleate 2.5 mg tablet 2.5 mg PO DAILY 12/29/24 02/27/25 History ferrous sulfate 325 mg (65 mg 325 mg PO DAILY 12/29/24 02/27/25 History iron) tablet finasteride 5 mg tablet 5 mg PO DAILY 12/29/24 02/27/25 History guaifenesin 100 mg/5 mL oral 200 mg PO Q8H PRN Cough 12/29/24 02/27/25 History liquid (Kareen-Tussin) loratadine 10 mg capsule 10 mg PO DAILY 12/29/24 02/27/25 History multivitamin 1 tab PO DAILY 12/29/24 02/27/25 History pregabalin 200 mg capsule (Lyrica) 200 mg PO BID 12/29/24 02/27/25 History rosuvastatin 5 mg tablet 5 mg PO DAILY 12/29/24 02/27/25 History tamsulosin 0.4 mg capsule 0.8 mg PO DAILY 12/29/24 02/27/25 History lidocaine 4 % topical patch 1 patch topical DAILY 01/31/25 02/27/25 History magnesium hydroxide 400 mg/5 mL 30 ml PO BEDTIME PRN Constipation 01/31/25 02/27/25 History oral suspension (Milk of Magnesia) nystatin 100,000 unit/gram topical 1 appl topical DAILY PRN rash oif 01/31/25 02/27/25 History cream soiled, saturated or accidentally removed nystatin 100,000 unit/gram topical 1 appl topical DAILY 01/31/25 02/27/25 History powder polyvinyl alcohol-povidone (PF) 2 drp ophthalmic-Right Q2H PRN Dry 01/31/25 02/27/25 History 1.4 %-0.6 % eye drops in a Eyes dropperette sodium hypochlorite 0.25 % 1 appl topical DAILY Wound Care 01/31/25 02/27/25 History solution (Dakin's Solution) wound dressings (Triad Wound 1 appl topical DAILY 01/31/25 02/27/25 History Dressing paste) melatonin 5 mg capsule 5 mg PO BEDTIME 02/19/25 02/27/25 History dextrose 40 % oral gel (Glucose 10 g PO Q15M PRN low sugar 02/27/25 02/27/25 History Gel) glucagon 1 mg solution for 1 mg subcut Q15M PRN low sugar 02/27/25 02/27/25 History injection (Glucagon Emergency Kit) hydrocortisone 1 % topical cream 1 appl topical DAILY 02/27/25 02/27/25 History insulin glargine 100 unit/mL (3 20 unit subcut DAILY 02/27/25 02/27/25 History mL) subcutaneous pen (Lantus Solostar U-100 Insulin) naloxone 4 mg/actuation nasal spray 1 spray intranasal Q2M PRN Opiate 02/27/25 02/27/25 History Reversal sodium phosphates 19 gram-7 118 ml NV DAILY PRN Constipation 02/27/25 02/27/25 History gram/118 mL enema (Fleet Enema) trazodone 50 mg tablet 25 mg PO BEDTIME 02/27/25 02/27/25 History wound dressings (Triad Wound 1 appl topical DAILY PRN if 02/27/25 02/27/25 History Dressing paste) soiled, saturated or accidentally removed Allergies Allergy/AdvReac Type Severity Reaction Status Date / Time atorvastatin (From Lipitor) Allergy Anaphylaxis Verified 02/26/25 10:12 capsaicin Allergy Anaphylaxis Verified 02/26/25 10:12 duloxetine (From Cymbalta) Allergy Anaphylaxis Verified 02/26/25 10:12 gabapentin Allergy Anaphylaxis Verified 02/26/25 10:12 metformin Allergy Anaphylaxis Verified 02/26/25 10:12 Physical Exam Vital signs: Vital Signs Temp 98.4 F 02/27/25 13:25 Pulse 138 H 02/27/25 13:25 Resp 20 02/27/25 13:25 BP 131/72 02/27/25 13:25 Pulse Ox 96 02/27/25 13:25 O2 Del Method Nasal Cannula 02/27/25 13:25 O2 Flow Rate 1 02/27/25 13:25 Intake & Output 02/26/25 02/27/25 02/27/25 18:59 06:59 18:59 Intake Total 500 / 1000 500 / 1000 Output Total 300 / 300 800 / 800 Balance 500 / 700 200 / 700 -800 / -800 Urine Output (Average ml/kg/hr) 0.28 0.74 Intake: Intake, IV Amount 500 / 1000 500 / 1000 Doxycycline Hyclate 100 mg In 0 500 / 500 .9 % Sodium Chloride 250 ml @ 166.67 mls/hr IV Q12H JO Rx#: [id number] Lactated Ringers 500 ml @ 999 500 / 500 mls/hr IV .Q31M JO Rx#: [id number] Output: Output, Urine Amount 300 / 300 800 / 800 Other: Breakfast % Eaten 0% Lunch % Eaten 25% Eating (Feeding) Ability 1:1 Feed Number of Bowel Movements 1 Urine purewick m purewick Urine Color Yellow Yellow Concentrated Last Bowel Movement 02/26/25 02/26/25 Stool Incontinent Stool Amount Copious Stool Color Dark Brown Stool Consistency Loose Weight 95.8 kg 90.3 kg Weight 90.3 kg - Constitutional Present: cachectic, chronically ill appearing - Routine Neck Exam Present: supple - Routine Respiratory Exam Absent: stridor - Routine Cardiovascular Exam Cardiovascular: Present: S1, S2 Hem/Onc Consult Result - Labs CBC & Chem 7: 02/27/25 06:39 02/27/25 06:39 Labs: Short CBC 02/27/25 Range/Units 06:39 WBC 6.7 (4.8-10.8) X10*3/uL Hgb 8.1 L (14.0-18.0) g/dl Hct 26.4 L (42.0-52.0) % Plt Count 151 L (160-400) X10*3/uL BMP 02/27/25 06:39 Sodium 150 H Potassium 4.8 Chloride 113 H Carbon Dioxide 26 BUN 99 H Creatinine 1.65 H Calcium 7.9 L Liver Function 02/27/25 Range/Units 06:39 Total Bilirubin 0.6 (0.0-1.0) mg/dL AST 33 (5-37) U/L ALT 10 (0-40) U/L Alkaline Phosphatase 99 (39-117) U/L Albumin 2.4 L (3.5-5.0) g/dL Assessment and Plan Patient Active problem list reviewed?: Yes (1) Encephalopathy, metabolic Status: Acute Assessment and plan: 1. This is a 79-year-old male with multiple medical problems including IDDM, polyneuropathy, PVD/ CVI with bilateral femoral endarterectomy history, osteoporosis, ITP, HTN, OA, chronic decubitus ulcer, B toe ulcers, BPH, immobility, chronic anemia/ DUSTIN on ferrous sulfate, CKD stage IIIB, MGUS, chronic AFib on Eliquis who is currently admitted for encephalopathy. Patient has IgA kappa gammopathy with evidence of end-organ damage such as anemia and kidney failure. Recently performed serum immunofixation shows an IgA protein greater than 4 g per dL. Given progressive encephalopathy and chronic issues that patient has had, patient's son who is the healthcare proxy wanted to discuss his prognosis and further management. I explained to patient that his blood work confirms active myeloma, bone marrow biopsy performed would help with prognostication as well as treatment planning. Given his performance status and rapidly declining clinical condition, treatment as outpatient would not be feasible. Patient's son would like his father to be comfortable, hospice care has been requested. I concur that this would be a reasonable decision and in the best interest of the patient. Thank you for the consultation. - Time Spent With Patient Time Spent with Patient (in minutes): 20
--- NOTE | 2025-02-27 14:55 | P.PNIM_ITS ---
Subjective Subjective Date of Service: 02/27/25 Interval History: Pt seen this am, appears confused, complains of feeling unwell, denies any abdominal pain, has been in afib with rvr since am, cards and Onc consulted, will trial with a dose of lasix per cards given elevated jvd. spoke to son in detail about goc, made pt DNR/DNI Review of Systems -ve except as stated above Physical Exam 2 Exam: Exam: Alert but confused, experiencing paranoia Neuro: Unable to complete exam, patient not able to follow all commands Cardiac: S1 S2 RRR, no murmur, no JVD, no edema in Lower ext Pulmonary: lungs diminished bilaterally, on 1 L nc Abdominal: BS active in all 4 quadrants, no guarding, tenderness, rebounding Extremities: no edema in lower extremities, PT and DP pulses palpable +2 Psych: mood flat, judgement and insight poor Skin: Bilateral 2nd toes with ulceration, chronic sacral decubitus Vital Signs: Vital Signs: Last Vital Signs Temp 98.4 F 02/27/25 13:25 Pulse 138 H 02/27/25 13:25 Resp 20 02/27/25 13:25 BP 131/72 02/27/25 13:25 Pulse Ox 96 02/27/25 13:25 O2 Del Method Nasal Cannula 02/27/25 13:25 O2 Flow Rate 1 02/27/25 13:25 Oxygen Flow Rate 6 02/26/25 10:10 BMI result Body Mass Index 28.6 Objective Data Active Medications Acetaminophen (Acetaminophen 325 Mg Tablet) 650 mg PO Q6H PRN PRN Reason: Pain, Mild 1-3,fever,headache Albuterol/Ipratropium (Albuterol/Iprat 2.5/0.5mg 3 Ml Ampul.Neb) 3 ml INHALE Q4H PRN PRN Reason: Shortness of Breath/Wheezing Apixaban (Apixaban 2.5 Mg Tablet) 2.5 mg PO BID [facility] Last Admin: 02/27/25 07:54 Dose: 2.5 mg Documented By: MICHAEL Ascorbic Acid (Ascorbic Acid 250 Mg Tablet) 250 mg PO DAILY [facility] Last Admin: 02/27/25 11:34 Dose: 250 mg Documented By: MICHAEL Calcium Carbonate (Calcium Carbonate 750 Mg Tab.Chew) 750 mg PO Q4H PRN PRN Reason: Heartburn Ceftriaxone Sodium (Ceftriaxone Sodium 1 Gm Vial) 1 gm IVPUSH Q24H [facility] Last Admin: 02/27/25 11:34 Dose: 1 gm Documented By: MICHAEL Dextrose (Dextrose 50 % 25 Gm/50 Ml Syringe) 25 gm IVPUSH Q15M PRN; Protocol PRN Reason: per Hypoglycemia Standing Ord. Dextrose (Dextrose 50 % 25 Gm/50 Ml Syringe) 25 gm IVPUSH Q15M PRN; Protocol PRN Reason: per Hypoglycemia Standing Ord. Finasteride (Finasteride 5 Mg Tablet) 5 mg PO DAILY [facility] Last Admin: 02/27/25 11:35 Dose: 5 mg Documented By: MICHAEL Glucose (Glucose Gel 15 Gm Gel..Gram.) 15 gm PO Q15M PRN; Protocol PRN Reason: per Hypoglycemia Standing Ord. Doxycycline Hyclate 100 mg/ (Sodium Chloride) 250 mls @ 166.67 mls/hr IV Q12H [facility] Last Infusion: 02/27/25 06:48 Dose: Infused Documented By: LAMONT Insulin Glargine (Insulin Glargine,Hum.Rec.Anlog 100 Unit/Ml 10 Ml Vial) 7 unit SUBCUT BEDTIME [facility] Insulin Human Lispro (Insulin Lispro 100 Unit/Ml 3 Ml Vial) 0 unit SUBCUT QIDACHS [facility]; Protocol Last Admin: 02/27/25 12:12 Dose: 2 unit Documented By: MICHAEL Loratadine (Loratadine 10 Mg Tablet) 10 mg PO DAILY [facility] Magnesium Hydroxide (Milk Of Magnesia 30 Ml Oral.Susp) 30 ml PO DAILY PRN PRN Reason: Constipation Melatonin (Melatonin 3 Mg Tablet) 6 mg PO BEDTIME PRN PRN Reason: Insomnia Metoprolol Succinate (Metoprolol Succinate Er 25 Mg Tab.Er.24h) 25 mg PO DAILY [facility]; Protocol Last Admin: 02/27/25 11:34 Dose: 25 mg Documented By: MICHAEL Metoprolol Tartrate (Metoprolol Tartrate 5 Mg/5 Ml Vial) 5 mg IVPUSH Q6H PRN; Protocol PRN Reason: Heart Rate >100 Last Admin: 02/27/25 07:54 Dose: 5 mg Documented By: MICHAEL Ondansetron HCl (Ondansetron Hcl 4 Mg/2 Ml Vial) 4 mg IVPUSH Q8H PRN PRN Reason: Nausea and Vomiting Polyethylene Glycol (Polyethylene Glycol 3350 17 Gm Powd.Pack) 17 gm PO DAILY PRN PRN Reason: Constipation Pregabalin (Pregabalin 200 Mg Capsule) 200 mg PO BID [facility] Senna (Sennosides 8.6 Mg Tablet) 17.2 mg PO BEDTIME [facility] Last Admin: 02/26/25 20:44 Dose: 17.2 mg Documented By: RADHA Sodium Chloride (0.9 % Sodium Chloride Flush 3 Ml Syringe) 3 ml IVFLUSH QSHIFT [facility] Last Admin: 02/27/25 07:53 Dose: 3 ml Documented By: MALDONReina Tamsulosin HCl (Tamsulosin Hcl 0.4 Mg Capsule) 0.8 mg PO DAILY [facility] Trazodone HCl (Trazodone Hcl 25 Mg Halftab) 25 mg PO BEDTIME [facility] Labs 02/27/25 06:39 02/27/25 06:39 Labs: Laboratory Results - last 24 hr 02/26/25 02/26/25 02/26/25 20:05 20:11 20:34 MCV MCH MCHC RDW Plt Count MPV Immature Gran % (Auto) Neut % (Auto) Lymph % (Auto) [place] % (Auto) Eos % (Auto) Baso % (Auto) Lymph # (Auto) [place] # (Auto) Eos # (Auto) Baso # (Auto) Abs Immat Gran (auto) Absolute Neuts (auto) Absolute Nucleated RBC Nucleated RBC % (auto) VBG pH 7.46 H VBG pCO2 41 VBG pO2 76 VBG HCO3 29 H VBG O2 Saturation 95.0 VBG Base Excess 5.7 Anion Gap Estim Creat Clear Calc Estimated GFR POC Glucose 188 H Random Glucose Calcium Total Bilirubin AST ALT Alkaline Phosphatase Ammonia 47 Total Protein Albumin 02/27/25 02/27/25 02/27/25 06:39 07:30 11:56 MCV 111.9 H MCH 34.3 H MCHC 30.7 L RDW 18.7 H Plt Count 151 L MPV 10.5 Immature Gran % (Auto) 0.9 H Neut % (Auto) 85.6 H Lymph % (Auto) 6.4 L [place] % (Auto) 7.0 Eos % (Auto) 0.0 Baso % (Auto) 0.1 Lymph # (Auto) 0.4 L [place] # (Auto) 0.5 Eos # (Auto) 0.0 Baso # (Auto) 0.0 Abs Immat Gran (auto) 0.06 H Absolute Neuts (auto) 5.8 Absolute Nucleated RBC 0.020 H Nucleated RBC % (auto) 0.3 H VBG pH VBG pCO2 VBG pO2 VBG HCO3 VBG O2 Saturation VBG Base Excess Anion Gap 16 Estim Creat Clear Calc 41.0 Estimated GFR 40 POC Glucose 188 H 181 H Random Glucose 214 H Calcium 7.9 L Total Bilirubin 0.6 AST 33 ALT 10 Alkaline Phosphatase 99 Ammonia Total Protein 7.9 Albumin 2.4 L 02/27/25 13:26 MCV MCH MCHC RDW Plt Count MPV Immature Gran % (Auto) Neut % (Auto) Lymph % (Auto) [place] % (Auto) Eos % (Auto) Baso % (Auto) Lymph # (Auto) [place] # (Auto) Eos # (Auto) Baso # (Auto) Abs Immat Gran (auto) Absolute Neuts (auto) Absolute Nucleated RBC Nucleated RBC % (auto) VBG pH VBG pCO2 VBG pO2 VBG HCO3 VBG O2 Saturation VBG Base Excess Anion Gap Estim Creat Clear Calc Estimated GFR POC Glucose 197 H Random Glucose Calcium Total Bilirubin AST ALT Alkaline Phosphatase Ammonia Total Protein Albumin Microbiology Microbiology Results: Microbiology 02/26/25 10:51 Blood Culture - Preliminary Blood - Venous No growth after 24 hours. 02/26/25 10:47 Blood Culture - Preliminary Blood - Venous No growth after 24 hours. Assessment and Plan (1) Atrial fibrillation with RVR: Status: Acute (2) Hyperlipidemia: Status: Acute (3) BPH (benign prostatic hyperplasia): Status: Acute (4) Anemia: Status: Acute (5) Wound of foot: Status: Acute (6) Encephalopathy, metabolic: Status: Acute (7) Aspiration pneumonia: Status: Acute (8) CKD (chronic kidney disease): Status: Acute (9) KIM (acute kidney injury): Status: Acute (10) Hospice care: Status: Acute Plan Pt is a 79 yo male with PMH IDDM, polyneuropathy, PVD/ CVI with bilateral femoral endarterectomy history, osteoporosis, ITP, HTN, OA, chronic decubitus ulcer, B toe ulcers, BPH, immobility, chronic anemia/ DUSTIN on ferrous sulfate, CKD stage IIIB, MGUS, chronic AFib on Eliquis was sent in from NH for overall pt decline with AMS, FTT, lethargy and was noted to be hypoxic when EMS arrived. Pt also in AFIB RVR. Pt being admitted with the following medical problems: transition to hospice care: spoke to son in details, he understands that pt's prognosis is guarded, filled out MOLST for dnr/dni, after speaking to Oncology, Pt's Son Winston decided to meet with hospice. hospice consult placed Acute hypoxic respiratory failure with possible sepsis (tachy from AFIB, no fever, no leukocytosis, LA normal, noted hypoxia no hypotension) PNA likely source Oxygen weaned from Oxymask to NC BC X2 pending Continuous Pulse ox Encephalopathy, FTT Ammonia [address] scan, LFTs normal, ALK phos elevated HEAD CT negative for any acute findings Concern that pt is overall declining oncology consult appreciated UA negative for obvious UTI PNA, aspiration suspected Ceftriaxone and Doxycycline ordered Oxygen via NC Duonebs prn Aspiration precautions/ requested nursing bedside eval ST eval: DL2 with thin liquids, meds crushed , however RN states that pt is gagging with any intake. KIM on CKD Arora placed for strict I/Os urine studies previously normal BMP daily Avoid hypotension and nephrotoxic medications Cr 1.65 BNP 03011, last echo 02/08 Sev B atrial enlargement, EF 50-55% Lasix 20 IV X1 Arora for strict I/Os another IV lasix 20 x 1 given during the day given elevated jvd AFIB RVR Metoprolol IV prn and PO shelbie Eliquis 2.5 mg BID Telemetry card consult appreciated Possible MM, MUGA Oncology consulted noting previous outpatient visit 02/19 pt offered BM BX and PET scan vs palliative care with comfort measures Feel strongly pt is overall declining after speaking with son, and oc consult, hospice consult placed toe ulcers, chronic sacral ulcer of sacrum Wound care consult placed Optimize nutrition when possible DVT prophylaxis: eliquis 2.5 BID DNR/DNI, MOLST filled Quality Stroke Does the patient have a stroke diagnosis?: No Reason for No Anti-thrombotic by Day Two: N/A - Med Ordered VTE Prior VTE?: No VTE Risk Level:: Medical - moderate - high VTE Device Contraindication: N/A - Device Ordered VTE Drug Contraindication: N/A - Med Ordered
--- NOTE | 2025-02-27 15:06 | MHC.SL.SWA ---
Speech Pathologist Impression: Risk of Aspiration Due to: mild to moderate oral pharyngeal dysphagia Dysphasia Diet Status: Liquid Consistency and Strategies for Safe Swallow: Liquid Intake Recommendation: Thin Liquid Intake Strategies: Solid Food Consistency: Dietary Recommendations: Grnd/Mech Altered (NDD2) Additional Modifications to Solid Foods: Oral Medication Intake: Crushed with Puree Please contact the pharmacy regarding appropriate crushable or liquid drug formulations that are available whenever modified delivery is recommended. Compensatory Strategies and Precautions to be Taken for Safe Swallow: No straw with liquids. Patient requires direct supervision with assistance as needed, will likely do better with support/assistance to be as independent with feeding as possible (e.g. in control). Supervision While Eating and Drinking for Safe Swallow: Direct Supervision (1:1) Foods to Avoid: Swallowing Recommended Treatments: Recommendation for Speech: Inpatient Speech Therapy Comment: Patient presents with a mild to moderate oral pharyngeal dysphagia, with delay noted at times with initiation of swallow. Patient is also resistant/oppositional with feeding/food or liquid and requires careful behavioral management (e.g. giving options, encouraging independence while still providing assistance). Recommend START diet of Ground/Mechanical (NDD2) with Thin liquids, pills crushed or whole in puree (patient may chew pill). No straw with liquids. Patient requires direct supervision with assistance as needed, will likely do better with support/assistance to be as independent with feeding as possible (e.g. in control). Discussed with RN in person, recommendations sent by secure text to JORDAN GORDON. WAIT STAFF will continue to follow. Frequency/Duration: Date Range for Service Req: Timeline to reassess: Global Commodity Manager Clinican/Clinical Fellow: No Supervisory Statement: I have reviewed and agree with the student/clinical fellow's documentation: N/A Speech Language Pathologist: Nan Ruvalcaba M.A., [facility]-WAIT STAFF
--- NOTE | 2025-02-27 15:15 | HO.WOUND ---
Wound Consult: Initial 79 yr old male admitted to [facility] on 02/26/25- See progress notes and H&P for detailed history. Wound consult placed for toes. Patient agreeable to assessment and photo documentation. Coccyx and Buttocks Etiology: Coccyx Deep tissue pressure injuryPresent on Admission , bilateral buttocks stage 3 pressure injury present on admission Measurements: Coccyx 3cm x3cm x 0cm, Right buttock 4x2x0.3, left buttock cluster of 2 3x2x0.2 Wound Bed: coccyx intact nonblanchable purple, bilateral buttock full thickness moist red/pink bases - skin in between with MASD, chronic moisture with intact blanhching moist purple/pink skin Drainage / Odor: scant serosanguineous from buttocks Edges: ? buttocks rolled Jeramy wound: ? No Induration, Fluctuance or Warmth noted Pain: none Goals of Treatment: ? offloading, moist healing Left toes Right toes Etiology: dry, intact, stable scabs Wound Bed: dry Drainage / Odor: none Edges: ? attached Jeramy wound: ? No Induration, Fluctuance or Warmth noted Pain: none Goals of Treatment: ? maintain dry environment with betadine Back- intact pink/purple discoloration blanchable. previous admission with superficial weeping area to this location, no drainage noted today. Recommendations: 1. Turn and Reposition every 2 hours and as needed for patient comfort. Use pillows or wedges to support off loading positions. 2. Off Load all bony prominences with use of pillows and heel boots if needed. Apply Preventative foams where needed. 3. Monitor for incontinence and moisture control, use barrier creams when needed for prevention and treatment. 4. Provide adequate and supplemental nutrition. 5. Order or Continue low air loss mattress. 6. When applicable maintain blood glucose levels per Providers order. Bilateral toes: paint scabs with betadine daily and PRN Bilateral buttocks and coccyx: cleanse wounds to bilateral buttocks with saline, apply skin prep jeramy wound, apply durafiber ag, cover bilateral buttocks and coccyx all with large sacral foam, change every other day and PRN. Off load pressure with Q2H turns and use of pillows. Re-consult wound care Nurse for wound deterioration or wound changes.
[2025-02-27] MEDS: Furosemide 20 MG/2 ML VIAL IVPUSH (15:17)
[2025-02-27 16:55] LABS: Glucose, Whole Blood 196 mg/dL (60-115)
[2025-02-27 19:35] LABS: Glucose, Whole Blood 209 mg/dL (60-115)
--- NOTE | 2025-02-27 19:37 | PM.CNCAR ---
History of Present Illness History of Present Illness Date of Service: 02/27/25 Requesting physician: Perla Simpson Chief complaint: Afib with RVR Narrative: 79 male with multiple comorbidities including myeloma, CKD, PVD, sacral decubitus ulcer and Afib. We have been asked to see him for Afib. He has persistent Afib. He has no palpitations. He is complaining of dyspnea. He has be going downhill and weight loss. [facility] Past Medical History Medical History PAD (peripheral artery disease) MGUS (monoclonal gammopathy of unknown significance) Fungal rash of torso Polyneuropathy DUSTIN (iron deficiency anemia) CKD (chronic kidney disease) stage 3, GFR 30-59 ml/min Chronic disease anemia BPH (benign prostatic hyperplasia) Peripheral vascular disease Chronic ulcer of sacral region Chronic pain Allergic rhinitis Hyperlipidemia Hypertension Afib Surgical History Surgical History H/O endarterectomy Social History Social History Household Members: Other Housing: [facility] Patient Tobacco Use Status: Former Tobacco user Smoked in Last 30 Days: No Use of substances other than those prescribed or required for medical reasons: No Currently Displaying Signs/Symptoms of Drug Intoxication Withdrawal: No Have you been hit, kicked, punched, or otherwise hurt by someone within the past year? If so, by whom?: No Advance Directives: No Advance Directives Information Provided: No Do you have a plan to hurt others: No Plan Nutrition Risks: No Nutritional Risk service: Yes Meds Allergies Allergy/AdvReac Type Severity Reaction Status Date / Time atorvastatin (From Lipitor) Allergy Anaphylaxis Verified 02/26/25 10:12 capsaicin Allergy Anaphylaxis Verified 02/26/25 10:12 duloxetine (From Cymbalta) Allergy Anaphylaxis Verified 02/26/25 10:12 gabapentin Allergy Anaphylaxis Verified 02/26/25 10:12 metformin Allergy Anaphylaxis Verified 02/26/25 10:12 Active Medications: Current Medications Acetaminophen (Acetaminophen 325 Mg Tablet) 650 mg PO Q6H PRN PRN Reason: Pain, Mild 1-3,fever,headache Albuterol/Ipratropium (Albuterol/Iprat 2.5/0.5mg 3 Ml Ampul.Neb) 3 ml INHALE Q4H PRN PRN Reason: Shortness of Breath/Wheezing Apixaban (Apixaban 2.5 Mg Tablet) 2.5 mg PO BID [facility] Last Admin: 02/27/25 07:54 Dose: 2.5 mg Ascorbic Acid (Ascorbic Acid 250 Mg Tablet) 250 mg PO DAILY [facility] Last Admin: 02/27/25 11:34 Dose: 250 mg Calcium Carbonate (Calcium Carbonate 750 Mg Tab.Chew) 750 mg PO Q4H PRN PRN Reason: Heartburn Ceftriaxone Sodium (Ceftriaxone Sodium 1 Gm Vial) 1 gm IVPUSH Q24H [facility] Last Admin: 02/27/25 11:34 Dose: 1 gm Dextrose (Dextrose 50 % 25 Gm/50 Ml Syringe) 25 gm IVPUSH Q15M PRN; Protocol PRN Reason: per Hypoglycemia Standing Ord. Dextrose (Dextrose 50 % 25 Gm/50 Ml Syringe) 25 gm IVPUSH Q15M PRN; Protocol PRN Reason: per Hypoglycemia Standing Ord. Finasteride (Finasteride 5 Mg Tablet) 5 mg PO DAILY [facility] Last Admin: 02/27/25 11:35 Dose: 5 mg Glucose (Glucose Gel 15 Gm Gel..Gram.) 15 gm PO Q15M PRN; Protocol PRN Reason: per Hypoglycemia Standing Ord. Doxycycline Hyclate 100 mg/ (Sodium Chloride) 250 mls @ 166.67 mls/hr IV Q12H [facility] Last Infusion: 02/27/25 18:06 Dose: Infused Insulin Glargine (Insulin Glargine,Hum.Rec.Anlog 100 Unit/Ml 10 Ml Vial) 7 unit SUBCUT BEDTIME [facility] Insulin Human Lispro (Insulin Lispro 100 Unit/Ml 3 Ml Vial) 0 unit SUBCUT QIDACHS [facility]; Protocol Last Admin: 02/27/25 16:54 Dose: 2 unit Loratadine (Loratadine 10 Mg Tablet) 10 mg PO DAILY [facility] Magnesium Hydroxide (Milk Of Magnesia 30 Ml Oral.Susp) 30 ml PO DAILY PRN PRN Reason: Constipation Melatonin (Melatonin 3 Mg Tablet) 6 mg PO BEDTIME PRN PRN Reason: Insomnia Metoprolol Succinate (Metoprolol Succinate Er 25 Mg Tab.Er.24h) 25 mg PO DAILY [facility]; Protocol Last Admin: 02/27/25 11:34 Dose: 25 mg Metoprolol Tartrate (Metoprolol Tartrate 5 Mg/5 Ml Vial) 5 mg IVPUSH Q6H PRN; Protocol PRN Reason: Heart Rate >100 Last Admin: 02/27/25 14:58 Dose: 5 mg Ondansetron HCl (Ondansetron Hcl 4 Mg/2 Ml Vial) 4 mg IVPUSH Q8H PRN PRN Reason: Nausea and Vomiting Polyethylene Glycol (Polyethylene Glycol 3350 17 Gm Powd.Pack) 17 gm PO DAILY PRN PRN Reason: Constipation Pregabalin (Pregabalin 200 Mg Capsule) 200 mg PO BID [facility] Senna (Sennosides 8.6 Mg Tablet) 17.2 mg PO BEDTIME [facility] Last Admin: 02/26/25 20:44 Dose: 17.2 mg Sodium Chloride (0.9 % Sodium Chloride Flush 3 Ml Syringe) 3 ml IVFLUSH QSHIFT [facility] Last Admin: 02/27/25 15:18 Dose: 3 ml Tamsulosin HCl (Tamsulosin Hcl 0.4 Mg Capsule) 0.8 mg PO DAILY [facility] Trazodone HCl (Trazodone Hcl 25 Mg Halftab) 25 mg PO BEDTIME [facility] Home Medications ?Medication ?Instructions ?Recorded ?Confirmed ?Last Taken ?Type acetaminophen 325 mg capsule 650 mg PO Q4-6H PRN Fever Or Pain 12/29/24 02/27/25 Unknown History ascorbic acid (vitamin C) 250 mg 250 mg PO DAILY 12/29/24 02/27/25 Unknown History tablet bisacodyl 10 mg rectal suppository 10 mg PA DAILY PRN Constipation 12/29/24 02/27/25 Unknown History (Dulcolax (bisacodyl)) cholecalciferol (vitamin D3) 25 25 mcg PO DAILY 12/29/24 02/27/25 Unknown History mcg (1,000 unit) tablet enalapril maleate 2.5 mg tablet 2.5 mg PO DAILY 12/29/24 02/27/25 Unknown History ferrous sulfate 325 mg (65 mg 325 mg PO DAILY 12/29/24 02/27/25 Unknown History iron) tablet finasteride 5 mg tablet 5 mg PO DAILY 12/29/24 02/27/25 Unknown History guaifenesin 100 mg/5 mL oral 200 mg PO Q8H PRN Cough 12/29/24 02/27/25 Unknown History liquid (Kareen-Tussin) loratadine 10 mg capsule 10 mg PO DAILY 12/29/24 02/27/25 Unknown History multivitamin 1 tab PO DAILY 12/29/24 02/27/25 Unknown History pregabalin 200 mg capsule (Lyrica) 200 mg PO BID 12/29/24 02/27/25 Unknown History rosuvastatin 5 mg tablet 5 mg PO DAILY 12/29/24 02/27/25 Unknown History tamsulosin 0.4 mg capsule 0.8 mg PO DAILY 12/29/24 02/27/25 Unknown History lidocaine 4 % topical patch 1 patch topical DAILY 01/31/25 02/27/25 Unknown History magnesium hydroxide 400 mg/5 mL 30 ml PO BEDTIME PRN Constipation 01/31/25 02/27/25 Unknown History oral suspension (Milk of Magnesia) nystatin 100,000 unit/gram topical 1 appl topical DAILY PRN rash oif 01/31/25 02/27/25 Unknown History cream soiled, saturated or accidentally removed nystatin 100,000 unit/gram topical 1 appl topical DAILY 01/31/25 02/27/25 Unknown History powder polyvinyl alcohol-povidone (PF) 2 drp ophthalmic-Right Q2H PRN Dry 01/31/25 02/27/25 Unknown History 1.4 %-0.6 % eye drops in a Eyes dropperette sodium hypochlorite 0.25 % 1 appl topical DAILY Wound Care 01/31/25 02/27/25 Unknown History solution (Dakin's Solution) wound dressings (Triad Wound 1 appl topical DAILY 01/31/25 02/27/25 Unknown History Dressing paste) melatonin 5 mg capsule 5 mg PO BEDTIME 02/19/25 02/27/25 Unknown History dextrose 40 % oral gel (Glucose 10 g PO Q15M PRN low sugar 02/27/25 02/27/25 Unknown History Gel) glucagon 1 mg solution for 1 mg subcut Q15M PRN low sugar 02/27/25 02/27/25 Unknown History injection (Glucagon Emergency Kit) hydrocortisone 1 % topical cream 1 appl topical DAILY 02/27/25 02/27/25 Unknown History insulin glargine 100 unit/mL (3 20 unit subcut DAILY 02/27/25 02/27/25 Unknown History mL) subcutaneous pen (Lantus Solostar U-100 Insulin) naloxone 4 mg/actuation nasal spray 1 spray intranasal Q2M PRN Opiate 02/27/25 02/27/25 Unknown History Reversal sodium phosphates 19 gram-7 118 ml PA DAILY PRN Constipation 02/27/25 02/27/25 Unknown History gram/118 mL enema (Fleet Enema) trazodone 50 mg tablet 25 mg PO BEDTIME 02/27/25 02/27/25 Unknown History wound dressings (Triad Wound 1 appl topical DAILY PRN if 02/27/25 02/27/25 Unknown History Dressing paste) soiled, saturated or accidentally removed Physical Exam Vital Signs: Vital Signs: Last Vital Signs Temp 98.1 F 02/27/25 19:16 Pulse 64 02/27/25 19:16 Resp 16 02/27/25 19:16 BP 115/75 02/27/25 19:16 Pulse Ox 98 02/27/25 19:16 O2 Del Method Nasal Cannula 02/27/25 19:16 O2 Flow Rate 2 02/27/25 19:16 Oxygen Flow Rate 6 02/26/25 10:10 BMI result Body Mass Index 28.6 GENERAL APPEARANCE: in no acute distress, frail. NECK: no carotid bruit, + jugular venous distention. SKIN: no suspicious lesions, warm and dry. HEART: no murmurs, irregular rate and rhythm. Tachycardic LUNGS: clear to auscultation bilaterally. ABDOMEN: soft, nontender. EXTREMITIES: + edema. PERIPHERAL PULSES: equal. NEUROLOGIC: No gross deficits, AAO X 3 Objective Labs and Meds 02/27/25 06:39 02/27/25 06:39 Lab results: Laboratory Results - last 24 hr 02/26/25 02/26/25 02/26/25 20:05 20:11 20:34 WBC RBC Hgb Hct MCV MCH MCHC RDW Plt Count MPV Immature Gran % (Auto) Neut % (Auto) Lymph % (Auto) Finney % (Auto) Eos % (Auto) Baso % (Auto) Lymph # (Auto) Finney # (Auto) Eos # (Auto) Baso # (Auto) Abs Immat Gran (auto) Absolute Neuts (auto) Absolute Nucleated RBC Nucleated RBC % (auto) VBG pH 7.46 H VBG pCO2 41 VBG pO2 76 VBG HCO3 29 H VBG O2 Saturation 95.0 VBG Base Excess 5.7 Sodium Potassium Chloride Carbon Dioxide Anion Gap BUN Creatinine Estim Creat Clear Calc Estimated GFR POC Glucose 188 H Random Glucose Calcium Total Bilirubin AST ALT Alkaline Phosphatase Ammonia 47 Total Protein Albumin 02/27/25 02/27/25 02/27/25 06:39 07:30 11:56 WBC 6.7 RBC 2.36 L Hgb 8.1 L Hct 26.4 L MCV 111.9 H MCH 34.3 H MCHC 30.7 L RDW 18.7 H Plt Count 151 L MPV 10.5 Immature Gran % (Auto) 0.9 H Neut % (Auto) 85.6 H Lymph % (Auto) 6.4 L Finney % (Auto) 7.0 Eos % (Auto) 0.0 Baso % (Auto) 0.1 Lymph # (Auto) 0.4 L Finney # (Auto) 0.5 Eos # (Auto) 0.0 Baso # (Auto) 0.0 Abs Immat Gran (auto) 0.06 H Absolute Neuts (auto) 5.8 Absolute Nucleated RBC 0.020 H Nucleated RBC % (auto) 0.3 H VBG pH VBG pCO2 VBG pO2 VBG HCO3 VBG O2 Saturation VBG Base Excess Sodium 150 H Potassium 4.8 Chloride 113 H Carbon Dioxide 26 Anion Gap 16 BUN 99 H Creatinine 1.65 H Estim Creat Clear Calc 41.0 Estimated GFR 40 POC Glucose 188 H 181 H Random Glucose 214 H Calcium 7.9 L Total Bilirubin 0.6 AST 33 ALT 10 Alkaline Phosphatase 99 Ammonia Total Protein 7.9 Albumin 2.4 L 02/27/25 02/27/25 02/27/25 13:26 16:51 19:28 WBC RBC Hgb Hct MCV MCH MCHC RDW Plt Count MPV Immature Gran % (Auto) Neut % (Auto) Lymph % (Auto) Finney % (Auto) Eos % (Auto) Baso % (Auto) Lymph # (Auto) Finney # (Auto) Eos # (Auto) Baso # (Auto) Abs Immat Gran (auto) Absolute Neuts (auto) Absolute Nucleated RBC Nucleated RBC % (auto) VBG pH VBG pCO2 VBG pO2 VBG HCO3 VBG O2 Saturation VBG Base Excess Sodium Potassium Chloride Carbon Dioxide Anion Gap BUN Creatinine Estim Creat Clear Calc Estimated GFR POC Glucose 197 H 196 H 209 H Random Glucose Calcium Total Bilirubin AST ALT Alkaline Phosphatase Ammonia Total Protein Albumin Assessment and Plan (1) Atrial fibrillation with RVR: Status: Acute Plan 79 male with Afib with RVR and multiple comorbidities. On Abx. Can consider digoxin. lasix 40 mg IV. Clinically overloaded. Goals of care discussion. Procedures Date of Service Date of Service: 02/27/25
[2025-02-27] MEDS: Insulin Glargine,Hum.rec.anlog 100 UNIT/ML 10 ML VIAL 7 UNIT SUBCUT (20:26)
[2025-02-28] VITALS (14 sets, daily range): BP systolic 110–139; BP diastolic 61–86; PULSE 96–115; RESP 12–26; TEMP 36.2–37; O2SAT 96–97; BMI 28.6
--- NOTE | 2025-02-28 01:08 | PM.EVENT ---
Event Note Date of Service: 02/28/25 Event Note: Contacted to notify that patient has persistent rapid AFib. Blood pressure is stable and there is no fever. Therapy with digoxin IV started as per cardiology recommendations. Subsequently, I was contacted to notify that patient had an event of black stools. Patient's KIM (BUN only higher than baseline) likely secondary to blood loss and poor PO water intake. We will obtain CBC stat and hold Eliquis. We will start treatment with Protonix IV, NPO and obtain consult with GI service. We will also give small bolus of LR (has bilat pleual effusions) as patient's tachycardia could be secondary to volume depletion and hold metoprolol IV. For now. Worsening hypernatremia noted, likely contributing to his lethargy and start gentle IVFs with D5. Time Spent With Patient Time: Total time managing care of this patient today ____ minutes.
[2025-02-28] MEDS: Phytonadione (Vit K1) Oral 10 MG/ML AMPUL PO (01:21)
[2025-02-28 01:48] LABS: Hematocrit 22.3 % (42.0-52.0); Mean Corpuscular HGB Conc 30.0 g/dl (31.0-36.0); Mean Corpuscular Hemoglobin 34.0 pg (27.0-33.0); NRBC Abs Auto 0.050 X10*3/uL (0.0-0.012); NRBC Pct Auto 0.8 /100WBC (0.0-0.2); Platelet Count 134 X10*3/uL (160-400); Red Blood Count 1.97 X10*6/uL (4.60-5.80); White Blood Count 6.5 X10*3/uL (4.8-10.8)
[2025-02-28 01:48] LABS: Venous Blood Gas Refer to POC result
[2025-02-28 01:49] LABS: Mean Corpuscular Volume 113.2 fL (80.0-98.0)
[2025-02-28 01:52] LABS: VBG HCO3 29 mmol/L (22-26)
[2025-02-28 01:55] LABS: INTERNATIONAL NORM RATIO 1.6 (0.9-1.1); Prothrombin Time 17.8 SEC (10.9-12.4)
[2025-02-28 01:57] LABS: D Dimer High Sensitivity 521 NG/ML
[2025-02-28 01:58] LABS: Hemoglobin 6.7 g/dl (14.0-18.0)
[2025-02-28 02:13] LABS: Alanine Aminotransferase 8 U/L (0-40); Albumin Level 2.2 g/dL (3.5-5.0); Alkaline Phosphatase 84 U/L (39-117); Anion Gap 17 (12-20); Aspartate Amino Transferase 24 U/L (5-37); Calcium 7.8 mg/dL (8.4-10.2); Carbon Dioxide 26 mmol/L (22-29); Chloride 119 mmol/L (96-108); Creatinine Clr Calc Pharmacy 41.0; Estimated Glomerular Filt Rate 40; Potassium 4.6 mmol/L (3.3-5.1); Sodium 157 mmol/L (135-145); Total Protein 7.0 g/dL (6.5-8.0)
[2025-02-28 02:48] LABS: Blood Urea Nitrogen 121 mg/dL (9-16)
[2025-02-28 07:00] LABS: Glucose, Whole Blood 245 mg/dL (60-115)
[2025-02-28] MEDS: Furosemide 20 MG/2 ML VIAL IVPUSH (07:35)
--- NOTE | 2025-02-28 08:36 | PC.NURSE ---
Provider notified patient not following commands AM meds held due to risk of aspiration.
--- NOTE | 2025-02-28 09:12 | MHC.CM.PN ---
LATE ENTRY NOTE FOR 02/27/25, CM ATTEMPTED TO DELIVER IMM 02/27/25 TO SON/PRIMARY CONTACT DELPHINE [phone], DETAILED MESSAGE LEFT W/REQUEST FOR CALL BACK NO ADDRESS IS ON FILE, PER FACILITY PT'S DTR MARYCHUY [phone]. PT IS KNOWN TO ONUR AND ANTIC RETURN TO LTC AT [facility]. 02/28/25 CM CONTACTED PT'S DTR MARYCHUY AT ABOVE NUMBER, MARYCHUY VERIFIED [place] # # ON FILE AND DEFERRED TO DELPHINE, ONUR REQUESTED MARYCHUY TEXT DELPHINE TO CONTACT CM AT MAIN #. PER HOSPITALIST DELPHINE CAME IN TO VISIT LAST EVENING AND IS AGREEABLE TO HOSPICE, HOSPICE CONSULT PLACED, HOSPITALIST UNSURE IF PT WILL BE ABLE TO TRANSFER BACK TO SNF D/T WORSENING CONDITION, CM WILL CONT TO FOLLOW DC NEEDS.
--- NOTE | 2025-02-28 10:44 | MHC.CM.PN ---
Per MD, Patient is now [employer].
--- NOTE | 2025-02-28 10:52 | P.CONNP_ITS ---
History of Present Illness Reason for Consult Consult date: 02/28/25 Chief Complaint Chief complaint: Afib with RVR History of Present Illness Narrative: 79-year-old gentleman with multiple comorbidities, significantly mono clonal gammopathy of renal significance versus IgA nephropathy with baseline creatinine between 1.6-1.8 presents to the ED with altered mental status and failure to thrive. His other medical problems include hypertension, diabetes mellitus significant vascular disease PVD/ CVI with bilateral femoral endarterectomy history, osteoporosis, ITP, OA, chronic decubitus ulcer, B toe ulcers, BPH, immobility, chronic anemia, atrial fibrillation. Review of Systems Review of Systems Difficult to obtain ROS due to altered mental status PMFSH Past Medical History Medical History PAD (peripheral artery disease) MGUS (monoclonal gammopathy of unknown significance) Fungal rash of torso Polyneuropathy DUSTIN (iron deficiency anemia) CKD (chronic kidney disease) stage 3, GFR 30-59 ml/min Chronic disease anemia BPH (benign prostatic hyperplasia) Peripheral vascular disease Chronic ulcer of sacral region Chronic pain Allergic rhinitis Hyperlipidemia Hypertension Afib Surgical History Surgical History H/O endarterectomy Social History Social History Household Members: Other Housing: Long Term Patient Tobacco Use Status: Former Tobacco user Smoked in Last 30 Days: No Use of substances other than those prescribed or required for medical reasons: No Currently Displaying Signs/Symptoms of Drug Intoxication Withdrawal: No Have you been hit, kicked, punched, or otherwise hurt by someone within the past year? If so, by whom?: No Advance Directives: No Advance Directives Information Provided: No Do you have a plan to hurt others: No Plan Nutrition Risks: No Nutritional Risk service: Yes Meds Allergies Allergy/AdvReac Type Severity Reaction Status Date / Time atorvastatin (From Lipitor) Allergy Anaphylaxis Verified 02/26/25 10:12 capsaicin Allergy Anaphylaxis Verified 02/26/25 10:12 duloxetine (From Cymbalta) Allergy Anaphylaxis Verified 02/26/25 10:12 gabapentin Allergy Anaphylaxis Verified 02/26/25 10:12 metformin Allergy Anaphylaxis Verified 02/26/25 10:12 Active Medications: Current Medications Acetaminophen (Acetaminophen 325 Mg Tablet) 650 mg PO Q6H PRN PRN Reason: Pain, Mild 1-3,fever,headache Albuterol/Ipratropium (Albuterol/Iprat 2.5/0.5mg 3 Ml Ampul.Neb) 3 ml INHALE Q4H PRN PRN Reason: Shortness of Breath/Wheezing Apixaban (Apixaban 2.5 Mg Tablet) 2.5 mg PO BID JO On Hold: 02/28/25 01:00 Last Admin: 02/27/25 20:27 Dose: 2.5 mg Ascorbic Acid (Ascorbic Acid 250 Mg Tablet) 250 mg PO DAILY [facility] Last Admin: 02/28/25 08:33 Dose: Not Given Calcium Carbonate (Calcium Carbonate 750 Mg Tab.Chew) 750 mg PO Q4H PRN PRN Reason: Heartburn Ceftriaxone Sodium (Ceftriaxone Sodium 1 Gm Vial) 1 gm IVPUSH Q24H [facility] Last Admin: 02/27/25 11:34 Dose: 1 gm Dextrose (Dextrose 50 % 25 Gm/50 Ml Syringe) 25 gm IVPUSH Q15M PRN; Protocol PRN Reason: per Hypoglycemia Standing Ord. Digoxin (Digoxin 0.5 Mg/2 Ml Ampul) 0.125 mg IVPUSH DAILY@0600 [facility]; Protocol Last Admin: 02/28/25 06:04 Dose: 0.125 mg Finasteride (Finasteride 5 Mg Tablet) 5 mg PO DAILY [facility] Last Admin: 02/28/25 08:33 Dose: Not Given Furosemide (Furosemide 20 Mg/2 Ml Vial) 20 mg IVPUSH ONCE PRN; Protocol PRN Reason: before 2nd PRBC transfusion Last Admin: 02/28/25 07:35 Dose: 20 mg Glucose (Glucose Gel 15 Gm Gel..Gram.) 15 gm PO Q15M PRN; Protocol PRN Reason: per Hypoglycemia Standing Ord. Doxycycline Hyclate 100 mg/ (Sodium Chloride) 250 mls @ 166.67 mls/hr IV Q12H [facility] Last Infusion: 02/28/25 07:40 Dose: Infused Dextrose (D5w) 1,000 mls @ 65 mls/hr IVCONT .[id number] [facility] Stop: 02/28/25 13:14 Last Admin: 02/28/25 01:33 Dose: 65 mls/hr Insulin Glargine (Insulin Glargine,Hum.Rec.Anlog 100 Unit/Ml 10 Ml Vial) 7 unit SUBCUT BEDTIME [facility] Last Admin: 02/27/25 20:26 Dose: 7 unit Insulin Human Lispro (Insulin Lispro 100 Unit/Ml 3 Ml Vial) 0 unit SUBCUT QIDACHS [facility]; Protocol Last Admin: 02/28/25 07:39 Dose: 4 unit Loratadine (Loratadine 10 Mg Tablet) 10 mg PO DAILY [facility] Last Admin: 02/28/25 08:33 Dose: Not Given Magnesium Hydroxide (Milk Of Magnesia 30 Ml Oral.Susp) 30 ml PO DAILY PRN PRN Reason: Constipation Melatonin (Melatonin 3 Mg Tablet) 6 mg PO BEDTIME PRN PRN Reason: Insomnia Metoprolol Tartrate (Metoprolol Tartrate 5 Mg/5 Ml Vial) 5 mg IVPUSH Q6H PRN; Protocol On Hold: 02/28/25 01:18 PRN Reason: Heart Rate >100 Last Admin: 02/27/25 20:21 Dose: 5 mg Metoprolol Tartrate (Metoprolol Tartrate 25 Mg Tablet) 25 mg PO QID [facility]; Protocol Last Admin: 02/28/25 08:34 Dose: Not Given Ondansetron HCl (Ondansetron Hcl 4 Mg/2 Ml Vial) 4 mg IVPUSH Q8H PRN PRN Reason: Nausea and Vomiting Pantoprazole Sodium (Pantoprazole Sodium 40 Mg/10 Ml Vial) 40 mg IVPUSH BID@0630,1630 [facility] Polyethylene Glycol (Polyethylene Glycol 3350 17 Gm Powd.Pack) 17 gm PO DAILY PRN PRN Reason: Constipation Pregabalin (Pregabalin 200 Mg Capsule) 200 mg PO BID [facility] Last Admin: 02/28/25 08:34 Dose: Not Given Senna (Sennosides 8.6 Mg Tablet) 17.2 mg PO BEDTIME [facility] Last Admin: 02/27/25 20:27 Dose: 17.2 mg Sodium Chloride (0.9 % Sodium Chloride Flush 3 Ml Syringe) 3 ml IVFLUSH QSHIFT [facility] Last Admin: 02/28/25 09:42 Dose: Not Given Tamsulosin HCl (Tamsulosin Hcl 0.4 Mg Capsule) 0.8 mg PO DAILY [facility] Last Admin: 02/28/25 08:34 Dose: Not Given Trazodone HCl (Trazodone Hcl 25 Mg Halftab) 25 mg PO BEDTIME [facility] Last Admin: 02/27/25 22:12 Dose: Not Given Home Medications ?Medication ?Instructions ?Recorded ?Confirmed ?Last Taken ?Type acetaminophen 325 mg capsule 650 mg PO Q4-6H PRN Fever Or Pain 12/29/24 02/27/25 Unknown History ascorbic acid (vitamin C) 250 mg 250 mg PO DAILY 12/2902/27/25 Unknown History tablet bisacodyl 10 mg rectal suppository 10 mg IA DAILY PRN Constipation 12/29/24 02/27/25 Unknown History (Dulcolax (bisacodyl)) cholecalciferol (vitamin D3) 25 25 mcg PO DAILY 02/27/25 Unknown History mcg (1,000 unit) tablet enalapril maleate 2.5 mg tablet 2.5 mg PO DAILY 02/27/25 Unknown History ferrous sulfate 325 mg (65 mg 325 mg PO DAILY 12/29/24 02/27/25 Unknown History iron) tablet finasteride 5 mg tablet 5 mg PO DAILY 12/29/2402/27 Unknown History guaifenesin 100 mg/5 mL oral 200 mg PO Q8H PRN Cough 0 12/29/24 02/27/25 Unknown History liquid (Kareen-Tussin) loratadine 10 mg capsule 10 mg PO DAILY 12/29/2402/14 Unknown History multivitamin 1 tab PO DAILY 12/29/2402/14 Unknown History pregabalin 200 mg capsule (Lyrica) 200 mg PO BID 12/2902/27/25 Unknown History rosuvastatin 5 mg tablet 5 mg PO DAILY 12/29/2402/27 Unknown History tamsulosin 0.4 mg capsule 0.8 mg PO DAILY 12/29/24 Unknown History lidocaine 4 % topical patch 1 patch topical DAILY 01/1502/27/25 Unknown History magnesium hydroxide 400 mg/5 mL 30 ml PO BEDTIME PRN C onstipation 01/31/25 02/27/25 Unknown History oral suspension (Milk of Magnesia) nystatin 100,000 unit/gram topical 1 appl topical MAAME Y PRN rash oif 01/31/25 02/27/25 Unknown History cream soiled, saturated or acciden tally removed nystatin 100,000 unit/gram topical 1 appl topical MAAME Y 01/31/25 02/27/25 Unknown History powder polyvinyl alcohol-povidone (PF) 2 drp ophthalmic-Right Q2H PRN Dry 01/31/25 02/27/25 Unknown History 1.4 %-0.6 % eye drops in a Eyes dropperette sodium hypochlorite 0.25 % 1 appl topical DAILY Wound Care 01/31/25 02/27/25 Unknown History solution (Dakin's Solution) wound dressings (Triad Wound 1 appl topical DAILY 01/1502/27/25 Unknown History Dressing paste) melatonin 5 mg capsule 5 mg PO BEDTIME 02/19/25 Unknown History dextrose 40 % oral gel (Glucose 10 g PO Q15M PRN low s ugar 02/27/25 02/27/25 Unknown History Gel) glucagon 1 mg solution for 1 mg subcut Q15M PRN low shah gar 02/27/25 02/27/25 Unknown History injection (Glucagon Emergency Kit) hydrocortisone 1 % topical cream 1 appl topical DAILY 02/27/25 02/27/25 Unknown History insulin glargine 100 unit/mL (3 20 unit subcut DAILY 1 02/27/25 Unknown History mL) subcutaneous pen (Lantus Solostar U-100 Insulin) naloxone 4 mg/actuation nasal spray 1 spray intranasal Q2M PRN Opiate 02/27/25 02/27/25 Unknown History Reversal sodium phosphates 19 gram-7 118 ml IA DAILY PRN Consti pation 02/27/25 02/27/25 Unknown History gram/118 mL enema (Fleet Enema) trazodone 50 mg tablet 25 mg PO BEDTIME 02/27/25 Unknown History wound dressings (Triad Wound 1 appl topical DAILY PRN if 02/27/25 02/27/25 Unknown History Dressing paste) soiled, saturated or acciden tally removed Physical Exam Vital Signs: Last Vital Signs Temp 97.2 F 02/28/25 08:05 Pulse 104 H 02/28/25 08:05 Resp 20 02/28/25 08:05 BP 112/62 02/28/25 08:05 Pulse Ox 96 02/28/25 07:05 O2 Del Method Nasal Cannula 02/28/25 07:05 O2 Flow Rate 2 02/28/25 07:05 Oxygen Flow Rate 6 02/26/25 10:10 BMI result Body Mass Index 28.6 General: Elderly male in severe acute distress, chronically ill appearing and tired appearing Nutritional Appearance: well nourished and overweight Eyes: appearance normal, both eyes and all related structures; Alignment and Position: alignment normal and position normal Neck: No lymphadenopathy, no thyromegaly Resp: bilateral air entry equal, occasional added sounds present Cardio: Regular rate, regular rhythm; Heart sounds: S1 normal heart sound present and S2 normal heart sound present GI: soft, nontender, no guarding, no hepatosplenomegaly : bladder normal to inspection, bladder normal to palpation, no renal angle tenderness Skin: no rashes or lesions noted and elasticity normal Neuro: Confused, altered Results Lab Results 02/28/25 01:41 02/28/25 01:42 Lab results: Chemistry 02/26/25 02/27/25 02/28/25 10:47 06:39 01:42 Sodium 148 H 150 H 157 H Potassium 4.8 4.8 4.6 Carbon Dioxide 30 H 26 26 BUN 73 H 99 H 121 H Creatinine 1.81 H 1.65 H 1.65 H Calcium 8.4 7.9 L 7.8 L Hematology 02/26/25 02/27/25 02/28/25 10:47 06:39 01:41 WBC 5.2 6.7 6.5 Hgb 9.5 L 8.1 L 6.7 L* Plt Count 134 L 151 L 134 L Urinalysis 02/26/25 12:08 Urine Color Dark Yellow Urine Appearance Cloudy Urine pH 5.0 Ur Specific [place] 1.020 Urine Protein 30 (1+) H Urine Glucose (UA) Negative Urine Ketones Negative Urine Blood Large (3+) H Urine Nitrite Negative Ur Leukocyte Esterase Trace H Urine RBC >20 H Urine WBC 0-5 Ur Squamous Epith Cells 0-2 Hyaline Casts 3-5 Assessment and Plan (1) Atrial fibrillation with RVR: Status: Acute (2) CKD (chronic kidney disease): Status: Acute (3) Anemia: Qualifiers: Anemia type: unspecified type Qualified Code(s): D64.9 - Anemia, unspecified Status: Acute Plan Acute on chronic renal disease: He has a CKD stage possibly secondary to IgA nephropathy versus monoclonal gammopathy of renal significance. His serum and urine immunofixation showed IgA and kappa monoclonal band. His serum free kappa light chain levels have significantly elevated 175.4 with kappa lambda ratio being 15.66. Hematology deferred bone marrow biopsy for now given his comorbidities. Urinalysis suggestive 1+ protein, 3+ blood with greater than 20 RBCs possibly suggesting IgA nephropathy. He is a poor candidate for renal biopsy given his comorbidities. His acute kidney injury is possibly secondary to volume depletion as seen by hypernatremia along with acute blood loss anemia. Advised if correct free water deficits with IV fluids D5 water vs 0.45NS Avoid nephrotoxic agents, closely monitor I's and O's Hypernatremia: Secondary to poor oral intake Sodium increased to 157 this morning Continue D5 water, repeat BMP this afternoon and adjust the IV fluids as needed. Procedures Date of Service Date of Service: 02/28/25
[2025-02-28 10:58] LABS: Glucose, Whole Blood 225 mg/dL (60-115)
--- NOTE | 2025-02-28 11:14 | MHC.CLN ---
PT WITH INCREASED NUTRITION RISK R/T PRESSURE INJURIES PT IS CURRENTLY NPO WHEN DIET TO ADVANCE, RECOMMEND 2200DM DIET AND ENSURE MAX BID TO PROMOTE WOUND HEALING ENSURE MAX BID TO PROVIDE 300KCALS, 60G PROTEIN FOLLOWING FOR DIET ADVANCEMENT SEE FULL ASSESSMENT
--- NOTE | 2025-02-28 12:43 | P.PNIM_ITS ---
Subjective Subjective Date of Service: 02/28/25 Interval History: Pt deteriorated overnight with worsening confusion, melena and acute drop in Hb, and hypernatremia. Prbc were ordered overnight and pt was started on D5W along with few doses of Lasix to avoid volume overload. He also developed afib with rvr for which he was given digoxin. This am pt remains altered and is unable to provide any history. definitely worse than yesterday. Son Hoang who is hcp is at bedside. Spoke to him in detail re pt's worsening clinical status and poor prognosis. After discussion, Son stated that he would want his father to be comfortable and would avoid any agressive intervention at this point. 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 Review of Systems unable to obtain given pt's mental status Physical Exam 2 Exam: Exam: deferred since pt has been made ENTERPRISE ARCHITECT MANAGER. Vital Signs: Vital Signs: Last Vital Signs Temp 97.8 F 02/28/25 11:10 Pulse 96 02/28/25 11:10 Resp 20 02/28/25 11:10 BP 132/61 02/28/25 11:10 Pulse Ox 96 02/28/25 11:10 O2 Del Method Nasal Cannula 02/28/25 11:10 O2 Flow Rate 2 02/28/25 11:10 Oxygen Flow Rate 6 02/26/25 10:10 BMI result Body Mass Index 28.6 Objective Data Active Medications Acetaminophen (Acetaminophen 325 Mg Tablet) 650 mg PO Q6H PRN PRN Reason: Pain, Mild 1-3,fever,headache Acetaminophen (Acetaminophen 325 Mg Tablet) 650 mg PO Q4H PRN PRN Reason: Fever >/= 100, Pain, mild 1-3 Albuterol/Ipratropium (Albuterol/Iprat 2.5/0.5mg 3 Ml Ampul.Neb) 3 ml INHALE Q4H PRN PRN Reason: Shortness of Breath/Wheezing Bisacodyl (Bisacodyl 10 Mg Supp.Rect) 10 mg IN DAILY PRN PRN Reason: Constipation Dextrose (Dextrose 50 % 25 Gm/50 Ml Syringe) 25 gm IVPUSH Q15M PRN; Protocol PRN Reason: per Hypoglycemia Standing Ord. Docusate Sodium (Docusate Sodium 100 Mg Capsule) 100 mg PO BEDTIME JO Glucose (Glucose Gel 15 Gm Gel..Gram.) 15 gm PO Q15M PRN; Protocol PRN Reason: per Hypoglycemia Standing Ord. Glycopyrrolate (Glycopyrrolate 0.2 Mg/Ml Vial) 0.2 mg IVPUSH Q6H PRN PRN Reason: Respiratory secretions Lorazepam (Lorazepam 1 Mg Tablet) 1 mg PO Q4H PRN PRN Reason: Myoclonic twitching/anxiety Metoprolol Tartrate (Metoprolol Tartrate 5 Mg/5 Ml Vial) 5 mg IVPUSH Q6H PRN; Protocol On Hold: 02/28/25 01:18 PRN Reason: Heart Rate >100 Last Admin: 02/27/25 20:21 Dose: 5 mg Documented By: LAMONT Comments: pt HR 130 Morphine Sulfate (Morphine Sulfate 2 Mg/Ml Cartridge) 2 mg IVPUSH Q1H PRN PRN Reason: Pain, Severe (7-10)/ RR>/=24 Last Admin: 02/28/25 12:25 Dose: 2 mg Documented By: JESIKA Ondansetron HCl (Ondansetron Odt 4 Mg Tab.Rapdis) 4 mg TRANSLINGU Q8H PRN PRN Reason: Nausea and Vomiting Ondansetron HCl (Ondansetron Hcl 4 Mg/2 Ml Vial) 4 mg IVPUSH Q8H PRN PRN Reason: Nausea and Vomiting Polyethylene Glycol (Polyethylene Glycol 3350 17 Gm Powd.Pack) 17 gm PO DAILY PRN PRN Reason: Constipation Prochlorperazine (Prochlorperazine 25 Mg Supp.Rect) 25 mg IN Q8H PRN PRN Reason: Nausea and Vomiting Senna (Sennosides 8.6 Mg Tablet) 17.2 mg PO BEDTIME [facility] Last Admin: 02/27/25 20:27 Dose: 17.2 mg Documented By: LAMONT Sodium Chloride (0.9 % Sodium Chloride Flush 3 Ml Syringe) 3 ml IVFLUSH QSHIFT [facility] Last Admin: 02/28/25 09:42 Dose: Not Given Documented By: JESIKA Non-Admin Reason: IV Running Labs 02/28/25 01:41 02/28/25 01:42 Labs: Laboratory Results - last 24 hr 02/27/25 02/27/25 02/27/25 13:26 16:51 19:28 MCV MCH MCHC RDW Plt Count MPV Absolute Nucleated RBC Nucleated RBC % (auto) PT INR D-Dimer High Sensitivty VBG pH VBG pCO2 VBG pO2 VBG HCO3 VBG O2 Saturation VBG Base Excess Anion Gap Estim Creat Clear Calc Estimated GFR POC Glucose 197 H 196 H 209 H Random Glucose Calcium Total Bilirubin AST ALT Alkaline Phosphatase Total Protein Albumin Blood Type Antibody Screen Crossmatch 02/28/25 02/28/25 02/28/25 01:41 01:42 01:47 MCV 113.2 H MCH 34.0 H MCHC 30.0 L RDW 19.3 H Plt Count 134 L MPV 10.0 Absolute Nucleated RBC 0.050 H Nucleated RBC % (auto) 0.8 H PT 17.8 H INR 1.6 H D-Dimer High Sensitivty 521 VBG pH 7.46 H VBG pCO2 41 VBG pO2 222 VBG HCO3 29 H VBG O2 Saturation Not Reportable VBG Base Excess 5.6 Anion Gap 17 Estim Creat Clear Calc 41.0 Estimated GFR 40 POC Glucose Random Glucose 259 H Calcium 7.8 L Total Bilirubin 0.5 AST 24 ALT 8 Alkaline Phosphatase 84 Total Protein 7.0 Albumin 2.2 L Blood Type Antibody Screen Crossmatch 02/28/25 02/28/25 02/28/25 03:07 06:53 10:52 MCV MCH MCHC RDW Plt Count MPV Absolute Nucleated RBC Nucleated RBC % (auto) PT INR D-Dimer High Sensitivty VBG pH VBG pCO2 VBG pO2 VBG HCO3 VBG O2 Saturation VBG Base Excess Anion Gap Estim Creat Clear Calc Estimated GFR POC Glucose 245 H 225 H Random Glucose Calcium Total Bilirubin AST ALT Alkaline Phosphatase Total Protein Albumin Blood Type A Negative Antibody Screen NEGATIVE Crossmatch See Detail Microbiology Microbiology Results: Microbiology 02/26/25 10:47 Blood Culture - Preliminary Blood - Venous No growth after 48 hours. 02/26/25 10:51 Blood Culture - Preliminary Blood - Venous No growth after 24 hours. Assessment and Plan (1) Comfort measures only status: Status: Acute (2) Atrial fibrillation with RVR: Status: Acute (3) Hyperlipidemia: Status: Acute (4) CKD (chronic kidney disease): Status: Acute (5) KIM (acute kidney injury): Status: Acute (6) BPH (benign prostatic hyperplasia): Status: Acute (7) Wound of foot: Status: Acute (8) Anemia: Status: Acute (9) Encephalopathy, metabolic: Status: Acute (10) Polyneuropathy: Status: Acute (11) Aspiration pneumonia: Status: Acute (12) GIB (gastrointestinal bleeding): Status: Acute (13) Hypernatremia: Status: Acute Plan Pt is a 79 yo male with PMH IDDM, polyneuropathy, PVD/ CVI with bilateral femoral endarterectomy history, osteoporosis, ITP, HTN, OA, chronic decubitus ulcer, B toe ulcers, BPH, immobility, chronic anemia/ DUSTIN on ferrous sulfate, CKD stage IIIB, MGUS, chronic AFib on Eliquis was sent in from [place] for overall pt decline with AMS, FTT, lethargy and was noted to be hypoxic when EMS arrived. Pt also in AFIB RVR. Pt being admitted with the following medical problems: transition to comfort care: spoke to son in details, he understands that pt's prognosis is guarded, filled out MOLST for dnr/dni, refer to discussion above. 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 Acute hypoxic respiratory failure with possible sepsis (tachy from AFIB, no fever, no leukocytosis, LA normal, noted hypoxia no hypotension) PNA likely source O2 for comfort. dc abx Encephalopathy, FTT Ammonia [address] scan, LFTs normal, ALK phos elevated HEAD CT negative for any acute findings PNA, aspiration suspected dc Abx KIM on CKD Arora for comfort BNP [id number], last echo 02/08 Sev B atrial enlargement, EF 50-55% received IV lasix for volume overload. AFIB RVR Metoprolol IV for rate control was ordered. 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
[2025-02-28 12:55] LABS: Hematocrit 29.3 % (42.0-52.0); Hemoglobin 9.0 g/dl (14.0-18.0); Mean Corpuscular HGB Conc 30.7 g/dl (31.0-36.0); Mean Corpuscular Hemoglobin 33.7 pg (27.0-33.0); Mean Corpuscular Volume 109.7 fL (80.0-98.0); NRBC Abs Auto 0.110 X10*3/uL (0.0-0.012); Platelet Count 128 X10*3/uL (160-400); Red Blood Count 2.67 X10*6/uL (4.60-5.80); White Blood Count 8.7 X10*3/uL (4.8-10.8)
[2025-02-28 12:56] LABS: NRBC Pct Auto 1.3 /100WBC (0.0-0.2)
[2025-02-28 13:10] LABS: Alanine Aminotransferase 10 U/L (0-40); Albumin Level 2.2 g/dL (3.5-5.0); Alkaline Phosphatase 85 U/L (39-117); Anion Gap 14 (12-20); Aspartate Amino Transferase 27 U/L (5-37); Blood Urea Nitrogen 125 mg/dL (9-16); Calcium 8.2 mg/dL (8.4-10.2); Carbon Dioxide 26 mmol/L (22-29); Chloride 121 mmol/L (96-108); Creatinine Clr Calc Pharmacy 38.6; Estimated Glomerular Filt Rate 38; Potassium 4.2 mmol/L (3.3-5.1); Sodium 157 mmol/L (135-145); Total Protein 7.0 g/dL (6.5-8.0)
[2025-02-28] MEDS: 0.9 % Sodium Chloride Flush 3 ML SYRINGE IVFLUSH (14:22)
[2025-02-28] MEDS: Morphine Sulfate/NS 100 MG/100 ML PLAST..BAG IVCONT (16:45)
[2025-03-01 04:00] VITALS: RESP 10
--- NOTE | 2025-03-01 09:11 | PC.NURSE ---
MS wasted with Elena BLISS
--- NOTE | 2025-03-01 18:03 | P.DN_ITS ---
Discharge Sum: Prov Provider Primary care physician: Renetta Buck CNP Consults: 02/26/25 19:42 Consult to Wound Care Routine Reason for consultation: B toe ulcers 02/26/25 20:02 Consult to Hematology / Oncology Routine Consulting Provider: [facility] Oncology/Hematology Reason for consultation: readmitted with lethargy, FTT 02/26/25 20:22 Consult to Case Management Routine Comment: supect decline, family mtg may be needed 02/27/25 14:50 Consult to Cardiology Routine Consulting Provider: [facility] Reason for consultation: Afib with rvr 02/27/25 15:00 Consult to Hospice Routine Comment: 02/28/25 01:01 Consult to Gastroenterology Stat Consulting Provider: [facility] [facility] Reason for consultation: Black stools,anemia,KIM Has provider been notified: No 02/28/25 11:38 Consult to Case Management Routine Comment: 03/01/25 09:27 Consult to [facility] ([facility]) Routine Consulting Provider: [facility] Discharge Sum: Diag Contributing Factors (1) Comfort measures only status: (2) Atrial fibrillation with RVR: (3) Hyperlipidemia: (4) CKD (chronic kidney disease): (5) KIM (acute kidney injury): (6) BPH (benign prostatic hyperplasia): (7) Wound of foot: (8) Anemia: (9) Encephalopathy, metabolic: (10) Polyneuropathy: (11) Aspiration pneumonia: (12) GIB (gastrointestinal bleeding): (13) Hypernatremia: Discharge Sum: Summary Date and Time Date of admission: 02/26/25 19:33 Date of : 03/01/25 Time of : 07:50 Summary Details: 59-year-old male with past medical history significant for diabetes, polyneuropathy, PVD/CVA with bilateral femoral endarterectomy, osteoporosis, ITP, HTN, oa, chronic decubitus ulcer, B12 ulcers, BPH, ambulatory dysfunction, anemia of chronic disease, CKD stage IIIB, MGUS, chronic AFib fibrillation, who initially was brought in from [facility] due to decline with encephalopathy, adult failure to thrive. Found to be hypoxic, subsequently developing AFib with a RVR. With imaging suggestive of pneumonia. 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 Patient comfortably at 07:50 a.m. family notified. Additional Data Attending physician: Misael Arenas MD
--- NOTE | 2025-03-15 12:59 | P.CDIM_ITS ---
PROVIDER RESPONSE TEXT: To clarify, the appropriate diagnosis supported by the clinical indicators: Sepsis is/was present QUERY TEXT: PHYSICIAN'S DOCUMENTATION REQUEST Date of Query: 03/15/2025 12:31 PM EDT Patient Name: Rober Daniels Admit Date: 02/26/2025 Dear Misael Arenas MD, RETROSPECTIVE QUERY A review of the medical record indicates additional documentation may be needed. Please review below and update the documentation accordingly. Continuation of a principal diagnosis within the medical record: H&P and Progress notes 02/26 - 02/28/25 - Acute hypoxic respiratory failure with possible Sepsis, PNA likely source. HR 109 RR 24 no temp, lethargic, altered mental status. IVF and antibiotics, O2 for comfort. note 02/28/2025 - [employer], aspiration pneumonia, KIM, encephalopathy. Sepsis Systemic manifestations of infection, with 2 or more SIRS criteria which include: Fever > 100.4?F or hypothermia < 96.8?F Leukocytosis - WBC > 12,000 or leukopenia, WBC < 4,000, or > 10% bands Tachycardia- > 90 beats/minute Tachypnea- RR > 20 breaths/minute or PaCO2 < 32mmHg Based on the above information and the recognized standard for sepsis, could you please clarify if this diagnoses is still accurate and reflective of the patient's condition to ensure quality of the medical record: Sepsis is/was present After study Sepsis has been ruled out Other (explain) Clinically unable to determine (explain) Thank you, Ileana Jenkins, CCS, CDIS Use of terms such as suspected, likely, concern for, or probable (associated with a specific diagnosis that is being evaluated, monitored, or treated as if it exists) are acceptable and can be coded in the inpatient setting, when documented at the time of discharge. Please use your independent medical judgment in providing your response. THIS QUERY IS PART OF THE PERMANENT MEDICAL RECORD
== END 2025-03-01 15:12 | disposition expired | DRG 871 ==
LOC: HO.ED 18:09 → HO.EDOVER 20:01 → HO.IMC 23:17 → HO.S3 02-28 11:27
PROVIDERS: Hospitalist; Internal Medicine; Internal Medicine Critical Care Medicine; Admitting Provider Nurse Practitioner Family; Emergency Provider Emergency Medicine; PCP Nurse Practitioner Primary Care; Visit Provider Student in an Organized Health Care Education/Training Program
DX: A41.9 Sepsis, unspecified organism (principal); G93.41 Metabolic encephalopathy; L89.323 Pressure ulcer of left buttock, stage 3; L89.313 Pressure ulcer of right buttock, stage 3; J69.0 Pneumonitis due to inhalation of food and vomit; J96.01 Acute respiratory failure with hypoxia; N17.9 Acute kidney failure, unspecified; C90.00 Multiple myeloma not having achieved remission; I48.19 Other persistent atrial fibrillation; J91.8 Pleural effusion in other conditions classified elsewhere; E87.0 Hyperosmolality and hypernatremia; K92.2 Gastrointestinal hemorrhage, unspecified; E11.42 Type 2 diabetes mellitus with diabetic polyneuropathy; N18.32 Chronic kidney disease, stage 3b; I12.9 Hypertensive chronic kidney disease with stage 1 through stage 4 chronic kidney disease, or unspecified chronic kidney disease; K74.60 Unspecified cirrhosis of liver; Z66 Do not resuscitate; Z51.5 Encounter for palliative care; I13.10 Hypertensive heart and chronic kidney disease without heart failure, with stage 1 through stage 4 chronic kidney disease, or unspecified chronic kidney disease; R62.7 Adult failure to thrive; Z68.28 Body mass index [BMI] 28.0-28.9, adult; E78.5 Hyperlipidemia, unspecified; E11.51 Type 2 diabetes mellitus with diabetic peripheral angiopathy without gangrene; D50.9 Iron deficiency anemia, unspecified; L89.156 Pressure-induced deep tissue damage of sacral region; D47.2 Monoclonal gammopathy; Z79.4 Long term (current) use of insulin; Z79.01 Long term (current) use of anticoagulants; Z79.899 Other long term (current) drug therapy
CPT/HCPCS: 36415; 70450; 71046; 71250; 74176; 80053; 81001; 82140; 82803; 82947; 83605; 83735; 83880; 84484; 85025; 85027; 85379; 85610; 86850; 86900; 86901; 86923; 87040; 87502; 87635; 92610; 93005; 99285; J0616; J0696; J1160; J1271; J1938; J2270; J2470; J7120; P9016

== ENCOUNTER → 2025-02-26 11:04 | Outpatient (BNV) | payer OTHER, SELFPAY | PROVIDERS: Emergency Provider Emergency Medicine; Visit Provider Radiology Diagnostic Radiology | DX: D35.02 Benign neoplasm of left adrenal gland (principal); J98.11 Atelectasis; R41.82 Altered mental status, unspecified; R09.02 Hypoxemia | CPT/HCPCS: 70450; 71046; 71250; 74176 ==

== ENCOUNTER 2025-02-26 19:33 | Outpatient (BNV) | payer OTHER, SELFPAY | END 2025-02-27 11:30 | PROVIDERS: Admitting Provider Nurse Practitioner Family; Emergency Provider Emergency Medicine; Visit Provider Internal Medicine Cardiovascular Disease | DX: I48.91 Unspecified atrial fibrillation (principal) | CPT/HCPCS: 93010 ==

== ENCOUNTER → 2025-02-26 19:33 | Outpatient (BNV) | payer OTHER, SELFPAY | PROVIDERS: Admitting Provider Nurse Practitioner Family; Emergency Provider Emergency Medicine; Visit Provider Internal Medicine Cardiovascular Disease | DX: I48.91 Unspecified atrial fibrillation (principal) | CPT/HCPCS: 93010; 99222 ==

== ENCOUNTER → 2025-02-26 19:33 | Outpatient (BNV) | payer OTHER, SELFPAY | PROVIDERS: Admitting Provider Nurse Practitioner Family; Emergency Provider Emergency Medicine; Visit Provider Internal Medicine | DX: D47.2 Monoclonal gammopathy (principal) | CPT/HCPCS: 99222 ==

== ENCOUNTER → 2025-02-26 19:33 | Outpatient (BNV) | payer OTHER, SELFPAY | PROVIDERS: Admitting Provider Nurse Practitioner Family; Emergency Provider Emergency Medicine; Visit Provider Internal Medicine Critical Care Medicine | DX: I48.91 Unspecified atrial fibrillation (principal); N18.9 Chronic kidney disease, unspecified; D64.9 Anemia, unspecified | CPT/HCPCS: 99232 ==

== ENCOUNTER → 2025-02-26 19:33 | Outpatient (BNV) | payer OTHER, SELFPAY | PROVIDERS: Admitting Provider Nurse Practitioner Family; Emergency Provider Emergency Medicine; Visit Provider Nurse Practitioner Family | DX: Z51.5 Encounter for palliative care (principal); I48.91 Unspecified atrial fibrillation; E78.5 Hyperlipidemia, unspecified; N18.9 Chronic kidney disease, unspecified; N17.9 Acute kidney failure, unspecified; N40.0 Benign prostatic hyperplasia without lower urinary tract symptoms; S91.309A Unspecified open wound, unspecified foot, initial encounter; D64.9 Anemia, unspecified; G93.41 Metabolic encephalopathy; G62.9 Polyneuropathy, unspecified; J69.0 Pneumonitis due to inhalation of food and vomit; K92.2 Gastrointestinal hemorrhage, unspecified; E87.0 Hyperosmolality and hypernatremia | CPT/HCPCS: 99223; 99233; 99499 ==